=== PATIENT | female | born 1975 | race Caucasian/White ===

== ENCOUNTER 2017-09-06 17:41 | Emergency (ER) | payer BC ==
--- OUTSIDE RECORDS SUMMARY | 2017-09-06 17:43 | XMS REPORT | Clinical Summary ---
:1975 Author Organization [facility] Address [address] [place] [address] Care Team Providers Name Role Phone Velasquez Chacon Primary Care Provider Allergies Active Allergy Reactions Severity Noted Date Comments Amoxicillin Hives 11/08/2016 Codeine 09/05/2016 hives Propoxyphene Hives 11/08/2016 N-Acetaminophen Hydrocodone 09/05/2016 Hives Other 09/05/2016 All mycins Oxycodone 09/05/2016 Hives Penicillins 09/05/2016 Pt was told she was allergic Oxycodone-Acetaminophen GI Intolerance 11/08/2016 N/V Sulfa (Sulfonamide 09/05/2016 Pt was told when she Antibiotics) was a baby Tramadol 09/05/2016 Itching, nausea Acetaminophen-Codeine Hives 11/08/2016 Vancomycin 09/05/2016 Hives, red man syndrome Current Medications Prescription Sig. Disp. Refills Start Date End Date Status topiramate Take 100 mg by Active (TOPAMAX) 100 MG mouth 2 (two) tablet times a day. For breakthrough headaches eszopiclone Take 1 mg by Active (LUNESTA) 1 MG mouth nightly. tablet Take immediately before bedtime linaclotide Take 290 mcg by Active (LINZESS) 290 mcg mouth daily. Take capsule 20 minutes before each meal SUMAtriptan Take 50 mg by Active (IMITREX) 50 MG mouth once as tablet needed for migraine. May repeat in 2 hours if unresolved. Do not exceed 200 mg in 24 hours. metoprolol tartrate Take 25 mg by Active (LOPRESSOR) 25 mg mouth 2 (two) tablet times a day. potassium 99 mg Take 1 tablet by Active tablet mouth daily. aspirin (ECOTRIN) Take 81 mg by Active 81 MG enteric mouth daily. If coated tablet taken every day "nosebleeds" furosemide (LASIX) Take 10 mg by Active 20 mg tablet mouth as needed (pt takes when she is swollen). omeprazole Take 40 mg by Active (PriLOSEC) 40 MG mouth daily. capsule dextroamphetamine-a Take 20 mg by Active mphetamine mouth daily. (ADDERALL) 20 mg tablet dextroamphetamine-a Take 20 mg by 09/07/19 Discontinued mphetamine mouth 2 (two) 17 (ADDERALL) 20 mg times a day. tablet ondansetron ODT Take 1 tablet (4 5 tablet 0 11/12/2016 12/13/19 (ZOFRAN ODT) 4 MG mg total) by 17 disintegrating mouth every 8 tablet (eight) hours as needed for nausea or vomiting for up to 30 days. ibuprofen Take 1 tablet 30 tablet 0 11/12/2016 12/13/19 (ADVIL,MOTRIN) 800 (800 mg total) by 17 MG tablet mouth every 6 (six) hours as needed for mild pain for up to 30 days. levoFLOXacin Take 1 tablet 7 tablet 0 11/12/2016 11/20/19 (LEVAQUIN) 500 MG (500 mg total) by 17 tablet mouth daily for 7 days. metroNIDAZOLE Take 1 tablet 21 tablet 0 11/12/2016 11/20/19 (FLAGYL) 500 MG (500 mg total) by 17 tablet mouth 3 (three) times a day for 7 days. 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/12/2016 Chest pain at rest 09/05/2016 Encounters Date Type Specialty Care Team Description 11/12/2016 Hospital Encounter Orthopedic Surgery Chris Us Abscess of jaw 11/12/2016 Procedure Pass Orthopedic Surgery 11/12/2016 Surgery Orthopedic Surgery Chris Us, Excision of bone sequestration, biopsy of bone and mucosa mandible 11/08/2016 Anesthesia Event Orthopedic Surgery Matthew West, DERRICK 09/05/2016 - Emergency General Internal Lamar Rubi, Chest pain at rest 09/06/2016 Medicine MD (Primary Dx) Mikki Chavez, Ro Awan MD after 09/05/2016 Social History Tobacco Use Types Packs/Day Years Used Date Never Smoker Smokeless Tobacco: Never Used Alcohol Use Drinks/Week oz/Week Comments Yes Social - one drink/month Sex Assigned at Date Recorded Not on file Last Filed Vital Signs Vital Sign Reading Time Taken Blood Pressure 113/58 11/12/2016 2:19 PM CDT Pulse 91 11/12/2016 2:19 PM CDT Temperature 35.3 C (95.6 F) 11/12/2016 2:19 PM CDT Respiratory Rate 15 11/12/2016 2:19 PM CDT Oxygen Saturation 99% 11/12/2016 2:19 PM CDT Inhaled Oxygen Concentration - - Weight 70.1 kg (154 lb 8 oz) 11/12/2016 8:17 AM CDT Height 170.2 cm (5' 7") 11/12/2016 8:17 AM CDT Body Mass Index 24.2 11/12/2016 8:17 AM CDT Plan of Treatment Health Maintenance Due Date Last Done Comments PAP SMEAR 1994 INFLUENZA VACCINE 12/28/2017 Procedures Procedure Name Priority Date/Time Associated Diagnosis Comments OK AN ELECTIVE Routine 11/12/2016 10:27 AM ENDOTRACHEAL AIRWAY CDT Procedure Note - Desmond Jones, EXHAUSTER - 11/12/2016 10:26 AM CDT Airway Date/Time: 11/12/2016 10:26 AM Performed by: DESMOND JONES Authorized by: [facility] LEIV[facility] Location: OR Urgency: Elective Difficult Airway: No Preoxygenated with 100% O2: Yes C-spine Precautions Maintained Throughout: Yes Mask Ventilation: Easy mask Final Airway Type: Endotracheal airway Final Endotracheal Airway: ETT Cuffed: Yes Technique Used: Direct laryngoscopy Insertion Site: Oral Blade Type: Armstrong Laryngoscope Blade/Videolaryngoscope Blade Size: 2 ETT Size (mm): 7.0 Cuff at minimum occlusion pressure: Yes Measured from: Lips ETT to Lips (cm): 22 Placement Verified by: CO2 detection, direct visualization and equal breath sounds Laryngoscopic view: Grade I - full view of glottis Rapid Sequence Induction (RSI): No Modified RSI: No Number of Attempts at Approach: 1 Excision of bone 11/12/2016 9:45 AM Abscess of jaw sequestration, biopsy of CDT bone and mucosa mandible ECHOCARDIOGRAM 2D Routine 09/06/2016 9:34 AM Results for this COMPLETE W MMODE CDT procedure are in SPECTRAL COLOR DOPPLER the results (60321) section. after 09/05/2016 Results Surgical pathology request (11/12/2016 12:17 PM) Component Value Ref Range Surgical pathology report See link below for PDF Lab Report Specimen Performing Laboratory [facility] DEPARTMENT OF PATHOLOGY AND [address] [address] AFB culture (11/12/2016 10:29 AM) Component Value Ref Range AFB culture isolate No growth after 6 weeks of incubation. Comment: Specimen Information Specimen Source: Bone Specimen Site: [place], RTA Specimen Performing Laboratory Bone Mandible [facility] DEPARTMENT OF PATHOLOGY AND [address] [address] Aerobic culture (11/12/2016 10:29 AM) Component Value Ref Range Aerobic culture isolate Streptococcus mitis group Recovered in Broth only: susceptibility to follow The performance characteristics of this assay on this isolate were validated by the Microbiology Laboratory at [facility].This source has not been approved by the U.S. Food and Drug Administration.The results are not intended to be used as the sole means for clinical diagnosis or patient management.The Microbiology Laboratory is authorized under the clinical Laboratory Improvement Amendments of 1988 (CLIA-88) to perform high complexity testing. (A) Comment: Specimen Information Specimen Source: Bone Specimen Site: [place], RTA Specimen Performing Laboratory [facility] DEPARTMENT OF PATHOLOGY AND [address] [address] Organism Antibiotic Method Susceptibility Streptococcus mitis group Clindamycin NICKI >2 mcg/mL: Resistant Streptococcus mitis group Ceftriaxone NICKI <=0.0625 mcg/mL: Susceptible Streptococcus mitis group Cefotaxime NICKI <=0.0625 mcg/mL: Susceptible Streptococcus mitis group Penicillin G NICKI <=0.58465 mcg/mL: Susceptible Streptococcus mitis group Vancomycin NICKI 0.5 mcg/mL: Susceptible Fungus culture (11/12/2016 10:29 AM) Component Value Ref Range Fungus culture isolate No growth after 4 weeks of incubation. Comment: Specimen Information Specimen Source: Bone Specimen Site: [place], RTA Specimen Performing Laboratory Bone [place] [facility] DEPARTMENT OF PATHOLOGY AND [address] [address] Anaerobic culture (11/12/2016 10:29 AM) Component Value Ref Range Anaerobic culture isolate No anaerobic organisms isolated. Comment: Specimen Information Specimen Source: Bone Specimen Site: [place], RTA Specimen Performing Laboratory Bone [place] [facility] DEPARTMENT OF PATHOLOGY AND GENOMIC MEDICINE [address] [place] [address] Estimated GFR (11/08/2016 4:23 PM)Only the most recent of3 resultswithin the time period is included. Component Value Ref Range GFR Non Af Amer >90 mL/min/1.73 m2 GFR Af Amer >90 mL/min/1.73 m2 Comment: Chronic kidney disease: <60 mL/min/1.73m2 Kidney failure: <15 mL/min/1.73m2 The estimated GFR is calculated from the IDMS-traceable Modification of Diet in Renal Disease Equation. The accuracy of the calculation is poor when the creatinine is normal. Calculated values >90 mL/min/1.73m2 are not reported. This equation has not been validated in children (<18 years), women, the elderly (>70 years), or ethnic groups other than Caucasians and Americans. Specimen Performing Laboratory Plasma specimen [facility] DEPARTMENT OF PATHOLOGY AND GENOMIC MEDICINE [address] [place] [address] Sedimentation rate (11/08/2016 4:23 PM) Component Value Ref Range Sedimentation rate 6 0 - 20 mm/hr Specimen Performing Laboratory Blood [facility] DEPARTMENT OF PATHOLOGY AND GENOMIC MEDICINE [address] [place] [address] CBC hemogram (11/08/2016 4:23 PM) Component Value Ref Range WBC 6.04 4.50 - 11.00 k/uL RBC 4.74 4.20 - 5.50 m/uL HGB 13.8 12.0 - 16.0 g/dL HCT 41.9 37.0 - 47.0 % MCV 88.4 82.0 - 100.0 fL MCH 29.1 27.0 - 34.0 pg MCHC 32.9 31.0 - 37.0 g/dL RDW - SD 48.2 37.0 - 55.0 fL MPV 12.4 8.8 - 13.2 fL Platelet count 164 150 - 400 k/uL Nucleated RBC 0.00 /100 WBC Specimen Performing Laboratory Blood [facility] DEPARTMENT OF PATHOLOGY AND GENOMIC MEDICINE [address] [place] [address] C-reactive protein (11/08/2016 4:23 PM) Component Value Ref Range CRP <0.30 0.00 - 0.50 mg/dL Specimen Performing Laboratory Plasma specimen [facility] [place] [address] hCG qualitative, serum screen (11/08/2016 4:23 PM) Component Value Ref Range hCG qualitative, serum NegativeComment: Sensitivity of HCG test: 25 mIU/mL Specimen Performing Laboratory Blood [facility] [place] [address] Basic metabolic panel (11/08/2016 4:23 PM)Only the most recent of2 resultswithin the time period is included. Component Value Ref Range Sodium 141 135 - 148 mEq/L Potassium 3.6 3.5 - 5.0 mEq/L Chloride 106 98 - 112 mEq/L CO2 19 (L) 24 - 31 mEq/L Anion gap 16 (H) 7 - 15 mEq/L Comment: Starting from August , anion gap calculation no longer incorporates potassium. Please note the change. BUN 12 6 - 20 mg/dL Creatinine 0.6 0.5 - 0.9 mg/dL Glucose 75 65 - 99 mg/dL Calcium 8.9 8.3 - 10.2 mg/dL Specimen Performing Laboratory Plasma specimen [facility] [place] [address] POC glucose (09/06/2016 5:00 PM)Only the most recent of4 resultswithin the time period is included. Component Value Ref Range POC glucose 88 65 - 99 mg/dL Comment: [facility] Notified RN Meter ID: [id number] Subacute Nurse: Tati Mata Specimen Performing Laboratory [facility] [place] [address] Echocardiogram complete w contrast and 3D if needed (09/06/2016 9:34 AM) Specimen Performing Laboratory [facility] [address] [place] [address] Narrative Echocardiography Report [address] [place] [address] Pat.Name:Missy REYNOSO.ID:[id number] .Date: 09/06/2016 Refer.MD:RO DUMONT MD Exam Time: 8:48:00 AMStudy Type:Routine Echo Height:67inWeight:154lb BSA: 1.81 m2 DOBAge:1975,41Y Sex: FEMALEBP:108/56 HR:81 bpm Sonogrphr: Martha Parra, BEJNI, RVT Pat. Stat.:Inpatient Room:[facility] Study Status:Final Echo Event ID:[id number] Order ID:[id number] Reason for Study:Chest pain, Tachycardia History / Clinical:Diabetes, Pneumonia, Asthma Procedures:2D Echo, Colorflow Doppler Race:C SUMMARY: * Normal biventricular chamber size and systolic function * Mild aortic regurgitation * Normal intra-cardiac filling pressures FINDINGS: LV: LV size is normal. LV function is normal. Overall wall motionis normal. Estimated EF is 60-64%. RV: RV size is normal. RV function is normal. RV wall motion is normal. LA: LA size is normal. RA: RA size is normal. AO: Aortic root diameter is normal. ADELE: No pericardial effusion. AV: No structural AV abnormalities noted. Mild aortic regurgitation. MV: No structural MV abnormalities noted. PV: No structural PV abnormalities noted. TV: No structural TV abnormalities noted. A trace of tricuspid regurgitation Child: LV relaxation is impaired. LV filling pressure is normal. Other:Estimated PA systolic pressure is 22 mmHg, assuming a mean RAPof 5 mmHg. MEASUREMENTS: 2D Parasternal [place] LVOT 2 cmLVPWd0.9 cm LVIDd4.3 cmIndex 2.4 cm/m LA Ds3.1 cm LVIDs2.8 cmAo An2.2 cm LV%fs 34.7 % Ao Rtd 3.2 cm Index1.8 cm/m IVSd 1 cm LA Sng Plane LA Area 15.4 cm2(8.8-23.4) LA Vol38.5 ml Index21.3 ml/m LA LngAx 5 cm DOPPLER LVOT Stroke Vol LVOT 2 cmLVOT CO4.3 l/min LVOT TVI16.8 cmLVOT CI2.4 l/m/m2 LVOT Tm313 uyftAR88 bpm LVOT SV 52.7 ml Signed 09/06/2016 04:22 PM Lou Vaughan M.D. Procedure Note Interface, Radiology Results In - 09/06/2016 4:22 PM CDT Echocardiography Report [address] [place] [address] Pat.Name: BETH REYNOSO Pat.ID: [id number] .Date: 09/06/2016 Refer.MD: RO DUMONT MD Exam Time: 8:48:00 AM Study Type:Routine Echo Height: 67in Weight: 154lb BSA: 1.81 m2 Age: 7 1975,41Y Sex: FEMALE BP: 108/56 HR: 81 bpm Sonogrphr: Martha Parra RDCS, RVT Pat. Stat.:Inpatient Room: [facility] Study Status:Final Echo Event ID:[id number] Order ID: [id number] Reason for Study:Chest pain, Tachycardia History / Clinical:Diabetes, Pneumonia, Asthma Procedures:2D Echo, Colorflow Doppler Race: C SUMMARY: * Normal biventricular chamber size and systolic function * Mild aortic regurgitation * Normal intra-cardiac filling pressures FINDINGS: LV: LV size is normal. LV function is normal. Overall wall motion is normal. Estimated EF is 60-64%. RV: RV size is normal. RV function is normal. RV wall motion is normal. LA: LA size is normal. RA: RA size is normal. AO: Aortic root diameter is normal. ADELE: No pericardial effusion. AV: No structural AV abnormalities noted. Mild aortic regurgitation. MV: No structural MV abnormalities noted. PV: No structural PV abnormalities noted. TV: No structural TV abnormalities noted. A trace of tricuspid regurgitation Child: LV relaxation is impaired. LV filling pressure is normal. Other: Estimated PA systolic pressure is 22 mmHg, assuming a mean RAP of 5 mmHg. MEASUREMENTS: 2D Parasternal [place] LVOT 2 cm LVPWd 0.9 cm LVIDd 4.3 cm Index 2.4 cm/m LA Ds 3.1 cm LVIDs 2.8 cm Ao An 2.2 cm LV%fs 34.7 % Ao Rtd 3.2 cm Index 1.8 cm/m IVSd 1 cm LA Sng Plane LA Area 15.4 cm2 (8.8-23.4) LA Vol 38.5 ml Index 21.3 ml/m LA LngAx 5 cm DOPPLER LVOT Stroke Vol LVOT 2 cm LVOT CO 4.3 l/min LVOT TVI 16.8 cm LVOT CI 2.4 l/m/m2 LVOT Tm 313 msec HR 81 bpm LVOT SV 52.7 ml Signed 09/06/2016 04:22 PM Lou Vaughan M.D. Sodium level, urine, random (09/06/2016 9:10 AM) Component Value Ref Range Sodium, urine, random 78 mEq/L Specimen Performing Laboratory Urine [facility] DEPARTMENT OF PATHOLOGY AND GENOMIC MEDICINE [address] [place] [address] Potassium, urine, random (09/06/2016 9:10 AM) Component Value Ref Range Potassium, urine, random 71.7 mEq/L Specimen Performing Laboratory Urine [facility] DEPARTMENT OF PATHOLOGY AND GENOMIC MEDICINE [address] [place] [address] Creatinine level, urine, random (09/06/2016 9:10 AM) Component Value Ref Range Creatinine, urine, random 102 mg/dL Specimen Performing Laboratory Urine [facility] DEPARTMENT OF PATHOLOGY AND GENOMIC MEDICINE [address] [place] [address] coronary cta (09/06/2016 8:46 AM) Specimen Performing Laboratory [facility] [address] [place] [address] [place] [address] CTA Coronary Arteries Report Pat.Name:Missy REYNOSO.ID:[id number] .Date: 09/06/2016 Refer.MD:MIKKI CHAVEZ DO Exam Time: 8:30:00 AMStudy Type:CTA Coronary Arteries Height:67inWeight:154lb BSA: 1.81 m2 DOBAge:1975,41Y Sex: FEMALEHR: 74 bpm Nuclear Tech:JAQUELINE Hector(N)(CT) CPT - 4: CCTA w Thoracic Aorta (NonCongenital) [id number] Nuclear Event ID:[id number] Order ID:[id number] Reason for Study:CAD, unspecified* Procedures:CTA Coronary Arteries Race:C SUMMARY: Technique: IV contrast was administered and sequential 0.[address] cuts were obtained through the chest using [facility] CT scanner. Post-processing and 3D reconstruction were done using the XMPie workstation. Interactive image viewing and volumetric display and analysis were also performed. CTA RESULTS Left Main: A normal sized2.9 mm artery which arises normally from the left sinus of Valsalva and divides into the left anterior descending, circumflex, and ramus coronary arteries. No significant atherosclerotic plaque is present. Left anterior descending (LAD): A normal sized 2.5mm artery which wraps around the apex and gives off one diagonal branch. No significant atherosclerotic plaque is present. The first diagonal is a 2.1 mm artery which has no significant atherosclerotic plaque. Left circumflex: A normal sized 2.1 mm non-dominant artery which gives off two major obtuse marginal arteries before terminating in the AV groove. No significant atherosclerotic plaque is present. The first obtuse marginal is a 1.4 mm artery which has no significant atherosclerotic plaque. The second obtuse marginal is a 1.7 mm artery which has no significant atherosclerotic plaque. Right coronary artery: A normal sized 3.1 mm dominant artery which arises normally from the right sinus of Valsalva and gives off several right ventricular branches and the posterior descending artery.No significant atherosclerotic plaque is present. The posterior descending is a 1.5 mm artery which has no significant atherosclerotic plaque. The posterolateral branch is a 2.0 mm artery which has no significant atherosclerotic plaque. Ramus: A 1.9 mm artery which has no significant atherosclerotic plaque. Stents: None. Bypass Grafts: None. Pulmonary Arteries: Normal pulmonary artery sizes (23mm) with no proximal thrombus identified. Left Atrial and Pulmonary Vein(PV) Dimensions: Left atrial size (A-P diameter) 3.0 cm. Normal PV anatomy Left superior PV19 mm. Left inferior PV16 mm. Right superior PV15 mm. Right inferior PV14 mm. There is no evidence of the left atrial appendage clot. Left Ventricular Valve Morphology/Function: Aortic valve is tri-leaflet and there is no evidence of stenosis or regurgitation. Mitral valve is normal without significant regurgitation. Thoracic Aortic Dimensions: No aortic aneurysm or dissection is seen. Aortic root: 3.3 cm. Sinotubular junction 2.6 cm. Mid ascending thoracic aorta 3.2 cm. Descending thoracic aorta 2.0 cm. Pericardium: No pericardial effusion or pericardial thickening. Non-Cardiac Findings: Limited views available show no significant abnormalities. CONCLUSION CT coronary angiography shows no significant coronary atherosclerosis or coronary artery stenosis. Normal PV anatomy. There is no evidence of left atrial appendage thrombus. STUDY QUALITY The study quality is good. COMMENTS: None. The above report was based on a dedicated Cardiovascular CTA Protocol and interpreted by a Crematory Attendant.Should a more comprehensive assessment of non-cardiovascular findings be desired, please consult a radiologist.These images are available in the [facility] [employer] PACS system. Signed 09/06/2016 03:49 PM Ke Mireles MD Procedure Note Interface, Radiology Results In - 09/06/2016 3:50 PM CDT Nuclear Cardiology and Cardiac CT [address] [place] [address] CTA Coronary Arteries Report Pat.Name: BETH REYNOSO Pat.ID: [id number] .Date: 09/06/2016 Refer.MD: MIKKI CHAVEZ DO Exam Time: 8:30:00 AM Study Type:CTA Coronary Arteries Height: 67in Weight: 154lb BSA: 1.81 m2 Age: 7 1975,41Y Sex: FEMALE HR: 74 bpm Nuclear Tech:JAQUELINE Hector(N)(CT) CPT - 4: CCTA w Thoracic Aorta (NonCongenital) [id number];[id number] Nuclear Event ID:[id number] Order ID: [id number] Reason for Study:CAD, unspecified* Procedures:CTA Coronary Arteries Race: C SUMMARY: Technique: IV contrast was administered and sequential 0.[address] cuts were obtained through the chest using the Siem[employer] Som[employer] Force CT scanner. Post-processing and 3D reconstruction were done using the XMPie workstation. Interactive image viewing and volumetric display and analysis were also performed. CTA RESULTS Left Main: A normal sized 2.9 mm artery which arises normally from the left sinus of Valsalva and divides into the left anterior descending, circumflex, and ramus coronary arteries. No significant atherosclerotic plaque is present. Left anterior descending (LAD): A normal sized 2.5mm artery which wraps around the apex and gives off one diagonal branch. No significant atherosclerotic plaque is present. The first diagonal is a 2.1 mm artery which has no significant atherosclerotic plaque. Left circumflex: A normal sized 2.1 mm non-dominant artery which gives off two major obtuse marginal arteries before terminating in the AV groove. No significant atherosclerotic plaque is present. The first obtuse marginal is a 1.4 mm artery which has no significant atherosclerotic plaque. The second obtuse marginal is a 1.7 mm artery which has no significant atherosclerotic plaque. Right coronary artery: A normal sized 3.1 mm dominant artery which arises normally from the right sinus of Valsalva and gives off several right ventricular branches and the posterior descending artery. No significant atherosclerotic plaque is present. The posterior descending is a 1.5 mm artery which has no significant atherosclerotic plaque. The posterolateral branch is a 2.0 mm artery which has no significant atherosclerotic plaque. Ramus: A 1.9 mm artery which has no significant atherosclerotic plaque. Stents: None. Bypass Grafts: None. Pulmonary Arteries: Normal pulmonary artery sizes (23mm) with no proximal thrombus identified. Left Atrial and Pulmonary Vein (PV) Dimensions: Left atrial size (A-P diameter) 3.0 cm. Normal PV anatomy Left superior PV19 mm. Left inferior PV16 mm. Right superior PV15 mm. Right inferior PV14 mm. There is no evidence of the left atrial appendage clot. Left Ventricular Valve Morphology/Function: Aortic valve is tri-leaflet and there is no evidence of stenosis or regurgitation. Mitral valve is normal without significant regurgitation. Thoracic Aortic Dimensions: No aortic aneurysm or dissection is seen. Aortic root: 3.3 cm. Sinotubular junction 2.6 cm. Mid ascending thoracic aorta 3.2 cm. Descending thoracic aorta 2.0 cm. Pericardium: No pericardial effusion or pericardial thickening. Non-Cardiac Findings: Limited views available show no significant abnormalities. CONCLUSION CT coronary angiography shows no significant coronary atherosclerosis or coronary artery stenosis. Normal PV anatomy. There is no evidence of left atrial appendage thrombus. STUDY QUALITY The study quality is good. COMMENTS: None. The above report was based on a dedicated Cardiovascular CTA Protocol and interpreted by a Crematory Attendant. Should a more comprehensive assessment of non-cardiovascular findings be desired, please consult a radiologist. These images are available in the [facility] [employer] PACS system. Signed 09/06/2016 03:49 PM Ke Mireles MD CBC with platelet and differential (09/06/2016 5:40 AM)Only the most recent of2 resultswithin the time period is included. Component Value Ref Range WBC 5.54 4.50 - 11.00 k/uL RBC 4.38 4.20 - 5.50 m/uL HGB 12.7 12.0 - 16.0 g/dL HCT 38.4 37.0 - 47.0 % MCV 87.7 82.0 - 100.0 fL MCH 29.0 27.0 - 34.0 pg MCHC 33.1 31.0 - 37.0 g/dL RDW - SD 44.2 37.0 - 55.0 fL MPV 11.9 8.8 - 13.2 fL Platelet count 182 150 - 400 k/uL Nucleated RBC 0.00 /100 WBC Neutrophils 58.8 39.0 - 69.0 % Lymphocytes 31.8 25.0 - 45.0 % Monocytes 6.9 0.0 - 10.0 % Eosinophils 1.1 0.0 - 5.0 % Basophils 0.7 0.0 - 1.0 % Immature granulocytes 0.7Comment: "Immature granulocytes" 0.0 - 1.0 % (promyelocytes, myelocytes, metamyelocytes) Specimen Performing Laboratory Blood [facility] DEPARTMENT OF PATHOLOGY AND [facility] MEDICINE [address] [place] [address] ECG 12 lead (09/06/2016 5:26 AM)Only the most recent of2 resultswithin the time period is included. Component Value Ref Range Ventricular rate 86 Atrial rate 86 OK interval 154 QRSD interval 80 QT interval 382 QTC interval 457 P axis 1 60 QRS axis 1 20 T wave axis 46 EKG impression Normal sinus rhythm-Normal ECG-In automated comparison with ECG of 05-SEP-2016 13:59,-No significant change was found- Specimen Performing Laboratory [facility] [address] [place] [address] Troponin (09/06/2016 4:00 AM)Only the most recent of3 resultswithin the time period is included. Component Value Ref Range Troponin <0.30 0.00 - 0.30 ng/mL Comment: 0.30 - 1.49 ng/mlMay indicate increased risk of acute coronary syndrome. >=1.5 ng/mlConsistent with acute myocardial infarction. The diagnostic value of a single normal or non-diagnostic result is questionable.Serial samples at 2-6 hour intervals are required to rule out acute myocardial injury. Specimen Performing Laboratory Plasma specimen [facility] OF PATHOLOGY AND [address] [address] Thyroid stimulating hormone (09/06/2016 4:00 AM) Component Value Ref Range TSH 0.63 0.27 - 4.20 uIU/mL Specimen Performing Laboratory Plasma specimen [facility] DEPARTMENT OF PATHOLOGY AND [address] [address] T4, free (09/06/2016 4:00 AM) Component Value Ref Range T4, free 1.2 0.9 - 1.7 ng/dL Specimen Performing Laboratory Plasma specimen [facility] DEPART[facility] PATHOLOGY [address] [address] Magnesium level (09/06/2016 4:00 AM) Component Value Ref Range Magnesium 2.2 1.6 - 2.6 mg/dL Specimen Performing Laboratory Plasma specimen [facility] DEPART[facility] PATHOLOGY [address] [address] hCG qualitative, urine screen (09/05/2016 10:38 PM) Component Value Ref Range hCG qualitative, urine NegativeComment: Sensitivity of HCG test: 25 mIU/mL Specimen Performing Laboratory Urine [facility] PATHOLOGY [address] [address] Hemoglobin A1c (09/05/2016 9:19 PM) Component Value Ref Range Hemoglobin A1C 5.0 4.0 - 5.6 % Comment: HbA1c cutoffs for diagnosing diabetes: 4.0% - 5.6%=normal 5.7% - 6.4%=increased risk for diabetes (prediabetes) >=6.5%=diabetes Goals for glycemic control (ADA 2016) < 7.0%Target for non adults with diabetes. More or less stringent targets may be appropriate for individual patients. <7.5% Target for Children and adolescents with type 1 diabetes. Specimen Performing Laboratory Blood [facility] PATHOLOGY [facility] MEDICINE [address] [place] [address] Lipid panel (09/05/2016 9:19 PM) Component Value Ref Range Cholesterol 140 <200 mg/dL Triglycerides 79 <150 mg/dL HDL cholesterol 37 (L) >40 mg/dL LDL cholesterol 90Comment: Result obtained by direct LDL <100 mg/dL measurement Lipid panel interpretation SeeBelow Comment: Total Cholesterol (mg/dL) <200 Desirable [id number]-sokj >=240High Triglycerides (mg/dL) <150 Normal [id number]-sdid 200-499High >=500Very high HDL Cholesterol (mg/dL) <40Low (male) <40Low (female) LDL Cholesterol (mg/dL) <100 Optimal 100-129Near or above optimal [id number]-ozep 160-189High >=190Very high Risk Catergories that modify LDL goals. Risk CatergoriesLDL goal (mg/dL) CHD and CHD risk equivalent<100 (10-year risk >20%) Multiple (2+) risk factors <130 (10-year risk=<20%) 0-1 risk factors <160 (<10-year risk) Defining levels of lipids in metabolic syndrome Triglycerides>=150 mg/dL HDL Cholesterol Men<40 mg/dL Women<40 mg/dL Non-HDL cholesterol is a second target for therapy in persons with high triglycerides (>=200 mg/dL) Specimen Performing Laboratory Plasma specimen [facility] DEPARTMENT OF PATHOLOGY AND GENOMIC MEDICINE [address] [place] [address] ECG ED Preliminary Interpretation - NOT AN ORDER (09/05/2016 5:52 PM) Ale Rubi MD 09/05/20165:52 PM ECG ED Preliminary Interpretation - Not an Order Performed by: LAMAR RUBI Authorized by: LAMAR RUBI ECG reviewed by ED Physician in the absence of a motor vehicle clerk: yes Previous ECG: Previous ECG:Unavailable Interpretation: Interpretation: abnormal Rate: ECG rate:102 ECG rate assessment: tachycardic Rhythm: Rhythm: sinus tachycardia QRS: QRS axis:Normal ST segments: ST segments:Normal T waves: T waves: normal Partial thromboplastin time, activated (09/05/2016 3:34 PM) Component Value Ref Range PTT 31.4 23.0 - 36.0 sec Comment: PTT therapeutic range for unfractionated heparin is 61.0-112.0 seconds which corresponds to Anti-Xa 0.3-0.7 U/ml. Specimen Performing Laboratory Blood [facility] DEPARTMENT OF PATHOLOGY AND GENOMIC MEDICINE [address] [place] [address] Prothrombin time with INR (09/05/2016 3:34 PM) Component Value Ref Range Prothrombin time 13.6 12.0 - 15.0 sec INR 1.0 Comment: The International Normalized Ratio (INR) is a therapeutic monitoring tool for patients who are stable on oral anticoagulant therapy. An INR of 2.0-3.0 is suggested for deep vein thrombosis/pulmonary embolism. Specimen Performing Laboratory Blood [facility] DEPARTMENT OF PATHOLOGY AND [address] [address] B natriuretic peptide (09/05/2016 3:34 PM) Component Value Ref Range BNP 6 0 - 100 pg/mL Specimen Performing Laboratory Blood [facility] OF PATHOLOGY AND [address] [address] Lipase level (09/05/2016 3:34 PM) Component Value Ref Range Lipase 31 13 - 60 U/L Specimen Performing Laboratory Plasma specimen [facility] PATHOLOGY AND [address] [address] Comprehensive metabolic panel (09/05/2016 3:34 PM) Component Value Ref Range Sodium 143 135 - 148 mEq/L Potassium 3.3 (L) 3.5 - 5.0 mEq/L Chloride 107 98 - 112 mEq/L CO2 22 (L) 24 - 31 mEq/L Anion gap 14 7 - 15 mEq/L Comment: Starting from August , anion gap calculation no longer incorporates potassium. Please note the change. BUN 8 6 - 20 mg/dL Creatinine 0.6 0.5 - 0.9 mg/dL Glucose 84 65 - 99 mg/dL Calcium 8.9 8.3 - 10.2 mg/dL Protein 7.0 6.3 - 8.3 g/dL Comment: 4.6-7.0 g/dL 1 week 4.4-7.6 g/dL 7 months-1year5.1-7.3 g/dL 1-2 years5.6-7.5 g/dL >3 years6.0-8.0 g/dL 18-150 6.3-8.3 g/dL Albumin 3.9 3.5 - 5.0 g/dL A/G ratio 1.3 0.7 - 3.8 Alkaline phosphatase 56 35 - 104 U/L AST 18 10 - 35 U/L ALT 18 5 - 50 U/L Total bilirubin 0.3 0.0 - 1.2 mg/dL Specimen Performing Laboratory Plasma specimen [facility] DEPARTMENT OF PATHOLOGY AND [address] [address] XR Chest 2 Vw (09/05/2016 3:22 PM) Specimen Performing Laboratory [facility] [address] [place] [address] Narrative EXAMINATION:XR CHEST 2 VW CLINICAL HISTORY:Chest Pain COMPARISON:There are no prior comparable exams.. Findings: The cardiomediastinal silhouette is normal in size and contour. The lungs are clear bilaterally. No pleural effusion or pneumothorax. Prior cholecystectomy.. IMPRESSION: No evidence for acute cardiopulmonary disease. [id number] Procedure Note Interface, Radiology Results Incoming - 09/05/2016 3:28 PM CDT EXAMINATION: XR CHEST 2 VW CLINICAL HISTORY: Chest Pain COMPARISON: There are no prior comparable exams.. Findings: The cardiomediastinal silhouette is normal in size and contour. The lungs are clear bilaterally. No pleural effusion or pneumothorax. Prior cholecystectomy.. IMPRESSION: No evidence for acute cardiopulmonary disease. [id number] after 09/05/2016 Insurance Payer Benefit Plan / Group Subscriber ID Type Phone Address [facility] CHOICE/CHOICE + xxxxxxxxx HMO/PPO [phone] [place], [place] [address]
[2017-09-06] MEDS ORDERED: IBUPROFEN 400 MG TAB ONE (18:18)
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
--- NOTE | 2017-09-06 20:18 | RAD REPORT ---
EXAM DESCRIPTION: RAD - Chest Single View - 09/06/2017 8:13 pm CLINICAL HISTORY: Chest pain. COMPARISON: 02/07/2017 FINDINGS: Portable technique limits examination quality. The lungs are grossly clear. The heart is normal in size. No displaced fractures. IMPRESSION: No acute intrathoracic process suspected.
== END 2017-09-06 20:38 | disposition home or self-care (01) ==
LOC: ER 17:41
DX: S20.212A Contusion of left front wall of thorax, initial encounter (principal); V49.9XXA Car occupant (driver) (passenger) injured in unspecified traffic accident, initial encounter; E11.9 Type 2 diabetes mellitus without complications; M47.892 Other spondylosis, cervical region; G43.909 Migraine, unspecified, not intractable, without status migrainosus; Z88.6 Allergy status to analgesic agent; Z88.0 Allergy status to penicillin; Z88.2 Allergy status to sulfonamides
CPT/HCPCS: 71045; 72040; 99284

== ENCOUNTER 2018-09-16 12:19 | Emergency (ER) | payer BC ==
--- OUTSIDE RECORDS SUMMARY | 2018-09-16 12:21 | XMS REPORT | Clinical Summary ---
:1975 Author Organization [employer] Address [address] [place] [address] Care Team Providers Name Role Phone Velasquez [...] 11/08/2016 Vancomycin 09/05/2016 Hives, red man syndrome Medications Medication Sig Dispensed Refills Start Date End Date Status topiramate (TOPAMAX) Take 100 mg by mouth 0 Active 100 MG tablet 2 (two) times a day. For breakthrough headaches eszopiclone Take 1 mg by mouth 0 Active (LUNESTA) 1 MG nightly. Take tablet immediately before bedtime linaclotide Take 290 mcg by 0 Active (LINZESS) 290 mcg mouth daily. Take 20 capsule minutes before each meal SUMAtriptan Take 50 mg by mouth 0 Active (IMITREX) 50 MG once as needed for tablet migraine. May repeat in 2 hours if unresolved. Do not exceed 200 mg in 24 hours. metoprolol tartrate Take 25 mg by mouth 0 Active (LOPRESSOR) 25 mg 2 (two) times a day. tablet potassium 99 mg Take 1 tablet by 0 Active tablet mouth daily. aspirin (ECOTRIN) 81 Take 81 mg by mouth 0 Active MG enteric coated daily. If taken tablet every day "nosebleeds" furosemide (LASIX) Take 10 mg by mouth 0 Active 20 mg tablet as needed (pt takes when she is swollen). omeprazole Take 40 mg by mouth 0 Active (PriLOSEC) 40 MG daily. capsule dextroamphetamine-am Take 20 mg by mouth 0 Active phetamine (ADDERALL) daily. 20 mg tablet 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/12/2016 Chest pain at rest 09/05/2016 Social History Tobacco Use Types Packs/Day Years Used Date Never Smoker Smokeless Tobacco: Never Used Alcohol Use Drinks/Week oz/Week Comments Yes Social - one drink/month Sex Assigned at Date Recorded Not on file Job Start Date Occupation Industry Not on file Not on file Not on file Travel History Travel Start Travel End No recent travel history available. Last Filed Vital Signs Not on file Plan of Treatment Health Maintenance Due Date Last Done Comments CERVICAL CANCER SCREENING 1994 INFLUENZA VACCINE 12/28/2018 Results Not on fileafter 09/15/2017 Insurance Payer Benefit Plan / Group Subscriber ID Type Phone Address [facility] CHOICE/CHOICE + xxxxxxxxx HMO/PPO (Home) [place] [address] Advance Directives Patient has advance care planning documents on file. For more information, please contact:[place] [address]
--- OUTSIDE RECORDS SUMMARY | 2018-09-16 12:21 | XMS REPORT ---
:1975 Author Organization eClinicalWorks Care Team Providers Name Role Phone ChaconKarenh Provider Role Unavailable Allergies No Known Allergies Problems Problem Type Condition Code Onset Dates Condition Status Problem Attention deficit disorder F90.9 Active Problem Insomnia G47.00 Active Problem Tachycardia R00.0 Active Problem Migraine G43.909 Active Problem Constipation K59.00 Active Problem History of endometrial ablation Z98.890 Active Problem History of cerebrovascular accident Z86.73 Active Problem Vagina bleeding N93.9 Active Problem Benign essential HTN I10 Active Problem Edema R60.9 Active Problem Allergic rhinitis J30.9 Active Problem Asthma J45.909 Active Medications No Known Medications Results No Known Results Summary Purpose eClinicalWorks Submission
--- OUTSIDE RECORDS SUMMARY | 2018-09-16 12:22 | XMS REPORT ---
:1975 Author Organization eClinicalWorks Care Team Providers Name Role Phone Aline Silva Provider Role Unavailable Allergies No Known Allergies Problems Problem Type Condition Code Onset Dates Condition Status Problem Tachycardia R00.0 Active Problem Edema R60.9 Active Problem Insomnia G47.00 Active Problem Vagina bleeding N93.9 Active Problem History of endometrial ablation Z98.890 Active Problem H/O methicillin resistant Z86.14 Active Staphylococcus aureus Problem Asthma J45.909 Active Problem Benign essential HTN I10 Active Problem History of cerebrovascular accident Z86.73 Active Problem Allergic rhinitis J30.9 Active Problem Migraine G43.909 Active Problem Constipation K59.00 Active Problem Attention deficit disorder F90.9 Active Medications No Known Medications Results No Known Results Summary Purpose eClinicalWorks Submission
--- OUTSIDE RECORDS SUMMARY | 2018-09-16 12:22 | XMS REPORT ---
:1975 Author Organization eClinicalWorks Care Team Providers Name Role Phone Karen Chaconh Provider Role Unavailable Allergies No Known Allergies Problems Problem Type Condition Code Onset Dates Condition Status Problem Attention deficit disorder F90.9 Active Problem Insomnia G47.00 Active Problem Tachycardia R00.0 Active Problem History of endometrial ablation Z98.890 Active Problem History of cerebrovascular accident Z86.73 Active Problem Vagina bleeding N93.9 Active Problem Benign essential HTN I10 Active Problem Edema R60.9 Active Problem Allergic rhinitis J30.9 Active Problem Asthma J45.909 Active Assessment Allergic rhinitis J30.9 Active Assessment Constipation K59.00 Active Assessment Tachycardia R00.0 Active Assessment Insomnia G47.00 Active Assessment Attention deficit disorder F90.9 Active Assessment Migraine G43.909 Active Problem Migraine G43.909 Active Assessment Benign essential HTN I10 Active Problem Constipation K59.00 Active Medications Medication Code Code Instructions Start End Status Dosage System Date Date Topiramate [facility] 13826461930 100 MG Orally Active 1 tablet in Twice a day AM and 2 tabls in PM EpiPen 2-Lam [facility] [address]-85 0.3 MG/0.3ML Active not defined Injection Magnesium [facility] 12355620992 200 MG Orally Active 2 tablets Once a day with a meal Metoprolol [facility] 33179399232 25 MG Orally Inactive 1 tablet Tartrate Twice a day with food Omeprazole [facility] 72168881743 20 MG Orally Active 1 capsule Once a day ProAir HFA [facility] 41853394882 108 (90 Base) Active 2 puffs as MCG/ACT needed Inhalation every 6 hrs Belsomra [facility] 27395493508 15 MG Orally Active 1 tablet at Once a day bedtime as needed Furosemide ND 28011311873 20 MG Active TAKE 1 TABLET BY MOUTH EVERY DAY NEEDED FOR FLUID RETENTION Propranolol ND 46839401952 20 MG Orally Janee Active 1 tablet HCl Twice a day 2017 Linzess [facility] 33942794528 290 MCG Orally Active 1 capsule Once a day Klor-Con/EF [facility] 74853437185 25 MEQ Orally Active 1 tablet Twice a day with meals Aspir-81 [facility] 62417913002 81 MG Orally Active 1 tablet Once a day Adderall [facility] 22835694211 20 MG Orally Active 1 tablet in Twice a day the morning Multi Vitamin [facility] 94438625968 - Orally Once a Active 1 tablet day Sumatriptan [facility] 92431892166 4 MG/0.5ML Active 0.5 ml as Succinate Subcutaneous needed Twice a day Loratadine [facility] 82897092091 10 MG Orally Active 1 tablet Once a day Results No Known Results Summary Purpose eClinicalWorks Submission
--- OUTSIDE RECORDS SUMMARY | 2018-09-16 12:22 | XMS REPORT ---
:1975 Author Organization eClinicalWorks Care Team Providers Name Role Phone Aline Silva Provider Role Unavailable Allergies, Adverse Reactions, Alerts Substance Reaction Event Type penicillin Info Not Available Drug Allergy vancomycin Info Not Available Drug Allergy codeine Info Not Available Drug Allergy Sulfa Info Not Available Drug Allergy Vicodin Info Not Available Drug Allergy Percocet Info Not Available Drug Allergy Hydrochlorothiazide Info Not Available Drug Allergy Bactrim Info Not Available Drug Allergy Acetaminophen Info Not Available Drug Allergy Problems Problem Type Condition Code Onset Dates Condition Status Problem Insomnia G47.00 Active Problem Benign essential HTN I10 Active Problem Edema R60.9 Active Problem H/O methicillin resistant Z86.14 Active Staphylococcus aureus Problem Vagina bleeding N93.9 Active Problem Gluteal abscess L02.31 Active Problem Allergic rhinitis J30.9 Active Problem Asthma J45.909 Active Problem History of endometrial ablation Z98.890 Active Problem History of cerebrovascular accident Z86.73 Active Problem Migraine G43.909 Active Problem Constipation K59.00 Active Problem Attention deficit disorder F90.9 Active Assessment Gluteal abscess L02.31 Active Problem Tachycardia R00.0 Active Medications Medication Code Code Instructions Start End Status Dosage System Date Date EpiPen 2-Lam [facility] [address]-46 0.3 MG/0.3ML Active not defined Injection Klor-Con/EF [facility] 71426788868 25 MEQ Orally Active 1 tablet with Twice a day meals Topiramate [facility] 28392742504 100 MG Orally Active 1 tablet in Twice a day AM and 2 tabls in PM Propranolol ND 52015821317 20 MG Orally Janee Active 1 tablet HCl Twice a day 2017 Sumatriptan [facility] 65865394815 4 MG/0.5ML Active 0.5 ml as Succinate Subcutaneous needed Twice a day Omeprazole ND 44958789089 20 MG Orally Active 1 capsule Once a day Linzess [facility] 97075513376 290 MCG Orally Active 1 capsule Once a day Loratadine [facility] 60523292152 10 MG Orally Active 1 tablet Once a day Furosemide ND 48714616258 20 MG Active TAKE 1 TABLET BY MOUTH EVERY DAY NEEDED FOR FLUID RETENTION Aspir-81 [facility] 36221452231 81 MG Orally Active 1 tablet Once a day Adderall [facility] 95835428959 20 MG Orally Active 1 tablet in Twice a day the morning Belsomra [facility] 51174987880 15 MG Orally Active 1 tablet at Once a day bedtime as needed Magnesium [facility] 30304577487 200 MG Orally Active 2 tablets Once a day with a meal ProAir HFA [facility] 10297344361 108 (90 Base) Active 2 puffs as MCG/ACT needed Inhalation every 6 hrs Multi Vitamin [facility] 98921096464 - Orally Once a Active 1 tablet day Bactroban [facility] 67031432392 2 % Nasally August Active 1 application Nasal Twice a day 2017 Results No Known Results Summary Purpose eClinicalWorks Submission
--- OUTSIDE RECORDS SUMMARY | 2018-09-16 12:22 | XMS REPORT ---
:1975 Author Organization eClinicalWorks Care Team Providers Name Role Phone Velasquez Chacon Provider Role Unavailable Allergies No Known Allergies Problems Problem Type Condition Code Onset Dates Condition Status Problem Insomnia G47.00 Active Problem Benign essential HTN I10 Active Problem Edema R60.9 Active Problem H/O methicillin resistant Z86.14 Active Staphylococcus aureus Assessment Allergic rhinitis J30.9 Active Problem Vagina bleeding N93.9 Active Problem Gluteal abscess L02.31 Active Problem Allergic rhinitis J30.9 Active Problem Asthma J45.909 Active Problem History of endometrial ablation Z98.890 Active Problem History of cerebrovascular accident Z86.73 Active Assessment Benign essential HTN I10 Active Assessment Insomnia G47.00 Active Assessment Constipation K59.00 Active Assessment Migraine G43.909 Active Problem Migraine G43.909 Active Problem Constipation K59.00 Active Assessment Attention deficit disorder F90.9 Active Problem Attention deficit disorder F90.9 Active Problem Tachycardia R00.0 Active Medications Medication Code Code Instructions Start End Status Dosage System Date Date ProAir HFA [facility] 11928151408 108 (90 Base) Active 2 puffs as MCG/ACT needed Inhalation every 6 hrs Propranolol ND 31087668755 20 MG Orally Active 1 tablet HCl Twice a day Sumatriptan ND 88852694435 4 MG/0.5ML Active 0.5 ml as Succinate Subcutaneous needed Twice a day Omeprazole ND 96563208042 20 MG Orally Active 1 capsule Once a day Multi Vitamin ND 21907977456 - Orally Once a Active 1 tablet day Belsomra [facility] 92225662921 15 MG Orally Active 1 tablet at Once a day bedtime as needed Magnesium ND 61823823324 200 MG Orally Active 2 tablets Once a day with a meal Linzess [facility] 21574898573 290 MCG Orally Active 1 capsule Once a day Topiramate ND 52495166023 100 MG Orally Active 1 tablet in Twice a day AM and 2 tabls in PM Loratadine [facility] 31250160728 10 MG Orally Active 1 tablet Once a day Adderall [facility] 05015231798 20 MG Orally Active 1 tablet in Twice a day the morning -81 [facility] 55315323860 81 MG Orally Active 1 tablet Once a day EpiPen 2-Lam [facility] [address]-19 0.3 MG/0.3ML Active not defined Injection Furosemide [facility] 71668640399 20 MG Active TAKE 1 TABLET BY MOUTH EVERY DAY NEEDED FOR FLUID RETENTION Results No Known Results Summary Purpose eClinicalWorks Submission
--- OUTSIDE RECORDS SUMMARY | 2018-09-16 12:22 | XMS REPORT ---
[...] Start End Status Dosage System Date Date Adderall [facility] 04878865770 20 MG Orally Active 1 tablet in Twice a day the morning Loratadine [facility] 18590077751 10 MG Orally Active 1 tablet Once a day Belsomra [facility] 55099863600 15 MG Orally Active 1 tablet at Once a day bedtime as needed Aspir-81 [facility] 63452333497 81 MG Orally Active 1 tablet Once a day Propranolol ND 11681882529 20 MG Orally August Active 1 tablet HCl Twice a day 2017 Magnesium [facility] 01403768643 200 MG Orally Active 2 tablets Once a day with a meal Clindamycin [facility] 80219945579 300 MG Orally August Active 1 capsule HCl every 8 hrs 2017 Bactroban [facility] 61048386982 2 % Nasally August Active 1 application Nasal Twice a day 26, 10, 2018 2018 Multi Vitamin [facility] 98981277002 - Orally Once a Active 1 tablet day ProAir HFA [facility] 77725730997 108 (90 Base) Active 2 puffs as MCG/ACT needed Inhalation every 6 hrs Topiramate [facility] 53832123300 100 MG Orally Active 1 tablet in Twice a day AM and 2 tabls in PM Sumatriptan [facility] 67905297062 4 MG/0.5ML Active 0.5 ml as Succinate Subcutaneous needed Twice a day Klor-Con/EF [facility] 69703248075 25 MEQ Orally Active 1 tablet with Twice a day meals Furosemide [facility] 46775443656 20 MG Active TAKE 1 TABLET BY MOUTH EVERY DAY NEEDED FOR FLUID RETENTION Omeprazole ND 03882758346 20 MG Orally Active 1 capsule Once a day Linzess [facility] 97125997156 290 MCG Orally Active 1 capsule Once a day EpiPen 2-Lam [facility] [address]-16 0.3 MG/0.3ML Active not defined Injection Results No Known Results Summary Purpose eClinicalWorks Submission
--- OUTSIDE RECORDS SUMMARY | 2018-09-16 12:22 | XMS REPORT ---
:1975 Author Organization eClinicalWorks Care Team Providers Name Role Phone Velasquez Chacon Provider Role Unavailable Allergies, Adverse Reactions, Alerts Substance Reaction Event Type Vicodin Info Not Available Drug Allergy Percocet [...] Start End Status Dosage System Date Date Furosemide [facility] 40370987647 20 MG Active TAKE 1 TABLET BY MOUTH EVERY DAY NEEDED FOR FLUID RETENTION Adderall [facility] 67187696151 20 MG Orally Active 1 tablet in Twice a day the morning Belsomra [facility] 99996638844 15 MG Orally Active 1 tablet at Once a day bedtime as needed EpiPen 2-Lam [facility] [address]-63 0.3 MG/0.3ML Active not defined Injection Aspir-81 [facility] 13931381766 81 MG Orally Active 1 tablet Once a day Multi Vitamin [facility] 40278755753 - Orally Once a Active 1 tablet day Omeprazole ND 14865059355 20 MG Orally Active 1 capsule Once a day Linzess [facility] 39793316416 290 MCG Orally Active 1 capsule Once a day Propranolol [facility] 73130174072 20 MG Orally Active 1 tablet HCl Twice a day Loratadine [facility] 12307906556 10 MG Orally Active 1 tablet Once a day ProAir HFA [facility] 66715265216 108 (90 Base) Active 2 puffs as MCG/ACT needed Inhalation every 6 hrs Sumatriptan [facility] 20887602685 4 MG/0.5ML Active 0.5 ml as Succinate Subcutaneous needed Twice a day Topiramate [facility] 92481680196 100 MG Orally Active 1 tablet in Twice a day AM and 2 tabls in PM Magnesium [facility] 28157457032 200 MG Orally Active 2 tablets Once a day with a meal Results No Known Results Summary Purpose eClinicalWorks Submission
--- OUTSIDE RECORDS SUMMARY | 2018-09-16 12:22 | XMS REPORT ---
[...] Problem Attention deficit disorder F90.9 Active Assessment Encounter for preventative adult Z00.01 Active health care exam with abnormal findings Problem Tachycardia R00.0 Active Medications Medication Code Code Instructions Start End Status Dosage System Date Date ProAir HFA [facility] 40041482621 108 (90 Base) Active 2 puffs as MCG/ACT needed Inhalation every 6 hrs Omeprazole ND 47831902436 20 MG Orally Active 1 capsule Once a day Loratadine [facility] 44183784446 10 MG Orally Active 1 tablet Once a day Multi Vitamin [facility] 65525336080 - Orally Once a Active 1 tablet day Linzess ND 82234565210 290 MCG Orally Active 1 capsule Once a day Belsomra [facility] 75516264963 15 MG Orally Active 1 tablet at Once a day bedtime as needed Adderall [facility] 62651340559 20 MG Orally Active 1 tablet in Twice a day the morning Magnesium ND 93928183243 200 MG Orally Active 2 tablets Once a day with a meal Aspir-81 [facility] 50459941636 81 MG Orally Active 1 tablet Once a day Furosemide ND 03370861246 20 MG Active TAKE 1 TABLET BY MOUTH EVERY DAY NEEDED FOR FLUID RETENTION Topiramate [facility] 16023678769 100 MG Orally Active 1 tablet in Twice a day AM and 2 tabls in PM Sumatriptan [facility] 20098529606 4 MG/0.5ML Active 0.5 ml as Succinate Subcutaneous needed Twice a day EpiPen 2-Lam [facility] [address]-25 0.3 MG/0.3ML Active not defined Injection Klor-Con/EF [facility] 15159736636 25 MEQ Orally Active 1 tablet Twice a day with meals Propranolol [facility] 47758319792 20 MG Orally Active 1 tablet HCl Twice a day Results No Known Results Summary Purpose eClinicalWorks Submission
--- OUTSIDE RECORDS SUMMARY | 2018-09-16 12:22 | XMS REPORT ---
[...] G43.909 Active Problem Constipation K59.00 Active Assessment H/O methicillin resistant Z86.14 Active Staphylococcus aureus Problem Attention deficit disorder F90.9 Active Assessment Abscess of buttock, right L02.31 Active Problem Tachycardia R00.0 Active Medications Medication Code Code Instructions Start End Status Dosage System Date Date Adderall [facility] 62308402374 20 MG Orally Active 1 tablet in Twice a day the morning Propranolol ND 47933360169 20 MG Orally Janee Active 1 tablet HCl Twice a day 2017 Aspir-81 [facility] 32321222803 81 MG Orally Active 1 tablet Once a day Magnesium ND 92271704003 200 MG Orally Active 2 tablets Once a day with a meal Belsomra [facility] 41470323774 15 MG Orally Active 1 tablet at Once a day bedtime as needed Omeprazole ND 36090983376 20 MG Orally Active 1 capsule Once a day Loratadine ND 70768436040 10 MG Orally Active 1 tablet Once a day Furosemide ND 62873433867 20 MG Active TAKE 1 TABLET BY MOUTH EVERY DAY NEEDED FOR FLUID RETENTION Sumatriptan NDC 11287632863 4 MG/0.5ML Active 0.5 ml as Succinate Subcutaneous needed Twice a day Topiramate ND 17957793717 100 MG Orally Active 1 tablet in Twice a day AM and 2 tabls in PM Clindamycin ND 49627330967 300 MG Orally AugustOctober 02, Active 1 capsule HCl every 8 hrs 2017 Bactroban ND 35095073898 2 % Nasally AugustOctober 06, Active 1 application Nasal Twice a day 2017 Klor-Con/EF ND 31698617546 25 MEQ Orally Active 1 tablet with Twice a day meals EpiPen 2-Lam [facility] [address]-78 0.3 MG/0.3ML Active not defined Injection Keflex ND 81978360557 500 MG Orally August Inactive 1 capsule every 8 hrs 2017 Linzess ND 78019085694 290 MCG Orally Active 1 capsule Once a day ProAir HFA [facility] 18035174583 108 (90 Base) Active 2 puffs as MCG/ACT needed Inhalation every 6 hrs Multi Vitamin ND 49731635311 - Orally Once Active 1 tablet a day Bactrim DS ND 91949348804 800-160 MG August Inactive 1 tablet Orally Twice a , 2017 Results No Known Results Summary Purpose eClinicalWorks Submission
--- OUTSIDE RECORDS SUMMARY | 2018-09-16 12:23 | XMS REPORT ---
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 Problem Migraine G43.909 Active Problem Constipation K59.00 Active Assessment Acute pain of left shoulder M25.512 Active Problem Attention deficit disorder F90.9 Active Problem Tachycardia R00.0 Active Medications Medication Code Code Instructions Start End Status Dosage System Date Date ProAir HFA [facility] 28199513530 108 (90 Base) Active 2 puffs as MCG/ACT needed Inhalation every 6 hrs EpiPen 2-Lam [facility] [address]-82 0.3 MG/0.3ML Active not defined Injection Aspir-81 [facility] 16268571111 81 MG Orally Active 1 tablet Once a day Multi Vitamin [facility] 19936102226 - Orally Once a Active 1 tablet day Topiramate [facility] 40532205654 100 MG Orally Active 1 tablet in Twice a day AM and 2 tabls in PM Omeprazole [facility] 20215211439 20 MG Orally Active 1 capsule Once a day Belsomra [facility] 75590829457 15 MG Orally Active 1 tablet at Once a day bedtime as needed Adderall [facility] 20644629988 20 MG Orally Active 1 tablet in Twice a day the morning Linzess [facility] 72690526114 290 MCG Active TAKE ONE CAPSULE BY MOUTH EVERY DAY Furosemide ND 10145855771 20 MG Active TAKE 1 TABLET BY MOUTH EVERY DAY NEEDED FOR FLUID RETENTION Sumatriptan [facility] 77251633171 4 MG/0.5ML Active 0.5 ml as Succinate Subcutaneous needed Twice a day Propranolol ND 78043700643 20 MG Orally Active 1 tablet HCl Twice a day Results No Known Results Summary Purpose eClinicalWorks Submission
--- OUTSIDE RECORDS SUMMARY | 2018-09-16 12:23 | XMS REPORT ---
:1975 Author Organization eClinicalWorks Care Team Providers Name Role Phone Velasquez Chacon Provider Role Unavailable Allergies No Known Allergies Problems Problem Type Condition Code Onset Dates Condition Status Problem Edema R60.9 Active Problem Asthma J45.909 Active Problem Benign essential HTN I10 Active Problem Gluteal abscess L02.31 Active Problem H/O methicillin resistant Z86.14 Active Staphylococcus aureus Problem Cervical radiculopathy M54.12 Active Problem History of cerebrovascular accident Z86.73 Active Problem Allergic rhinitis J30.9 Active Problem Vagina bleeding N93.9 Active Problem History of endometrial ablation Z98.890 Active Assessment Migraine G43.909 Active Problem Constipation K59.00 Active Problem Attention deficit disorder F90.9 Active Problem Tachycardia R00.0 Active Problem Migraine G43.909 Active Problem Insomnia G47.00 Active Medications Medication Code Code Instructions Start End Status Dosage System Date Date Sumatriptan [facility] 36124722891 50 MG Orally Active 1 tablet as Succinate Once a day needed for migraine. May repeat 2 hours later, max 2 tabs per 24 hours EpiPen 2-Lam [facility] [address]-80 0.3 MG/0.3ML Active give 1 dose Injection once by injection after Bee sting with reaction, may repeat dose x1. if problems occur go to Emergency Room. Results No Known Results Summary Purpose eClinicalWorks Submission
--- OUTSIDE RECORDS SUMMARY | 2018-09-16 12:23 | XMS REPORT ---
:1975 Author Organization eClinicalWorks Care Team Providers Name Role Phone Oleg Guy Provider Role Unavailable Allergies No Known Allergies [...] F90.9 Active Problem Tachycardia R00.0 Active Medications No Known Medications Results No Known Results Summary Purpose eClinicalWorks Submission
--- OUTSIDE RECORDS SUMMARY | 2018-09-16 12:23 | XMS REPORT ---
:1975 Author Organization eClinicalWorks Care Team Providers Name Role Phone ChaconKarenh Provider Role Unavailable Allergies, Adverse Reactions, Alerts [...] I10 Active Problem Gluteal abscess L02.31 Active Assessment Migraine G43.909 Active Problem H/O methicillin resistant Z86.14 Active Staphylococcus aureus Assessment Constipation K59.00 Active Assessment Allergic rhinitis J30.9 Active Problem Cervical radiculopathy M54.12 Active Problem History of cerebrovascular accident Z86.73 Active Problem Allergic rhinitis J30.9 Active Problem Vagina bleeding N93.9 Active Problem History of endometrial ablation Z98.890 Active Assessment Insomnia G47.00 Active Assessment Attention deficit disorder F90.9 Active Assessment Cervical radiculopathy M54.12 Active Assessment Benign essential HTN I10 Active Problem Constipation K59.00 Active Problem Attention deficit disorder F90.9 Active Problem Tachycardia R00.0 Active Problem Migraine G43.909 Active Problem Insomnia G47.00 Active Medications Medication Code Code Instructions Start End Status Dosage System Date Date Linzess [facility] 86039801021 290 MCG Orally Active 1 capsule Once a day Sumatriptan [facility] 69455657557 4 MG/0.5ML Active 0.5 ml as Succinate Subcutaneous needed Twice a day Gabapentin ND 65244260890 600 MG Orally Feb 27, Active 1 tablet Once a day 2017 EpiPen 2-Lam [facility] [address]-04 0.3 MG/0.3ML Active not defined Injection Linzess [facility] 90691304905 290 MCG Active TAKE ONE CAPSULE BY MOUTH EVERY DAY Magnesium ND 85815814731 200 MG Orally Active 2 tablets Once a day with a meal Multi Vitamin ND 30667726332 - Orally Once a Active 1 tablet day ProAir HFA [facility] 11194094906 108 (90 Base) Active 2 puffs as MCG/ACT needed Inhalation every 6 hrs Belsomra [facility] 19784658480 15 MG Orally Active 1 tablet at Once a day bedtime as needed Omeprazole [facility] 97999472253 20 MG Orally Active 1 capsule Once a day Furosemide [facility] 49128602982 20 MG Active TAKE 1 TABLET BY MOUTH EVERY DAY NEEDED FOR FLUID RETENTION Propranolol [facility] 15292310277 20 MG Orally Active 1 tablet HCl Twice a day Aspir-81 [facility] 03782356619 81 MG Orally Active 1 tablet Once a day Loratadine [facility] 89801601012 10 MG Orally Active 1 tablet Once a day Topiramate [facility] 64982819487 100 MG Orally Active 1 tablet in Twice a day AM and 2 tabls in PM Adderall [facility] 49820064511 20 MG Orally Active 1 tablet in Twice a day the morning Results No Known Results Summary Purpose eClinicalWorks Submission
--- OUTSIDE RECORDS SUMMARY | 2018-09-16 12:23 | XMS REPORT ---
:1975 Author Organization eClinicalWorks Care Team Providers Name Role Phone Karen Chaconh Provider Role Unavailable Allergies, Adverse Reactions, Alerts Substance Reaction Event Type Vicodin Info Not Available Drug Allergy Percocet Info Not Available Drug Allergy Hydrochlorothiazide Info Not Available Drug Allergy Bactrim Info Not Available Drug Allergy Acetaminophen Info Not Available Drug Allergy Problems Problem Type Condition Code Onset Dates Condition Status Problem History of cerebrovascular accident Z86.73 Active Problem History of endometrial ablation Z98.890 Active Problem Vagina bleeding N93.9 Active Problem Menopausal disorder N95.9 Active Assessment Attention deficit disorder F90.9 Active Problem Herpes zoster without complication B02.9 Active Problem Irregular menses N92.6 Active Problem Gluteal abscess L02.31 Active Problem H/O methicillin resistant Z86.14 Active Staphylococcus aureus Problem Hypokalemia E87.6 Active Problem Cervical radiculopathy M54.12 Active Problem Constipation K59.00 Active Problem Attention deficit disorder F90.9 Active Problem Migraine G43.909 Active Problem Edema R60.9 Active Problem Benign essential HTN I10 Active Problem Tachycardia R00.0 Active Problem Asthma J45.909 Active Problem Insomnia G47.00 Active Problem Allergic rhinitis J30.9 Active Medications Medication Code Code Instructions Start End Status Dosage System Date Date Sumatriptan [facility] 86739029723 4 MG/0.5ML Active 0.5 ml as Succinate Subcutaneous needed Twice a day Linzess [facility] 49552418310 290 MCG Orally Active 1 capsule Once a day Magnesium [facility] 44244308061 200 MG Orally Active 2 tablets Once a day with a meal Duexis [facility] 42544999288 800-26.6 MG Active 1 tablet Orally Three times a day PRN PAIN ProAir HFA [facility] 37143542069 108 (90 Base) Active 2 puffs as MCG/ACT needed Inhalation every 6 hrs Omeprazole ND 49221944302 20 MG Orally Active 1 capsule Once a day Furosemide ND 76268410720 20 MG Active TAKE 1 TABLET BY MOUTH EVERY DAY NEEDED FOR FLUID RETENTION Linzess [facility] 65118340514 290 MCG Active TAKE ONE CAPSULE BY MOUTH EVERY DAY Topiramate [facility] 04628644370 100 MG Orally Active 1 tablet in Twice a day AM and 2 tabls in PM Loratadine [facility] 12598898573 10 MG Orally Active 1 tablet Once a day Propranolol HCl [facility] 99422525227 20 MG Orally Active 1 tablet Twice a day Belsomra [facility] 54009093198 15 MG Orally Active 1 tablet at Once a day bedtime as needed Multi Vitamin [facility] 14154078067 - Orally Once a Active 1 tablet day Aspir-81 [facility] 20505981511 81 MG Orally Active 1 tablet Once a day Adderall [facility] 46679717153 20 MG Orally Jun 22, Active 1 tablet Twice a day 2018 EpiPen 2-Lam [facility] 02618304138 0.3 MG/0.3ML Active give 1 dose Injection once by injection after bee sting with reaction, may repeat dose x1. if problems occur go to emergency room. Results No Known Results Summary Purpose eClinicalWorks Submission
--- OUTSIDE RECORDS SUMMARY | 2018-09-16 12:23 | XMS REPORT ---
:1975 [facility] Team Providers Name Role Phone Oleg [...] Status Dosage System Date Date EpiPen 2-Lam [facility] [address]-54 0.3 MG/0.3ML Active not defined Injection Linzess [facility] 57744796407 290 MCG Orally Active 1 capsule Once a day ProAir HFA [facility] 00493909246 108 (90 Base) Active 2 puffs as MCG/ACT needed Inhalation every 6 hrs Multi Vitamin [facility] 09840758334 - Orally Once a Active 1 tablet day Sumatriptan [facility] 75918497188 4 MG/0.5ML Active 0.5 ml as Succinate Subcutaneous needed Twice a day Belsomra [facility] 88901296011 15 MG Orally Active 1 tablet at Once a day bedtime as needed Omeprazole ND 79879073306 20 MG Orally Active 1 capsule Once a day Adderall [facility] 09692415906 20 MG Orally Active 1 tablet in Twice a day the morning Furosemide [facility] 50825097406 20 MG Active TAKE 1 TABLET BY MOUTH EVERY DAY NEEDED FOR FLUID RETENTION Aspir-81 [facility] 13891087006 81 MG Orally Active 1 tablet Once a day Topiramate [facility] 22092859441 100 MG Orally Active 1 tablet in Twice a day AM and 2 tabls in PM Propranolol [facility] 64513796815 20 MG Orally Active 1 tablet HCl Twice a day Results No Known Results Summary Purpose eClinicalWorks Submission
--- OUTSIDE RECORDS SUMMARY | 2018-09-16 12:23 | XMS REPORT ---
[...] Type Condition Code Onset Dates Condition Status Assessment Allergic rhinitis J30.9 Active Assessment Constipation K59.00 Active Assessment Herpes zoster without complication B02.9 Active Problem Asthma J45.909 Active Assessment Hypokalemia E87.6 Active Problem Allergic rhinitis J30.9 Active Assessment Migraine G43.909 Active Problem History of cerebrovascular accident Z86.73 Active Problem History of endometrial ablation Z98.890 Active Problem Vagina bleeding N93.9 Active Problem Menopausal disorder N95.9 Active Problem Herpes zoster without complication B02.9 Active Assessment Attention deficit disorder F90.9 Active Assessment Insomnia G47.00 Active Problem Irregular menses N92.6 Active Assessment Benign essential HTN I10 Active Problem Gluteal abscess L02.31 Active Problem H/O methicillin resistant Z86.14 Active Staphylococcus aureus Problem Hypokalemia E87.6 Active Problem Cervical radiculopathy M54.12 Active Problem Constipation K59.00 Active Problem Attention deficit disorder F90.9 Active Problem Migraine G43.909 Active Problem Edema R60.9 Active Problem Benign essential HTN I10 Active Problem Tachycardia R00.0 Active Problem Insomnia G47.00 Active Medications Medication Code Code Instructions Start End Status Dosage System Date Date Potassium ND 14458335283 20 MEQ Orally May 19May Active 1 packet Chloride Once a day 2017 with 2018 ProAir HFA ND 95933993112 108 (90 Base) Active 2 puffs as MCG/ACT needed Inhalation every 6 hrs Multi Vitamin ND 59714757110 - Orally Once a Active 1 tablet day Loratadine ND 25647778902 10 MG Orally Active 1 tablet Once a day Linzess ND 63549193915 290 MCG Orally Active 1 capsule Once a day Adderall [facility] 38097445475 20 MG Orally May 19, Active 1 tablet Twice a day 2017 Adderall [facility] 72046064368 20 MG Orally May 19, Inactive 1 tablet in Twice a day 2018 the morning Furosemide [facility] 32671489950 20 MG Active TAKE 1 TABLET BY MOUTH EVERY DAY NEEDED FOR FLUID RETENTION Propranolol HCl [facility] 93011297398 20 MG Orally Active 1 tablet Twice a day Belsomra [facility] 94315585311 15 MG Orally Active 1 tablet at Once a day bedtime as needed Topiramate [facility] 39830966366 100 MG Orally Active 1 tablet in Twice a day AM and 2 tabls in PM Sumatriptan [facility] 85528481018 4 MG/0.5ML Active 0.5 ml as Succinate Subcutaneous needed Twice a day Valacyclovir [facility] 73718367402 1 GM Orally May 19Apr Active 1 tablet HCl Three times a 2017 Duexis [facility] 26182110202 800-26.6 MG Active 1 tablet Orally Three times a day PRN PAIN Linzess [facility] 81766645772 290 MCG Active TAKE ONE CAPSULE BY MOUTH EVERY DAY Magnesium [facility] 07247655179 200 MG Orally Active 2 tablets Once a day with a meal Omeprazole [facility] 43986140023 20 MG Orally Active 1 capsule Once a day Aspir-81 [facility] 70025371594 81 MG Orally Active 1 tablet Once a day EpiPen 2-Lam [facility] 09467721206 0.3 MG/0.3ML Active give 1 dose Injection once by injection after bee sting with reaction, may repeat dose x1. if problems occur go to emergency room. Results No Known Results Summary Purpose eClinicalWorks Submission
--- OUTSIDE RECORDS SUMMARY | 2018-09-16 12:24 | XMS REPORT ---
[...] Active Problem Menopausal disorder N95.9 Active Assessment Pain, joint, shoulder, left M25.512 Active Problem Herpes zoster without complication B02.9 Active Assessment Calcific tendinitis of left M75.32 Active shoulder Assessment Impingement syndrome of left M75.42 Active shoulder Problem Irregular menses N92.6 Active Problem Gluteal abscess L02.31 Active Problem H/O methicillin resistant Z86.14 Active Staphylococcus aureus Problem Hypokalemia E87.6 Active Problem Cervical radiculopathy M54.12 Active Problem Constipation K59.00 Active Problem Attention deficit disorder F90.9 Active Problem Migraine G43.909 Active Problem Edema R60.9 Active Problem Benign essential HTN I10 Active Problem Tachycardia R00.0 Active Problem Asthma J45.909 Active Assessment Subacromial bursitis of left M75.52 Active shoulder joint Problem Insomnia G47.00 Active Problem Allergic rhinitis J30.9 Active Medications Medication Code Code Instructions Start End Status Dosage System Date Date Omeprazole ND 97962872457 20 MG Orally Active 1 capsule Once a day Duexis ND 10384719976 800-26.6 MG Active 1 tablet Orally Three times a day PRN PAIN Linzess ND 44739554713 290 MCG Active TAKE ONE CAPSULE BY MOUTH EVERY DAY EpiPen 2-Lam ND 26255481706 0.3 MG/0.3ML Active give 1 dose Injection once by injection after bee sting with reaction, may repeat dose x1. if problems occur go to emergency room. Sumatriptan [facility] 05146168250 4 MG/0.5ML Active 0.5 ml as Succinate Subcutaneous needed Twice a day ProAir HFA [facility] 73850356396 108 (90 Base) Active 2 puffs as MCG/ACT needed Inhalation every 6 hrs Propranolol HCl [facility] 66761849619 20 MG Orally Active 1 tablet Twice a day Adderall [facility] 57461795078 20 MG Orally March Active 1 tablet Twice a day 2018 Belsomra [facility] 72508216933 20 MG Orally Active 1 tablet at Once a day bedtime as needed Aspir-81 [facility] 08533682308 81 MG Orally Active 1 tablet Once a day Loratadine [facility] 53770646215 10 MG Orally Active 1 tablet Once a day Linzess [facility] 17281211965 290 MCG Orally Active 1 capsule Once a day Topiramate [facility] 40297806231 100 MG Orally Active 1 tablet in Twice a day AM and 2 tabls in PM Magnesium [facility] 02394624020 200 MG Orally Active 2 tablets Once a day with a meal Results No Known Results Summary Purpose eClinicalWorks Submission
--- OUTSIDE RECORDS SUMMARY | 2018-09-16 12:24 | XMS REPORT ---
:1975 Author [facility] Care Team Providers Name Role Phone Oleg [...] Active Problem Menopausal disorder N95.9 Active Assessment Acute pain of left shoulder M25.512 Active Problem Herpes zoster without complication B02.9 Active Assessment Subacromial bursitis of left M75.52 Active shoulder joint Assessment Impingement syndrome, shoulder, M75.42 Active left Problem Irregular menses N92.6 Active Problem Gluteal [...] Status Dosage System Date Date EpiPen 2-Lam [facility] 64539432883 0.3 MG/0.3ML Active give 1 dose Injection once by injection after bee sting with reaction, may repeat dose x1. if problems occur go to emergency room. Linzess [facility] 45930541875 290 MCG Active TAKE ONE CAPSULE BY MOUTH EVERY DAY Magnesium ND 50416310884 200 MG Orally Active 2 tablets Once a day with a meal Propranolol HCl ND 34661074675 20 MG Orally Active 1 tablet Twice a day Omeprazole ND 98149234686 20 MG Orally Active 1 capsule Once a day Aspir-81 [facility] 09414572339 81 MG Orally Active 1 tablet Once a day Topiramate [facility] 01317181779 100 MG Orally Active 1 tablet in Twice a day AM and 2 tabls in PM Sumatriptan [facility] 35932838353 4 MG/0.5ML Active 0.5 ml as Succinate Subcutaneous needed Twice a day Duexis [facility] 07192809477 800-26.6 MG Active 1 tablet Orally Three times a day PRN PAIN Belsomra [facility] 98737651611 15 MG Orally Active 1 tablet at Once a day bedtime as needed Adderall [facility] 95989765706 20 MG Orally Jun 22, Active 1 tablet Twice a day 2018 ProAir HFA [facility] 35382521350 108 (90 Base) Active 2 puffs as MCG/ACT needed Inhalation every 6 hrs Multi Vitamin [facility] 89513117637 - Orally Once a Active 1 tablet day Furosemide [facility] 39253725469 20 MG Active TAKE 1 TABLET BY MOUTH EVERY DAY NEEDED FOR FLUID RETENTION Loratadine [facility] 45353518801 10 MG Orally Active 1 tablet Once a day Results No Known Results Summary Purpose eClinicalWorks Submission
--- OUTSIDE RECORDS SUMMARY | 2018-09-16 12:24 | XMS REPORT ---
[...] Herpes zoster without complication B02.9 Active Assessment Acute cystitis without hematuria N30.00 Active Assessment Dysuria R30.0 Active Problem Irregular menses N92.6 Active Problem [...] Start End Status Dosage System Date Date Propranolol HCl ND 07870660394 20 MG Orally Active 1 tablet Twice a day Magnesium ND 59260217075 200 MG Orally Active 2 tablets Once a day with a meal Omeprazole ND 12144055467 20 MG Orally Active 1 capsule Once a day Adderall ND 00775097613 20 MG Orally Jul 18, Active 1 tablet Twice a day 2018 EpiPen 2-Lam [facility] 73245661782 0.3 MG/0.3ML Active give 1 dose Injection once by injection after bee sting with reaction, may repeat dose x1. if problems occur go to emergency room. Aspir-81 ND 77038189749 81 MG Orally Active 1 tablet Once a day Linzess [facility] 45122457232 290 MCG Active TAKE ONE CAPSULE BY MOUTH EVERY DAY Duexis [facility] 92855526810 800-26.6 MG Active 1 tablet Orally Three times a day PRN PAIN Belsomra [facility] 71169508857 15 MG Orally Active 1 tablet at Once a day bedtime as needed ProAir HFA [facility] 45563411756 108 (90 Base) Active 2 puffs as MCG/ACT needed Inhalation every 6 hrs Multi Vitamin [facility] 99838885558 - Orally Once a Active 1 tablet day Nitrofurantoin [facility] 90587966318 100 MG Orally Jul 18, Jun Active 1 capsule Monohyd Macro every 12 hrs 2018 24, with food 2018 Furosemide [facility] 39248849096 20 MG Active TAKE 1 TABLET BY MOUTH EVERY DAY NEEDED FOR FLUID RETENTION Sumatriptan [facility] 81148871351 4 MG/0.5ML Active 0.5 ml as Succinate Subcutaneous needed Twice a day Topiramate [facility] 85707829211 100 MG Orally Active 1 tablet in Twice a day AM and 2 tabls in PM Loratadine [facility] 42340194538 10 MG Orally Active 1 tablet Once a day Results No Known Results Summary Purpose eClinicalWorks Submission
--- OUTSIDE RECORDS SUMMARY | 2018-09-16 12:24 | XMS REPORT ---
[...] Active Problem Allergic rhinitis J30.9 Active Medications No Known Medications Results No Known Results Summary Purpose [employer] Submission
--- OUTSIDE RECORDS SUMMARY | 2018-09-16 12:24 | XMS REPORT ---
[...] rhinitis J30.9 Active Assessment Constipation K59.00 Active Problem Asthma J45.909 Active Assessment Hypokalemia [...] Start End Status Dosage System Date Date Magnesium ND 81570066449 200 MG Orally Active 2 tablets Once a day with a meal Propranolol HCl ND 51707667053 20 MG Orally Active 1 tablet Twice a day Topiramate ND 78059412715 100 MG Orally Active 1 tablet in Twice a day AM and 2 tabls in PM Linzess ND 37485782002 290 MCG Active TAKE ONE CAPSULE BY MOUTH EVERY DAY Loratadine ND 94257093669 10 MG Orally Active 1 tablet Once a day Duexis ND 25155839002 800-26.6 MG Active 1 tablet Orally Three times a day PRN PAIN ProAir HFA [facility] 62210568488 108 (90 Base) Active 2 puffs as MCG/ACT needed Inhalation every 6 hrs Belsomra [facility] 73714520122 20 MG Orally Active 1 tablet at Once a day bedtime as needed EpiPen 2-Lam [facility] 15111999962 0.3 MG/0.3ML Active give 1 dose Injection once by injection after bee sting with reaction, may repeat dose x1. if problems occur go to emergency room. Aspir-81 [facility] 39837836436 81 MG Orally Active 1 tablet Once a day Linzess [facility] 16698432550 290 MCG Orally Active 1 capsule Once a day Sumatriptan [facility] 56829216561 4 MG/0.5ML Active 0.5 ml as Succinate Subcutaneous needed Twice a day Adderall [facility] 63775802488 20 MG Orally July Active 1 tablet Twice a day 2018 Omeprazole [facility] 96362147624 20 MG Orally Active 1 capsule Once a day Results No Known Results Summary Purpose eClinicalWorks Submission
[2018-09-16] MEDS ORDERED: IBUPROFEN 400 MG TAB ONE (13:01)
[2018-09-16] MEDS ORDERED: FAMOTIDINE 20 MG TAB ONE (13:01)
--- NOTE | 2018-09-16 13:14 | RAD REPORT ---
EXAM DESCRIPTION: RAD - Foot Left 3 View - 09/16/2018 12:54 pm CLINICAL HISTORY: Nontraumatic left foot pain COMPARISON: None. FINDINGS: No fracture, dislocation or periosteal reaction. No acute or destructive bony process. Mo derate-sized plantar spur present. No air or foreign body in the soft tissues. IMPRESSION: Negative left foot examination for acute finding. Moderate-sized plantar spur.
--- NOTE | 2018-09-16 13:49 | ER ---
Nurse's Notes [facility] Name: Beth Reynoso Age: 43 yrs Sex: Female : 1975 Arrival Date: 09/16/2018 Time: 12:21 Bed 12 Private MD: Velasquez Chacon Diagnosis: Pain in left foot Presentation: 09/16 12:29 Presenting complaint: Patient states: "I think there's something wrong with my foot I aj1 don't know what I did to it, but its been hurting for a few days. In High School I had a stress fracture. I could barely walk on it last night" Reports pain to left foot for the past month. Denies injury to left foot. Transition of care: patient was not received from another setting of care. Onset of symptoms was July 2018. Risk Assessment: Do you want to hurt yourself or someone else? Patient reports no desire to harm self or others. Initial Sepsis Screen: Does the patient meet any 2 criteria? No. Patient's initial sepsis screen is negative. Does the patient have a suspected source of infection? No. Patient's initial sepsis screen is negative. Care prior to arrival: None. 12:29 Method Of Arrival: Ambulatory aj1 12:29 Acuity: JADIEL 4 aj1 Triage Assessment: 12:32 General: Appears in no apparent distress. comfortable, Behavior is calm, cooperative, aj1 appropriate for age. Pain: Complains of pain in left foot Pain does not radiate. Pain currently is 2 out of 10 on a pain scale. at worst was 6 out of 10 on a pain scale. Pain began one month ago Is intermittent, Aggravated by repositioning, weight bearing. Neuro: Level of Consciousness is awake, alert, obeys commands, Oriented to person, place, time, situation. Cardiovascular: Patient's skin is warm and dry. Respiratory: Airway is patent Respiratory effort is even, unlabored, Respiratory pattern is regular, symmetrical. Musculoskeletal: Range of motion: intact in all extremities. Injury Description: Patient denies injury to left foot. 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 - Irregular menses aj1 Historical: - Allergies: 12:32 Codeine; aj1 12:32 Darvocet-N 100; aj1 12:32 Lortab; aj1 12:32 PENICILLINS; aj1 12:32 Percocet; aj1 12:32 Sulfa (Sulfonamide Antibiotics); aj1 12:32 Tramadol HCl; aj1 12:32 VANCOMYCIN AND DERIVATIVES; aj1 - Home Meds: 12:32 Adderall XR 20 mg Oral cp24 1 cap twice a day [Active]; aspirin 81 mg Oral chew 1 tab aj1 once daily [Active]; Belsomra 15 mg Oral tab 1 tab [Active]; Lasix 20 mg Oral tab 1 tab as needed [Active]; omeprazole 40 mg Oral cpDR 1 cap once daily [Active]; propranolol 20 mg Oral tab 1 tab every 12 hours [Active]; Slow-Mag 150 mg Oral TbEC twice a day [Active]; topiramate 300 mg Oral tab 1 tab once daily [Active]; - PMHx: 12:32 Asthma; bells palsy; CVA; Diabetes - NIDDM; Hypothyroidism; Kidney stones; Migraines; aj1 - Immunization history:: Flu vaccine is up to date. - Social history:: Smoking status: Patient/guardian denies using tobacco. - Ebola Screening: : Patient denies travel to an Ebola-affected area in the 21 days before illness onset. Screenin:36 Abuse screen: Denies threats or abuse. Denies injuries from another. Nutritional aj1 screening: No deficits noted. Tuberculosis screening: No symptoms or risk factors identified. 12:40 Fall Risk None identified. hb Assessment: 12:36 Reassessment: see triage assessment. aj1 13:30 Reassessment: Patient appears in no apparent distress at this time. Patient and/or hb family updated on plan of care and expected duration. Pain level reassessed. Patient is alert, oriented x 3, equal unlabored respirations, skin warm/dry/pink. Vital Signs: 12:32 BP 114 / 89; Pulse 112; Resp 18; Temp 98.3; Pulse Ox 97% on R/A; Weight 77.11 kg (R); aj1 Height 5 ft. 7 in. (170.18 cm); 12:32 Body Mass Index 26.63 (77.11 kg, 170.18 cm) aj1 ED Course: 12:21 Patient arrived in ED. mr 12:21 Bijan Chacon MD is Private Physician. mr 12:22 Velasquez Chacon DO is Private Physician. mr 12:30 Triage completed. aj1 12:32 Arm band placed on Patient placed in an exam room. aj1 12:34 Eliezer Kumar MD is Attending Physician. kdr 12:36 Francie Elise RN is Primary Nurse. aj1 12:36 Patient has correct armband on for positive identification. aj1 12:36 No provider procedures requiring assistance completed. aj1 12:54 Foot Left 3 View XRAY In Process Unspecified. EDMS 13:48 Velasquez Chacon DO is Referral Physician. kdr 13:59 Patient did not have IV access during this emergency room visit. hb Administered Medications: 12:51 Drug: Ibuprofen 800 mg Route: PO; aj1 13:22 Follow up: Response: No adverse reaction aj1 12:51 Drug: Pepcid 20 mg Route: PO; aj1 13:22 Follow up: Response: No adverse reaction aj1 Outcome: 13:49 Discharge ordered by MD. kdr 13:59 Discharged to home ambulatory, with family. hb 13:59 Condition: stable 13:59 Discharge instructions given to patient, Instructed on discharge instructions, follow up and referral plans. medication usage, Demonstrated understanding of instructions, follow-up care, medications, Prescriptions given X 3. 14:00 Patient left the ED. hb Signatures: Dispatcher [employer] EDMO Francie Elise RN RN aj1 Eliezer Kumar MD MD [facility] Jackelyn Childs Heather, RN RN hb
--- NOTE | 2018-09-16 13:50 | EDPHYS ---
Physician Documentation [facility] Name: Beth Reynoso Age: 43 yrs Sex: Female : 1975 Arrival Date: 09/16/2018 Time: 12:21 Bed 12 Private MD: [facility] ED Physician Eliezer Kumar HPI: 09/16 13:40 This 43 yrs old Female presents to ER via Ambulatory with complaints of Foot kdr Injury. 13:40 The patient presents with pain, that is acute. The complaints affect the left foot. kdr Context: The problem was sustained at home, resulted from an unknown cause, the patient can fully bear weight, the patient is able to ambulate, with mild difficulty. Onset: The symptoms/episode began/occurred gradually, 1 month(s) ago. Modifying factors: The symptoms are alleviated by elevation of extremity, OTC meds, the symptoms are aggravated by weight bearing. Associated signs and symptoms: The patient has no apparent associated signs or symptoms. Severity of symptoms: At their worst the symptoms were mild. The patient has not experienced similar symptoms in the past. The patient has not recently seen a physician. 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 - Irregular menses aj1 Historical: - Allergies: 12:32 Codeine; aj1 12:32 Darvocet-N 100; aj1 12:32 Lortab; aj1 12:32 PENICILLINS; aj1 12:32 Percocet; aj1 12:32 Sulfa (Sulfonamide Antibiotics); aj1 12:32 Tramadol HCl; aj1 12:32 VANCOMYCIN AND DERIVATIVES; aj1 - Home Meds: 12:32 Adderall XR 20 mg Oral cp24 1 cap twice a day [Active]; aspirin 81 mg Oral chew 1 tab aj1 once daily [Active]; Belsomra 15 mg Oral tab 1 tab [Active]; Lasix 20 mg Oral tab 1 tab as needed [Active]; omeprazole 40 mg Oral cpDR 1 cap once daily [Active]; propranolol 20 mg Oral tab 1 tab every 12 hours [Active]; Slow-Mag 150 mg Oral TbEC twice a day [Active]; topiramate 300 mg Oral tab 1 tab once daily [Active]; - PMHx: 12:32 Asthma; bells palsy; CVA; Diabetes - NIDDM; Hypothyroidism; Kidney stones; Migraines; aj1 - Immunization history:: Flu vaccine is up to date. - Social history:: Smoking status: Patient/guardian denies using tobacco. - Ebola Screening: : Patient denies travel to an Ebola-affected area in the 21 days before illness onset. ROS: 13:40 Constitutional: Negative for fever, chills, and weight loss, Eyes: Negative for injury, kdr pain, redness, and discharge, Neck: Negative for injury, pain, and swelling, Cardiovascular: Negative for chest pain, palpitations, and edema, Respiratory: Negative for shortness of breath, cough, wheezing, and pleuritic chest pain, Abdomen/GI: Negative for abdominal pain, nausea, vomiting, diarrhea, and constipation, Back: Negative for injury and pain, Skin: Negative for injury, rash, and discoloration, Neuro: Negative for headache, weakness, numbness, tingling, and seizure activity. Psych: Negative for depression, anxiety, suicide ideation, homicidal ideation, and hallucinations, Allergy/Immunology: Negative for hives, rash, and allergies, Endocrine: Negative for neck swelling, polydipsia, polyuria, polyphagia, and marked weight changes, Hematologic/Lymphatic: Negative for swollen nodes, abnormal bleeding, and unusual bruising. Exam: 13:40 Constitutional: This is a well developed, well nourished patient who is awake, alert, kdr and in no acute distress. 13:40 Musculoskeletal/extremity: Extremities: all appear grossly normal, with no appreciated pain with palpation, noted in the left foot: pain, tenderness. Vital Signs: 12:32 BP 114 / 89; Pulse 112; Resp 18; Temp 98.3; Pulse Ox 97% on R/A; Weight 77.11 kg (R); aj1 Height 5 ft. 7 in. (170.18 cm); 12:32 Body Mass Index 26.63 (77.11 kg, 170.18 cm) aj1 MDM: 13:40 Data reviewed: vital signs, nurses notes, radiologic studies. Counseling: I had a kdr detailed discussion with the patient and/or guardian regarding: the historical points, exam findings, and any diagnostic results supporting the discharge/admit diagnosis, the presence of at least one elevated blood pressure reading (>120/80) during this emergency department visit, radiology results, the need for outpatient follow up. 13:49 Patient medically screened. kdr 04/20 12:42 Order name: Foot Left 3 View XRAY; Complete Time: 13:39 kdr 09/16 13:40 Order name: Abbe Wrap: Left foot; Complete Time: 13:51 kdr Administered Medications: 12:51 Drug: Ibuprofen 800 mg Route: PO; aj1 13:22 Follow up: Response: No adverse reaction aj1 12:51 Drug: Pepcid 20 mg Route: PO; aj1 13:22 Follow up: Response: No adverse reaction aj1 Disposition: 09/16/18 13:49 Discharged to Home. Impression: Pain in left foot. - Condition is Stable. - Discharge Instructions: Musculoskeletal Pain, Foot Pain. - Prescriptions for Ibuprofen 600 mg Oral Tablet - take 1 tablet by ORAL route every 6 hours As needed take with food; 30 tablet. Pepcid 20 mg Oral Tablet - take 1 tablet by ORAL route every 12 hours for 5 days; 10 tablet. Medrol (Lam) 4 mg Oral Tablets, Dose Pack - take 1 tablet by ORAL route as directed - follow package instructions; 1 packet. - Medication Reconciliation Form, Thank You Letter form. - Follow up: Velasquez Chacon DO; When: 2 - 3 days; Reason: If symptoms return, Further diagnostic work-up, Recheck today's complaints, Continuance of care, Re-evaluation by your physician. - Problem is an ongoing problem. - Symptoms have improved. Signatures: Dispatcher [employer] Francie Mathis RN RN aj1 Eliezer Kumar MD MD kdr Nela Garza RN RN hb Corrections: (The following items were deleted from the chart) 14:00 13:49 09/16/2018 13:49 Discharged to Home. Impression: Pain in left foot. Condition is hb Stable. Forms are Medication Reconciliation Form, Thank You Letter, Antibiotic Education, Prescription Opioid Use. Follow up: Velasquez Chacon; When: 2 - 3 days; Reason: If symptoms return, Further diagnostic work-up, Recheck today's complaints, Continuance of care, Re-evaluation by your physician. Problem is an ongoing problem. Symptoms have improved. kdr
== END 2018-09-16 14:00 | disposition home or self-care (01) ==
LOC: ER 12:19
DX: M79.672 Pain in left foot (principal); J45.909 Unspecified asthma, uncomplicated; E11.9 Type 2 diabetes mellitus without complications; E03.9 Hypothyroidism, unspecified; Z86.73 Personal history of transient ischemic attack (TIA), and cerebral infarction without residual deficits; Z79.82 Long term (current) use of aspirin; Z88.1 Allergy status to other antibiotic agents; Z88.5 Allergy status to narcotic agent; Z88.0 Allergy status to penicillin; Z88.2 Allergy status to sulfonamides
CPT/HCPCS: 99283

== ENCOUNTER 2018-12-23 17:08 | Emergency (ER) | payer BC ==
--- OUTSIDE RECORDS SUMMARY | 2018-12-23 17:12 | XMS REPORT ---
[...] End Status Dosage System Date Date Furosemide [facility] 78713052669 20 MG Active TAKE 1 TABLET BY MOUTH EVERY DAY NEEDED FOR FLUID RETENTION Adderall [facility] 71196044799 20 MG Orally Active 1 tablet in Twice a day the morning Belsomra [facility] 99093246742 15 MG Orally Active 1 tablet at Once a day bedtime as needed EpiPen 2-Lam [facility] [address]-67 0.3 MG/0.3ML Active not defined Injection Aspir-81 [facility] 37741645483 81 MG Orally Active 1 tablet Once a day Multi Vitamin [facility] 87780710989 - Orally Once a Active 1 tablet day Omeprazole ND 01310314727 20 MG Orally Active 1 capsule Once a day Linzess [facility] 46864412454 290 MCG Orally Active 1 capsule Once a day Propranolol [facility] 84019554691 20 MG Orally Active 1 tablet HCl Twice a day Loratadine [facility] 35918862287 10 MG Orally Active 1 tablet Once a day ProAir HFA [facility] 34729230087 108 (90 Base) Active 2 puffs as MCG/ACT needed Inhalation every 6 hrs Sumatriptan [facility] 58827925504 4 MG/0.5ML Active 0.5 ml as Succinate Subcutaneous needed Twice a day Topiramate [facility] 88520406767 100 MG Orally Active 1 tablet in Twice a day AM and 2 tabls in PM Magnesium [facility] 92634400643 200 MG Orally Active 2 tablets Once a day with a meal Results No Known Results Summary Purpose eClinicalWorks Submission
--- OUTSIDE RECORDS SUMMARY | 2018-12-23 17:12 | XMS REPORT ---
:1975 [facility] Care Team Providers Name Role Phone Oleg [...] Status Dosage System Date Date EpiPen 2-Lam [facility] [address]-47 0.3 MG/0.3ML Active not defined Injection Linzess [facility] 54992969433 290 MCG Orally Active 1 capsule Once a day ProAir HFA [facility] 11764158691 108 (90 Base) Active 2 puffs as MCG/ACT needed Inhalation every 6 hrs Multi Vitamin [facility] 52323092889 - Orally Once a Active 1 tablet day Sumatriptan [facility] 64842806364 4 MG/0.5ML Active 0.5 ml as Succinate Subcutaneous needed Twice a day Belsomra [facility] 97815876632 15 MG Orally Active 1 tablet at Once a day bedtime as needed Omeprazole ND 81820209681 20 MG Orally Active 1 capsule Once a day Adderall [facility] 21797055294 20 MG Orally Active 1 tablet in Twice a day the morning Furosemide [facility] 78630976118 20 MG Active TAKE 1 TABLET BY MOUTH EVERY DAY NEEDED FOR FLUID RETENTION Aspir-81 [facility] 51849196382 81 MG Orally Active 1 tablet Once a day Topiramate [facility] 83583333773 100 MG Orally Active 1 tablet in Twice a day AM and 2 tabls in PM Propranolol [facility] 52328998982 20 MG Orally Active 1 tablet HCl Twice a day Results No Known Results Summary Purpose eClinicalWorks Submission
--- OUTSIDE RECORDS SUMMARY | 2018-12-23 17:12 | XMS REPORT | Clinical Summary ---
:1975 Author Organization [facility] Address [address] [place] [address] Care Team Providers Name Role Phone Velasquez Chacon Fransico Primary Care Provider Allergies Active Allergy Reactions Severity Noted Date Comments Amoxicillin Hives 11/08/2016 Codeine 09/05/2016 hives Propoxyphene Hives 11/08/2016 N-Acetaminophen Hydrocodone 09/05/2016 Hives Other 09/05/2016 All mycins Oxycodone 09/05/2016 Hives Penicillins 09/05/2016 Pt was told she was allergic Oxycodone-Acetaminophen GI Intolerance 11/08/2016 N/V Sulfa (Sulfonamide 09/05/2016 Pt was told when she Antibiotics) was a baby Tramadol 09/05/2016 Itching, nausea 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 For breakthrough headaches eszopiclone Take 1 mg by 0 Active (LUNESTA) 1 MG mouth nightly. tablet Take immediately before bedtime SUMAtriptan Take 50 mg by 0 Active (IMITREX) 50 MG mouth once as tablet needed for migraine. May repeat in 2 hours if unresolved. Do not exceed 200 mg in 24 hours. metoprolol Take 25 mg by 0 Active tartrate mouth 2 (two) (LOPRESSOR) 25 mg times a day. tablet potassium 99 mg Take 1 tablet by 0 Active tablet mouth daily. aspirin (ECOTRIN) Take 81 mg by 0 Active 81 MG enteric mouth daily. If coated tablet taken every day "nosebleeds" furosemide Take 10 mg by 0 Active (LASIX) 20 mg mouth as needed tablet (pt takes when she is swollen). omeprazole Take 40 mg by 0 Active (PriLOSEC) 40 MG mouth 2 (two) capsule times a day. dextroamphetamine Take 20 mg by 0 Active -amphetamine mouth daily. (ADDERALL) 20 mg tablet linaclotide Take 1 capsule 90 capsule 3 10/16/2018 Active (LINZESS) 290 mcg (290 mcg total) capsule by mouth daily. Take 20 minutes before each meal linaclotide Take 290 mcg by 0 Discontinued (LINZESS) 290 mcg mouth daily. Take 9 capsule 20 minutes before each meal 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/12/2016 Chest pain at rest 09/05/2016 Encounters Date Type Specialty Care Team Description 12/12/2018 Telephone Gastroenterology Odalis English MA 12/05/2018 Telephone Gastroenterology Odalis English MA 10/28/2018 Documentation Gastroenterology Corey Das Outside records MD Matthew 10/27/2018 Telephone Gastroenterology Odalis English MA 10/16/2018 Office Visit Gastroenterology Corey Das Gastroesophageal reflux disease, esophagitis presence not specified (Primary Dx); MD Matthew Chronic idiopathic constipation after 12/22/2017 Family History Medical History Relation Name Comments Burnett's esophagus Father Colon polyps Father GERD Father Pancreatic cancer Maternal Grandmother Colon polyps Mother GERD Mother Liver disease Sister Relation Name Status Comments Father Maternal Grandmother Mother Sister Social History Tobacco Use Types Packs/Day Years Used Date Never Smoker Smokeless Tobacco: Never Used Alcohol Use Drinks/Week oz/Week Comments Yes Social - one drink/month Sex Assigned at Date Recorded Not on file Job Start Date Occupation Industry Not on file Not on file Not on file Travel History Travel Start Travel End No recent travel history available. Last Filed Vital Signs Vital Sign Reading Time Taken Blood Pressure 116/79 10/16/2018 1:52 PM CDT Pulse 91 10/16/2018 1:52 PM CDT Temperature - - Respiratory Rate - - Oxygen Saturation - - Inhaled Oxygen Concentration - - Weight 81.6 kg (180 lb) 10/16/2018 1:52 PM CDT Height 170.2 cm (5' 7") 10/16/2018 1:52 PM CDT Body Mass Index 28.19 10/16/2018 1:52 PM CDT Plan of Treatment Health Maintenance Due Date Last Done Comments INFLUENZA VACCINE 12/28/2018 Results Not on fileafter 12/22/2017 (Home) [place] [address] Advance Directives Patient has advance care planning documents on file. For more information, please contact:Atul [id number] [place] [address]
--- OUTSIDE RECORDS SUMMARY | 2018-12-23 17:12 | XMS REPORT | Clinical Summary ---
:1975 Author Organization [facility] Address [address] [place] [address] Care Team Providers Name Role Phone Pcp, No Primary Care Provider Unavailable Allergies Active Allergy Reactions Severity Noted Date Comments Propoxyphene Nausea And Vomiting 12/18/2018 N-Acetaminophen Hydrocodone-Acetaminophe 12/18/2018 N and V n Other Rash Low 12/18/2018 "mycins" Since childhood Oxycodone Nausea And Vomiting 12/18/2018 Penicillins 12/18/2018 Since childhood not sure about reaction Oxycodone-Acetaminophen Nausea And Vomiting 12/18/2018 Sulfa (Sulfonamide Hives 12/18/2018 Antibiotics) Tramadol Nausea And Vomiting 12/18/2018 Vancomycin Analogues 12/18/2018 "red man syndrome" Head burning Medications Medication Sig Dispensed Refills Start Date End Date Status topiramate (TOPAMAX) Take 100 mg by 0 Active 100 MG tablet mouth 2 (two) times daily. propranolol (INDERAL) Take 40 mg by 0 Active 40 MG tablet mouth 3 (three) times daily. naltrexone-bupropion Take by mouth 2 0 Active (CONTRAVE) 8-90 mg (two) times daily. TbER omeprazole (PRILOSEC) Take 10 mg by 0 Active 10 MG capsule mouth daily. aspirin 81 MG EC Take 81 mg by 0 Active tablet mouth daily. dextroamphetamine-amph Take 20 mg by 0 Active etamine (ADDERALL XR) mouth 2 (two) 20 MG 24 hr capsule times daily. SUMAtriptan (IMITREX) Take 50 mg by 0 Active 50 MG tablet mouth once as needed for Headaches (takes every two weeks). ibuprofen Take 800 mg by 0 Active (ADVIL,MOTRIN) 800 MG mouth every 6 tablet (six) hours as needed for Pain (for migraine). acetaminophen Take 500 mg by 0 Active (TYLENOL) 500 MG mouth every 6 tablet (six) hours as needed for Pain. ascorbic acid, vitamin Take 500 mg by 0 Active C, (ASCORBIC ACID WITH mouth daily. CLAUDE HIPS) 500 MG tablet potassium chloride Take 20 mEq by 0 Active (KLOR-CON) 20 mEq mouth 2 (two) packet times daily. magnesium 30 mg tablet Take 30 mg by 0 Active mouth 2 (two) times daily. Active Problems Not on file Encounters Date Type Specialty Care Team Description 12/18/2018 Anesthesia Event Carmen Jauregui, ALGEBRA TUTOR 12/18/2018 Surgery Nga Estevez IMPLANT EXCHANGE,IOL MD [place] 12/18/2018 Hospital Encounter Nga Estevez Dislocation of MD [place] intraocular lens, initial encounter (Primary Dx) after 12/22/2017 Social History Tobacco Use Types Packs/Day Years Used Date Never Smoker Smokeless Tobacco: Never Used Alcohol Use Drinks/Week oz/Week Comments Yes 1 Glasses of wine 0.6 Sex Assigned at Date Recorded Not on file Job Start Date Occupation Industry Not on file Not on file Not on file Travel History Travel Start Travel End No recent travel history available. Last Filed Vital Signs Vital Sign Reading Time Taken Blood Pressure 111/62 12/18/2018 10:17 AM CDT Pulse 69 12/18/2018 10:17 AM CDT Temperature 36.6 C (97.9 F) 12/18/2018 2:00 PM CDT Respiratory Rate - - Oxygen Saturation 99% 12/18/2018 10:17 AM CDT Inhaled Oxygen Concentration - - Weight 80.3 kg (177 lb) 12/18/2018 10:17 AM CDT Height 170.2 cm (5' 7") 12/18/2018 10:17 AM CDT Body Mass Index 27.72 12/18/2018 10:17 AM CDT Plan of Treatment Not on file Implants Implanted Type Area Grubber Device Shelf Model / Identifier Expiration Serial / Date Lot Ct Dena 602 16.5d Iol Ophthalmology Right: [employer] 09/27/2023 CTLUCIA 16.5 / Implanted: Qty: 1 on 12/18/2018 by Nga Estevez MD Eye [id number] / N /A Procedures Procedure Name Priority Date/Time Associated Diagnosis Comments POCT , Routine 12/18/2018 11:10 Results for this URINE AM CDT procedure are in the results section. 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 12/18/2018 10:15 Displacement of AL PARS PLANA AM CDT intraocular lens, subsequent encounter Special Needs (GAUGE SIZE UNKNOWN) (LEELEE W/ DR MOLINA) IMPLANT EXCHANGE,IOL 12/18/2018 10:15 AM CDT Displacement of intraocular lens, subsequent encounter Special Needs (GAUGE SIZE UNKNOWN) (LEELEE Whiting/ DR MOLINA) after 12/22/2017 Results POCT , urine (12/18/2018 11:10 AM CDT) Test Urine, POC Negative Control line present?, POC Yes Background clear?, POC Yes UPT Cassette Lot #, POC Hcg [id number] UPT Cassette Expiration Date, POC 2020 Specimen Urine after 12/22/2017 Insurance Payer Benefit Plan / Subscriber ID Type Phone Address Group BLUE CROSS/BLUE BCBS OS xxxxxxxxxxxx PPO [phone] [address] [employer]IELD [place] [address]
--- OUTSIDE RECORDS SUMMARY | 2018-12-23 17:13 | XMS REPORT ---
[...] End Status Dosage System Date Date Linzess [facility] 09794950958 290 MCG Orally Active 1 capsule Once a day Sumatriptan [facility] 82163273934 4 MG/0.5ML Active 0.5 ml as Succinate Subcutaneous needed Twice a day Gabapentin ND 85630241335 600 MG Orally Feb 27, Active 1 tablet Once a day 2017 EpiPen 2-Lam [facility] [address]-18 0.3 MG/0.3ML Active not defined Injection Linzess [facility] 67290369929 290 MCG Active TAKE ONE CAPSULE BY MOUTH EVERY DAY Magnesium ND 51515246962 200 MG Orally Active 2 tablets Once a day with a meal Multi Vitamin ND 75260268946 - Orally Once a Active 1 tablet day ProAir HFA [facility] 80252444128 108 (90 Base) Active 2 puffs as MCG/ACT needed Inhalation every 6 hrs Belsomra [facility] 33928158944 15 MG Orally Active 1 tablet at Once a day bedtime as needed Omeprazole [facility] 10274487636 20 MG Orally Active 1 capsule Once a day Furosemide [facility] 18125577184 20 MG Active TAKE 1 TABLET BY MOUTH EVERY DAY NEEDED FOR FLUID RETENTION Propranolol [facility] 29692780014 20 MG Orally Active 1 tablet HCl Twice a day Aspir-81 [facility] 03095270335 81 MG Orally Active 1 tablet Once a day Loratadine [facility] 32271034202 10 MG Orally Active 1 tablet Once a day Topiramate [facility] 85815395498 100 MG Orally Active 1 tablet in Twice a day AM and 2 tabls in PM Adderall [facility] 63647496650 20 MG Orally Active 1 tablet in Twice a day the morning Results No Known Results Summary Purpose eClinicalWorks Submission
--- OUTSIDE RECORDS SUMMARY | 2018-12-23 17:13 | XMS REPORT ---
[...] End Status Dosage System Date Date Sumatriptan [facility] 80018996020 4 MG/0.5ML Active 0.5 ml as Succinate Subcutaneous needed Twice a day Linzess [facility] 61616846413 290 MCG Orally Active 1 capsule Once a day Magnesium [facility] 51413120211 200 MG Orally Active 2 tablets Once a day with a meal Duexis [facility] 01983887934 800-26.6 MG Active 1 tablet Orally Three times a day PRN PAIN ProAir HFA [facility] 55727624148 108 (90 Base) Active 2 puffs as MCG/ACT needed Inhalation every 6 hrs Omeprazole ND 07925272383 20 MG Orally Active 1 capsule Once a day Furosemide ND 34529395208 20 MG Active TAKE 1 TABLET BY MOUTH EVERY DAY NEEDED FOR FLUID RETENTION Linzess [facility] 27561340458 290 MCG Active TAKE ONE CAPSULE BY MOUTH EVERY DAY Topiramate [facility] 43520393991 100 MG Orally Active 1 tablet in Twice a day AM and 2 tabls in PM Loratadine [facility] 11539783609 10 MG Orally Active 1 tablet Once a day Propranolol HCl [facility] 35544433405 20 MG Orally Active 1 tablet Twice a day Belsomra [facility] 95091110607 15 MG Orally Active 1 tablet at Once a day bedtime as needed Multi Vitamin [facility] 55399549761 - Orally Once a Active 1 tablet day Aspir-[address] [facility] 49822696610 81 MG Orally Active 1 tablet Once a day Adderall [facility] 24109029128 20 MG Orally Jun 22, Active 1 tablet Twice a day 2018 EpiPen 2-Lam [facility] 44263661285 0.3 MG/0.3ML Active give 1 dose Injection once by injection after bee sting with reaction, may repeat dose x1. if problems occur go to emergency room. Results No Known Results Summary Purpose eClinicalWorks Submission
--- OUTSIDE RECORDS SUMMARY | 2018-12-23 17:13 | XMS REPORT ---
[...] Medications Results No Known Results Summary Purpose [employer] Submission
--- OUTSIDE RECORDS SUMMARY | 2018-12-23 17:13 | XMS REPORT ---
[...] End Status Dosage System Date Date Sumatriptan [facility] 24084620731 50 MG Orally Active 1 tablet as Succinate Once a day needed for migraine. May repeat 2 hours later, max 2 tabs per 24 hours EpiPen 2-Lam [facility] [address]-58 0.3 MG/0.3ML Active give 1 dose Injection once by injection after Bee sting with reaction, may repeat dose x1. if problems occur go to Emergency Room. Results No Known Results Summary Purpose eClinicalWorks Submission
--- OUTSIDE RECORDS SUMMARY | 2018-12-23 17:13 | XMS REPORT ---
[...] Status Dosage System Date Date Potassium ND 84194328100 20 MEQ Orally May 19May Active 1 packet Chloride Once a day 2017 with 2018 ProAir HFA ND 79897509111 108 (90 Base) Active 2 puffs as MCG/ACT needed Inhalation every 6 hrs Multi Vitamin ND 86905527535 - Orally Once a Active 1 tablet day Loratadine ND 10745006197 10 MG Orally Active 1 tablet Once a day Linzess ND 40866140576 290 MCG Orally Active 1 capsule Once a day Adderall [facility] 88927756837 20 MG Orally May 19, Active 1 tablet Twice a day 2017 Adderall [facility] 42554858771 20 MG Orally May 19, Inactive 1 tablet in Twice a day 2018 the morning Furosemide [facility] 16009423961 20 MG Active TAKE 1 TABLET BY MOUTH EVERY DAY NEEDED FOR FLUID RETENTION Propranolol HCl [facility] 45655532970 20 MG Orally Active 1 tablet Twice a day Belsomra [facility] 97753926475 15 MG Orally Active 1 tablet at Once a day bedtime as needed Topiramate [facility] 28605665348 100 MG Orally Active 1 tablet in Twice a day AM and 2 tabls in PM Sumatriptan [facility] 18805952308 4 MG/0.5ML Active 0.5 ml as Succinate Subcutaneous needed Twice a day Valacyclovir [facility] 32967665021 1 GM Orally May 19Apr Active 1 tablet HCl Three times a 2017 Duexis [facility] 61248792496 800-26.6 MG Active 1 tablet Orally Three times a day PRN PAIN Linzess [facility] 79466140926 290 MCG Active TAKE ONE CAPSULE BY MOUTH EVERY DAY Magnesium [facility] 23241509131 200 MG Orally Active 2 tablets Once a day with a meal Omeprazole [facility] 18474398258 20 MG Orally Active 1 capsule Once a day Aspir-81 [facility] 10575125054 81 MG Orally Active 1 tablet Once a day EpiPen 2-Lam [facility] 98399670408 0.3 MG/0.3ML Active give 1 dose Injection once by injection after bee sting with reaction, may repeat dose x1. if problems occur go to emergency room. Results No Known Results Summary Purpose eClinicalWorks Submission
--- OUTSIDE RECORDS SUMMARY | 2018-12-23 17:13 | XMS REPORT ---
[...] Status Dosage System Date Date ProAir HFA [facility] 06486238094 108 (90 Base) Active 2 puffs as MCG/ACT needed Inhalation every 6 hrs EpiPen 2-Lam [facility] [address]-89 0.3 MG/0.3ML Active not defined Injection Aspir-81 [facility] 13949809605 81 MG Orally Active 1 tablet Once a day Multi Vitamin [facility] 73608801727 - Orally Once a Active 1 tablet day Topiramate [facility] 46485956988 100 MG Orally Active 1 tablet in Twice a day AM and 2 tabls in PM Omeprazole [facility] 78966305536 20 MG Orally Active 1 capsule Once a day Belsomra [facility] 21219127077 15 MG Orally Active 1 tablet at Once a day bedtime as needed Adderall [facility] 46794763879 20 MG Orally Active 1 tablet in Twice a day the morning Linzess [facility] 54642817623 290 MCG Active TAKE ONE CAPSULE BY MOUTH EVERY DAY Furosemide ND 43844021448 20 MG Active TAKE 1 TABLET BY MOUTH EVERY DAY NEEDED FOR FLUID RETENTION Sumatriptan [facility] 30506355158 4 MG/0.5ML Active 0.5 ml as Succinate Subcutaneous needed Twice a day Propranolol ND 44230571354 20 MG Orally Active 1 tablet HCl Twice a day Results No Known Results Summary Purpose eClinicalWorks Submission
--- OUTSIDE RECORDS SUMMARY | 2018-12-23 17:14 | XMS REPORT ---
[...] Status Dosage System Date Date Omeprazole ND 21519501985 20 MG Orally Active 1 capsule Once a day Duexis ND 06162491357 800-26.6 MG Active 1 tablet Orally Three times a day PRN PAIN Linzess ND 95442186035 290 MCG Active TAKE ONE CAPSULE BY MOUTH EVERY DAY EpiPen 2-Lam ND 49721924558 0.3 MG/0.3ML Active give 1 dose Injection once by injection after bee sting with reaction, may repeat dose x1. if problems occur go to emergency room. Sumatriptan [facility] 83152617690 4 MG/0.5ML Active 0.5 ml as Succinate Subcutaneous needed Twice a day ProAir HFA [facility] 63684666164 108 (90 Base) Active 2 puffs as MCG/ACT needed Inhalation every 6 hrs Propranolol HCl [facility] 74474234490 20 MG Orally Active 1 tablet Twice a day Adderall [facility] 00035505496 20 MG Orally March Active 1 tablet Twice a day 2018 Belsomra [facility] 57601697950 20 MG Orally Active 1 tablet at Once a day bedtime as needed Aspir-81 [facility] 93985812153 81 MG Orally Active 1 tablet Once a day Loratadine [facility] 89607840312 10 MG Orally Active 1 tablet Once a day Linzess [facility] 32275262043 290 MCG Orally Active 1 capsule Once a day Topiramate [facility] 55030335653 100 MG Orally Active 1 tablet in Twice a day AM and 2 tabls in PM Magnesium [facility] 21091712272 200 MG Orally Active 2 tablets Once a day with a meal Results No Known Results Summary Purpose eClinicalWorks Submission
--- OUTSIDE RECORDS SUMMARY | 2018-12-23 17:14 | XMS REPORT ---
:1975 [facility] Team Providers Name Role Phone [...] Status Dosage System Date Date EpiPen 2-Lam [facility] 72851657657 0.3 MG/0.3ML Active give 1 dose Injection once by injection after bee sting with reaction, may repeat dose x1. if problems occur go to emergency room. Linzess [facility] 68429626134 290 MCG Active TAKE ONE CAPSULE BY MOUTH EVERY DAY Magnesium ND 38420462844 200 MG Orally Active 2 tablets Once a day with a meal Propranolol HCl ND 32155066805 20 MG Orally Active 1 tablet Twice a day Omeprazole ND 62165367785 20 MG Orally Active 1 capsule Once a day Aspir-81 [facility] 72954297843 81 MG Orally Active 1 tablet Once a day Topiramate [facility] 17130780726 100 MG Orally Active 1 tablet in Twice a day AM and 2 tabls in PM Sumatriptan [facility] 35493980044 4 MG/0.5ML Active 0.5 ml as Succinate Subcutaneous needed Twice a day Duexis [facility] 44575465036 800-26.6 MG Active 1 tablet Orally Three times a day PRN PAIN Belsomra [facility] 20798661197 15 MG Orally Active 1 tablet at Once a day bedtime as needed Adderall [facility] 77546712419 20 MG Orally Jun 22, Active 1 tablet Twice a day 2018 ProAir HFA [facility] 50615128650 108 (90 Base) Active 2 puffs as MCG/ACT needed Inhalation every 6 hrs Multi Vitamin [facility] 43768066722 - Orally Once a Active 1 tablet day Furosemide [facility] 67355801280 20 MG Active TAKE 1 TABLET BY MOUTH EVERY DAY NEEDED FOR FLUID RETENTION Loratadine [facility] 86868299963 10 MG Orally Active 1 tablet Once a day Results No Known Results Summary Purpose eClinicalWorks Submission
--- OUTSIDE RECORDS SUMMARY | 2018-12-23 17:14 | XMS REPORT ---
[...] Dosage System Date Date Propranolol HCl ND 73298532230 20 MG Orally Active 1 tablet Twice a day Magnesium ND 21164216368 200 MG Orally Active 2 tablets Once a day with a meal Omeprazole ND 65395987851 20 MG Orally Active 1 capsule Once a day Adderall ND 24450583924 20 MG Orally Jul 18, Active 1 tablet Twice a day 2018 EpiPen 2-Lam [facility] 71298399396 0.3 MG/0.3ML Active give 1 dose Injection once by injection after bee sting with reaction, may repeat dose x1. if problems occur go to emergency room. Aspir-81 ND 82197312490 81 MG Orally Active 1 tablet Once a day Linzess [facility] 01550750501 290 MCG Active TAKE ONE CAPSULE BY MOUTH EVERY DAY Duexis [facility] 86120185657 800-26.6 MG Active 1 tablet Orally Three times a day PRN PAIN Belsomra [facility] 84838602172 15 MG Orally Active 1 tablet at Once a day bedtime as needed ProAir HFA [facility] 46394729270 108 (90 Base) Active 2 puffs as MCG/ACT needed Inhalation every 6 hrs Multi Vitamin [facility] 31322987205 - Orally Once a Active 1 tablet day Nitrofurantoin [facility] 55997558294 100 MG Orally Jul 18, Jun Active 1 capsule Monohyd Macro every 12 hrs 2018 24, with food 2018 Furosemide [facility] 36528032076 20 MG Active TAKE 1 TABLET BY MOUTH EVERY DAY NEEDED FOR FLUID RETENTION Sumatriptan [facility] 88523783020 4 MG/0.5ML Active 0.5 ml as Succinate Subcutaneous needed Twice a day Topiramate [facility] 58659174753 100 MG Orally Active 1 tablet in Twice a day AM and 2 tabls in PM Loratadine [facility] 13731187543 10 MG Orally Active 1 tablet Once a day Results No Known Results Summary Purpose eClinicalWorks Submission
--- OUTSIDE RECORDS SUMMARY | 2018-12-23 17:14 | XMS REPORT ---
[...] Status Dosage System Date Date Magnesium ND 20703985130 200 MG Orally Active 2 tablets Once a day with a meal Propranolol HCl ND 90348634512 20 MG Orally Active 1 tablet Twice a day Topiramate ND 40526473615 100 MG Orally Active 1 tablet in Twice a day AM and 2 tabls in PM Linzess ND 64932205792 290 MCG Active TAKE ONE CAPSULE BY MOUTH EVERY DAY Loratadine ND 10939265701 10 MG Orally Active 1 tablet Once a day Duexis ND 58334747438 800-26.6 MG Active 1 tablet Orally Three times a day PRN PAIN ProAir HFA [facility] 44251527932 108 (90 Base) Active 2 puffs as MCG/ACT needed Inhalation every 6 hrs [address]els[address]ra [facility] 20012880126 20 MG Orally Active 1 tablet at Once a day bedtime as needed EpiPen 2-Lam [facility] 09710623939 0.3 MG/0.3ML Active give 1 dose Injection once by injection after bee sting with reaction, may repeat dose x1. if problems occur go to emergency room. Aspir-[address] [facility] 76165154140 81 MG Orally Active 1 tablet Once a day Linzess [facility] 87539395883 290 MCG Orally Active 1 capsule Once a day Sumatriptan [facility] 32118804080 4 MG/0.5ML Active 0.5 ml as Succinate Subcutaneous needed Twice a day Adderall [facility] 28139640715 20 MG Orally July Active 1 tablet Twice a day [address] [facility] 24026385820 20 MG Orally Active 1 capsule Once a day Results No Known Results Summary Purpose eClinicalWorks Submission
--- OUTSIDE RECORDS SUMMARY | 2018-12-23 17:15 | XMS REPORT ---
:1975 Author Organization eClinicalWorks Care Team Providers Name Role Phone Oswaldo Velasquez Provider Role Unavailable Allergies No Known Allergies [...] Medications Medication Code Code Instructions Start End Date Status Dosage System Date [place] [facility] 41880163606 8mg/90mg By December 06, Active 1 qdx1wk, ER Mouth Twice a 2019 [id number], day 2qam & [id number], 2BID Results No Known Results Summary Purpose eClinicalWorks Submission
--- OUTSIDE RECORDS SUMMARY | 2018-12-23 17:15 | XMS REPORT ---
[...] Start End Status Dosage System Date Date Duexis [facility] 74997279997 800-26.6 MG Active 1 tablet Orally Three times a day PRN PAIN Loratadine [facility] 02868773598 10 MG Orally Active 1 tablet Once a day EpiPen 2-Lam [facility] 00834802067 0.3 MG/0.3ML Active give 1 dose Injection once by injection after bee sting with reaction, may repeat dose x1. if problems occur go to emergency room. Aspir-81 [facility] 73648153120 81 MG Orally Active 1 tablet Once a day Topiramate [facility] 21076972258 100 MG Orally Active 1 tablet in Twice a day AM and 2 tabls in PM Omeprazole [facility] 12683592784 20 MG Orally Active 1 capsule Once a day Magnesium [facility] 53983417187 200 MG Orally Active 2 tablets Once a day with a meal Linzess [facility] 73806477933 290 MCG Active TAKE ONE CAPSULE BY MOUTH EVERY DAY Belsomra [facility] 61308282441 20 MG Orally Active 1 tablet at Once a day bedtime as needed ProAir HFA [facility] 10343485830 108 (90 Base) Active 2 puffs as MCG/ACT needed Inhalation every 6 hrs Kathrynzess [facility] 74482723606 290 MCG Orally Active 1 capsule Once a day Adderall [facility] 10014855176 20 MG Orally Janee Active 1 tablet Twice a day 2018 Sumatriptan [facility] 43164512480 4 MG/0.5ML Active 0.5 ml as Succinate Subcutaneous needed Twice a day Propranolol HCl [facility] 21056461708 20 MG Orally Active 1 tablet Twice a day Results No Known Results Summary Purpose eClinicalWorks Submission
--- OUTSIDE RECORDS SUMMARY | 2018-12-23 17:15 | XMS REPORT ---
:1975 Author Organization eClinicalWorks Care Team Providers Name Role Phone Chacon, [facility] Provider Role Unavailable Allergies, Adverse Reactions, Alerts Substance Reaction Event Type Vicodin Info Not Available Drug Allergy Percocet Info Not Available Drug Allergy Hydrochlorothiazide Info Not Available Drug Allergy Bactrim Info Not Available Drug Allergy Acetaminophen Info Not Available Drug Allergy Problems Problem Type Condition Code Onset Dates Condition Status Assessment Screening mammogram, encounter for Z12.31 Active Assessment Adult BMI 29.0-29.9 kg/sq m Z68.29 Active Assessment Allergic rhinitis J30.9 Active Assessment Constipation K59.00 Active Assessment Hypokalemia E87.6 Active Problem Asthma J45.909 Active Assessment Migraine G43.909 Active Problem Allergic rhinitis J30.9 Active Assessment Benign essential HTN I10 Active Problem History of cerebrovascular accident Z86.73 Active Problem History of endometrial ablation Z98.890 Active Problem Vagina bleeding N93.9 Active Problem Menopausal disorder N95.9 Active Problem Herpes zoster without complication B02.9 Active Assessment Encounter for preventative adult Z00.01 Active health care exam with abnormal findings Assessment Attention deficit disorder F90.9 Active Problem Irregular menses N92.6 Active Assessment Insomnia G47.00 Active Problem Gluteal abscess L02.31 Active Problem [...] Start End Status Dosage System Date Date [facility] 04274329786 81 MG Orally Active 1 tablet Once a day ProAir HFA [facility] 29592617686 108 (90 Base) Active 2 puffs as MCG/ACT needed Inhalation every 6 hrs Topiramate [facility] 30490908506 100 MG Orally Active 1 tablet in Twice a day AM and 2 tabls in PM Loratadine [facility] 46540200726 10 MG Orally Active 1 tablet Once a day Sumatriptan [facility] 34874960797 4 MG/0.5ML Active 0.5 ml as Succinate Subcutaneous needed Twice a day Duexis [facility] 68405569524 800-26.6 MG Active 1 tablet Orally Three times a day PRN PAIN EpiPen 2-Lam [facility] 51353375887 0.3 MG/0.3ML Active give 1 dose Injection once by injection after bee sting with reaction, may repeat dose x1. if problems occur go to emergency room. Linzess [facility] 42467804874 290 MCG Orally Active 1 capsule Once a day Belsomra [facility] 14524357374 20 MG Orally Active 1 tablet at Once a day bedtime as needed Linzess [facility] 97261813291 290 MCG Active TAKE ONE CAPSULE BY MOUTH EVERY DAY Adderall [facility] 54929491677 20 MG Orally October 24, Active 1 tablet Twice a day 2018 Adderall [facility] 93572402761 20 MG Orally November 27, Active 1 tablet in Twice a day 2019 the morning Magnesium [facility] 16617477332 200 MG Orally Active 2 tablets Once a day with a meal Omeprazole [facility] 36782653227 20 MG Orally Active 1 capsule Once a day Propranolol HCl [facility] 95834838494 20 MG Orally Active 1 tablet Twice a day Results No Known Results Summary Purpose eClinicalWorks Submission
[2018-12-23] MEDS ORDERED: FLUORESCEIN SODIUM 1 MG/WRAP ONE (18:28)
[2018-12-23] MEDS ORDERED: TETRACAINE HCL 0.5% 4ML OPTH ONE (18:28)
[2018-12-23 19:18] LABS: Absolute Lymphocytes (CBC) 1.4 K/uL (0.7-4.9); Basophils % 0.4 % (0-1.3); Hematocrit 43.3 % (36.0-45.0); Lymphocytes % 19.9 % (15.3-44.8); MPV 9.8 fL (7.6-11.3); RBC Red Blood Cell Count 4.92 M/uL (3.86-4.86)
[2018-12-23 19:26] LABS: Potassium 3.7 mmol/L (3.5-5.1)
[2018-12-23] MEDS ORDERED: NA CHLORIDE 0.9% 1,000 ML ONE (19:27)
[2018-12-23] MEDS ORDERED: ONDANSETRON 4 MG/2 ML VIAL ONE (19:27)
[2018-12-23] MEDS ORDERED: MORPHINE 4 MG/ML SYR ONE (19:27)
--- NOTE | 2018-12-23 19:36 | ER ---
Nurse's Notes [facility] Name: Beth Reynoso Age: 43 yrs Sex: Female : 1975 Arrival Date: 12/23/2018 Time: 17:12 Bed 18 Private MD: Diagnosis: Ocular pain, right eye;Migraine Presentation: 12/23 17:19 Presenting complaint: Patient states: "I had my 5th lens replacement on Tuesday, I aj1 started getting a headache this morning and its gotten progressively worse. Im nauseous. I have tingling in my hands and feet, I feel like the pressure is up in my eye like its going to pop." Patient reports Topamax, propranolol, sumatriptan, magnesium, and ibuprofen for her headache with no relief. Patient also reports seeing "shadows" out of her right eye. Transition of care: patient was not received from another setting of care. Mechanism of Injury: No Mechanism of Injury. The patient denies any loss of vision. Onset of symptoms was December 23, 2018 at 11:30. Risk Assessment: Do you want to hurt yourself or someone else? Patient reports no desire to harm self or others. Initial Sepsis Screen: Does the patient meet any 2 criteria? No. Patient's initial sepsis screen is negative. Does the patient have a suspected source of infection? No. Patient's initial sepsis screen is negative. Care prior to arrival: None. 17:19 Method Of Arrival: Ambulatory aj1 17:19 Acuity: JADIEL 2 aj1 Triage Assessment: 17:21 General: Appears in no apparent distress. uncomfortable, Behavior is calm, cooperative, aj1 appropriate for age. Pain: Complains of pain in right eye Pain currently is 7 out of 10 on a pain scale. EENT: Eyes are tearing on right lower eyelid Sclera/Cornea are reddened in outer aspect of conjuctiva of right eye, iris of right eye and inner aspect of conjuctiva of right eye. Neuro: Level of Consciousness is awake, alert, obeys commands. Cardiovascular: Patient's skin is warm and dry. Respiratory: Airway is patent Respiratory effort is even, unlabored, Respiratory pattern is regular, symmetrical. APPLICATIONS SUPPORT LEAD: 17:21 LMP 12/16/2018 aj1 Historical: - Allergies: 17:21 Codeine; aj1 17:21 Darvocet-N 100; aj1 17:21 Lortab; aj1 17:21 PENICILLINS; aj1 17:21 Percocet; aj1 17:21 Sulfa (Sulfonamide Antibiotics); aj1 17:21 Tramadol HCl; aj1 17:21 VANCOMYCIN AND DERIVATIVES; aj1 - Home Meds: 17:21 Adderall XR 20 mg Oral cp24 1 cap twice a day [Active]; aspirin 81 mg Oral chew 1 tab aj1 once daily [Active]; Contrave oral oral [Active]; Belsomra 15 mg Oral tab 1 tab [Active]; Lasix 20 mg Oral tab 1 tab as needed [Active]; omeprazole 40 mg Oral cpDR 1 cap once daily [Active]; propranolol 20 mg Oral tab 1 tab every 12 hours [Active]; topiramate 300 mg Oral tab 1 tab once daily [Active]; Slow-Mag 150 mg Oral TbEC twice a day [Active]; Durezol ophthalmic ophthalmic [Active]; Ilevro ophthalmic ophthalmic [Active]; Besivance ophthalmic ophthalmic [Active]; - PMHx: 17:21 Asthma; bells palsy; CVA; Diabetes - NIDDM; Hypothyroidism; Kidney stones; Migraines; aj1 - Immunization history:: Flu vaccine is up to date. - Social history:: Smoking status: Patient/guardian denies using tobacco. - Ebola Screening: : Patient denies travel to an Ebola-affected area in the 21 days before illness onset. - Family history:: not pertinent. Screenin:55 Abuse screen: Denies threats or abuse. Nutritional screening: No deficits noted. em Tuberculosis screening: No symptoms or risk factors identified. Fall Risk None identified. Assessment: 17:55 General: Appears uncomfortable, Behavior is calm, cooperative. Pain: Complains of pain em in right eye Pain currently is 7 out of 10 on a pain scale. Neuro: Level of Consciousness is awake, alert, obeys commands, Oriented to person, place, time, situation. Cardiovascular: Capillary refill < 3 seconds Patient's skin is warm and dry. Respiratory: Airway is patent Respiratory effort is even, unlabored, Respiratory pattern is regular, symmetrical. GI: Reports nausea, vomiting. EENT: Sclera/Cornea are reddened in outer aspect of conjuctiva of right eye and inner aspect of conjuctiva of right eye Reports blurred vision on the right eye after procedure, pt reports that is expected s/p surgery. Derm: Skin is intact, is healthy with good turgor, Skin is pink, warm \\T\\ dry. Musculoskeletal: Capillary refill < 3 seconds, Range of motion: intact in all extremities. 17:55 Reassessment: I agree with assessment completed Wayne Horvath LVN . aa5 18:48 Reassessment: Patient appears in no apparent distress at this time. Patient and/or em family updated on plan of care and expected duration. Pain level reassessed. Patient is alert, oriented x 3, equal unlabored respirations, skin warm/dry/pink. 19:25 General: Appears uncomfortable, Behavior is calm, cooperative. Pain: Complains of pain ea in right eye. Pain: Pain currently is 7 out of 10 on a pain scale. Neuro: Level of Consciousness is awake, alert, obeys commands, Oriented to person, place, time, situation. Cardiovascular: Patient's skin is warm and dry. Respiratory: Airway is patent Respiratory effort is even, unlabored, Respiratory pattern is regular, symmetrical. Derm: Skin is pink, warm \\T\\ dry. Musculoskeletal: Circulation, motion, and sensation intact. 20:00 Reassessment: Patient and/or family updated on plan of care and expected duration. Pain ea level reassessed. Patient is alert, oriented x 3, equal unlabored respirations, skin warm/dry/pink. Discharge instruction given to patient and , pt understood the need to go straight to Dr. Montilla's office for follow up, both verbalized the understanding of instruction. Pt left ED per wheelchair accompanied by significant other, pt assisted to private vehicle per staff. Vital Signs: 17:21 BP 140 / 82; Pulse 90; Resp 18; Temp 98.2; Pulse Ox 98% on R/A; Weight 80.29 kg (R); aj1 Height 5 ft. 7 in. (170.18 cm) (R); Pain 10/10; 18:50 BP 121 / 64; Pulse 80; Resp 18; Pulse Ox 100% on R/A; Pain 8/10; em 19:15 BP 130 / 67; Pulse 78; Resp 18; Pulse Ox 99% ; ea 20:00 BP 127 / 60; Pulse 70; Resp 18; Temp 98(O); Pulse Ox 97% ; ea 17:21 Body Mass Index 27.72 (80.29 kg, 170.18 cm) aj1 ED Course: 17:12 Patient arrived in ED. as 17:20 Triage completed. aj1 17:21 Arm band placed on Patient placed in an exam room. aj1 17:24 Wayne Horvath LVN is Primary Nurse. em 17:55 Patient has correct armband on for positive identification. Placed in gown. Bed in low em position. Call light in reach. Pulse ox on. NIBP on. 17:56 Sen Mac MD is Attending Physician. garrick 18:38 Assist provider with eye exam of right eye. using itz pen Performed by Sen salazar MD Patient tolerated well. 19:07 Inserted saline lock: 20 gauge in right antecubital area, using aseptic technique. ms Blood collected. 19:37 Stepan Montilla MD is Referral Physician. garrick 20:00 IV discontinued, intact, bleeding controlled, No redness/swelling at site. Pressure ea dressing applied. Administered Medications: 18:48 Drug: Tetracaine Solution (2 %) 2 drops Route: Topical; Site: right eye; em 19:18 Drug: NS 0.9% 1000 ml Route: IV; Rate: 125 ml/hr; Site: right antecubital; ea 19:18 Drug: Zofran 4 mg Route: IVP; Site: right antecubital; ea 20:00 Follow up: Response: No adverse reaction; Marked relief of symptoms ea 19:20 Drug: morphine 4 mg Route: IVP; Site: right antecubital; ea 20:00 Follow up: Response: No adverse reaction; Pain is decreased ea 19:40 Drug: Reglan 10 mg Route: IVP; Site: right antecubital; ea 20:00 Follow up: Response: No adverse reaction ea 19:40 Drug: TORadol 30 mg Route: IVP; Site: right antecubital; ea 20:00 Follow up: Response: No adverse reaction ea 19:43 Drug: Benadryl 25 mg Route: IVP; Site: right antecubital; ea 20:00 Follow up: Response: No adverse reaction ea Outcome: 19:37 Discharge ordered by . garrick 20:15 Discharged to Follow up with physician now, pt accompanied by ea 20:15 Condition: stable 20:15 Discharge instructions given to patient, family, Instructed on discharge instructions, follow up and referral plans. medication usage, Demonstrated understanding of instructions, follow-up care, medications. 20:16 Patient left the ED. ea Signatures: Francie lEise, RN RN aj1 Sen Mac MD MD cha Munoz, Edgar, TRUCK DRIVER RUBBISH COLLECTOR TRUCK DRIVER RUBBISH COLLECTOR Virgen Lujan Maria ms Calderon, Audri, RN RN aa5 Martha Bhakta RN RN ea
--- NOTE | 2018-12-23 19:37 | EDPHYS ---
Physician Documentation [facility] Name: Beth Reynoso Age: 43 yrs Sex: Female : 1975 Arrival Date: 12/23/2018 Time: 17:12 Bed 18 Private MD: TROY Physician Sen Mac HPI: 12/23 19:00 This 43 yrs old Female presents to ER via Ambulatory with complaints of Eye garrick Pain, Headache. 19:00 The patient is experiencing blurred vision, pain, redness, The patient sustained garrick SURGERY. Onset: The symptoms/episode began/occurred 6 day(s) ago. Duration: the symptoms are continuous. Aggravated by blinking, closing eye, opening eye, Alleviated by nothing. Associated signs and symptoms: Pertinent positives: headache. Patient wears glasses. Severity of symptoms: At their worst the symptoms were moderate in the emergency department the symptoms are unchanged. The patient has experienced similar episodes in the past, multiple times. 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: 17:21 LMP 12/16/2018 aj1 Historical: - Allergies: 17:21 Codeine; aj1 17:21 Darvocet-N 100; aj1 17:21 Lortab; aj1 17:21 PENICILLINS; aj1 17:21 Percocet; aj1 17:21 Sulfa (Sulfonamide Antibiotics); aj1 17:21 Tramadol HCl; aj1 17:21 VANCOMYCIN AND DERIVATIVES; aj1 - Home Meds: 17:21 Adderall XR 20 mg Oral cp24 1 cap twice a day [Active]; aspirin 81 mg Oral chew 1 tab aj1 once daily [Active]; Contrave oral oral [Active]; Belsomra 15 mg Oral tab 1 tab [Active]; Lasix 20 mg Oral tab 1 tab as needed [Active]; omeprazole 40 mg Oral cpDR 1 cap once daily [Active]; propranolol 20 mg Oral tab 1 tab every 12 hours [Active]; topiramate 300 mg Oral tab 1 tab once daily [Active]; Slow-Mag 150 mg Oral TbEC twice a day [Active]; Durezol ophthalmic ophthalmic [Active]; Ilevro ophthalmic ophthalmic [Active]; Besivance ophthalmic ophthalmic [Active]; - PMHx: 17:21 Asthma; bells palsy; CVA; Diabetes - NIDDM; Hypothyroidism; Kidney stones; Migraines; aj1 - Immunization history:: Flu vaccine is up to date. - Social history:: Smoking status: Patient/guardian denies using tobacco. - Ebola Screening: : Patient denies travel to an Ebola-affected area in the 21 days before illness onset. - Family history:: not pertinent. ROS: 19:00 Constitutional: Negative for fever, chills, and weight loss, ENT: Negative for injury, garrick pain, and discharge, Neck: Negative for injury, pain, and swelling, Cardiovascular: Negative for chest pain, palpitations, and edema, Respiratory: Negative for shortness of breath, cough, wheezing, and pleuritic chest pain, Abdomen/GI: Negative for abdominal pain, nausea, vomiting, diarrhea, and constipation, Back: Negative for injury and pain, : Negative for injury, bleeding, discharge, and swelling, MS/Extremity: Negative for injury and deformity, Skin: Negative for injury, rash, and discoloration, Neuro: Negative for headache, weakness, numbness, tingling, and seizure, Psych: Negative for depression, anxiety, suicide ideation, homicidal ideation, and hallucinations, Allergy/Immunology: Negative for hives, rash, and allergies, Endocrine: Negative for neck swelling, polydipsia, polyuria, polyphagia, and marked weight changes, Hematologic/Lymphatic: Negative for swollen nodes, abnormal bleeding, and unusual bruising. 19:00 Eyes: Positive for blurry vision, pain, photophobia, redness, swelling, tearing, of the outer aspect of conjuctiva of right eye, iris of right eye and inner aspect of conjuctiva of right eye. Exam: 19:00 Constitutional: This is a well developed, well nourished patient who is awake, alert, garrick and in no acute distress. Head/Face: Normocephalic, atraumatic. ENT: Nares patent. No nasal discharge, no septal abnormalities noted. Tympanic membranes are normal and external auditory canals are clear. Oropharynx with no redness, swelling, or masses, exudates, or evidence of obstruction, uvula midline. Mucous membranes moist. Neck: Trachea midline, no thyromegaly or masses palpated, and no cervical lymphadenopathy. Supple, full range of motion without nuchal rigidity, or vertebral point tenderness. No Meningismus. Chest/axilla: Normal chest wall appearance and motion. Nontender with no deformity. No lesions are appreciated. Cardiovascular: Regular rate and rhythm with a normal S1 and S2. No gallops, murmurs, or rubs. Normal PMI, no JVD. No pulse deficits. Respiratory: Lungs have equal breath sounds bilaterally, clear to auscultation and percussion. No rales, rhonchi or wheezes noted. No increased work of breathing, no retractions or nasal flaring. Abdomen/GI: Soft, non-tender, with normal bowel sounds. No distension or tympany. No guarding or rebound. No evidence of tenderness throughout. Back: No spinal tenderness. No costovertebral tenderness. Full range of motion. Skin: Warm, dry with normal turgor. Normal color with no rashes, no lesions, and no evidence of cellulitis. MS/ Extremity: Pulses equal, no cyanosis. Neurovascular intact. Full, normal range of motion. Neuro: Awake and alert, GCS 15, oriented to person, place, time, and situation. Cranial nerves II-XII grossly intact. Motor strength 5/5 in all extremities. Sensory grossly intact. Cerebellar exam normal. Normal gait. Psych: Awake, alert, with orientation to person, place and time. Behavior, mood, and affect are within normal limits. 19:44 Eyes: Intraocular pressure: right eye = 15mmHg, RIGHT REPEAT 17. [facility] Vital Signs: 17:21 BP 140 / 82; Pulse 90; Resp 18; Temp 98.2; Pulse Ox 98% on R/A; Weight 80.29 kg (R); aj1 Height 5 ft. 7 in. (170.18 cm) (R); Pain 10/10; 18:50 BP 121 / 64; Pulse 80; Resp 18; Pulse Ox 100% on R/A; Pain 8/10; em 19:15 BP 130 / 67; Pulse 78; Resp 18; Pulse Ox 99% ; ea 20:00 BP 127 / 60; Pulse 70; Resp 18; Temp 98(O); Pulse Ox 97% ; ea 17:21 Body Mass Index 27.72 (80.29 kg, 170.18 cm) [facility] MDM: 17:56 Patient medically screened. [facility] 19:02 Data reviewed: vital signs, nurses notes, lab test result(s). [facility] 12/23 18:56 Order name: CBC with Manual Differential 12/23 18:56 Order name: Chem 7 12/23 18:09 Order name: Eye Tray; Complete Time: 18:30 [facility] 12/23 19:23 Order name: EKG; Complete Time: 19:26 [facility] Administered Medications: 18:48 Drug: Tetracaine Solution (2 %) 2 drops Route: Topical; Site: right eye; em 19:18 Drug: NS 0.9% 1000 ml Route: IV; Rate: 125 ml/hr; Site: right antecubital; ea 19:18 Drug: Zofran 4 mg Route: IVP; Site: right antecubital; ea 20:00 Follow up: Response: No adverse reaction; Marked relief of symptoms ea 19:20 Drug: morphine 4 mg Route: IVP; Site: right antecubital; ea 20:00 Follow up: Response: No adverse reaction; Pain is decreased ea 19:40 Drug: Reglan 10 mg Route: IVP; Site: right antecubital; ea 20:00 Follow up: Response: No adverse reaction ea 19:40 Drug: TORadol 30 mg Route: IVP; Site: right antecubital; ea 20:00 Follow up: Response: No adverse reaction ea 19:43 Drug: Benadryl 25 mg Route: IVP; Site: right antecubital; ea 20:00 Follow up: Response: No adverse reaction ea Disposition: 12/23/18 19:37 Discharged to Home. Impression: Ocular pain, right eye, Migraine. - Condition is Stable. - Discharge Instructions: Migraine Headache, Migraine Headache, [id number]. - Medication Reconciliation Form, Thank You Letter, Antibiotic Education, Prescription Opioid Use form. - Follow up: Stepan Montilla MD; When: Upon discharge from the Emergency Department; Reason: Recheck today's complaints, Continuance of care, Re-evaluation by your physician. - Problem is new. - Symptoms have improved. Signatures: Dispatcher [employer] Francie Mathis RN RN aj1 Sen Mac MD MD cha Munoz, Edgar, PLUMBER MAINTENANCE PLUMBER MAINTENANCE Martha Maldonado RN RN may Corrections: (The following items were deleted from the chart) 19:24 19:23 EKG - Nurse/Tech [facility] 20:16 19:37 12/23/2018 19:37 Discharged to Home. Impression: Ocular pain, right eye; ea Migraine. Condition is Stable. Forms are Medication Reconciliation Form, Thank You Letter, Antibiotic Education, Prescription Opioid Use. Follow up: Stepan Montilla; When: Upon discharge from the Emergency Department; Reason: Recheck today's complaints, Continuance of care, Re-evaluation by your physician. Problem is new. Symptoms have improved. garrick
[2018-12-23] MEDS ORDERED: DIPHENHYDRAMINE 50 MG/ML VIAL ONE (19:52)
[2018-12-23] MEDS ORDERED: METOCLOPRAMIDE 10 MG/2mL INJ ONE (19:52)
[2018-12-23] MEDS ORDERED: KETOROLAC 30 MG/ML INJ ONE (19:52)
[2018-12-23 20:15] LABS: Blood Morphology Comment NOT SEEN (NOT SEEN); Platelet Estimate ADEQ
== END 2018-12-23 20:16 | disposition home or self-care (01) ==
LOC: ER 17:08
DX: G43.909 Migraine, unspecified, not intractable, without status migrainosus (principal); E11.9 Type 2 diabetes mellitus without complications; E03.9 Hypothyroidism, unspecified; Z79.82 Long term (current) use of aspirin; Z88.0 Allergy status to penicillin; Z88.2 Allergy status to sulfonamides; Z88.3 Allergy status to other anti-infective agents; Z88.5 Allergy status to narcotic agent; Z88.8 Allergy status to other drugs, medicaments and biological substances; Z86.73 Personal history of transient ischemic attack (TIA), and cerebral infarction without residual deficits
CPT/HCPCS: 36415; 80048; 85025; 93005; 96374; 96375; 99284; J2405; J2765; J7030

== ENCOUNTER 2019-04-30 16:07 | Emergency (ER) | payer BC ==
--- OUTSIDE RECORDS SUMMARY | 2019-04-30 16:09 | XMS REPORT | Summary of Care ---
:1975 Author Organization [facility] [place] [address] Care Team Providers Name Role Phone Unavailable Primary Care Provider Unavailable Reason for Visit Reason Comments Post-op Follow-up Encounter Details Date Type Department Care Team Description 01/16/2019 Office Visit [facility] Nga Estevez Post-op Follow -up Medicine Ophthalmology MD [address] [place] [address] [facility] [address], [place] [id number] Allergies Active Allergy Reactions Severity Noted Date Comments Other 12/15/2018 Reports allergies to multiple pain medications documented as of this encounter (statuses as of 01/16/2019) Medications No known medicationsdocumented as of this encounter (statuses as of 01/16/2019) Active Problems No known active problemsdocumented as of this encounter (statuses as of 2018) Social History Tobacco Use Types Packs/Day Years Used Date Never Smoker Smokeless Tobacco: Never Used Sex Assigned at Date Recorded Not on file Job Start Date Occupation Industry Not on file Not on file Not on file Travel History Travel Start Travel End No recent travel history available. documented as of this encounter Last Filed Vital Signs Not on filedocumented in this encounter Progress Notes Nga Estevez MD - 01/16/2019 7:30 AM CDT ASSESSMENT: 1. Pseudophakia 2. Corneal edema 43F [address] Stepan Montilla for subluxed IOL OD. Hx of pigment dispersion. H/O CEIOL OU; OD c/b PC tear then 3 piece sulcus IOL with optic capture, however resulted in subluxation. Then s/p IOL exchange with sutured IOL (17.0 D Hoya FY-60AD) with Dr. Montilla then IOL subluxation. POM#1 s/p 23g PPV/explantation of IOL/AC washout + SFIOL OD Significant improvement in vision (refracts to 20/40) But vision still limited by corneal edema and irregular astigmatism from sutures PLAN: No outpatient medications have been marked as taking for the 01/16/19 encounter ( Office Visit) with Nga Estevez MD. No orders of the defined types were placed in this encounter. - Continue to observe; suture removal next visit; will follow with Dr. Montilla - Return to clinic inPRN ATTESTATIONS: I have reviewed the PMH, SH, FHX, ROS, MEDS, ALLERGIES and TECH NOTE, and have updated the computerized patient record appropriately. The risks, benefits, and alternatives of treatment were discussed with the patient (& family, ifpresent). All questions regarding diagnosis and treatment were answered to the patient's satisfaction. Nga Estevez MD documented in this encounter Plan of Treatment Health Maintenance Due Date Last Done Comments MAMMOGRAM ANNUAL 1975 TETANUS SHOT (ADULT) 01/29/1988 HIV SCREENING 1991 CERVICAL CANCER SCREENING 3 YEAR FOLLOW UP 1994 FLU VACCINE > 6 MONTHS 12/28/2018 documented as of this encounter Procedures Procedure Name Priority Date/Time Associated Diagnosis Comments OCT, RETINA - OD - Routine 01/16/2019 9:52 Pseudophakia Results for this RIGHT EYE AM CDT procedure are in the results section. documented in this encounter Results OCT, RETINA - OD - RIGHT EYE (01/16/2019 9:52 AM CDT) Specimen Narrative Performed At No IRF documented in this encounter Visit Diagnoses Diagnosis Pseudophakia - Primary Lens replaced by other means Corneal edema Corneal edema, unspecified documented in this encounter Insurance Payer Benefit Plan / Subscriber ID Effective Dates Phone Address Type Group [facility] xxxxxxxxxxxx 2017-Present [address] [facility] [place] [id number] documented as of this encounter
--- OUTSIDE RECORDS SUMMARY | 2019-04-30 16:09 | XMS REPORT ---
:1975 Author Organization [employer] Care Team Providers Name Role Phone Oswaldo Velasquez Provider Role Unavailable Allergies, Adverse Reactions, Alerts Substance Reaction Event Type Vicodin Info Not Available Drug Allergy Percocet Info Not Available Drug Allergy Hydrochlorothiazide Info Not Available Drug Allergy Bactrim Info Not Available Drug Allergy Acetaminophen Info Not Available Drug Allergy Problems Problem Type Condition Code Onset Dates Condition Status Assessment Encounter for dietary counseling Z71.3 Active and surveillance Assessment Allergic rhinitis J30.9 Active Assessment Benign essential HTN I10 Active Assessment Constipation K59.00 Active Assessment Hypokalemia E87.6 Active Problem Allergic rhinitis J30.9 Active Assessment Adult BMI 29.0-29.9 kg/sq m Z68.29 Active Problem History of cerebrovascular accident Z86.73 Active Assessment Migraine G43.909 Active Problem History of endometrial ablation Z98.890 Active Problem H/O methicillin resistant Z86.14 Active Staphylococcus aureus Problem Vagina bleeding N93.9 Active Problem Irregular menses N92.6 Active Problem Menopausal disorder N95.9 Active Assessment Attention deficit disorder F90.9 Active Problem BMI 27.0-27.9,adult Z68.27 Active Assessment Insomnia G47.00 Active Problem Cervical radiculopathy M54.12 Active Problem Gluteal abscess L02.31 Active Problem Hypokalemia E87.6 Active Problem Herpes zoster without complication B02.9 Active Problem Attention deficit disorder F90.9 Active Problem Tachycardia R00.0 Active Problem Migraine G43.909 Active Problem Constipation K59.00 Active Problem Benign essential HTN I10 Active Problem Asthma J45.909 Active Problem Insomnia G47.00 Active Problem Edema R60.9 Active Medications Medication Code Code Instructions Start End Status Dosage System Date Date Adderall [facility] 20657874701 20 MG Orally Oct 30, Active 1 tablet in Twice a day 2019 the morning Propranolol [facility] 69361694060 20 MG Orally Active 1 tablet HCl Twice a day Aspir-81 [facility] 73126790086 81 MG Orally Active 1 tablet Once a day Belsomra NDC 91045549605 20 MG Orally Active 1 tablet at Once a day bedtime as needed Topiramate ND 54790501500 100 MG Orally Active 1 tablet in Twice a day AM and 2 tabls in PM Linzess ND 88516829511 290 MCG Orally Jun 26, Active 1 capsule Once a day 2019 Omeprazole ND 27855042308 20 MG Orally Active 1 capsule Once a day EpiPen 2-Lam [facility] 00497363850 0.3 MG/0.3ML Active give 1 dose Injection once by injection after bee sting with reaction, may repeat dose x1. if problems occur go to emergency room. Loratadine [facility] 67176305751 10 MG Orally Active 1 tablet Once a day ProAir HFA [facility] 15435064974 108 (90 Base) Active 2 puffs as MCG/ACT needed Inhalation every 6 hrs Sumatriptan ND 72517874893 50 MG Orally Active 1 tablet as Succinate Once a day needed Magnesium ND 32735086450 200 MG Orally Active 2 tablets Once a day with a meal Contrave [facility] 13082448062 8mg/90mg By December 06, Inactive 2 tab ER Mouth Twice a [address] [facility] 99941773599 800-26.6 MG Active 1 tablet Orally Three times a day PRN PAIN Results No Known Results Summary Purpose [employer] Submission
--- OUTSIDE RECORDS SUMMARY | 2019-04-30 16:09 | XMS REPORT ---
:1975 Author Organization e[employer]Works Care Team Providers Name Role Phone Velasquez Chacon Provider Role Unavailable Allergies No Known Allergies Problems Problem Type Condition Code Onset Dates Condition Status Problem Vagina bleeding N93.9 Active Problem Gluteal abscess L02.31 Active Problem H/O methicillin resistant Z86.14 Active Staphylococcus aureus Problem BMI 27.0-27.9,adult Z68.27 Active Problem Migraine G43.909 Active Problem Irregular menses N92.6 Active Assessment Attention deficit disorder F90.9 Active Problem Non-seasonal allergic rhinitis, J30.89 Active unspecified trigger Problem Herpes zoster without complication B02.9 Active Problem Cervical radiculopathy M54.12 Active Problem Menopausal disorder N95.9 Active Problem Hypokalemia E87.6 Active Problem Tachycardia R00.0 Active Problem Insomnia G47.00 Active Problem Constipation K59.00 Active Problem Attention deficit disorder F90.9 Active Problem Asthma J45.909 Active Problem Allergic rhinitis J30.9 Active Problem Edema R60.9 Active Problem History of cerebrovascular accident Z86.73 Active Assessment Insomnia G47.00 Active Problem Benign essential HTN I10 Active Problem History of endometrial ablation Z98.890 Active Medications Medication Code Code Instructions Start End Status Dosage System Date Date ProAir HFA [facility] 18099657194 108 (90 Base) Active 2 puffs as MCG/ACT needed Inhalation every 6 hrs EpiPen 2-Lam [facility] 10053552481 0.3 MG/0.3ML Active give 1 dose Injection once by injection after bee sting with reaction, may repeat dose x1. if problems occur go to emergency room. Propranolol HCl [facility] 23844413063 20 MG Orally Active 1 tablet Twice a day Sumatriptan [facility] 62203521068 50 MG Orally Active 1 tablet as Succinate Once a day needed Adderall [facility] 93832050131 20 MG Orally Apr 25, Active 1 tablet in Twice a day 2019 the morning Aspir-81 [facility] 06950065354 81 MG Orally Active 1 tablet Once a day Magnesium [facility] 55690961886 200 MG Orally Active 2 tablets Once a day with a meal Loratadine [facility] 99328409384 10 MG Orally Active 1 tablet Once a day Linzess [facility] 93282608689 290 MCG Orally Jun 26, Active 1 capsule Once a day 2019 Belsomra [facility] 39466984863 20 MG Orally Active 1 tablet at Once a day bedtime as needed Omeprazole [facility] 30267909991 20 MG Orally Active 1 capsule Once a day Duexis [facility] 28190869157 800-26.6 MG Active 1 tablet Orally Three times a day PRN PAIN Topiramate [facility] 79941750911 100 MG Orally Active 1 tablet in Twice a day AM and 2 tabls in PM Results No Known Results Summary Purpose eClinicalWorks Submission
--- OUTSIDE RECORDS SUMMARY | 2019-04-30 16:09 | XMS REPORT ---
[...] Active Problem Irregular menses N92.6 Active Assessment Non-seasonal allergic rhinitis, J30.89 Active unspecified trigger Problem Non-seasonal allergic rhinitis, J30.89 Active unspecified [...] History of cerebrovascular accident Z86.73 Active Problem Benign essential HTN I10 Active Problem History of endometrial ablation Z98.890 Active Medications Medication Code Code Instructions Start End Status Dosage System Date Date Duexis [facility] 44392201713 800-26.6 MG Active 1 tablet Orally Three times a day PRN PAIN Omeprazole ND 06578698111 20 MG Orally Active 1 capsule Once a day Belsomra [facility] 16386018634 20 MG Orally Active 1 tablet at Once a day bedtime as needed Topiramate ND 99883723717 100 MG Orally Active 1 tablet in Twice a day AM and 2 tabls in PM Loratadine [facility] 40617543244 10 MG Orally Active 1 tablet Once a day ProAir HFA [facility] 95519731783 108 (90 Base) Active 2 puffs as MCG/ACT needed Inhalation every 6 hrs Aspir-81 [facility] 18986125469 81 MG Orally Active 1 tablet Once a day Linzess [facility] 44780309431 290 MCG Orally Jun 26, Active 1 capsule Once a day 2019 Sumatriptan [facility] 32224827836 50 MG Orally Active 1 tablet as Succinate Once a day needed Magnesium [facility] 09420622502 200 MG Orally Active 2 tablets Once a day with a meal Propranolol HCl [facility] 35892620094 20 MG Orally Active 1 tablet Twice a day Adderall [facility] 17507339569 20 MG Orally Mar 28, Active 1 tablet in Twice a day 2018 the morning EpiPen 2-Lam [facility] 76053072949 0.3 MG/0.3ML Active give 1 dose Injection once by injection after bee sting with reaction, may repeat dose x1. if problems occur go to emergency room. Results No Known Results Summary Purpose eClinicalWorks Submission
--- NOTE | 2019-04-30 17:43 | RAD REPORT ---
EXAM DESCRIPTION: CT - Head Brain Wo Cont - 04/30/2019 5:24 pm CLINICAL HISTORY: HEADACHE COMPARISON: Head Brain Wo Cont dated 08/31/2016 TECHNIQUE: All CT scans are performed using dose optimization technique as appropriate and may inclu de automated exposure control or mA/KV adjustment according to patient size. FINDINGS: No intracranial hemorrhage, hydrocephalus or extra-axial fluid collection.No areas of brai n edema or evidence of midline shift. The paranasal sinuses and mastoids are clear. The calvarium is intact. IMPRESSION: No acute intracranial abnormality.
--- NOTE | 2019-04-30 18:25 | EDPHYS ---
Physician Documentation [facility] Name: Beth Reynoso Age: 44 yrs Sex: Female : 1975 Arrival Date: 04/30/2019 Time: 16:09 Bed 27 Private MD: ED Physician Eliezer Kumar HPI: 04/30 17:09 This 44 yrs old Female presents to ER via Ambulatory with complaints of kdr Headache. 17:09 The patient complains of pain to the forehead and left side of forehead. The patient kdr describes the headache as aching, constant, throbbing, unrelenting. Onset: The symptoms/episode began/occurred last tuesday. Associated signs and symptoms: Pertinent positives: nausea. Severity of symptoms: At its worst the pain was mild, moderate, just prior to arrival, in the emergency department the pain is unchanged. Headache History: The patient has had previous headaches and this one is different than previous episodes. The symptoms are alleviated by nothing. the symptoms are aggravated by nothing. The patient has not experienced similar symptoms in the past. The patient has not recently seen a physician. Historical: - Allergies: 16:20 Codeine; vc 16:20 Darvocet-N 100; vc 16:20 Lortab; vc 16:20 PENICILLINS; vc 16:20 Percocet; vc 16:20 Sulfa (Sulfonamide Antibiotics); vc 16:20 Tramadol HCl; vc 16:20 VANCOMYCIN AND DERIVATIVES; vc - Home Meds: 19:02 Adderall XR 20 mg Oral cp24 1 cap twice a day [Active]; aspirin 81 mg Oral chew 1 tab tr5 once daily [Active]; Belsomra 15 mg Oral tab 1 tab [Active]; Besivance ophthalmic [Active]; Slow-Mag 150 mg Oral TbEC twice a day [Active]; Contrave Oral [Active]; topiramate 300 mg Oral tab 1 tab once daily [Active]; propranolol 20 mg Oral tab 1 tab every 12 hours [Active]; Lasix 20 mg Oral tab 1 tab as needed [Active]; Durezol ophthalmic [Active]; omeprazole 40 mg Oral cpDR 1 cap once daily [Active]; Ilevro ophthalmic [Active]; - PMHx: 16:20 Asthma; bells palsy; CVA; Diabetes - NIDDM; Hypothyroidism; Kidney stones; Migraines; vc - Immunization history:: Adult Immunizations up to date. - Ebola Screening: : No symptoms or risks identified at this time. - Social history:: Smoking status: Patient/guardian denies using tobacco. ROS: 17:09 Constitutional: Negative for fever, chills, and weight loss, Eyes: Negative for injury, kdr pain, redness, and discharge, Neck: Negative for injury, pain, and swelling, Cardiovascular: Negative for chest pain, palpitations, and edema. Exam: 17:39 Constitutional: This is a well developed, well nourished patient who is awake, alert, kdr and in no acute distress. Eyes: Pupils equal round and reactive to light, extra-ocular motions intact. Lids and lashes normal. Conjunctiva and sclera are non-icteric and not injected. Cornea within normal limits. Periorbital areas with no swelling, redness, or edema. ENT: Nares patent. No nasal discharge, no septal abnormalities noted. Tympanic membranes are normal and external auditory canals are clear. Oropharynx with no redness, swelling, or masses, exudates, or evidence of obstruction, uvula midline. Mucous membranes moist. Neck: Trachea midline, no thyromegaly or masses palpated, and no cervical lymphadenopathy. Supple, full range of motion without nuchal rigidity, or vertebral point tenderness. No Meningismus. Chest/axilla: Normal chest wall appearance and motion. Nontender with no deformity. No lesions are appreciated. Cardiovascular: Regular rate and rhythm with a normal S1 and S2. No gallops, murmurs, or rubs. Normal PMI, no JVD. No pulse deficits. Respiratory: Lungs have equal breath sounds bilaterally, clear to auscultation and percussion. No rales, rhonchi or wheezes noted. No increased work of breathing, no retractions or nasal flaring. Abdomen/GI: Soft, non-tender, with normal bowel sounds. No distension or tympany. No guarding or rebound. No evidence of tenderness throughout. Back: No spinal tenderness. No costovertebral tenderness. Full range of motion. 17:39 Head/face: Noted is contusion, that is superficial, of the forehead, ecchymosis, that is mild, of the left eye. Vital Signs: 16:20 BP 128 / 88; Pulse 92; Resp 18; Temp 98.7(TE); Pulse Ox 100% on R/A; Weight 79.38 kg; vc Height 5 ft. 7 in. (170.18 cm); Pain 2/10; 16:20 Body Mass Index 27.41 (79.38 kg, 170.18 cm) vc MDM: 17:39 Data reviewed: vital signs, nurses notes, lab test result(s), radiologic studies. kdr Counseling: I had a detailed discussion with the patient and/or guardian regarding: the historical points, exam findings, and any diagnostic results supporting the discharge/admit diagnosis, radiology results, the need for outpatient follow up. 18:14 Patient medically screened. kdr 04/30 16:59 Order name: CT Head Brain wo Cont kdr Administered Medications: No medications were administered Disposition: 04/30/19 18:14 Discharged to Home. Impression: Headache, Superficial injury of head, Contusion of other part of head. - Condition is Stable. - Discharge Instructions: Head Injury, Adult, [id number]. - Prescriptions for Ibuprofen 600 mg Oral Tablet - take 1 tablet by ORAL route every 6 hours As needed take with food; 15 tablet. - Medication Reconciliation Form, Thank You Letter, Antibiotic Education, Prescription Opioid Use form. - Follow up: Private Physician; When: 2 - 3 days; Reason: If symptoms return, Further diagnostic work-up, Recheck today's complaints, Continuance of care, Re-evaluation by your physician. - Problem is an ongoing problem. - Symptoms are unchanged. Signatures: Dispatcher [employer] EDMS Eliezer Kumar MD MD kdr Carl Gonzalez RN RN tr5 Sara Sharp RN RN vc Corrections: (The following items were deleted from the chart) 19:02 18:14 04/30/2019 18:14 Discharged to Home. Impression: Headache; Superficial injury of tr5 head; Contusion of other part of head. Condition is Stable. Forms are Medication Reconciliation Form, Thank You Letter, Antibiotic Education, Prescription Opioid Use. Follow up: Private Physician; When: 2 - 3 days; Reason: If symptoms return, Further diagnostic work-up, Recheck today's complaints, Continuance of care, Re-evaluation by your physician. Problem is an ongoing problem. Symptoms are unchanged. kdr
--- NOTE | 2019-04-30 18:25 | ER ---
Nurse's Notes [facility] Name: Beth Reynoso Age: 44 yrs Sex: Female : 1975 Arrival Date: 04/30/2019 Time: 16:09 Bed 27 Private MD: Diagnosis: Headache;Superficial injury of head;Contusion of other part of head Presentation: 04/30 16:14 Presenting complaint: Patient states: has a headache since Tuesday morning after vc hitting head on metal bar. Negative LOC. Transition of care: PCP instructed patient to go to ED. Onset of symptoms was April 25, 2019. Risk Assessment: Do you want to hurt yourself or someone else? Patient reports no desire to harm self or others. Initial Sepsis Screen: Does the patient meet any 2 criteria? No. Patient's initial sepsis screen is negative. Does the patient have a suspected source of infection? No. Patient's initial sepsis screen is negative. Care prior to arrival: None. 16:14 Method Of Arrival: Ambulatory vc 16:14 Acuity: JADIEL 4 vc Triage Assessment: 18:00 Headache History: Denies prior headaches. Pain: Pain currently is 6 out of 10 on a pain tr5 scale. Pain began 2-3 days ago. Also complains of decreased appetite, nausea. Historical: - Allergies: 16:20 Codeine; vc 16:20 Darvocet-N 100; vc 16:20 Lortab; vc 16:20 PENICILLINS; vc 16:20 Percocet; vc 16:20 Sulfa (Sulfonamide Antibiotics); vc 16:20 Tramadol HCl; vc 16:20 VANCOMYCIN AND DERIVATIVES; vc - Home Meds: 19:02 Adderall XR 20 mg Oral cp24 1 cap twice a day [Active]; aspirin 81 mg Oral chew 1 tab tr5 once daily [Active]; Belsomra 15 mg Oral tab 1 tab [Active]; Besivance ophthalmic [Active]; Slow-Mag 150 mg Oral TbEC twice a day [Active]; Contrave Oral [Active]; topiramate 300 mg Oral tab 1 tab once daily [Active]; propranolol 20 mg Oral tab 1 tab every 12 hours [Active]; Lasix 20 mg Oral tab 1 tab as needed [Active]; Durezol ophthalmic [Active]; omeprazole 40 mg Oral cpDR 1 cap once daily [Active]; Ilevro ophthalmic [Active]; - PMHx: 16:20 Asthma; bells palsy; CVA; Diabetes - NIDDM; Hypothyroidism; Kidney stones; Migraines; vc - Immunization history:: Adult Immunizations up to date. - Ebola Screening: : No symptoms or risks identified at this time. - Social history:: Smoking status: Patient/guardian denies using tobacco. Screenin:00 Abuse screen: Denies threats or abuse. Nutritional screening: No deficits noted. tr5 Tuberculosis screening: No symptoms or risk factors identified. Fall Risk None identified. Assessment: 18:00 General: Appears uncomfortable, Behavior is calm, cooperative, appropriate for age. tr5 Pain: Complains of pain in face. Neuro: Level of Consciousness is awake, alert, obeys commands, Oriented to person, place, time, Cheese Blender are equal bilaterally Moves all extremities. Cardiovascular: Heart tones present Capillary refill < 3 seconds. Respiratory: Airway is patent Respiratory effort is even, unlabored, Respiratory pattern is regular, symmetrical. GI: No signs and/or symptoms were reported involving the gastrointestinal system. : No signs and/or symptoms were reported regarding the genitourinary system. EENT: No signs and/or symptoms were reported regarding the EENT system. Derm: No signs and/or symptoms reported regarding the dermatologic system. Musculoskeletal: No signs and/or symptoms reported regarding the musculoskeletal system. Vital Signs: 16:20 BP 128 / 88; Pulse 92; Resp 18; Temp 98.7(TE); Pulse Ox 100% on R/A; Weight 79.38 kg; vc Height 5 ft. 7 in. (170.18 cm); Pain 2/10; 16:20 Body Mass Index 27.41 (79.38 kg, 170.18 cm) vc ED Course: 16:09 Patient arrived in ED. rg4 16:18 Triage completed. vc 16:19 Eliezer Kumar MD is Attending Physician. kdr 18:00 Bed in low position. Call light in reach. Side rails up X 1. tr5 18:00 Arm band placed on. tr5 18:13 CT Head Brain wo Cont In Process Unspecified. EDMS 18:35 Notified ED physician of other To speak to patients about results. tr5 18:54 Carl Gonzalez, ABIGAIL is Primary Nurse. tr5 18:59 No provider procedures requiring assistance completed. Patient did not have IV access tr5 during this emergency room visit. Administered Medications: No medications were administered Outcome: 18:14 Discharge ordered by . pieter 18:59 Discharged to home ambulatory. tr5 18:59 Condition: stable 18:59 Discharge instructions given to patient. 19:02 Patient left the ED. tr5 Signatures: Dispatcher [employer] EDMS Eliezer Kumar MD MD kdr Garcia, Rubi 4 Carl Gonzalez RN RN tr5 Sara Sharp RN RN vc
[2019-04-30 23:47] VITALS: BP 128/88; TEMP 98.7; O2SAT 100
== END 2019-04-30 19:02 | disposition home or self-care (01) ==
LOC: ER 16:07
DX: S00.83XA Contusion of other part of head, initial encounter (principal); W22.8XXA Striking against or struck by other objects, initial encounter; Y93.9 Activity, unspecified; Y92.9 Unspecified place or not applicable; Z79.82 Long term (current) use of aspirin; Z88.0 Allergy status to penicillin; Z88.1 Allergy status to other antibiotic agents; Z88.2 Allergy status to sulfonamides; Z88.5 Allergy status to narcotic agent; Z88.8 Allergy status to other drugs, medicaments and biological substances; E11.9 Type 2 diabetes mellitus without complications; E03.9 Hypothyroidism, unspecified; J45.909 Unspecified asthma, uncomplicated
CPT/HCPCS: 70450; 99283

== ENCOUNTER 2019-11-02 06:14 | Day surgery (SDC) | payer BC, OTHER ==
--- OUTSIDE RECORDS SUMMARY | 2019-11-02 06:16 | XMS REPORT | Clinical Summary ---
:1975 Author Organization [facility] Address [address] [place] [address] Care Team Providers Name Role Phone Pcp Primary Care Provider Unavailable Allergies Active Allergy Reactions Severity Noted Date Comments Propoxyphene Nausea And Vomiting 12/18/2018 N-Acetaminophen Hydrocodone-Acetaminophe 12/18/2018 N a nd V n Other Rash Low 12/18/2018 "mycins" Since childhood Oxycodone Nausea And Vomiting 12/18/2018 Penicillins 12/18/2018 Since childhood not sure about reac tion Oxycodone-Acetaminophen Nausea And Vomiting 12/18/2018 Sulfa (Sulfonamide Hives 12/18/2018 Antibiotics) Tramadol Nausea And Vomiting 12/18/2018 Vancomycin Analogues 12/18/2018 "red ma n syndrome" Head burning Medications Medication Sig Dispensed [...] weeks). ibuprofen Take 800 mg by 0 Activ e (ADVIL,MOTRIN) 800 MG mouth every 6 tablet (six) hours as needed for Pain (for migraine). acetaminophen Take 500 mg by 0 A ctive (TYLENOL) 500 MG mouth every 6 tablet [...] Team Description 12/18/2018 Anesthesia Event Carmen Jauregui, RIRI 12/18/2018 Surgery Nga Estevez IMPLANT E SARA,LENNY Schneider MD 12/18/2018 Hospital Encounter Nga Estevez Dis location of MD [place] intraocular cm s, initial encounter (Prim dino Dx) after 11/01/2018 Social History Tobacco Use Types Packs/Day Years [...] Not on file Implants Implanted Type Area Deck Mate Device Shelf Model / Identifier Expiration Serial / Date Lot Ct Dena 602 16.5d Iol Ophthalmology Right: [employer] CTLUCIA 16.5 / Implanted: Qty: 1 on 12/18/2018 by Nga Estevez MD Eye [id number] / N /A Procedures Procedure Name Priority Date/Time Associated Diagnosis Comme nts POCT , Routine 12/18/2018 11:10 Results for this URINE AM CDT procedure are i n the results section. VITRECTOMY,SENIOR UI DEVELOPER 12/18/2018 10:15 Displacement of [place] PARS PLANA AM CDT intraocular lens, subsequent encounter Special Needs (GAUGE SIZE UNKNOWN) (LEELEE W/ DR MOLINA) IMPLANT EXCHANGE,IOL 12/18/2018 10:15 AM CDT Displacem ent of intraocular lens, subsequent encounter Special Needs (GAUGE SIZE UNKNOWN) (LEELEE Whiting/ DR MOLINA) after 11/01/2018 Results POCT , urine (12/18/2018 11:10 AM CDT) Test Urine, POC Negative Control line present?, POC Yes Background clear?, POC Yes UPT Cassette Lot #, POC Hcg [id number] UPT Cassette Expiration Date, POC 2020 Specimen Urine after 11/01/2018 Insurance Payer Benefit Plan / Subscriber ID Type Phone Address Group BLUE CROSS/BLUE BCBS OS xxxxxxxxxxxx PPO [phone] [id number] [place] [address]
--- OUTSIDE RECORDS SUMMARY | 2019-11-02 06:16 | XMS REPORT | Clinical Summary ---
:1975 Author Organization [facility] Address [address] [place] [address] Care Team Providers Name Role Phone Oswaldo Fransico Primary Care Provider Allergies Active Allergy Reactions Severity Noted Date Comments Amoxicillin Hives 11/08/2016 Codeine 09/05/2016 hives Propoxyphene Hives 11/08/2016 N-Acetaminophen Hydrocodone 09/05/2016 Hives Other 09/05/2016 All mycins Oxycodone 09/05/2016 Hives Penicillins 09/05/2016 Pt was told she was allergic Oxycodone-Acetaminophen GI Intolerance 11/08/2016 N/ V Sulfa (Sulfonamide 09/05/2016 Pt was to ld when she Antibiotics) was a baby Tramadol 09/05/2016 Itching, nausea 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 tablet For breakthrough headaches eszopiclone Take 1 mg by mouth 0 Active (LUNESTA) 1 MG nightly. Take tablet immediately before bedtime SUMAtriptan Take 50 mg by mouth 0 [...] daily. aspirin (ECOTRIN) Take 81 mg by mouth 0 Active 81 MG enteric daily. If taken coated tablet every day "nosebleeds" furosemide (LASIX) Take 10 mg by mouth 0 Active 20 mg tablet as needed (pt takes when she is swollen). omeprazole Take 40 mg by mouth 0 Active (PriLOSEC) 40 MG 2 (two) times a day. capsule dextroamphetamine-a Take 20 mg by mouth 0 Active mphetamine daily. (ADDERALL) 20 mg tablet linaclotide Take 1 capsule (290 90 capsule 3 10/16/2018 Active (LINZESS) 290 mcg mcg total) by mouth capsule daily. Take 20 minutes before each meal 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/12/2016 Chest pain at rest 09/05/2016 Encounters Date Type Specialty Care Team Description 03/12/2019 Hospital Encounter Radiology Corey Das ophageal reflux MD Matthew disease, esopha gitis presence not sp ecified 03/12/2019 Telephone Gastroenterology Corey Das MD 03/07/2019 Telephone Gastroenterology Odalis English MA 12/12/2018 Telephone Gastroenterology Odalis English MA 12/05/2018 Telephone Gastroenterology Odalis English MA after 11/01/2018 Family History Medical History Relation Name Comments Burnett's esophagus Father Colon polyps Father GERD Father Pancreatic cancer Maternal Grandmother Colon polyps Mother GERD Mother Liver disease Sister Relation Name Status Comments Father Maternal Grandmother Mother Sister Social History Tobacco Use Types Packs/Day Years Used Date Never Smoker Smokeless Tobacco: Never Used Alcohol Use Drinks/Week oz/Week Comments Yes Social - one dri nk/month Sex Assigned at Date Recorded Not on file Job Start Date Occupation Industry Not on file Not on file Not on file Travel History Travel Start Travel End No recent travel history available. Last Filed Vital Signs Not on file Plan of Treatment Health Maintenance Due Date Last Done Comments CERVICAL CANCER SCREENING 1994 INFLUENZA VACCINE 12/29/2019 Procedures Procedure Name Priority Date/Time Associated Diagnosis Comme nts FL UGI W AIR GLUC Routine 03/12/2019 8:45 Gastroesophageal re flux Results for this HD BARIUM AM CDT disease, esophagitis procedu re are in presence not specified the r esults section. after 11/01/2018 Results FL UGI w Air Gluc HD Barium (03/12/2019 8:45 AM CDT) Specimen Narrative Performed At EXAMINATION: FL UGI W AIR GLUC [facility] CLINICAL HISTORY: K21.9 Gastro-esophageal reflux dis ease without esophagitis, reflux history of hiatal hernia COMPARISON: None. TECHNIQUE: UPPER GI SERIES was performed with efferv escent granules and barium. FLUOROSCOPIC TIME: 2.1 minutes. 14 f luoroscopic exposures. FINDINGS: 1. Esophagus: The esophagus is normally distensibl e. There is no obstructing esophageal mass or stricture. Normal mot ility. No mucosal abnormality identified. 2. Gastroesophageal junction: GE junction is paten t. A tiny hiatal hernia is present. A small amount of spontaneous gastr oesophageal reflux is noted. 3. Stomach: Normally distensible and demonstrates normal contours and mucosal pattern. 4. Duodenum: Bulb and sweep are normal. The duoden al-jejunal junction is in the normal expected posit ion. Prior cholecystectomy. IMPRESSION: 1.Tiny hiatal hernia. Mild gastroesophageal reflux. No esophagitis noted. [facility]-[id number] Dictated and approved by radiology resid ent/fellow: Master Martinez M.D. I, Génesis Yepez MD, personally reviewed the images and resident's/fellow's findings and agree with the final report. Procedure Note [facility], Radiology Results Incoming - 03/12/2019 11:22 AM CDT EXAMINATION: FL UGI W AIR GLUC HD BARIUM CLINICAL HISTORY: K21.9 Gastro-esophage al reflux disease without esophagitis, reflux history of hiatal hernia COMPARISON: None. TECHNIQUE: UPPER GI SERIES was performe d with effervescent granules and barium. FLUOROSCOPIC TIME: 2.1 minutes. 14 flu oroscopic exposures. FINDINGS: 1. Esophagus: The esophagus is normall y distensible. There is no obstructing esophageal mass or stricture. Normal motility. No mucosal abnormality identified. 2. Gastroesophageal junction: GE junct ion is patent. A tiny hiatal hernia is present. A small amount of spontaneous gastroesophageal reflux is noted. 3. Stomach: Normally distensible and d emonstrates normal contours and mucosal pattern. 4. Duodenum: Bulb and sweep are normal . The duodenal-jejunal junction is in the normal expected position. Prior cholecystectomy. IMPRESSION: 1.Tiny hiatal hernia. Mild gastroesophag eal reflux. No esophagitis noted. [facility]-[id number] Dictated and approved by radiology resid ent/fellow: Master Martniez M.D. I, Génesis Yepez MD, personally reviewed the images and resident's/fellow's findings and agree with the final report. Performing Organization Address City/State/Zipcode Phone Number [facility] [address] [place] [address] after 11/01/2018 (Home) [place] [address] Advance Directives For more information, please contact: [phone] Type Date Recorded Patient Learning Developer Explanati on Advance Directives, Living Will 11/12/2016 5:37 AM and Medical Power of Fun House Attendant
--- OUTSIDE RECORDS SUMMARY | 2019-11-02 06:18 | XMS REPORT | Continuity of Care Document ---
:1975 Author Organization [facility] t Address [address] [place] [address] Care Team Providers Name Role Phone Pcp Primary Care Physician Unavailable Pippa MCINTYRE, H. Attending Clinician Augusto English MA Attending Clinician Unavailable Wyatt Estevez MD Attending Clinician Wyatt Estevez MD Attending Clinician Juventino MENEZES Attending Clinician Payers Payer Name Policy Type Policy Number Effective Date Expiration Date S umer BCBSBCBS CHOICE xxxxxxxxxxxx 2017 [place] PPO/FEDERAL EMPL 00:00:00 Methodis t PPOxxxxxxxxxxxx2017-Present PO BLUE CROSS/BLUE xxxxxxxxxxxx [facility] SHIELDBCBS OS Medical Ruben ter POS/PPO/EPOxxxxx [id number], [place] [address] Problems Condition Condition Condition Status Onset Resolution Last Treating Co mments Source Name Details Category Date Date Treatment Clinician Date Abscess of Abscess of Disease Active 2016- [place] jaw jaw 6-16 Methodi 00:00: st 00 Chest pain Chest pain Disease Active 2016- [place] at rest at rest 409 Methodi 00:00: st 00 Attention Attention Problem Active [facility] deficit deficit [facility] - disorder disorder Memori a karyn [facility] Insomnia Insomnia Problem Active [facility] Tachycardi Tachycardi Problem Active [facility] a [facility] - [facility] Migraine Migraine Problem [facility] Constipati Constipati Problem Active C [facility] on on kes - Memoria l [facility] 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 endometria endometria Shel[place] kes - l ablation l ablation Me moria l [facility] 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[facility] 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 Memoria accident accident l [facility] Vagina Vagina Problem Active [facility] bleeding bleeding [facility] - [facility]oria [facility] Benign Benign Problem Active [facility] essential essential Luke s - HTN HTN Memoria l [facility] Edema Edema Problem Active [facility] 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[facility] rhinitis rhinitis [facility] - [facility] Asthma Asthma Problem Active [facility] 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 - n n Memoria resistant resistant l Staphyloco Staphyloco Ou tpati ccus ccus ent aureus aureus Clinics Gluteal Gluteal Problem Active [facility] abscess abscess [facility] - [facility]oria l [facility] Cervical Cervical Problem Active [facility] t radiculopa radiculopa Shelley kes - thy thy Memoria l [facility] Herpes Herpes Problem Active [facility] zoster zoster [facility] - without without Memoria complicati complicati l on on [facility] Hypokalemi Hypokalemi Problem Active [facility] a a [facility] - [facility] Menopausal Menopausal Problem Active C [facility] disorder disorder [facility] - Memoria l [facility] Irregular Irregular Problem Active [facility] menses menses [facility] - Memoria l [facility] BMI BMI Problem Active [facility] 27.0-27.9, 27.0-27.9, Shelley kes - adult adult Memoria l [facility] Non-season Non-season Problem Active C [facility] al al [facility] - allergic allergic Memori a rhinitis, rhinitis, l unspecifie unspecifie Ou tpati d trigger d trigger ent Clinics Encounter Encounter Diagnosis Active C [facility] for for [facility] - dietary dietary Memoria counseling counseling l and and Outpati surveillan surveillan en t ce ce Clinics Adult BMI Adult BMI Diagnosis Active C HI [facility] 29.0-29.9 29.0-29.9 Luke s - kg/sq m kg/sq m Memoria l [facility] Multiple Multiple Diagnosis Active [facility] joint pain joint pain Shelley kes - Memoria l [facility] Allergies, Adverse Reactions, Alerts Allergy Allergy Status Severity Reaction(s) Onset Inactive Treating Comm ents Source Name Type Date Date Clinician Propoxyp Propensi Active Nausea And [facility] hene ty to Vomiting 12-18 [facility] - N-Acetam adverse 00:00: Medical inophen reaction 00 [place] Hydrocod Propensi Active N and V [facility] one-Acet ty to 12-18 [facility] - aminophe adverse 00:00: Medical n reaction 00 [place] Other Propensi Active Rash "mycins" [facility] ty to 12-18 Since [facility] - adverse 00:00: childhood Medica l reaction 00 [place] Oxycodon Propensi Active Nausea And [facility] e ty to Vomiting 12-18 [facility] - adverse 00:00: Medical reaction 00 [place] Penicill Propensi Active Since [facility] ins ty to 12-18 childhood [facility] - adverse 00:00: not sure Medical reaction 00 about [place] reaction Oxycodon Propensi Active Nausea And [facility] I [facility] e-Acetam ty to Vomiting 12-18 [facility] - inophen adverse 00:00: Medical reaction 00 [place] Sulfa Propensi Active Hives [facility] (Sulfona ty to 12-18 [facility] - mide adverse 00:00: Medical Antibiot reaction 00 [facility]) s Tramadol Propensi Active Nausea And [facility] ty to Vomiting 12-18 [facility] - adverse 00:00: Medical reaction 00 [place] Vancomyc Propensi Active "red man [facility] in ty to 12-18 syndrome" [facility] - Analogue adverse 00:00: Head Medical s reaction 00 burning [place] Amoxicil Propensi Active Hives [place] ty to 612 Methodi adverse 00:00: st reaction 00 s to drug Propoxyp Propensi Active Hives [place] ty to 11-08 Methodi N-Acetam adverse 00:00: st inophen reaction 00 s to drug Oxycodon Propensi Active GI N/V [place] e-Acetam ty to Intolerance 11-08 Met hodi inophen adverse 00:00: st reaction 00 s to drug Codeine Propensi Active hives [place] ty to 09-05 Methodi adverse 00:00: st reaction 00 s to drug Hydrocod Propensi Active [place]iv[place] one ty to 09-05 Methodi adverse 00:00: st reaction 00 s to drug Other Propensi Active All [place] ty to 09-05 mycins Methodi adverse 00:00: st reaction 00 s Oxycodon Propensi Active [place] ty to 09-05 Methodi adverse 00:00: st reaction 00 s to drug Penicill Propensi Active Pt was [place] ins ty to 09-05 told she Methodi adverse 00:00: was st reaction 00 allergic s to drug Sulfa Propensi Active Pt was [place] (Sulfona ty to 09-05 told when Metho di mide adverse 00:00: she was a st Antibiot reaction 00 baby ics) s to drug Tramadol Propensi Active Itching, [place] ty to 09-05 nausea Methodi adverse 00:00: st reaction 00 s to drug Vancomyc Propensi Active Hives, [place] in ty to 09-05 red man Methodi adverse 00:00: syndrome st reaction 00 s to drug Hydrochl Adverse Active Info Not [facility] S t orothiaz Reaction Available Tressa es - chey Memoria l [facility] ent Clinics Percocet Adverse Active Info Not [facility]I S t Reaction Available [facility] Memoria l [facility] Clinics Acetamin Adverse Active Info Not [facility]I S t ophen Reaction Available [facility]oria [facility]ics Bactrim Adverse Active Info Not [facility] Reaction Available [facility]oria [facility] Vicodin Adverse Active Info Not [facility] Reaction Available [facility] ent [facility] Family History Family Member Diagnosis Comments Start Date Stop Date Source Natural father Burn[facility] [place] [facility] esophagus Natural father Colon polyps [place] [facility] Natural father GERD [place] [facility] Maternal grandmother Pancreatic cancer [facility] Natural mother Colon polyps [facility] Natural mother GERD [facility] thodist Natural sister Liver disease [facility] Social History Social Habit Start Date Stop Date Quantity Comments Source Sex Assigned At [place] [facility] Alcohol intake 2018-10-28 2018-10-28 Current drinker [place] on [facility] 00:00:00 00:00:00 of alcohol (finding) Alcohol Comment 2016-09-05 2016-09-05 Social - one [place] [facility] 00:00:00 00:00:00 drink/month Smoking Status Start Date Stop Date Source Never smoker [facility] t Medications Ordered Filled Start Stop Current Ordering Indication Dosage Frequency Signature Comments Components Source Medication Medication Date Date Medication? Clinician (SIG) Name Name magnesium Yes 30mg Q.5D Take [address] 30 mg 7-22 by mouth 2 [facility]ukes - tablet 10:52: (two) Medical 22 times Center daily. acetaminoph Yes 500mg Take [address] en 7-22 mg by Lukes - (TYLENOL) 10:39: mouth Medical 500 MG 30 every 6 Center tablet (six) hours as needed for Pain. ascorbic 2018- Yes 500mg QD Take [address] acid, 7-22 mg by Lukes - vitamin C, 10:39: mouth Medica l (ASCORBIC 30 daily. Center ACID WITH CLAUDE HIPS) 500 MG tablet potassium 0 Yes 20meq Q.5D Take [address] chloride 7-22 mEq by Lukes - (KLOR-CON) 10:39: mouth 2 Medi prashant 20 mEq 30 (two) Center packet times daily. omeprazole Yes 10mg QD Take [address] (PRILOSEC) 7-22 by mouth [facility]ukes - 10 MG 10:39: daily. Medical capsule 29 Center aspirin 81 2018- Yes 81mg QD Take [address] MG EC 7-22 by mouth [facility]ukes - tablet 10:39: daily. Medical 29 Center dextroamphe 0 Yes 20mg Q.5D Take [address] tamine-amph 7-22 by mouth 2 Shelley kes - etamine 10:39: (two) Medical (ADDERALL 29 times Center XR) 20 MG daily. 24 hr capsule SUMAtriptan 0 Yes 50mg Take [address] (IMITREX) 7-22 by mouth Lukes - 50 MG 10:39: once as Medical tablet 29 needed for Center Headaches (takes every two weeks). ibuprofen 2019-0 Yes 800mg Take [address] (ADVIL,MOTR 7-22 mg by Lukes - IN) 800 MG 10:39: mouth Medica l tablet 29 every 6 Center (six) hours as needed for Pain (for migraine). topiramate 2019-0 Yes 100mg Q.5D Take [address] (TOPAMAX) 7-22 mg by Lukes - 100 MG 10:39: mouth 2 Medical tablet 28 (two) Center times daily. propranolol 2019-0 Yes 40mg Q.[id number] Take [address] (INDERAL) 7-22 [id number] by mouth 3 [facility]ukes - 40 MG 10:39: 3D (three) Medical tablet 28 times Center daily. naltrexone- 2019-0 Yes Q.5D Take by [facility] bupropion 7-22 mouth 2 [facility]ukes - (CONTRAVE) 10:39: (two) Medica l 8-90 mg 28 times Center TbER daily. omeprazole 2019-0 Yes 40mg Q.5D Take 40 mg [place] (PriLOSEC) 5-20 by mouth 2 Met hodi 40 MG 14:23: (two) st capsule 22 times a day. topiramate 2019-0 Yes 100mg Q.5D Take 100 [place] (TOPAMAX) 5-20 mg by Methodi 100 MG 13:53: mouth 2 st tablet 37 (two) times a day. For breakthrou gh headaches eszopiclone 2019-0 Yes 1mg QD Take 1 mg [place] (LUNESTA) 1 5-20 by mouth Meth juan miguel MG tablet 13:53: nightly. st 37 Take immediatel y before bedtime SUMAtriptan 2019-0 Yes 50mg Take 50 mg [place] (IMITREX) 5-20 by mouth Method i 50 MG 13:53: once as st tablet 37 needed for migraine. May repeat in 2 hours if unresolved . Do not exceed 200 mg in 24 hours. metoprolol 2019-0 Yes 25mg Q.5D Take 25 mg [place] tartrate 5-20 by mouth 2 Metho di (LOPRESSOR) 13:53: (two) st 25 mg 37 times a tablet day. potassium 2019-0 Yes 1{tbl} QD Take 1 [place] 99 mg 5-20 tablet by Methodi tablet 13:53: mouth st 37 daily. aspirin 2019-0 Yes 81mg QD Take 81 mg [place] (ECOTRIN) 5-20 by mouth Method i 81 MG 13:53: daily. If st enteric 37 taken coated every day tablet "nosebleed s" furosemide 2018- Yes 10mg Take 10 mg [place] (LASIX) 20 5-20 by mouth Metho di mg tablet 13:53: as needed st 37 (pt takes when she is swollen). dextroamphe 2019-0 Yes 20mg QD Take 20 mg [place] tamine-amph 5-20 by mouth Meth juan miguel etamine 13:53: daily. st (ADDERALL) 37 20 mg tablet linaclotide Yes 290ug QD Take 1 Abigail ston (LINZESS) 5-20 capsule Methodi 290 mcg 00:00: ([address] capsule 00 total) by mouth daily. Take 20 minutes before each meal Belsomra Belsomra Yes Velasquez [address] [place] at bedtime [facility] - as needed Memoria l Outpati ent Clinics Magnesium Magnesium Yes Velasquez [address] [place] with a [facility]ukes - meal Memoria l Outpati ent Clinics Sumatriptan Sumatriptan Yes Velasquez [address] Succinate Succinate [place] as needed [facility] - Memoria l Outpati ent Clinics Propranolol Propranolol Yes Velas[place] [address] HCl HCl [place] [facility] - Memoria l Outpat[facility] ent Clinics Aspir-81 Aspir-81 Yes Velasquez [address] [place] [facility] - [facility]oria l Outpat[facility] ent Clinics Loratadine Loratadine Yes Velasquez [address] [facility] [place] [facility] - [facility]oria l Outpat[facility] ent Clinics Omeprazole Omeprazole Yes Velasquez [address] [facility] [place] [facility] - [facility] l Outpat[facility] ent Clinics Topiramate Topiramate Yes Velasquez [address] [facility] [place] in AM and Lukes - 2 tabls in Memoria PM l Outpati ent Clinics ProAir HFA ProAir HFA Yes Velasquez [address] [place] needed [facility] - [facility]oria l [facility] EpiPen EpiPen Yes Velasquez give [address] 2-Lam 2-Lam [place] dose by [facility]ukes - injection Memoria after bee l sting with Outpati reaction, ent may repeat Clinics dose x1. if problems occur go to emergency room. Yudy Jimenes 2019- No Velasquez [address] 06-26 [place] [facility] - 00:00 Memoria :00 l [facility] Vital Signs Vital Name Observation Time Observation Value Comments Source Body temperature 2018-12-18 14:00:00 36.61 Monet [facility] Systolic blood 2018-12-18 10:17:00 111 mm[Hg] [facility] Diastolic blood 2018-12-18 10:17:00 62 mm[Hg] [facility] Heart rate 2018-12-18 10:17:00 69 /min [facility] Body height 2018-12-18 10:17:00 170.2 cm [facility] Body weight Measured 2018-12-18 10:17:00 80.287 kg [facility] BMI 2018-12-18 10:17:00 27.72 kg/m2 [facility] Oxygen saturation in 2018-12-18 10:17:00 99 /min [facility] Arterial blood by Medical Ce nter Pulse oximetry Procedures Procedure Date / Time Performed Performing Clinician Sourc e FL UGI W AIR GLUC HD 2019-03-12 08:45:00 Corey Dasist BARIUM POCT , URINE 2018-12-18 11:10:00 Saira Cutler [facility] IMPLANT EXCHANGE,IOL 2018-12-18 10:15:00 Nga Estevez [facility] VITRECTOMY,MECHANICAL 2018-12-18 10:15:00 Carmen Keating [facility] Plan of Care Planned Activity Planned Date Details Comments Source Future Scheduled 2019-12-29 INFLUENZA VACCINE Gurjit ledesma [facility] Test 00:00:00 [code = INFLUENZA VACCINE] Future Scheduled 1994 Screening for [place] [facility] Test 00:00:00 malignant neoplasm of cervix (procedure) [code = 405780554] Medication 2019-11-22 Adderall [code = [facility] St ke s - 00:00:00 [id number]] [facility] ient Clinics Encounters Start End Encounter Admission Attending Care Care Encounter Source Date/Time Date/Time Type Type Clinicians Facility Department ID 2019-10-23 2019-10-23 [facility] [id number] 16:45:00 16:45:00 t [employer] Medicine Medicine Outpati ent Clinics 2019-08-23 2019-08-23 [facility] [id number] 14:45:00 14:45:00 t BrandCont [facility] Medicine Outpati ent Clinics 2019-07-12 2019-07-12 [facility] [id number] 15:25:00 15:25:00 t [employer] [facility] Medicine Outpati ent Clinics 2019-06-25 2019-06-25 [facility] [id number] 16:15:00 16:15:00 t [employer] [facility] Medicine Outpati ent Clinics 2019-05-22 2019-05-22 [facility] [id number] 10:15:00 10:15:00 t [employer] [facility] Medicine Outpati ent Clinics 2019-04-25 2019-04-25 [facility] [id number] 10:15:00 10:15:00 t [employer] [facility] Medicine Outpati ent Clinics 2019-04-23 2019-04-23 [facility] [id number] 14:15:00 14:15:00 t [employer] [facility] Medicine Outpati ent Clinics 2019-03-28 2019-03-28 [facility] [id number] 16:15:00 16:15:00 t [employer] [facility] Medicine Outpati ent Clinics 2019-02-27 2019-02-27 [facility] [id number] 15:30:00 15:30:00 t [employer] [facility] Medicine Outpati ent Clinics 2019-02-09 2019-02-09 [facility] [id number] 09:49:00 09:49:00 t [place] [employer] s - Lan[employer] [facility] 2019-01-26 2019-01-26 [facility] [id number] 08:00:00 08:00:00 t [place] [employer] s - Lanica [facility] 2019-01-16 2019-01-16 [facility] [id number] 07:26:27 07:41:27 Visit , Nga AMBULATOR [id number] Wyatt Y [id number] [facility] 2018-12-26 2018-12-26 [facility] [id number] 14:15:00 14:15:00 t Trony Solar s Glisten [facility] 2018-12-20 2018-12-20 [facility] [id number] 09:47:00 09:47:00 t [place] [employer] s - Lan[employer] [facility] 2018-12-06 2018-12-06 [facility] [id number] 12:34:00 12:34:00 t [employer] Glisten [facility] 2018-11-27 2018-11-27 [facility] [id number] 15:15:00 15:15:00 t [place] [employer] s - Lan[employer] [facility] Outpati ent Clinics 2018-09-20 2018-09-20 [facility] [id number] 15:45:00 15:45:00 t [place] [employer] Tasty s - Drive [facility] 2018-09-05 2018-09-05 [facility] [id number] 15:30:00 15:30:00 t Bone Bone and [facility] ent Clinics 2018-08-17 2018-08-17 [facility] [id number] 11:00:00 11:00:00 t [place] LOG607 [facility] 2018-07-18 2018-07-18 [facility] [id number] 15:30:00 15:30:00 t BrandCont [facility] ent Clinics 2018-07-13 2018-07-13 [facility] [id number] 15:01:00 15:01:00 t Bone Bone and Lukes - and Joint Joint Memori a Clinic of [facility] ent [facility] 2018-07-13 2018-07-13 [facility] [id number] 08:00:00 08:00:00 t Bone Bone and Lukes - and Joint Joint Memori a [facility] ent [facility] 2018-06-22 2018-06-22 [facility] [id number] 15:45:00 15:45:00 t BrandCont [facility] ent Clinics 2018-05-19 2018-05-19 [facility] [id number] 10:00:00 10:00:00 t [employer] [facility] 2018-03-02 2018-03-02 [facility] [id number] 11:15:00 11:15:00 t [employer] [facility] 2018-02-27 2018-02-27 [facility] [id number] 16:00:00 16:00:00 t BrandCont [facility] ent Clinics 2018-02-02 2018-02-02 [facility] [id number] 09:30:00 09:30:00 t Bone Bone and [facility]ukes - and Joint Joint Memori a Clinic of [facility] ent Clinics 2018-01-03 2018-01-03 [facility] [id number] 16:35:00 16:35:00 t Bone Bone and Lukes - and Joint Joint Memori a [facility] of [facility] ent Clinics 2018-01-03 2018-01-03 [facility] [id number] 14:00:00 14:00:00 t Bone Bone and Lukes - and Joint Joint [facility] a Clinic of [facility] 2017-12-19 2017-12-19 [facility] [id number] 10:15:00 10:15:00 t [place] Lan[employer] Luke s - Drive [facility] ent Clinics 2017-11-18 2017-11-18 [facility] [id number] 09:00:00 09:00:[address] [place] Luke s - Drive [facility] ent Clinics 2017-10-17 2017-10-17 [facility] [id number] 15:00:00 15:00:00 t [place] [employer] s - Drive [facility] ent Clinics 2017-10-03 2017-10-03 [facility] [id number] 15:30:00 15:30:00 t Women's Women's Luke s - Care Care Clinic [facility] l [facility] 2017-09-26 2017-09-26 [facility] [id number] 16:00:00 16:00:00 t [facility] Clinic l [facility] 2017-09-22 2017-09-22 [facility] [id number] 17:19:00 17:19:00 t Women's [facility] - Care Care Clinic [facility] Clinic l [facility] 2017-09-22 2017-09-22 [facility] [id number] 09:00:00 09:00:00 t Women's Women's Luke [facility] - Care Care Clinic [facility] Clinic [facility] 2017-09-14 2017-09-14 [facility] [id number] 16:04:00 16:04:[address] [address] Luke s - Drive [facility] ent Clinics 2017-09-14 2017-09-14 [facility] [id number] 16:00:00 16:00:00 [facility] s [facility] Medicine [facility] Results Test Description Test Time Test Comments Results Result Sourc e Comments [place] UGI w Air 2019-02-27 SusanAtul Gluc HD Barium 4 Radiology Results Met bridgettist 11:19:06 Incoming - 03/12/2019 11:22 AM CDTEXAMINATION: [place] UGI W AIR GLUC HD BARIUMCLINICAL HISTORY: K21.9 Gastro-esophageal reflux disease without esophagitis, reflux history of hiatal herniaCOMPARISON: None.TECHNIQUE: UPPER GI SERIES was performed with effervescent granules and barium.FLUOROSCOPIC TIME: 2.1 minutes. 14 fluoroscopic exposures.FINDINGS:1. Esophagus: The esophagus is normally distensible. There is no obstructing esophageal mass or stricture. Normal motility. No mucosal abnormality identified.2. Gastroesophageal junction: GE junction is patent. A tiny hiatal hernia is present. A small amount of spontaneous gastroesophageal reflux is noted.3. Stomach: Normally distensible and demonstrates normal contours and mucosal pattern.4. Duodenum: Bulb and sweep are normal. The duodenal-jejunal junction is in the normal expected position.Prior cholecystectomy.IMPRE SSION:1.Tiny hiatal hernia. Mild gastroesophageal reflux. No esophagitis noted.[facility]-[id number] ictated and approved by vice president payment/fellow: Master Martinez M.D.I, Génesis Yepez MD, personally reviewed the images and resident's/fellow's findings and agree with the final report. POCT , urine 2018-12-18 11:10:00 Test Item Value Reference Range Interpretation Comme nts Test Urine, POC (test code = 5090988) Negative Control line present?, POC (test code = 1240529) Yes Background clear?, POC (test code = 8794956) Yes UPT Cassette Lot #, POC (test code = 7883362) Hcg [id number] UPT Cassette Expiration Date, POC (test code = 2293576) 2020 Lab Interpretation (test code = 16832-4) Normal [facility]
--- OUTSIDE RECORDS SUMMARY | 2019-11-02 06:18 | XMS REPORT ---
:1975 [facility] Care Team Providers Name Role Phone OswaldoKarenh Provider Role Unavailable Allergies, Adverse Reactions, Alerts Substance Reaction Event Type Vicodin Info Not Available Drug Allergy Percocet Info Not Available Drug Allergy Hydrochlorothiazide Info Not Available Drug Allergy Bactrim Info Not Available Drug Allergy Acetaminophen Info Not Available Drug Allergy Problems Problem Type Condition Code Onset Dates Condition Statu s Assessment Allergic rhinitis J30.9 Active Assessment Encounter for dietary counseling Z71.3 Active and surveillance Assessment Constipation K59.00 Active Assessment Adult BMI 29.0-29.9 kg/sq m Z68.29 Active Assessment Hypokalemia E87.6 Active Assessment Migraine G43.909 Active Assessment Insomnia G47.00 Active Problem History of cerebrovascular accident Z86.73 Active Assessment Multiple joint pain M25.50 Active Problem History of endometrial ablation Z98.890 Active Assessment Benign essential HTN I10 Active Problem Vagina bleeding N93.9 Active Problem Gluteal abscess L02.31 Active Problem 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 Problem BMI 27.0-27.9,adult Z68.27 Active Problem Irregular menses N92.6 Active Problem Migraine G43.909 Active Problem Non-seasonal allergic rhinitis, J30.89 Active unspecified trigger Assessment Attention deficit disorder F90.9 A ctive Problem Herpes zoster without complication B02.9 Active Problem Cervical radiculopathy M54.12 Activ e Problem Menopausal disorder N95.9 Active Problem Hypokalemia E87.6 Active Problem Tachycardia R00.0 Active Problem Insomnia G47.00 Active Problem Constipation K59.00 Active Problem Attention deficit disorder F90.9 A ctive Problem Asthma J45.909 Active Problem Allergic rhinitis J30.9 Active Problem Edema R60.9 Active Problem Benign essential HTN I10 Active Medications Medication Code Code Instructions Start End Status Dosage System Date Date Linzess [facility] 83847654325 290 MCG Orally Active 1 cap nelsy Once a day Sumatriptan [facility] 48162298417 50 MG Orally Active 1 t ablet as Succinate Once a day needed ProAir HFA [facility] 10956083895 108 (90 Base) Active 2 p uffs as MCG/ACT needed Inhalation every 6 hrs EpiPen 2-Lam [facility] 48610652099 0.3 MG/0.3ML Active gi ve 1 dose Injection once by inject ion after bee sting with reaction, may repeat dose x1. if problems occur go to emergency room. Loratadine [facility] 55148720371 10 MG Orally Active 1 ta blet Once a day Magnesium [facility] 49367878329 200 MG Orally Active 2 ta blets Once a day with a meal Aspir-81 [facility] 81061666210 81 MG Orally Active 1 tabl et Once a day Belsomra [facility] 97670880591 20 MG Orally Active 1 tabl et at Once a day bedtime as needed Adderall [facility] 88463720928 20 MG Orally July Active 1 tabl et in Twice a day 2019 the morning Adderall [facility] 91074540674 20 MG Orally August Active 1 tabl et Twice a day 2019 Propranolol HCl [facility] 60165741312 20 MG Orally Active 1 tablet Twice a day Topiramate [facility] 76859332264 100 MG Orally Active 1 t ablet in Twice a day AM and 2 tabls in PM Omeprazole [facility] 32978448938 20 MG Orally Active 1 ca psule Once a day Results No Known Results Summary Purpose eClinicalWorks Submission
--- OUTSIDE RECORDS SUMMARY | 2019-11-02 06:19 | XMS REPORT ---
:1975 [facility] Care Team Providers Name Role Phone Oswaldo [...] Status Dosage System Date Date ProAir HFA ND 64834502863 108 (90 Base) Active 2 p uffs as MCG/ACT needed Inhalation every 6 hrs Magnesium [facility]DC 17771869905 200 MG Orally Active 2 ta blets Once a day with a meal Sumatriptan [facility] 45516245384 50 MG Orally Active 1 t ablet as Succinate Once a day needed Belsomra [facility] 21945755887 20 MG Orally Active 1 tabl et at Once a day bedtime as needed Omeprazole [facility] 86865880991 20 MG Orally Active 1 ca psule Once a day Propranolol HCl [facility] 31250261168 20 MG Orally Active 1 tablet Twice a day Topiramate [facility] 03004308911 100 MG Orally Active 1 t ablet in Twice a day AM and 2 tabls in PM Adderall [facility] 86962036017 20 MG Orally October 22, Active 1 tabl et in Twice a day 2019 the morning Adderall [facility] 90767214231 20 MG Orally November 21, Active 1 tab let Twice a day 2019 Linzess [facility] 91119123019 290 MCG Orally Active 1 cap nelsy Once a day Aspir-81 [facility] 63730018299 81 MG Orally Active 1 tabl et Once a day EpiPen 2-Lam [facility] 06031367579 0.3 MG/0.3ML Active gi ve 1 dose Injection once by inject ion after bee sting with reaction, may repeat dose x1. if problems occur go to emergency room. Loratadine [facility] 11013564343 10 MG Orally Active 1 ta blet Once a day Results No Known Results Summary Purpose eClinicalWorks Submission
[2019-11-02 06:54] LABS: Specific Gravity 1.015 (1.005-1.030)
[2019-11-02] MEDS ORDERED: Ringers Lactate 1,000 ML IV ONE (06:56)
[2019-11-02] MEDS ORDERED: EPINEPHRINE/PF 1 MG/ML AMP ONE (07:04)
[2019-11-02] MEDS ORDERED: MIDAZOLAM HCL 2 MG/2 ML INJ ONE (07:38)
[2019-11-02] MEDS ORDERED: LIDOCAINE 1% MPF 2 ML AMPULE ONE (07:39)
[2019-11-02] MEDS ORDERED: propofoL 200 MG/20 ML VIAL IV ONE (07:39)
--- NOTE | 2019-11-02 07:49 | ENDO RPT ---
[address], [address] EGD PROCEDURE REPORT EXAM DATE: 11/02/2019 PATIENT NAME: Beth Reynoso MR#: [id number] BIRTHDATE: 1975 ATTENDING: Farooq Head DR STATUS: outpatient DRIED FRUIT WASHER: Hemalatha Hernandez RN and Tomy Kessler [facility] INDICATIONS: The patient is a 44 yr old Female here for an EGD due to mid epigastric abdominal pain PROCEDURE PERFORMED: EGD with biopsy for H. pylori MEDICATIONS: Per Anesthesia. TOPICAL ANESTHETIC: none CONSENT: The patient understands the risks and benefits of the procedure and understands that these risks include, but are not limited to: sedation, allergic reaction, infection, perforation and/or bleeding. Alternative means of evaluation and treatment include, among others: physical exam, x-rays, and/or surgical intervention. The patient elects to proceed with this endoscopic procedure. DESCRIPTION OF PROCEDURE: During intra-op preparation period all mechanical medical equipment was checked for proper function. Hand hygiene and appropriate measures for infection prevention was taken. Procedure, possible complications, and alternatives including but not limited to the possibility of bleeding, perforation, tear, infection, sepsis, need for surgery, need for blood transfusion, and anesthesia related complications were explained to the patient. After the risks, benefits and alternatives of the procedure were thoroughly explained, Informed consent was verified, confirmed and timeout was successfully executed by the treatment team. The patient was placed in the left lateral position. The patient was anesthetized with topical anesthesia. Through the anesthetized oropharyngeal area, the scope was passed without any difficulty. The [id number] ([id number]) endoscope was introduced through the mouth and advanced to the second portion of the duodenum. Retroflexed views revealed no abnormalities. The gastroscope was then slowly withdrawn and removed. Duodenitis was found in the bulb and descending duodenum. A biopsy for H. pylori was taken. Moderate gastritis was found in the body and the antrum of the stomach. A biopsy for H. pylori was taken. Multiple erosions were found in the body and the antrum of the stomach. A biopsy for H. pylori was taken. ADVERSE EVENTS: There were no complications. IMPRESSIONS: 1. Duodenitis was found in the bulb and descending duodenum 2. Moderate gastritis was found in the body and the antrum of the stomach 3. Multiple erosions were found in the body and the antrum of the stomach RECOMMENDATIONS: 1. acid suppression therapy 2. anti-reflux regimen 3. await biopsy results 4. avoid NSAIDS 5. follow-up: office 2 week(s) 6. follow-up of helicobacter pylori status, treat if indicated REPEAT EXAM: Farooq Head DR eSigned: Farooq Head DR 11/02/2019 7:48 AM cc: CPT CODES: ICD9 CODES: PATIENT NAME: Beth ReynosoTasneem MR#: [id number]
[2019-11-02 08:29] VITALS: TEMP 97.8
[2019-11-02 08:32] VITALS: BP 109/64; O2SAT 98
== END 2019-11-02 08:20 | disposition home health service (06) ==
LOC: OR 06:14
PROVIDERS: ATTEND Surgery
PROC: 0DB68ZX Excision of Stomach, Via Natural or Artificial Opening Endoscopic, Diagnostic (ICD-10-PCS; 2019-11-02)
PROC: 0DB98ZX Excision of Duodenum, Via Natural or Artificial Opening Endoscopic, Diagnostic (ICD-10-PCS; principal; 2019-11-02 07:30)
DX: K21.9 Gastro-esophageal reflux disease without esophagitis (principal); K29.80 Duodenitis without bleeding; K29.50 Unspecified chronic gastritis without bleeding; K25.9 Gastric ulcer, unspecified as acute or chronic, without hemorrhage or perforation; Z88.6 Allergy status to analgesic agent; Z88.0 Allergy status to penicillin; Z88.2 Allergy status to sulfonamides; Z88.3 Allergy status to other anti-infective agents; Z11.59 Encounter for screening for other viral diseases; F10.10 Alcohol abuse, uncomplicated
CPT/HCPCS: 43239; 88312; 81025; 88305; J2704; J2250; J2001; J7120; J0171

== ENCOUNTER 2020-02-11 20:23 | Emergency (ER) | payer BC, OTHER ==
--- OUTSIDE RECORDS SUMMARY | 2020-02-11 20:25 | XMS REPORT | Clinical Summary ---
:1975 Author Organization [facility] Address [address] [place] [address] Care Team Providers Name Role Phone Fransico Chacon Primary Care Provider Allergies Active Allergy [...] Description 03/12/2019 Hospital Encounter Radiology Corey Das Gastroisac ophageal reflux MD Matthew disease, esopha gitis presence not sp ecified 03/12/2019 Telephone Gastroenterology Corey Das MD 03/07/2019 Telephone Gastroenterology Odalis English MA after 02/10/2019 Family History Medical History Relation Name Comments [...] Comments CERVICAL CANCER SCREENING 1994 INFLUENZA VACCINE 02/28/2020 Procedures Procedure Name Priority Date/Time Associated Diagnosis Comme nts FL UGI W AIR GLUC Routine 03/12/2019 8:45 Gastroesophageal re flux Results for this HD BARIUM AM CDT disease, esophagitis procedu re are in presence not specified the r esults section. after 02/10/2019 Results [place] UGI w Air Gluc HD [...] hernia. Mild gastroesophageal reflux. No esophagitis noted. [facility]-[id number] Dictated and approved by radiology resid ent/fellow: Master Martinez M.D. I, Génesis Yepez MD, personally reviewed the images and resident's/fellow's findings and agree with the final report. Procedure Note [facility], Radiology Results Incoming - 03/12/2019 11:22 [...] Mild gastroesophag eal reflux. No esophagitis noted. [facility]-[id number] Dictated and approved by radiology resid ent/fellow: Master Martinez M.D. I, Génesis Yepez MD, personally reviewed the images and resident's/fellow's findings and agree with the final report. Performing Organization Address City/State/Zipcode Phone Number [facility] [address] [place] [address] after 02/10/2019 (Home) [place] [address] Advance Directives For more information, please contact: [phone] Type Date Recorded Patient Hand Decorator Explanati on Advance Directives, Living Will 11/12/2016 5:37 AM and Medical Power of Assisted Living Assistant
--- OUTSIDE RECORDS SUMMARY | 2020-02-11 20:26 | XMS REPORT | Summary of Care ---
:1975 Author Organization [facility] Address [address] [place] [address] Care Team Providers Name Role Phone Jarek Chacon Primary Care Provider Reason for Visit Reason Comments LAB WORK Auth/Cert Status Reason Specialty Diagnoses / Referred By Referred To Procedures Contact Contact Clinical Medical Procedures [facility] Lab Laboratory covid preop [address] [place] [address] Encounter Details Date Type Department Care Team Description 12/24/2019 Laboratory Only [facility] Zeke Chacon MD [address] [place] [address] [id number] [place] [address] Pre-operative Phlebotomy Only, [facility] Test clearance (Primary Lab-[facility] D[facility]) [address] [place] [address] Allergies Active Allergy Reactions Severity Noted Date Comments Amoxicillin Swelling 12/30/2015 Codeine Hives 12/30/2015 Propoxyphene Hives 12/30/2015 N-Acetaminophen Hydrocodone-Aspirin Hives 12/30/2015 Penicillins Hives 12/30/2015 Oxycodone-Acetaminophen Nausea and/or 12/30/2015 Vomiting Sulfa (Sulfonamide Other - See comments 12/30/2015 P atient states she Antibiotics) cannot remember . Tramadol Hives 12/30/2015 documented as of this encounter (statuses as of 12/24/2019) Medications Medication Sig Dispensed Refills Start Date End Date Status EPIPEN 2-MAXIMUS 0.3 mg/0.3 GIVE 1 DOSE BY 1 11/26/2015 Active mL injection INJECTION AFTER BEE STING WITH REACTION, MAY REPEAT DOSE IF PROBLEMS OCCUR,GO TO ER hydrochlorothiazide Take 25 mg by 1 11/26/2015 Active (ESIDRIX) 25 mg tablet mouth daily. ibuprofen (MOTRIN) 800 mg as needed (As 0 10/03/2015 Active tablet needed for migraine headache.). SUMAtriptan (IMITREX) 50 as needed for 3 11/26/2015 Active mg tablet Migraine. albuterol (PROAIR HFA) 90 Inhale 2 Puffs 0 Active mcg/actuation inhaler every 6 (six) hours as needed for Wheezing or Shortness of Breath. amphetamine-dextroampheta Take 20 mg by 0 Active mine (ADDERALL XR) 20 mg mouth 2 (two) 24 hr capsule times daily. acetaminophen (TYLENOL) Take by mouth 0 Active 325 mg tablet every 6 (six) hours as needed. sennosides-docusate Take 1 tablet 0 Active sodium (SENNA PLUS) by mouth 3 8.6-50 mg per tablet (three) times daily. nortriptyline 50 mg TAKE 1 CAPSULE 3 04/29/2016 Active capsule BY MOUTH AT BEDTIME eszopiclone (LUNESTA) 1 Take 1 mg by 0 Active mg tablet mouth at bedtime. propranolol 40 mg tablet Take 40 mg by 0 Active mouth 2 (two) times daily. omeprazole 40 mg capsule Take 40 mg by 0 Active mouth daily. furosemide 20 mg tablet Take 20 mg by 0 Active mouth as needed. topiramate (TOPAMAX) 200 Take 100 mg by 0 Active mg tabletIndications: mouth every 200mg at bedtime morning and at bedtime. Indications: 200mg at bedtime loratadine 10 mg capsule Take by mouth 0 Active daily. documented as of this encounter (statuses as of 12/24/2019) Active Problems Problem Noted Date Thyroid nodule 12/30/2015 documented as of this encounter (statuses as of 12/24/2019) Social History Tobacco Use Types Packs/Day Years Used Date Never Smoker Smokeless Tobacco: Never Used Alcohol Use Drinks/Week oz/Week Comments Not Asked 0 Standard drinks or equivalent 0.0 Sex Assigned at Date Recorded Not on file Job Start Date Occupation Industry Not on file Not on file Not on file Travel History Travel Start Travel End No recent travel history available. COVID-19 Exposure Response Date Recorded In the last month, have you been in contact with No / Unsure 12/24/2019 11:19 AM CDT someone who was confirmed or suspected to have Coronavirus / COVID-19? documented as of this encounter Last Filed Vital Signs Not on filedocumented in this encounter Plan of Treatment Date Type Specialty Care Team Description 12/25/2019 Hospital Encounter Surgery Mauricio Cuevas MD [address] [facility] [place] [address] 12/25/2019 Anesthesia Event Surgery Corey Valdivia C [address] [phone] 12/25/2019 Surgery Surgery Maddi Cuevas MD LAPAROSCOPIC TOTAL [address] [facility] [place] [address] Name Type Priority Associated Diagnoses Date/Ti me COVID-19 (ID NOW RAPID LAB Routine Pre-operative kosta rachel 12/24/2019 11:36 AM CDT TESTING) Name Type Priority Associated Diagnoses Order S chedule COVID-19 (ID NOW RAPID LAB Routine Pre-operative kosta rachel Expected: 12/24/2019, TESTING) Expires: 2020 Health Maintenance Due Date Last Done Comments DTaP,Tdap,and Td Vaccines (1 - 01/29/1984 Tdap) Depression Screening 1985 PAP SMEAR 1994 Breast Cancer Screening 2013 (MAMMOGRAM) INFLUENZA VACCINE (#1) 2020 PNEUMOCOCCAL 0-64 YEARS COMBINED Aged Out No longer eligible based on SERIES patient's age to complete this topic documented as of this encounter Results Not on filedocumented in this encounter Visit Diagnoses Diagnosis Pre-operative clearance - Primary Preoperative examination, unspecified documented in this encounter Additional Health Concerns Infection Onset Date Last Indicated Resolved Time COVID-19 Rule Out 12/24/2019 12/24/2019 documented as of this encounter Insurance Payer Benefit Plan Subscriber ID Effective Dates Phone Address Type / Group [facility] OF [id number] 2017-[place] [phone] [address] PPO/POS [place] - OUT OF t 7 [id number] [place] [address] documented as of this encounter
--- OUTSIDE RECORDS SUMMARY | 2020-02-11 20:26 | XMS REPORT | Clinical Summary ---
:1975 Author Organization [facility] Address [address] [place] [address] Care Team Providers Name Role Phone Pcp [...] times daily. Active Problems Not on file Social History Tobacco Use Types Packs/Day Years [...] Signs Not on file Plan of Treatment Not on file Implants Implanted Type Area Information Technology Audit Manager Device Shelf Model / Identifier Expiration Serial / Date Lot Ct Dena 602 16.5d Iol Ophthalmology Right: [employer] CTLUCIA 16.5 / Implanted: Qty: 1 on 12/18/2018 by Nga Estevez MD Eye [id number] / N /A Results Not on fileafter 02/10/2019 Insurance Payer Benefit Plan / Subscriber ID Type Phone Address Group BLUE CROSS/BLUE BCBS OS xxxxxxxxxxxx PPO [phone] [id number] SHIELD [place] [address]
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
--- OUTSIDE RECORDS SUMMARY | 2020-02-11 20:26 | XMS REPORT | Summary of Care ---
:1975 Author Organization [facility] - Health Address [address] [place] [address] Care Team Providers Name Role Phone Jarek [place] Primary Care Provider Encounter Details Date Type Department Care Team Description 12/24/2019 Orders Only [facility] Doctor Unassigned, No [address] [facility] Name [place] [id number] [address] [place] [id number] Allergies Active Allergy Reactions Severity Noted Date [...] TO ER hydrochlorothiazide Take 25 mg by 11/26/2015 Active (ESIDRIX) 25 mg tablet mouth [...] been in contact with No / Unsure 12/21/2019 8:37 AM CDT someone who was confirmed or suspected to have Coronavirus / COVID-19? documented as of this encounter Last Filed Vital Signs Not on filedocumented in this encounter Plan of Treatment Date Type Specialty Care Team Description 12/24/2019 Voltmeter Operator Visit Phlebotomy Vinicius Cuevas MD [address] [place] [address] [phone] Pob, Adc Lab Main 12/25/2019 Hospital Encounter Surgery Mauricio Cuevas MD [address] [facility], [place] [address] [phone] 12/25/2019 Anesthesia Event Surgery Corey Valdivia C [address] [address] [phone] 12/25/2019 Surgery Surgery Maddi Cuevas MD LAPAROSCOPIC TOTAL [address] [facility], [address] [place] [address] [phone] Health Maintenance Due Date Last Done Comments DTaP,Tdap,and Td Vaccines (1 - 01/29/1984 Tdap) Depression Screening 1985 PAP SMEAR 1994 Breast Cancer Screening 2013 (MAMMOGRAM) INFLUENZA VACCINE (#1) 2020 PNEUMOCOCCAL 0-64 YEARS COMBINED Aged Out No longer eligible based on SERIES patient's age to complete this topic documented as of this encounter Procedures Procedure Name Priority Date/Time Associated Diagnosis Comme nts ASSIGNMENT OF BENEFITS Routine 12/24/2019 11:15 AM CDT documented in this encounter Results Not on filedocumented in this encounter Insurance Payer Benefit Plan Subscriber ID Effective Dates Phone Address Type / Group BCBS OF [facility] [id number] 2017-Yosvany [phone] [address] PPO/POS [place] - OUT OF t 7 [id number] [place] [address] documented as of this encounter
--- OUTSIDE RECORDS SUMMARY | 2020-02-11 20:26 | XMS REPORT | Summary of Care ---
:1975 Author Organization [facility] - [facility] Address [address] [place] [address] Care Team Providers Name Role Phone Jarek Chacon Primary Care Provider Reason for Visit Reason Comments LAB WORK Auth/Cert Status Reason Specialty Diagnoses / Referred By Referred To Procedures Contact Contact Clinical Medical Procedures [facility] Lab Laboratory covid preop [address] [place] [address] Encounter Details Date Type Department Care Team Description 12/24/2019 Laboratory Only [facility] Zeke Chacon MD [address] [place] [address] [id number] [place] [address] Pre-operative Phlebotomy Only, [facility] Test clearance (Primary Lab-[place] Dx) [address] [place] [address] Allergies Active Allergy Reactions Severity [...] Hospital Encounter Surgery Mauricio Cuevas MD [address] [facility], [address] [place], [place] [address] 12/25/2019 Anesthesia Event Surgery Corey Valdivia C RNA [address] [place] [phone] 12/25/2019 Surgery Surgery Madid Cuevas MD LAPAROSCOPIC TOTAL [address] [facility] [place] [address] [phone] Health Maintenance Due Date Last Done Comments DTaP,Tdap,and Td Vaccines (1 - 01/29/1984 Tdap) Depression Screening 1985 PAP SMEAR 1994 Breast Cancer Screening 2013 (MAMMOGRAM) INFLUENZA VACCINE (#1) 2020 PNEUMOCOCCAL 0-64 YEARS COMBINED Aged Out No longer eligible based on SERIES patient's age to complete this topic documented as of this encounter Procedures Procedure Name Priority Date/Time Associated Diagnosis Comme nts COVID-19 (ID NOW Routine 12/24/2019 11:36 AM Pre-operative Res ults for this RAPID TESTING) CDT clearance procedure are in the results section. documented in this encounter Results COVID-19 (ID NOW RAPID TESTING) (12/24/2019 11:36 AM CDT) SARS-CoV-2 Rapid ID Not Detected Not Detected [facility] Specimen Swab - NASOPHARYNGEAL SWAB Narrative Performed At ID NOW COVID-19 Assay is an isothermal nucleic [facility] acid amplification test intended for the qualitative detection of nucleic acid from SARS-CoV-2 viral RNA in nasopharyngeal (TELEVISION AND RADIO REPAIRER) specimens. It is used under Emergency Use Authorization (EUA) by FDA. The limit of detection (LOD) of the assay is 125 Genome Equivalents/mL. A positive result is indicative of the presence of SARS-CoV-2 RNA. Clinical correlation with patient history and other diagnostic information is necessary to determine patient infection status. A negative (Not Detected) result does not preclude SARS-CoV-2 infection. In patients with clinical symptoms and other tests that are consistent with SARS-CoV-2 infection, negative results should be treated as presumptive negative and a new specimen should be tested with alternative PCR molecular test. Invalid: Please collect a new specimen for repeat patient testing if clinically indicated. Performing Organization Address City/State/Zipcode Phone Number [facility] CLIA: [id number], [address] [place], [place] [address] documented in this encounter Visit Diagnoses Diagnosis Pre-operative clearance - Primary Preoperative examination, unspecified documented in this encounter Additional Health Concerns Infection Onset Date Last Indicated Resolved Time COVID-19 Rule Out 12/24/2019 12/24/2019 12/24/2019 12: 49 PM CDT documented as of this encounter Insurance Payer Benefit Plan Subscriber ID Effective Dates Phone Address Type / Group BS [facility] [id number] 2017-Yosvany [phone] [address] PPO/POS [place] - OUT OF t [id number] [place] [address] documented as of this encounter
--- OUTSIDE RECORDS SUMMARY | 2020-02-11 20:27 | XMS REPORT | Summary of Care ---
:1975 Author Organization [facility] - [facility] Address [address] [place] [address] Care Team Providers Name Role Phone Jarek Chacon Primary Care Provider Reason for Visit Auth/Cert Status Reason Specialty Diagnoses / Procedures Referred By Paulette eferred To Contact Contact Surgery Diagnoses Pelvic and perineal pain Deep dyspareunia R10.2 & N94.12 Adc Pre/Pacu/Post Procedures MA LAPAROSCOPY W TOT HYSTERECTUTERUS <=250 GRAM W TUBE/OVARY MA LAPAROSCOPY TOT HYSTERECTOMY UTERUS >250 GRAM W TUBE/OVARY LAPAROSCOPIC TOTAL ABDOMINAL HYSTERECTOMY LAPAROSCOPIC SALPINGECTOMY LAPAROSCOPIC SALPINGO-OOPHORECTOMY [address] [place], [place] [address] Fax: Encounter Details Date Type Department Care Team Description 12/25/2019 Hospital Encounter [facility] [address] [facility] [address] cohen [address] [place] [address] [phone] [place] [address] [phone] Allergies Active Allergy Reactions Severity Noted Date Comments Amoxicillin Swelling 12/30/2015 Codeine Hives 12/30/2015 Propoxyphene Hives 12/30/2015 N-Acetaminophen Hydrocodone-Aspirin Hives 12/30/2015 Penicillins Hives 12/30/2015 Oxycodone-Acetaminophen Nausea and/or 12/30/2015 Vomiting Sulfa (Sulfonamide Other - See comments 12/30/2015 P atient states she Antibiotics) cannot remember . Tramadol Hives 12/30/2015 Vancomycin Unknown - See 12/25/2019 ryland syndrom e comments documented as of this encounter (statuses as of 12/25/2019) Medications Medication Sig Dispensed Refills Start Date [...] as of this encounter (statuses as of 12/25/2019) Active Problems Problem Noted Date Thyroid nodule 12/30/2015 documented as of this encounter (statuses as of 12/25/2019) Social History Tobacco Use Types Packs/Day Years Used Date Never Smoker Smokeless Tobacco: Never Used Alcohol Use Drinks/Week oz/Week Comments Yes 0 Standard drinks or equivalent 0.0 sometimes Sex Assigned at Date Recorded Not on [...] of this encounter Last Filed Vital Signs Vital Sign Reading Time Taken Comments Blood Pressure 106/62 12/25/2019 2:45 PM CDT Pulse 92 12/25/2019 2:45 PM CDT Temperature 36.3 C (97.3 F) 12/25/2019 1:43 PM CDT Respiratory Rate 14 12/25/2019 2:45 PM CDT Oxygen Saturation 97% 12/25/2019 2:45 PM CDT Inhaled Oxygen Concentration - - Weight 78 kg (171 lb 15.3 oz) 12/25/2019 8:45 AM CDT Height 170.2 cm (5' 7") 12/25/2019 8:45 AM CDT Body Mass Index 26.93 12/25/2019 8:45 AM CDT documented in this encounter Discharge Instructions InstructionsMatilde Wade RN - 12/25/2019 Patient Discharge Instructions Discharge date: 12/25/2019 Procedure(s): Procedure(s): LAPAROSCOPIC TOTAL ABDOMINAL HYSTERECTOMY LAPAROSCOPIC SALPINGECTOMY UTEROSACRAL SUSPENSION CYSTOSCOPY Discharge Orders ACTIVITY: As Tolerated Regular Diet; Texture: Regular Texture Regular Diabetic: No Follow instructions as indicated below: 1. The medication that was used will be acting in your system for the next 24 hours, so you might feel a little drowsy, with impaired judgment and or motor function. This feeling should go wear off. Because the medication is still in your system for the next 24 hours you SHOULD NOT: Drive a car, operate machinery or power tool. Drink any alcohol beverages (including beer or wine). Make any important decisions or sign any legal documents. 2. You should rest the remainder of the day and not engage in any physical activity. Move slowly today. After lying down, sit on the edge of the bed for a moment before standing. YOU ARE RESPONSIBLEFOR HAVING SOMEONE AT HOME WITH YOU DURING THE AFTERNOON AND NIGHT IMMEDIATELY FOLLOWING YOUR SURGERY. Patient should cough and deep breathe every 2-4 hours while awake to avoid respiratory complications. 4. Lifting: No lifting over 10 pounds 5. Weight: In general, sudden weight gains or losses should be reported to your provider. Cardiac patients should weigh daily and notify their provider for a weight gain of 3 pounds per day or 5 pounds per week. 6. Tobacco Avoidance: Follow recommendations below 7. Because the medications used could procedure some residual nausea and vomiting after you go home,you should eat lightly today, starting with clear liquids (broth, soft drinks, apple juice, jello) and toast or crackers, progressing to bland solid foods and then to your normal diet as tolerated, unle ss otherwise stated by your surgeon. If you get sick, wait a couple of hours and then begin to eat. After 24 hours the nausea should be gone. 8. You may experience some pain and your physician will advise you on what to take for discomfort. This should be taken as directed. If the pain is not relieved, contact your physician. You may alsohave a sore throat from the airway that was in place. You may uses lozenges, throat spray (such as C hloraseptic), or warm salt water gargles for symptomatic relief. 9. If you feel warm, take your temperature. If it is 101 degrees or above call your physician. 10. If you are unable to urinate within five hours after your procedure, call your physician. 11. The type of surgery performed will determine how much bleeding (if any) to expect. Normally, some spotting might occur. If your dressing pad becomes saturated, notify your physician. Elevate surgical site, if applicable, to reduced swelling and pain. 12. Wound/dressing care: see handout Tips on preventing a surgical site infection.. Dont smoke. It is best to quit at least 30 days before surgery, but quitting after surgery is also helpful. If you are diabetic, keep your blood sugar well controlled. WASH YOUR HANDS. Keep your wound clean and remember to wash your hands before and after contact with the area. All health care workers should also wash their hands or use an alcohol based hand rub prior to examining you. If antibiotics are prescribed, take them as directed. Finish the entire course of antibiotics. Call your doctor if you have signs of infection: ? Increased tenderness at the surgical site ? Red streaks or increased redness of the area ? Bad-smelling discharge from the incision ? Fever of 101F or higher ? General tired feeling that doesnt improve 13. Other discharge instructions: see handout 14. Special Instructions: see handout from [facility] Take Home Medications These are medications ordered for you by your healthcare provider. Do not take any other medications or supplements unless advised by your healthcare provider. Current Discharge Medication List STOP taking these medications furosemide 20 mg tablet Comments: Reason for Stopping: loratadine 10 mg capsule Comments: Reason for Stopping: omeprazole 40 mg capsule Comments: Reason for Stopping: propranolol 40 mg tablet Comments: Reason for Stopping: topiramate (TOPAMAX) 200 mg tablet Comments: Reason for Stopping: albuterol (PROAIR HFA) 90 mcg/actuation inhaler Comments: Reason for Stopping: amphetamine-dextroamphetamine (ADDERALL XR) 20 mg 24 hr capsule Comments: Reason for Stopping: EPIPEN 2-MAXIMUS 0.3 mg/0.3 mL injection Comments: Reason for Stopping: eszopiclone (LUNESTA) 1 mg tablet Comments: Reason for Stopping: nortriptyline 50 mg capsule Comments: Reason for Stopping: acetaminophen (TYLENOL) 325 mg tablet Comments: Reason for Stopping: hydrochlorothiazide (ESIDRIX) 25 mg tablet Comments: Reason for Stopping: ibuprofen (MOTRIN) 800 mg tablet Comments: Reason for Stopping: sennosides-docusate sodium (SENNA PLUS) 8.6-50 mg per tablet Comments: Reason for Stopping: SUMAtriptan (IMITREX) 50 mg tablet Comments: Reason for Stopping: Follow-up appointments: Contact Dr. Cuevas for your follow up appt For questions regarding follow-up instructions call the Healthcare Hotline at or For worsening symptoms/changing condition/problems or questions: Non-emergency/urgent: Call the Healthcare Hotline at or Emergency: Go to the closest emergency room or call 911 If you receive the patient satisfaction survey by mail please complete and return and let us know how we are doing. TOBACCO AVOIDANCE Exposure to tobacco either from smoking or from second hand (environmental) smoke or smokeless tobacco (snuff) is damaging to your health. This information is to encourage everyone to avoid tobacco exposure. It is recommended that you: ? If you smoke or use smokeless tobacco, we encourage you to quit. ? If you have already quit smoking, continue your good work! ? If you do not smoke or use smokeless tobacco, do not start. ? Avoid secondhand smoke. Additional Resources You may want to contact these organizations for further information on smoking and how to quit. [place] [employer], http://www.lungusa.org/stop-smoking/ [place] [employer], http://www.cancer.org/Healthy/StayAwayfromTobacco/index [place] [employer], http://www.heart.org/HEARTORG/GettingHealthy/QuitSmoking/Quit-Smoking_[facility] _001085_SubHomePage.jsp documented in this encounter Plan of Treatment Name Type Priority Associated Diagnoses [facility] LAB Routine ONCE for 1 Occurrences starting 2019 Health Maintenance Due Date Last Done Comments DTaP,Tdap,and Td Vaccines (1 - 01/29/1984 Tdap) PAP SMEAR 1994 Breast Cancer Screening 2013 (MAMMOGRAM) INFLUENZA VACCINE (#1) 2020 Depression Screening 12/24/2020 12/25/2019 PNEUMOCOCCAL 0-64 YEARS COMBINED Aged Out No longer eligible based on SERIES patient's age to complete this topic documented as of this encounter Procedures Procedure Name Priority Date/Time Associated Comments Diagnosis URINALYSIS Routine 12/25/2019 8:14 AM Results for this CDT procedure are i n the results section. ABORH CONFIRMATION Routine 12/25/2019 8:07 AM Re sults for this CDT procedure are i n the results section. CBC WITH DIFF STAT 12/25/2019 7:33 AM Results for this CDT procedure are i n the results section. HB ABO GROUPING STAT 12/25/2019 7:32 AM Resul ts for this CDT procedure are i n the results section. POCT TEST Routine 12/25/2019 7:14 AM R esults for this CDT procedure are i n the results section. DSU PRE-OP Routine 12/13/2019 12:01 AM CDT documented in this encounter Results URINALYSIS (12/25/2019 8:14 AM CDT) Pathologist Sig nature APPEARANCE Clear Clear [facility] COLOR Yellow Yellow [facility] PH 5.0 4.8 - 8.0 [facility] SP GRAVITY 1.019 1.003 - 1.030 [facility] GLU U QUAL Normal Normal [facility] BLOOD Negative Negative [facility] KETONES Negative Negative [facility] PROTEIN Negative Negative [facility] UROBILIN 2.0 mg/dL (A) Normal [facility] BILIRUBIN Negative Negative [facility] NITRITE Negative Negative [facility] LEUK NNAMDI Negative Negative [facility] RBC/HPF 2 0 - 3 HPF [facility] WBC/HPF 4 0 - 5 HPF [facility] BACTERIA Few (A) Negative [facility] MUCOUS Slight (A) Negative LPF [facility] SQ EPITH 3 HPF [facility] Specimen Urine - URINE, CLEAN CATCH Performing Organization Address City/[facility] Phone Number [facility] CLIA: [id number], [address] [place] [address] ABORH CONFIRMATION (12/25/2019 8:07 AM CDT) Pathologist Sig nature ABO & RH O Positive LAB Comment: Performed at [facility] Laboratory Services - [facility] Blood Bank [address] [place] [address] Toll Free: [phone] CLIA No. [id number] Specimen Performing Organization Address City/[facility]/Zipcode Phone Number BLD LAB CBC WITH DIFF (12/25/2019 7:33 AM CDT) Pathologist Sig nature WBC 6.57 4.30 - 11.10 [facility] 10*3/L [facility] RBC 4.78 3.93 - 5.25 [facility] 10*6/L [facility] HGB 13.8 11.6 - 15.0 [facility] g/dL [facility] HCT 41.8 35.7 - 45.2 % [facility] MCV 87.4 80.6 - 95.5 fL [facility] MCH 28.9 25.9 - 32.8 pg [facility] MCHC 33.0 31.6 - 35.1 [facility] g/dL [facility] RDW-SD 46.6 39.0 - 49.9 fL [facility] RDW-CV 14.6 12.0 - 15.5 % [facility] PLT 181 166 - 358 [facility] 10*3/L [facility] MPV 11.5 9.5 - 12.9 fL [facility] NRBC/100 WBC 0.0 0.0 - 10.0 /100 [facility] WBCs [facility] NRBC x10^3 <0.01 10*3/L [facility] GRAN MAT (NEUT) % 54.3 % [facility] IMM GRAN % 1.40 % [facility] LYMPH % 33.2 % [facility] MONO % 9.0 % [facility] EOS % 1.5 % [facility] BASO % 0.6 % [facility] GRAN MAT x10^3(ANC) 3.57 1.88 - 7.09 [facility] 10*3/uL [facility] IMM GRAN x10^3 0.09 (H) 0.00 - 0.06 [facility] 10*3/uL [facility] LYMPH x10^3 2.18 1.32 - 3.29 [facility] 10*3/uL [facility] MONO x10^3 0.59 0.33 - 0.92 [facility] 10*3/uL [facility] EOS x10^3 0.10 0.03 - 0.39 [facility] 10*3/uL [facility] BASO x10^3 0.04 0.01 - 0.07 [facility] 10*3/uL [facility] Specimen Blood - VENOUS Performing Organization Address City/State/Zipcode Phone Number [facility] CLIA: [id number], [address] [place], [place] [address] Type and Screen - ONCE STAT (12/25/2019 7:32 AM CDT) Pathologist Sig nature ABO & RH O Positive LAB Comment: Performed at [facility] Laboratory Services - [facility] Blood Bank [address] [place], [place] [address] Toll Free: [phone] CLIA No. [id number] IAT Negative LAB Comment: Performed at [facility] Laboratory Services - [facility] Blood Bank [address] [place], [place] [address] Toll Free: [phone] CLIA No. [id number] Specimen Blood - [facility] Performing Organization Address City/State/Zipcode Phone Number BLD LAB POCT TEST (12/25/2019 7:14 AM CDT) Pathologist Sig nature POCT PREG Negative On board controls acceptable Yes with C Line POCT PREG LOT # [id number] POCT PREG TEST DATE 02/26/2021 Specimen Urine - URINE, CLEAN CATCH documented in this encounter Visit Diagnoses Diagnosis Thyroid nodule - Primary Nontoxic uninodular goiter documented in this encounter Administered Medications Medication Order MAR Action Action Date Dose Rate Site awbfaqhdcex-scsosknsqiy-pm Given 12/25/2019 10:41 AM CDT 30 mL Abdomen (SENSORCAINE W/EPINEPHRINE) 0.5 %-1:200,000 injection PRN, Starting 12/25/19 at 1041, Until Discontinued, Routine, Intra-op FENTanyl PF (SUBLIMAZE (PF)) injection 2 5 mcg 25 mcg, Slow IV Push, Q5MIN PRN, 4 doses, Starting e 12/25/19 at 1404, Until Discontinued, Routine, Pain (scale 4-6), PACU FENTanyl PF (SUBLIMAZE (PF)) injection 5 0 mcg 50 mcg, Slow IV Push, Q5MIN PRN, 4 doses, Starting 12/25/19 at 1404, Until Discontinued, Routine, Pain (scale 7-10), PACU NaCl 0.9% (NS) IV infusion New Bag 12/25/2019 10:30 AM 1,000 mL See Comm ent CONTINUOUS PRN, Starting Tue CDT 12/25/19 at 1205, Until Discontinued, Routine, Intra-op ondansetron (ZOFRAN (PF)) injection 4 mg 4 mg, Slow IV Push, PRN, 1 dose, Startin g Tue12/25/19 at 1404, Until Discontinued, Routine, Nausea and Vomiting (N/V), PACU scopolamine transdermal (TRANSDERM-SCOP) Given 12/25/2019 7:12 AM CDT 1.5 mg patch 1.5 mg 1.5 mg, Topical, Administer over 72 Hours, Q72H, First dose on Tue12/25/19 at 0700, Until Discontinued, Routine, DSU Pre-op sodium chloride 0.9 % irrigation Given 12/25/2019 12:04 PM CDT 3 ,000 mL Abdomen solution PRN, Starting Tue12/25/19 at 1202, Until Discontinued, Intra-op Given 12/25/2019 12:02 PM CDT 1,000 mL Abdo men SURGILUBE gel Given 12/25/2019 10:30 AM CDT 10 mL See Comment PRN, Starting Tue12/25/19 at 1030, Until Discontinued, Routine, Intra-op Medication Order MAR Action Action Date Dose Rate Site lactated ringers IV infusion New Bag 12/25/2019 7:39 AM CDT 1,000 mL 20 mL/hr 1,000 mL at 20 mL/hr, 1,000 mL, IV Infusion, ONCE, 1 dose, Tue12/25/19 at 0700, Routine, DSU Pre-op documented in this encounter Insurance Payer Benefit Plan Subscriber ID Effective Dates Phone Address Type / Group [facility] [id number] 2017-Yosvany [phone] [address] PPO/POS [place] - OUT OF 7 [id number] [place] [address] documented as of this encounter
--- OUTSIDE RECORDS SUMMARY | 2020-02-11 20:27 | XMS REPORT ---
:1975 Author Organization [facility] Team Providers Name Role Phone Velasquez [...] Start End Status Dosage System Date Date Neomycin-Polymy NDC [id number] November 06, Active 4 drops into graham-HC Otic Three 2020 affected ear times a day Magnesium ND 10255306282 200 MG Orally Active 2 ta blets Once a day with a meal Linzess ND 80209818120 290 MCG Orally Active 1 cap nelsy Once a day Adderall ND 92414088635 20 MG Orally Jan 20, Active 1 tabl et Twice a day 2019 EpiPen 2-Lam [facility] 43691785333 0.3 MG/0.3ML Active gi ve 1 dose Injection once by inject ion after bee sting with reaction, may repeat dose x1. if problems occur go to emergency room. Loratadine [facility] 64091038425 10 MG Orally Active 1 ta blet Once a day Propranolol HCl ND 27832367402 20 MG Orally Active 1 tablet Twice a day Belsomra [facility] 54685749304 20 MG Orally Active 1 tabl et at Once a day bedtime as needed Adderall [facility] 07182651788 20 MG Orally December 23, Active 1 tab let in Twice a day 2019 the morning Sumatriptan ND 38464597208 50 MG Orally Active 1 t ablet as Succinate Once a day needed Omeprazole ND 77033541554 20 MG Orally Active 1 ca psule Once a day Aspir-81 [facility] 19631832990 81 MG Orally Active 1 tabl et Once a day ProAir HFA [facility] 57166229349 108 (90 Base) Active 2 p uffs as MCG/ACT needed Inhalation every 6 hrs Topiramate [facility] 07176319804 100 MG Orally Active 1 t ablet in Twice a day AM and 2 tabls in PM Results No Known Results Summary Purpose eClinicalWorks Submission
[2020-02-11] MEDS ORDERED: NA CHLORIDE 0.9% 1,000 ML ONE (21:24)
[2020-02-11] MEDS ORDERED: HYDROMORPHONE HCL 1 MG/ML INJ ONE (21:24)
[2020-02-11] MEDS ORDERED: ONDANSETRON 4 MG/2 ML VIAL ONE (21:24)
[2020-02-11 21:25] LABS: Absolute Lymphocytes (CBC) 1.5 K/uL (0.7-4.9); Basophils % 0.4 % (0-1.3); Hematocrit 38.8 % (36.0-45.0); Lymphocytes % 23.7 % (15.3-44.8); RBC Red Blood Cell Count 4.49 M/uL (3.86-4.86)
[2020-02-11 21:27] LABS: ALT/SGPT 50 U/L (12-78); AST/SGOT 25 U/L (15-37); Albumin 3.3 g/dL (3.4-5.0); Alkaline Phosphatase 88 U/L (45-117); BUN Blood Urea Nitrogen 8 mg/dL (7-18); Bicarbonate 20 mmol/L (21-32); Bilirubin Direct 0.1 mg/dL (0-0.2); Bilirubin Total 0.7 mg/dL (0.2-1.0); Glucose Level 172 mg/dL (74-106); Lipase 55 U/L (73-393); Potassium 3.4 mmol/L (3.5-5.1); Sodium Level 139 mmol/L (136-145)
[2020-02-11 22:21] LABS: Urine Glucose NEGATIVE (NEG)
[2020-02-11 22:22] LABS: Urine Blood TRACE (NEG); Urine Protein NEGATIVE (NEG)
[2020-02-11 22:27] LABS: Urine Bacteria <20 /HPF (<20); Urine Culture Reflex Order NOT NEEDED; Urine RBC NONE SEEN /HPF (NONE SEEN)
[2020-02-11] MEDS ORDERED: CEFEPIME 2 GM VIAL ONE (22:53)
[2020-02-11] MEDS ORDERED: NA CHLORIDE 0.9% 100 ML IV ONE (22:54)
--- NOTE | 2020-02-11 23:23 | ER ---
Nurse's Notes [facility] Name: Beth Reynoso Age: 45 yrs Sex: Female : 1975 Arrival Date: 02/11/2020 Time: 20:26 Bed 7 Private MD: Diagnosis: Abdominal and pelvic pain;Intraoperative and postprocedural complications and disorders of genitourinary system, not elsewhere classified Presentation: 02/10 20:35 Chief complaint: Patient states: Hysterectomy 7 weeks ago. Had sex with for the ca1 first time yesterday morning. Was cleared to have sex 6 wks post op. Reports abdominal pain since yesterday, RUQ and RLQ, more on RLQ, very tender to touch. Reports nausea x 2 days. Fever yesterday 100.5F. Coronavirus screen: Client denies travel out of the [place] in the last 14 days. At this time, the client does not indicate any symptoms associated with coronavirus-19. Ebola Screen: Patient negative for fever greater than or equal to 101.5 degrees Fahrenheit, and additional compatible Ebola Virus Disease symptoms Patient denies exposure to infectious person. Patient denies travel to an Ebola-affected area in the 21 days before illness onset. No symptoms or risks identified at this time. Initial Sepsis Screen: Does the patient meet any 2 criteria? No. Patient's initial sepsis screen is negative. Does the patient have a suspected source of infection? No. Patient's initial sepsis screen is negative. Risk Assessment: Do you want to hurt yourself or someone else? Patient reports no desire to harm self or others. Onset of symptoms was February 11, 2020. 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 - Social history:: Smoking status: Patient denies any tobacco usage or history of. Screenin:10 Abuse screen: Denies threats or abuse. Nutritional screening: No deficits noted. ea Tuberculosis screening: No symptoms or risk factors identified. Fall Risk None identified. Assessment: 21:10 General: Appears uncomfortable, Behavior is calm, cooperative, appropriate for age. ea Pain: Complains of pain in right lower quadrant and umbilical area. Neuro: Level of Consciousness is awake, alert, obeys commands, Oriented to person, place, time. Cardiovascular: Patient's skin is warm and dry. Respiratory: Airway is patent Respiratory effort is even, unlabored, Respiratory pattern is regular, symmetrical. GI: Abdomen is non-distended. Derm: Skin is pink, warm \T\ dry. 22:50 Reassessment: Patient and/or family updated on plan of care and expected duration. Pain ea level reassessed. Patient is alert, oriented x 3, equal unlabored respirations, skin warm/dry/pink. Reassessment: Patient and/or family updated on plan of care and expected duration. Pain level reassessed. Patient is alert, oriented x 3, equal unlabored respirations, skin warm/dry/pink. Discharge instruction given to patient, verbalized the understanding of instruction. Pt left ED via wheelchair, pt family at ED to take pt home. Vital Signs: 20:35 BP 156 / 88; Pulse 122; Resp 19 S; Temp 97(TE); Pulse Ox 98% on R/A; Weight 86.18 kg ca1 (R); Height 5 ft. 7 in. (170.18 cm) (R); Pain 3/10; 23:51 BP 118 / 70; Pulse 101; Resp 18; Pulse Ox 99% on R/A; ea 20:35 Body Mass Index 29.76 (86.18 kg, 170.18 cm) ca1 ED Course: 20:26 Patient arrived in ED. bp1 20:38 Triage completed. ca1 20:38 Arm band placed on right wrist. ca1 20:39 Kade Mann PA is PHCP. jr8 20:39 Yoshi Carvajal MD is Attending Physician. jr8 20:49 Inserted saline lock: 20 gauge in right wrist, using aseptic technique. Blood collected.ds4 20:53 Basic Metabolic Panel Sent. ds4 21:10 Martha Bhakta, RN is Primary Nurse. ea 21:10 Patient has correct armband on for positive identification. Bed in low position. Call ea light in reach. Side rails up X2. 22:01 CT Abd/Pelvis - IV Contrast Only In Process Unspecified. EDMS 23:16 Assist provider with pelvic exam: Set up pelvic tray. Performed by Kade CONDE ea Patient tolerated well. 23:18 Jovita Cuevas MD is Referral Physician. jr8 23:23 Wound Culture Sent. ll2 23:23 Wet Prep Sent. ll2 23:52 IV discontinued, intact, bleeding controlled, No redness/swelling at site. Pressure ea dressing applied. Administered Medications: 21:15 Drug: Dilaudid 1 mg {Note: RASS 1.} Route: IVP; Site: right forearm; ea 23:14 Follow up: Response: No adverse reaction ea 21:15 Drug: Zofran (Ondansetron) 4 mg Route: IVP; Site: right forearm; ea 23:14 Follow up: Response: No adverse reaction ea 21:54 Drug: NS 0.9% 1000 ml Route: IV; Rate: 1000 ml; Site: right forearm; ea 23:13 Drug: Cefepime 2 grams Route: IVPB; Rate: 200 ml/hr; Infused Over: 30 mins; Site: right ea wrist; 23:50 Follow up: Response: No adverse reaction; IV Status: Completed infusion ea Outcome: 23:23 Discharge ordered by . jrCuca 23:51 Discharged to home via wheelchair, with family. ea 23:51 Condition: stable 23:51 Discharge instructions given to patient, Instructed on discharge instructions, follow up and referral plans. medication usage, Demonstrated understanding of instructions, follow-up care, medications, Prescriptions given X 3. 23:54 Patient left the ED. ea Signatures: Dispatcher [employer] EDMS Kade Mann PA PA jr8 Fredrick Ash ds4 Martha Bhakta, RN RN Bridgette Monroe RN RN ca1 Linscombe, Lacie, RN RN 2 Cheli Benitez Corrections: (The following items were deleted from the chart) 21:53 21:15 Dilaudid 1 mg IVP in right forearm ea ea 23:14 23:13 Cefepime 2 grams IVPB at 200 ml/hr in left antecubital over 30 mins may olvera
--- NOTE | 2020-02-11 23:23 | EDPHYS ---
Physician Documentation [facility] Name: Beth Reynoso Age: 45 yrs Sex: Female : 1975 Arrival Date: 02/11/2020 Time: 20:26 Bed 7 Private MD: ED Physician Yoshi Carvajal HPI: 02/10 21:50 This 45 yrs old Female presents to ER via Wheelchair with complaints of jr8 Nausea, abdominal pain. 21:50 The patient presents with abdominal pain right lower quadrant. Onset: The jr8 symptoms/episode began/occurred acutely, yesterday. The symptoms do not radiate. Associated signs and symptoms: Pertinent positives: nausea. The symptoms are described as stabbing. Modifying factors: The symptoms are alleviated by nothing, the symptoms are aggravated by movement. Severity of pain: At its worst the pain was moderate in the emergency department the pain is unchanged. The patient has not experienced similar symptoms in the past. The patient has not recently seen a physician. Patient stated that she is status post hysterectomy 7 weeks ago. Had been doing well. Was released at 6 weeks to have intercourse. and her had intercourse yesterday. Had mild spotting but felt ok. About an hour afterwards had low grade fever and pain to RLQ of abdomen that is increasing . 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 - Social history:: Smoking status: Patient denies any tobacco usage or history of. ROS: 21:50 Eyes: Negative for injury, pain, redness, and discharge, ENT: Negative for injury, jr8 pain, and discharge, Neck: Negative for injury, pain, and swelling, Cardiovascular: Negative for chest pain, palpitations, and edema, Respiratory: Negative for shortness of breath, cough, wheezing, and pleuritic chest pain, Back: Negative for injury and pain, MS/Extremity: Negative for injury and deformity, Skin: Negative for injury, rash, and discoloration, Neuro: Negative for headache, weakness, numbness, tingling, and seizure. 21:50 Abdomen/GI: Positive for abdominal pain, nausea, Negative for diarrhea, constipation, abdominal cramps, abdominal distension, anorexia, dysphagia, hematemesis, black/tarry stool, rectal pain, rectal bleeding, bowel incontinence, flatulence. 21:50 : Positive for vaginal bleeding. Exam: 21:50 Eyes: Pupils equal round and reactive to light, extra-ocular motions intact. Lids and jr8 lashes normal. Conjunctiva and sclera are non-icteric and not injected. Cornea within normal limits. Periorbital areas with no swelling, redness, or edema. ENT: Nares patent. No nasal discharge, no septal abnormalities noted. Tympanic membranes are normal and external auditory canals are clear. Oropharynx with no redness, swelling, or masses, exudates, or evidence of obstruction, uvula midline. Mucous membranes moist. Neck: Trachea midline, no thyromegaly or masses palpated, and no cervical lymphadenopathy. Supple, full range of motion without nuchal rigidity, or vertebral point tenderness. No Meningismus. Respiratory: Lungs have equal breath sounds bilaterally, clear to auscultation and percussion. No rales, rhonchi or wheezes noted. No increased work of breathing, no retractions or nasal flaring. Back: No spinal tenderness. No costovertebral tenderness. Full range of motion. Skin: Warm, dry with normal turgor. Normal color with no rashes, no lesions, and no evidence of cellulitis. MS/ Extremity: Pulses equal, no cyanosis. Neurovascular intact. Full, normal range of motion. Neuro: Awake and alert, GCS 15, oriented to person, place, time, and situation. Cranial nerves II-XII grossly intact. Motor strength 5/5 in all extremities. Sensory grossly intact. Cerebellar exam normal. Normal gait. 21:50 Constitutional: The patient appears alert, awake, in obvious pain. 21:50 Cardiovascular: Rate: Rhythm: regular, Pulses: Pulses are 2+ in right radial artery and left radial artery. Heart sounds: normal, normal S1and S2, no S3 or S4, no murmur, no rub, no gallop, Edema: is not appreciated. 21:50 Abdomen/GI: Inspection: obese Bowel sounds: active, all quadrants, Palpation: soft, in all quadrants, moderate abdominal tenderness, in the umbilical area and right lower quadrant, mass, is not appreciated, rebound tenderness, is not appreciated, voluntary guarding, is not appreciated, involuntary guarding, is not appreciated, no appreciated organomegaly, Indicators: McBurney's point is not tender, Smith's sign is negative, Rovsing's sign is negative, Liver: tenderness, is not appreciated. 23:04 : Pelvic Exam: External exam: is normal, no appreciated Bartholin's cyst, no jr8 erythema, not excoriated, no evidence of foreign body, no lesions, no ulcerations, no warts seen, Speculum exam: scant bleeding, Posterior vaginal wall wear cervix was resected with with some blood and appears to be inflamed. There was yellow/serous fluid with some debris in vaginal vault noted , the nurse was present for the exam. Vital Signs: 20:35 BP 156 / 88; Pulse 122; Resp 19 S; Temp 97(TE); Pulse Ox 98% on R/A; Weight 86.18 kg ca1 (R); Height 5 ft. 7 in. (170.18 cm) (R); Pain 3/10; 23:51 BP 118 / 70; Pulse 101; Resp 18; Pulse Ox 99% on R/A; ea 20:35 Body Mass Index 29.76 (86.18 kg, 170.18 cm) ca1 MDM: 20:39 Patient medically screened. jr8 23:15 Data reviewed: vital signs, nurses notes, lab test result(s), radiologic studies, CT jr8 scan. Data interpreted: Pulse oximetry: on room air is 98 %. Interpretation: normal. Counseling: I had a detailed discussion with the patient and/or guardian regarding: the historical points, exam findings, and any diagnostic results supporting the discharge/admit diagnosis, lab results, radiology results, the need for outpatient follow up, an OB/Gyne specialist, to return to the emergency department if symptoms worsen or persist or if there are any questions or concerns that arise at home. ED course: Patient hemodynamically stable at this point. Patient with known tachycardic history. Had forgot to take her propanolol until this evening. Now improving. Will put patient on doxy and flagyl. Has post op f/u tomorrow with gynecology for exam. Patient knows to come back between now and then if worse . 02/10 20:39 Order name: Basic Metabolic Panel; Complete Time: 21:28 [facility] 02/10 20:39 Order name: CBC with Diff; Complete Time: 22:08 [facility] 02/10 20:39 Order name: Hepatic Function; Complete Time: 21:28 [facility] 02/10 20:39 Order name: Lipase; Complete Time: 21:28 [facility] 02/10 20:40 Order name: Urine Microscopic Only; Complete Time: 22:36 [facility] 02/10 21:16 Order name: Urine Dipstick--Ancillary (enter results); Complete Time: 22:36 [facility] 02/10 20:39 Order name: IV Saline Lock; Complete Time: 20:53 [facility] 02/10 20:56 Order name: CT Abd/Pelvis - IV Contrast Only [facility] 02/10 23:18 Order name: Wet Prep [facility] 02/10 23:18 Order name: Wound Culture [facility] 02/10 20:39 Order name: Labs collected and sent; Complete Time: 20:53 [facility] 02/10 20:39 Order name: EKG - Nurse/Tech; Complete Time: 21:00 [facility] 02/10 20:40 Order name: Urine Dipstick-Ancillary (obtain specimen); Complete Time: 21:10 [facility] 02/10 22:35 Order name: Pelvic Exam Setup; Complete Time: 23:16 [facility] Administered Medications: 21:15 Drug: Dilaudid 1 mg {Note: RASS 1.} Route: IVP; Site: right forearm; ea 23:14 Follow up: Response: No adverse reaction ea 21:15 Drug: Zofran (Ondansetron) 4 mg Route: IVP; Site: right forearm; ea 23:14 Follow up: Response: No adverse reaction ea 21:54 Drug: NS 0.9% 1000 ml Route: IV; Rate: 1000 ml; Site: right forearm; ea 23:13 Drug: Cefepime 2 grams Route: IVPB; Rate: 200 ml/hr; Infused Over: 30 mins; Site: right ea wrist; 23:50 Follow up: Response: No adverse reaction; IV Status: Completed infusion ea Disposition: 02/11 01:25 Co-signature as Attending Physician, Yoshi Carvajal MD. [email or web address] Disposition: 02/11/20 23:23 Discharged to Home. Impression: Abdominal and pelvic pain, Intraoperative and postprocedural complications and disorders of genitourinary system, not elsewhere classified. - Condition is Stable. - Discharge Instructions: Abdominal Pain, Adult. - Prescriptions for Flagyl 500 mg Oral Tablet - take 1 tablet by ORAL route every 6 hours for 10 days; 40 tablet. Doxycycline Hyclate 100 mg Oral Tablet - take 1 tablet by ORAL route every 12 hours; 20 tablet. promethazine 25 mg Oral Tablet - take 1 tablet by ORAL route every 6 hours As needed; 20 tablet. - Medication Reconciliation Form, Thank You Letter, Antibiotic Education, Prescription Opioid Use, School release form form. - Follow up: Jovita Cuevas MD; When: Tomorrow; Reason: Recheck today's complaints, Continuance of care, Re-evaluation by your physician. - Problem is new. - Symptoms have improved. Signatures: Dispatcher [employer] EDMS Kade Mann PA PA jr8 Martha Bhakta RN RN ea Acob, Cheryl, RN RN ca1 Holmes, Maurice, MD MD 7 Corrections: (The following items were deleted from the chart) 02/10 23:54 23:23 02/11/2020 23:23 Discharged to Home. Impression: Abdominal and pelvic pain; ea Intraoperative and postprocedural complications and disorders of genitourinary system, not elsewhere classified. Condition is Stable. Forms are Medication Reconciliation Form, Thank You Letter, Antibiotic Education, Prescription Opioid Use. Follow up: Jovita Cuevas; When: Tomorrow; Reason: Recheck today's complaints, Continuance of care, Re-evaluation by your physician. Problem is new. Symptoms have improved. jr8
[2020-02-12 01:50] VITALS: TEMP 97
[2020-02-12 01:51] VITALS: BP 118/70; O2SAT 99
--- NOTE | 2020-02-12 15:41 | RAD REPORT ---
EXAM DESCRIPTION: CT - Abdomen Pelvis W Contrast - 02/12/2020 2:51 am CLINICAL HISTORY: 45 years Female ABD PAIN TECHNIQUE: Contiguous axial images obtained through the abdomen and pelvis following administration of intravenous contrast. Coronal and sagittal reformatted images provided. This CT exam was performed according to our departmental dose-optimization program, which includes on e or more of the following dose reduction techniques: automated exposure control, adjustment of the m A and/or kV according to patient size, and/or use of iterative reconstruction technique. COMPARISON: No prior exams provided for comparison. FINDINGS: Patient is status post hysterectomy. There are inflammatory changes surrounding the vagina l cuff and involving the anterior wall of the distal sigmoid/rectum. Small amount of inflammatory federica e fluid in the deep pelvis. Single focus of gas within the vaginal canal. No free intraperitoneal air or visualized drainable abscess. No other bowel inflammation. No bowel obstruction. Normal appendix. No adnexal mass. Mild inflammation of the posterior superior margin of the urinary bladder. Minimal bibasilar atelectasis. Steatosis of the liver without focal lesion. Prior cholecystectomy wit hout biliary dilatation. The pancreas, spleen, adrenal glands, and left kidney are normal. Single punctate nonobstructing intr arenal calculus on the right. No abdominal aortic aneurysm. Chronic degenerative and postsurgical changes in the spine. No acute osseous abnormality. IMPRESSION: Prior hysterectomy. Inflammatory changes surrounding the vaginal cuff and involve the an terior wall of the distal sigmoid/rectum, and the posterosuperior margin of the urinary bladder. Find ings could reflect inflammation or infection of the vaginal cuff although a colovaginal fistula is no t excluded. Correlate with pelvic exam. No free intraperitoneal air or drainable abscess. No bowel ob struction. Electronically signed by: Shital Hester MD 02/11/2020 10:27 PM CDT Due to temporary technical issues with the PACS/Fluency reporting system, reports are being signed by the in house radiologist without review as a courtesy to ensure prompt reporting. The interpreting r adiologist is fully responsible for the content of the report.
--- NOTE | 2020-02-13 05:54 | EKG ---
Test Date: 2020-02-11 Test Time: 20:56:46 Pipe Welder: BRICE MEASUREMENT RESULTS: Intervals: Rate: 114 CA: 176 QRSD: 80 QT: 336 QTc: 463 [place]: P: 54 CA: 176 QRS: 25 T: 40 INTERPRETIVE STATEMENTS: Sinus tachycardia Nonspecific T wave abnormality Abnormal ECG Compared to ECG 09/01/2016 06:34:12 T-wave abnormality now present Sinus rhythm no longer present Electronically Signed On 02-13-20 05:50:28 CDT by Wyatt Jean
== END 2020-02-11 23:54 | disposition home or self-care (01) ==
LOC: ER 20:23
DX: N99.89 Other postprocedural complications and disorders of genitourinary system (principal); Z90.710 Acquired absence of both cervix and uterus; Z88.0 Allergy status to penicillin; Z88.2 Allergy status to sulfonamides; Z88.3 Allergy status to other anti-infective agents; Z88.5 Allergy status to narcotic agent; Z88.6 Allergy status to analgesic agent
CPT/HCPCS: 93005; 87070; 85025; 80048; 36415; 87205; 80076; 87210; 83690; 74177; Q9967; J0692; J1170; J7030; J2405; 81003; 81015; 87077; 87186; 96365; 96375; 99284

== ENCOUNTER 2020-04-04 11:14 | Day surgery (SDC) | payer BC ==
[2020-04-02 15:39] LABS: Urine Appearance CLEAR; Urine Bilirubin NEGATIVE (NEG); Urine Blood NEGATIVE (NEG); Urine Color YELLOW; Urine Glucose NEGATIVE (NEG); Urine Protein NEGATIVE (NEG); Urine Urobilinogen 0.2 mg/dL (0.2-1.0); Urine pH 6.5 (5.0-7.0)
[2020-04-02 15:41] LABS: Basophils % 0.3 % (0-1.3); Hematocrit 39.4 % (36.0-45.0); Lymphocytes % 32.1 % (15.3-44.8); MPV 10.1 fL (7.6-11.3)
[2020-04-02 15:44] LABS: Urine Microscopic Reflex NO UMIC
--- OUTSIDE RECORDS SUMMARY | 2020-04-04 11:19 | XMS REPORT | Clinical Summary ---
:1975 Author Organization [facility] Address [address] [place] [address] Care Team Providers Name Role Phone Fransico [...] jaw 11/12/2016 Chest pain at rest 09/05/2016 Surgical History Surgery Date Site/Laterality Comments DILATION AND CURETTAGE OF Tubal ligation UTERUS BREAST SURGERY Reduction ANTERIOR CRUCIATE LIGAMENT Right REPAIR MEDIAL COLLATERAL LIGAMENT AND LATERAL COLLATERAL LIGAMENT REPAIR, KNEE TUBAL LIGATION 05/30/1997 - 05/29/1998 TONSILLECTOMY 1975 2009 EXCISION, MANDIBLE, FOR 11/12/2016 Mouth/N/A Procedur e: Excision of OSTEOMYELITIS OR ABSCESS bone se questration, biopsy of bone a nd mucosa mandible; Surgeon: Chris Us MD; Locat ion: [facility] OR; Service: Oral Vasquez rgery; Laterality: N/A ; PELVIC LAPAROSCOPY HYSTEROSCOPY, WITH UTERINE ABLATION CHOLECYSTECTOMY 07/2016--no stone s COLONOSCOPY elsewhere 07/2016 UPPER GASTROINTESTINAL elsewhere 07/2016--sm ENDOSCOPY h/h, HP neg Medical History Medical History Date Comments Allen's palsy Asthma Mild, last attack co uple of years ago Stroke (HCC) At age 16 - R-sided weakness Hemiplegic migraine ADHD (attention deficit hyperactivity disorder) Insomnia Hypertension Prehypertensive Diabetes mellitus (HCC) NIDDM Hiatal hernia small Chronic constipation Anesthesia Severe urinary reten tion, patient usually goes home wi th cespedes catheter. Family history: hard to arouse Migraine Hemoplegic Acid reflux Anemia during previous preg nancies Tachycardia Related to HCTZ inta ke Hemorrhoids Obesity Disease of thyroid gland "Borderline hyp erthyroidism" Goiter Hyperthyroidism pt states it is bord donavon Goiter Pt states a 2.5mm go iter on thyroid Family History Medical History Relation Name Comments [...] Not on file Last Filed Vital Signs Not on file Plan of Treatment Health Maintenance Due Date Last Done Comments CERVICAL CANCER SCREENING 1994 INFLUENZA VACCINE 12/29/2019 Results Not on fileafter 04/04/2019 (Home) [place] [address] Advance Directives For more information, please contact: [phone] Type Date Recorded 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
--- OUTSIDE RECORDS SUMMARY | 2020-04-04 11:19 | XMS REPORT | Clinical Summary ---
:1975 Author Organization [facility] Address [address] [place] [address] Care Team Providers Name Role Phone Pcp [...] oz/Week Comments Yes 1 Glasses of wine 1.0 Sex Assigned at Date Recorded Not on file Last Filed Vital Signs Not on file Plan of Treatment Health Maintenance Due Date Last Done Comments CERVICAL CANCER SCREENING PAP ONLY (Age 21-65) 1994 LIPID PANEL 2018 INFLUENZA VACCINE (#1) 2020 Implants Implanted Type Area Topper Press Operator Automatic Device Shelf Model / Identifier Expiration Serial / Date Lot Ct Dena 602 16.5d Iol Ophthalmology Right: [employer] CTLUCIA 16.5 / Implanted: Qty: 1 on 12/18/2018 by Brittny odom, Nga Schneider MD at [facility] [id number] / N /A Results Not on fileafter 04/04/2019 Insurance Payer Benefit Plan / Subscriber ID Effective Dates Phone Addre ss Type Group BLUE BCBS OS [id number] 2017-Yosvany [phone] [address] PPO CROSS/BLUE POS/PPO/EPO t 2 [facility] [id number]
--- OUTSIDE RECORDS SUMMARY | 2020-04-04 11:20 | XMS REPORT ---
:1975 Author Organization [facility] Address [address] [place], [place] [place] [address] Care Team Providers Name Role Phone Chacon Unavailable [phone] PROBLEMS Type Condition ICD9-CM JLE16-HM Onset Condition SNOMED Code Notes Code Code Dates Status Problem Tachycardia R00.0 Active 6784067 Problem Attention deficit F90.9 Active 35824740 disorder Problem Edema R60.9 Active 910328649 Problem Insomnia G47.00 Active 047950931 Problem Asthma J45.909 Active 904157450 Problem Benign essential I10 Active 05156216 HTN Problem History of Z86.73 Active 159062471 cerebrovascular accident Problem Allergic rhinitis J30.9 Active 69804675 Problem H/O methicillin Z86.14 Active 056413663 resistant Staphylococcus aureus Problem Gluteal abscess L02.31 Active 47379627 Problem Cervical M54.12 Active 27257708 radiculopathy Problem BMI Z68.27 Active 557748552 27.0-27.9,adult Problem Vagina bleeding N93.9 Active 620017615 Problem Migraine G43.909 Active 05999104 Problem Non-seasonal J30.89 Active 02534869 allergic rhinitis, unspecified trigger Problem History of Z98.890 Active 010318167 endometrial ablation Problem Constipation K59.00 Active 31605149 Problem Herpes zoster B02.9 Active 132056382 without complication Problem Hypokalemia E87.6 Active 95531677 Problem Menopausal N95.9 Active 993242369 disorder Problem Irregular menses N92.6 Active 27338961 ALLERGIES Allergen (clinical drug Drug/Non Drug Reaction Allergy Type Onset D ate Status ingredient) Allergy documented on EMR codeine codeine Unknown Drug Allergy Active hydrochlorothiazide Hydrochlorothiazide Unknown Drug Allergy Active ([facility] Code:[address]-38) sulfamethoxazole / Bactrim([facility] Unknown Drug Allergy Act vicki trimethoprim Code:[address]-42) penicillin Unknown Drug Allergy Active vancomycin vancomycin Unknown Drug Allergy Active Acetaminophen Unknown Drug Allergy Active Sulfa Unknown Drug Allergy Active acetaminophen / oxycodone Percocet([facility] Unknown Drug Allergy Active Code:[address]-54) Vicodin Unknown Drug Allergy Active ENCOUNTERS from 1975 to 2020-03-10 Encounter Location Date Provider Diagnosis [facility] [address] [facility] [address] [facility] Feb, [facility] stipation K59.00 [facility] [address] [place] [id number] IMMUNIZATIONS Vaccine Route Administration Date Status Betamethasone Sodium Phosphate Unknown Jul 13, 2018 A dministered LIDOCAINE HCL 10MG/ML Unknown Jul 13, 2018 Administer ed SOCIAL HISTORY Tobacco Use: Social History Observation Description Date Details (start date - stop date) Never Smoker Sex Assigned At : Social History Observation Description Sex Assigned At Unknown Alcohol Screen Question Answer Notes Did you have a drink containing alcohol in the past Yes year? Points 1 Interpretation Negative How often did you have 6 or more drinks on one Never (0 poin ts) occasion in the past year? How many drinks did you have on a typical day when 1 or 2 (0 points) you were drinking in the past year? How often did you have a drink containing alcohol in Monthly or less (1 point) the past year? Tobacco Use/Smoking Question Answer Notes Are you a never smoker Additional Findings: Tobacco Non-User Current non-smoker Sexual History Question Answer Notes Had sex in the past 12 months (vaginal, oral, or anal)? Yes with Men only REASON FOR REFERRAL No Information VITAL SIGNS No information MEDICATIONS Medication SIG (Take, Route, Start Date End Date Status Frequency, Duration) Omeprazole 20 MG 1 capsule Orally Once a day Active ProAir HFA 108 (90 Base) 2 puffs as needed Active MCG/ACT Inhalation every 6 hrs Sumatriptan Succinate 50 MG 1 tablet as needed Orally Active Once a day for 30 days Magnesium 200 MG 2 tablets with a meal Ac tive Orally Once a day Loratadine 10 MG 1 tablet Orally Once a day Active Adderall 20 MG 1 tablet Orally Twice a day Dec, Active for 30 days Propranolol HCl 20 MG 1 tablet Orally Twice a day Active for 30 day(s) Linzess 290 MCG 1 capsule Orally Once a day Active for 90 days [id number]-Jibpvymdu-ET 4 drops into affected ear Oct, Active 3.5-05679-4 Otic Three times a day for 7 days Aspir-81 81 MG 1 tablet Orally Once a day Active Belsomra 20 MG 1 tablet at bedtime as Act vicki needed Orally Once a day for 30 days Topiramate 100 MG 1 tablet in AM and 2 tabls Active in PM Orally Twice a day EpiPen 2-Lam 0.3 MG/0.3ML give 1 dose by injection Active after bee sting with reaction, may repeat dose x1. if problems occur go to emergency room. Injection once for 30 days Adderall 20 MG 1 tablet in the morning Nov, Ac tive Orally Twice a day for 30 days PROCEDURES No Information RESULTS No Results REASON FOR VISIT refill Linzess MEDICAL (GENERAL) HISTORY Type Description Date Medical History Benign essential HTN Medical History Edema Medical History Migraine Medical History Allergic rhinitis Medical History Tachycardia Medical History History of cerebrovascular accident Medical History Asthma Medical History Attention deficit disorder Medical History Constipation Medical History Allen's palsy Medical History Hyperthyroidism Medical History adhd Medical History hx of staph infection Surgical History Uterine ablation 2015 Surgical History Tonsillectomy 4048-3355 Surgical History Tubal ligation 1997 Surgical History right knee surgery 2002 Surgical History stomach -exploratory 2009 Surgical History Breast reduction 2004 Surgical History Galbladder Removal 2017 Surgical History Mouth surgery 2017 Surgical History uterine polyp removal ablation Surgical History Left Cataract 2019 Surgical History Right Eye: Multiple 2019 Hospitalization History bacterial sinusitis Hospitalization History bacterial pneumonia Hospitalization History pneumonia Goals Section No Information Health Concerns No Information MEDICAL EQUIPMENT No Information MENTAL STATUS No Information FUNCTIONAL STATUS No Information ASSESSMENTS Encounter Date Diagnosis Notes Feb, Constipation (ICD-10 - K59.00) PLAN OF TREATMENT Medication Medication Name Sig Start Date Stop Date Loratadine 10 MG 1 tablet Orally Once a day Topiramate 100 MG 1 tablet in AM and 2 tabls in PM Orally Twice a day Magnesium 200 MG 2 tablets with a meal Orally Once a day Sumatriptan Succinate 50 MG 1 tablet as needed Orally Once a day for 30 days Adderall 20 MG 1 tablet in the morning Orally Nov, Twice a day for 30 days Propranolol HCl 20 MG 1 tablet Orally Twice a day for 30 day(s) Linzess 290 MCG 1 capsule Orally Once a day for 90 days Belsomra 20 MG 1 tablet at bedtime as needed Orally Once a day for 30 days Adderall 20 MG 1 tablet Orally Twice a day for 30 Dec, Next Appt Details Provider Name:Velasquez Chacon, 2020-03-17 0 8:00:00 AM, [address], [address], [place], [address], Insurance Providers Payer Name Payer Payer Insured Name Patient Coverage Covera End Address Phone Relationship to Start Date Suresh e Insured [employer] [phone] Rivka Reynoso 2019 and Logan [id number] [place] [phone]
--- OUTSIDE RECORDS SUMMARY | 2020-04-04 11:20 | XMS REPORT ---
:1975 Author Organization [facility] Address [address] [place], [place] [place] [address] Care Team Providers Name Role Phone Chacon Unavailable [phone] PROBLEMS Type Condition ICD9-CM CDX70-PH Onset Condition SNOMED Code Notes Code Code Dates Status Problem Tachycardia R00.0 Active 1703322 Problem Attention deficit F90.9 Active 53281176 disorder Problem Edema R60.9 Active 219634084 Problem Insomnia G47.00 Active 149125286 Problem Asthma J45.909 Active 205143273 Problem Benign essential I10 Active 87796268 HTN Problem History of Z86.73 Active 210759043 cerebrovascular accident Problem Allergic rhinitis J30.9 Active 58100560 Problem H/O methicillin Z86.14 Active 112768855 resistant Staphylococcus aureus Problem Gluteal abscess L02.31 Active 23543984 Problem Cervical M54.12 Active 33427155 radiculopathy Problem BMI Z68.27 Active 664894839 27.0-27.9,adult Problem Vagina bleeding N93.9 Active 470091468 Problem Migraine G43.909 Active 22634616 Problem Non-seasonal J30.89 Active 59978619 allergic rhinitis, unspecified trigger Problem History of Z98.890 Active 189274064 endometrial ablation Problem Constipation K59.00 Active 17145115 Problem Herpes zoster B02.9 Active 117985327 without complication Problem Hypokalemia E87.6 Active 14116285 Problem Menopausal N95.9 Active 561155481 disorder Problem Irregular menses N92.6 Active 61013492 ALLERGIES Allergen (clinical drug Drug/Non Drug Reaction Allergy Type Onset D ate Status ingredient) Allergy documented on EMR acetaminophen / oxycodone Percocet([facility] Unknown Drug Allergy Active Code:[address]-86) hydrochlorothiazide Hydrochlorothiazide Unknown Drug Allergy Active ([facility] Code:[address]-00) Acetaminophen Unknown Drug Allergy Active codeine codeine Unknown Drug Allergy Active Sulfa Unknown Drug Allergy Active vancomycin vancomycin Unknown Drug Allergy Active Vicodin Unknown Drug Allergy Active penicillin Unknown Drug Allergy Active sulfamethoxazole / Bactrim([facility] Unknown Drug Allergy Act vicki trimethoprim Code:[address]-06) ENCOUNTERS from 1975 to 2020-03-17 Encounter Location Date Provider Diagnosis [facility] [address] [place] Feb, [facility] [address] [place] [address] in adult Z00.0 0 ; Attention defic it disorder F90.9 ; Screening mammo gram, encounter for Z 12.31 ; Benign essent ial HTN I10 ; Multi ple joint pain M25. 50 ; Insomnia G47.00 ; Migraine G43.90 9 ; Hypokalemia E87 .6 ; Adult BMI 29.0- 29.9 kg/sq m Z68.29 ; Constipation K5 9.00 ; Allergic rhinit is J30.9 and Casey thomas for dietary counseling and surveillance Z7 1.3 IMMUNIZATIONS Vaccine Route Administration Date Status Afluria single dose Unknown Mar 13, 2020 Administered Betamethasone Sodium Phosphate Unknown Jul 13, 2018 [...] REASON FOR REFERRAL No Information VITAL SIGNS Height 67 in Feb, Weight 178.9 lbs Feb, Temperature 97.8 degrees Fahrenheit Feb, BMI 28.02 kg/m2 Feb, Oximetry 98 % Feb, Respiratory Rate 18 /min Feb, Blood pressure systolic 124 mm Hg Feb, Blood pressure diastolic 75 mm Hg Feb, MEDICATIONS Medication SIG (Take, Route, Frequency, Start Date End Date Status Duration) Topiramate 100 MG 1 tablet in AM and 2 tabls Active in PM Orally Twice a day ProAir HFA 108 (90 Base) 2 puffs as needed Inhalation Active MCG/ACT every 6 hrs Adderall 20 MG 1 tablet in the morning Ac tive Orally Twice a day for 30 days Belsomra 20 MG 1 tablet at bedtime as Act vicki needed Orally Once a day for 30 days Sumatriptan Succinate 50 MG 1 tablet as needed Orally Active Once a day for 30 days Magnesium 200 MG 2 tablets with a meal Orally Active Once a day Loratadine 10 MG 1 tablet Orally Once a day Active Aspir-81 81 MG 1 tablet Orally Once a day Active Propranolol HCl 20 MG 1 tablet Orally Twice a day Active for 30 day(s) Omeprazole 20 MG 1 capsule Orally Once a day Active Adderall 20 MG 1 tablet Orally Twice a day Active for 30 days Linzess 290 MCG 1 capsule Orally Once a day Active for 90 days EpiPen 2-Lam 0.3 MG/0.3ML give 1 dose by injection Active after bee sting with reaction, may repeat dose x1. if problems occur go to emergency room. Injection once for 30 days PROCEDURES No Information RESULTS No Results REASON FOR VISIT Wellness + F/u MEDICAL (GENERAL) HISTORY Type Description Date Medical [...] History Uterine ablation 2015 Surgical History Tonsillectomy 8831-9420 Surgical History Tubal ligation 1997 Surgical History right knee surgery 2002 Surgical History stomach -exploratory 2009 Surgical History Breast reduction 2004 Surgical History Galbladder Removal 2017 Surgical History Mouth surgery 2016 Surgical History uterine polyp removal ablation Surgical History Left Cataract 2018 Surgical History Right Eye: Multiple 2019 Surgical History Hysterectomy 11/2019 Hospitalization History bacterial sinusitis Hospitalization History bacterial pneumonia Hospitalization History pneumonia Goals Section No Information Health Concerns No Information MEDICAL EQUIPMENT No Information MENTAL STATUS No Information FUNCTIONAL STATUS No Information ASSESSMENTS Encounter Date Diagnosis Notes Feb, Benign essential HTN (ICD-10 - I10) Feb, Screening mammogram, encounter for (ICD- 10 - Z12.31) Feb, Insomnia (ICD-10 - G47.00) Feb, Multiple joint pain (ICD-10 - M25.50) Feb, Allergic rhinitis (ICD-10 - J30.9) Feb, Constipation (ICD-10 - K59.00) Feb, Attention deficit disorder (ICD-10 - F90 .9) Feb, Encounter for wellness examination in ad ult (ICD-10 - Z00.00) Feb, Encounter for dietary counseling and zandra veillance (ICD-10 - Z71.3) Feb, Hypokalemia (ICD-10 - E87.6) Feb, Migraine (ICD-10 - G43.909) Feb, Adult BMI 29.0-29.9 kg/sq m (ICD-10 - Z6 8.29) PLAN OF TREATMENT Medication Medication Name Sig Start Date Stop Date Sumatriptan Succinate 50 MG 1 tablet as needed Orally Once a day for 30 days Linzess 290 MCG 1 capsule Orally Once a day for 90 days Belsomra 20 MG 1 tablet at bedtime as needed Orally Once a day for 30 days Adderall 20 MG 1 tablet in the morning Orally Twice a day for 30 days Propranolol HCl 20 MG 1 tablet Orally Twice a day for 30 day(s) Loratadine 10 MG 1 tablet Orally Once a day Topiramate 100 MG 1 tablet in AM and 2 tabls in PM Orally Twice a day Adderall 20 MG 1 tablet Orally Twice a day for 30 days Magnesium 200 MG 2 tablets with a meal Orally Once a day Treatment Notes Assessment Notes Clinical Notes Encounter for wellness examination -- Well Woman exam done w [facility] in adult Pap.-- Discussed importance of adequate calcium (9005-5729 mg per day) and vitamin D (5595-1602 units per day), regular aerobic exercise of 30-45 minutes of something aerobic at least 3-4 days per week, following healthy diet which is high in fruits and vegetables and limits saturated fats/ fried foods and processed foods/ carbohydrates.-- Calcium 1500mg/day advised by diet and supplement. Discussed osteoporosis. Advised weight bearing exercise, calcium-- Encouraged monthly breast self exams. Discussed mammograms and compliance to [employer] guidelines.-- Take daily Aspirin 81 mg-- Consider having a flu vaccine every February or March.-- Reminder to always wear seat belts.-- A complete exam is suggested annually.-- PAP smears should be done q1-3 years depending on history. May decrease to 2-3 years after three consecutive normal PAP''s as long as HPV negative.-- For colorectal cancer screening, return 1 stool hemoccult card (test for hidden blood). The [employer] also suggests colonoscopy at age 50 and then every 5-10 years.-- It is suggested that lipids (fat and cholesterol) be checked on a yearly basis. The goal here would be to keep the bad cholesterol level (LDL) below 100.-- It is a good idea to have a complete eye exam a minimum of every 3 years. Increased eye pressure is called glaucoma and it is a common cause of blindness.-- Every 10 years, it is mackey to have a Adacel.-- To prevent osteoporosis-stay physically active. Calcium 600 mg twice times daily and Vitamin D 800-1000 units daily thru diet and supplement if needed.-- Discussed DEXA scan.-- Avoid excessive sun exposure. Discussed sunscreen. Denies abnormal moles. Attention deficit disorder Does not really need refills at t his .. time. We will follow-up in 2 months. Education given. Tolerating it well. Rx monitored. 2 Rx sent with second prescription with effective date. Taking the medication exactly as prescribed (both the dose and the frequency) -Letting the clinician know if the medication does not seem to be working -Avoiding alcohol, tobacco, marijuana, and other illicit substances (may interact with stimulants and exacerbate attentional problems) -Administering medication at school in a safe location with adult supervision (eg, school nurse''s office) -Keeping the medication in a safe location-and not being coerced/tempted into selling it or giving it away -A plan for transition of responsibility for administering stimulant medication from the parent to the child or adolescent, Extensively discussed side effect panel. Patient acceptable of risks. Will monitor closely. Rx monitored. Benign essential HTN Stable. Changed to Propranalol by . Multiple joint pain Discussed differential diagnosis with patient. Education given. Labs reviewed. Discussed supportive measures for symptomatic relief. Insomnia Side effect panel discussed. Discussed good sleep hygiene. INCREASED to 20 mg. Will consider referral to sleep medicine. Migraine Managed by . Education given. Refill given. Hypokalemia Start once a day. Side effect discussed. Education given. Adult BMI 29.0-29.9 kg/sq m STOPPED CONTRAVE. Counseling giv en. Education given. Utilized the 5-A''s approach to increase patient motivation and behavioral change. ASK: Patient expressed desire/readiness to change and premission was obtained to discuss. ASSESS: BMI class discussed. In addition, patient''s barrier to weight loss and identified drivers and complications. ADVISE: Discussed benefits of modest weight loss and long-term strategy as well. Educated on risks and complications of obesity on health. Treatment options were discussed including but not limited to non-surgical (medications, gym, diet/exercise) and surgical options. AGREE: Realistic weight-loss goal discussed. Behavioral goals done. Patient agreed with treatment plan. ASSIST: Provided education and resources. Plan made to address drivers and barriers. Close follow-up arranged. START: Walking daily, reducing soda and increased hydration with water of at least 64 ounces. Constipation Stable. Education given. Allergic rhinitis Intermittent control with [id number] medication. Education given. Discussed allergy testing. Patient agreeable. We will start process Treatment Notes Test Name Order Date Lipid Panel With LDL/HDL Ratio 2020-03-17 UA/M w/rflx Culture, Comp 2020-03-17 Hemoglobin A1c 2020-03-17 Comp. Metabolic Panel (14) (CMP) 2020-03-17 Uric Acid, Serum 2020-03-17 CBC With Differential/Platelet 2020-03-17 TSH reflex to T4F 2020-03-17 SCREENING MAMMOGRAM 2020-03-17 Next Appt Details 2 Months TV Reason: Provider Name:Velasquez Chacon, 2020-05-19 0 1:20:00 PM, [address], [address], [place], [address], Insurance Providers Payer Name Payer Payer Insured Name Patient Coverage Covera ge End Address Phone Relationship to Start Date Suresh e Insured [employer] [phone] Rivka Reynoso 2019 and Logan [id number] [place] [phone]
--- OUTSIDE RECORDS SUMMARY | 2020-04-04 11:20 | XMS REPORT | Continuity of Care Document ---
:1975 Author Organization [facility] t Address [address] [place] [address] Care Team Providers Name Role Phone Fransico Chacon DO Primary Care Physician Mason MCINTYRE Attending Clinician Only, Test Attending Clinician Unavailable Zenaida MCINTYRE, Wyatt Attending Clinician Mason MCINTYRE Admitting Clinician Problems Condition Condition Condition Status Onset Resolution Last Treating Co mments Source Name Details Category Date Date Treatment Clinician Date Abscess of Abscess of Disease Active [place] jaw jaw 6-16 Methodi 00:00: st 00 Chest pain Chest pain Disease Active [place] at rest at rest 09-05 Methodi 00:00: st 00 Allergies, Adverse Reactions, Alerts Allergy Allergy Status Severity Reaction(s) Onset Inactive Treating Comm ents Source Name Type Date Date Clinician Propoxyp Propensi Active Nausea And 2018- [facility] to Vomiting 12-18 [facility] - N-Acetam adverse 00:00: Medical inophen reaction 00 Center s Hydrocod Propensi Active 2018- N and V [facility]-Acet ty to 12-18 [facility] - aminophe adverse 00:00: Medical n reaction 00 Center s Other Propensi Active Rash 2018- "mycins" [facility] to 12-18 Since [facility] - adverse 00:00: childhood Medica l reaction 00 Center s Oxycodon Propensi Active Nausea And [facility] ty to Vomiting 12-18 [facility] - adverse 00:00: Medical reaction 00 Center s Penicill Propensi Active Since [facility] ty to 12-18 childhood [facility] - adverse 00:00: not sure Medical reaction 00 about Center s reaction Oxycodon Propensi Active Nausea And [facility] e-Acetam ty to Vomiting 12-18 [facility] - inophen adverse 00:00: Medical reaction 00 [place] s Sulfa Propensi Active Hives [facility] (Sulfona ty to 12-18 [facility] - mide adverse 00:00: Medical Antibiot reaction 00 [facility]) s Tramadol Propensi Active Nausea And [facility] to Vomiting 12-18 [facility] - adverse 00:00: Medical reaction 00 [place] s Vancomyc Propensi Active "red man [facility] ty to 12-18 syndrome" [facility] - Analogue adverse 00:00: Head Medical s reaction 00 [facility] s Amoxicil Propensi Active Hives [place] ty to 11-08 Methodi adverse 00:00: st reaction 00 s to drug [facility]oxyp [facility] [place] [facility] to 11-08 [facility] N-Acetam adverse 00:00: st inophen reaction 00 s to drug Oxycodon Propensi Active N/V [place] e-Acetam ty to Intolerance 11-08 Met hodi inophen adverse 00:00: st reaction 00 s to drug Codeine Propensi Active [facility] ty to 09-05 Methodi adverse 00:00: st reaction 00 s to drug Hydrocod Propensi Active [facility] [place] one ty to 09-05 Methodi adverse 00:00: st reaction 00 s to drug Other Propensi Active [facility] ty to 09-05 mycins Methodi adverse 00:00: st reaction 00 s Oxycodon Propensi Active [facility] [place] ty to 09-05 Methodi adverse 00:00: st reaction 00 s to drug Penicill Propensi Active Pt was [place] ty to 09-05 told she Methodi adverse 00:00: was st reaction 00 allergic s to drug Sulfa Propensi Active Pt was [place] (Sulfona ty to 09-05 told when Metho [...] orothiaz Reaction Available [facility] Percocet Adverse Active Info Not [facility] Reaction Available [facility] Acetamin Adverse Active Info Not [facility] t ophen Reaction Available [facility] Bactrim Adverse Active Info Not [facility] Reaction Available [facility] Vicodin Adverse Active Info Not [facility] Reaction Available [facility] Family History Family Member Diagnosis Comments Start Date Stop Date Source Natural father [facility] [facility] esophagus Natural father Colon polyps [place] [facility] Natural father [facility] [place] [facility] Maternal grandmother Pancreatic cancer [place] [facility] Natural mother Colon polyps [place] [facility] Natural mother [facility] [place] [facility] Natural sister Liver disease [facility] Social History Social Habit Start Date Stop Date Quantity Comments Source Sex Assigned [facility] Tobacco use and 2018-12-18 2018-12-18 Never used [facility] - exposure 00:00:00 00:00:00 Medical Center Alcohol intake 2018-12-18 2018-12-18 [facility] - 00:[facility] 00:[facility]:00 of alcohol Medical Center (finding) Alcohol Comment 2016-09-05 2016-09-05 Social - one [place] [facility] 00:00:00 00:00:00 drink/month Smoking Status Start Date Stop Date Source Never smoker [facility] Medications Ordered Filled Start Stop Current Ordering Indication Dosage Frequency Signature Comments Components Source Medication Medication Date Date Medication? Clinician (SIG) Name Name Adderall Adderall 2020-0 Yes Velas[place] 1 tablet [facility] St 12-23 [facility] in the [facility] - 00:00: morning [facility] 00 l Outpati ent Clinics Neomycin-Po Neomycin-Po 2019-0 Yes Velasquez [address] lymyxin-HC lymyxin-HC 6-10 Chacon into Shelley kes - 00:00: affected Memoria 00 ear l Outpati ent Clinics topiramate 2018-0 Yes 100mg Q.5D Take [address] (TOPAMAX) 7-22 mg by [facility] - 100 MG 14:30: mouth 2 Medical tablet 34 (two) Center times daily. propranolol 2019-0 Yes 40mg Q.[id number] Take [address] (INDERAL) 7- [id number] by mouth 3 [facility] - 40 MG 14:30: 3D (three) Medical tablet 34 times Center daily. naltrexone- 2019-0 Yes Q.5D Take by [facility] bupropion 7-22 mouth 2 [facility] - (CONTRAVE) 14:30: (two) Medica l 8-90 mg 34 times Center TbER daily. omeprazole 2018-0 Yes 10mg QD Take [address] (PRILOSEC) 7-22 by mouth [facility] - 10 MG 14:30: daily. Medical capsule 34 Center aspirin 81 2019-0 Yes 81mg QD Take [address] MG EC 7-22 by mouth [facility] - tablet 14:30: daily. Medical 34 Center dextroamphe 0 Yes 20mg Q.5D Take [address] tamine-amph 7-22 by mouth 2 [place] kes - etamine 14:30: (two) Medical (ADDERALL 34 times Center XR) 20 MG daily. 24 hr capsule SUMAtriptan 2018-0 Yes 50mg Take [address] (IMITREX) 7-22 by mouth [facility]ukes - 50 MG 14:30: once as Medical tablet 34 needed for Center Headaches (takes every two weeks). ibuprofen 2019-0 Yes 800mg Take [address] (ADVIL,MOTR 7-22 mg by [facility] - IN) 800 MG 14:30: mouth Medica l tablet 34 every 6 Center (six) hours as needed for Pain (for migraine). acetaminoph 2019-0 Yes 500mg Take [address] en 7-22 mg by [facility] - (TYLENOL) 14:30: mouth Medical 500 MG 34 every 6 Center tablet (six) hours as needed for Pain. ascorbic 2019-0 Yes 500mg QD Take [address] acid, 7-22 mg by [facility] - vitamin C, 14:30: mouth Medica l (ASCORBIC 34 daily. Center ACID WITH CLAUDE HIPS) 500 MG tablet potassium 2019-0 Yes 20meq Q.5D Take [address] chloride 7-22 mEq by [facility] - (KLOR-CON) 14:30: mouth 2 Medi prashant 20 mEq 34 (two) Center packet times daily. magnesium 2019-0 Yes 30mg Q.5D Take [address] 30 mg 7-22 by mouth 2 [facility] - tablet 14:30: (two) Medical 34 times Center daily. omeprazole 2019-0 Yes 40mg Q.5D Take [...] coated every day tablet "nosebleed s" furosemide 2019-0 Yes 10mg Take 10 mg [place] (LASIX) 20 5-20 by mouth Metho di mg tablet 13:53: as needed st 37 (pt takes when she is swollen). dextroamphe 2019-0 Yes 20mg QD Take 20 mg [place] tamine-amph 5-20 by mouth Meth juan miguel etamine 13:53: daily. st (ADDERALL) 37 20 mg tablet linaclotide 2019-0 Yes 290ug QD Take [address]ail ston [...] [facility]acon [facility] - [facility]00 [facility] Procedures This patient has no known procedures. Plan of Care Planned Activity Planned Date Details Comments Source Future Scheduled 2020-01-[address] [facility] - Test 00:00:00 (#1) [code = Medical Center INFLUENZA VACCINE (#1)] Future Scheduled 2019-12-29 INFLUENZA VACCINE [place] [facility] Test 00:00:00 [code = INFLUENZA VACCINE] Future Scheduled [address] [facility] - Test 00:00:00 (procedure) [code = [facility] 00276004] Future Scheduled 1994 [facility] for [facility] Test 00:00:00 malignant neoplasm of cervix (procedure) [code = 638003871] Future Scheduled [address] T[facility] es - Test 00:00:00 malignant neoplasm Medical C enter of cervix (procedure) [code = 476328873] Encounters Start End Encounter Admission Attending Care Care Encounter Source Date/Time Date/Time Type Type Clinicians Facility Department ID 2020-04-03 2020-04-03 Outpatient [facility] [id number] 2020-03-17 2020-03-17 Outpatient [facility] [id number] [facility] 2020-03-10 2020-03-10 Outpatient [facility] [id number] [facility] 2019-12-25 2019-12-25 [facility] [id number] 06:54:00 15:15:00 Encounter Jovita Horace [id number] [place] [id number] [facility] [id number] [place] 071 2019-12-24 2019-12-24 [facility] [id number] 15:00:00 15:00:00 [place] [facility] Medicine Medicine Outpati ent [facility] 2019-12-24 2019-12-24 Laboratory Only, [facility] [id number] 11:22:16 11:37:16 Only Test [place] [id number] [place] [id number] [place] [facility] [id number] [facility] 2019-11-07 2019-11-07 [facility] [id number] 11:00:00 11:00:00 [place] [employer] - Drive [facility] Medicine l Medicine Outpati ent Clinics 2019-11-06 2019-11-06 [facility] [id number] 14:49:00 14:49:00 [place] [employer] - Drive [facility] Medicine l Medicine Outpati ent Clinics 2019-10-23 2019-10-23 [facility] [id number] 16:45:00 16:45:00 [place] [employer] - Drive [facility] Medicine l Medicine Outpati ent Clinics 2019-08-23 2019-08-23 [facility] [id number] 14:45:00 14:45:00 [place] [employer] [facility] Medicine l Medicine Outpati ent Clinics 2019-07-12 2019-07-12 [facility] [id number] 15:25:00 15:25:00 [place] [employer] [place] [employer] [facility] Medicine l Medicine Outpati ent Clinics 2019-06-25 2019-06-25 [facility] [id number] 16:15:00 16:15:00 [place] [employer] [facility] Medicine l Medicine Outpati ent Clinics 2019-05-22 2019-05-22 [facility] [id number] 10:15:00 10:15:00 t App [employer] [place] [employer] [facility] Medicine l Medicine Outpati ent Clinics 2019-04-25 2019-04-25 [facility] [id number] 10:15:00 10:15:00 [place] [employer] [address] [facility] Medicine l Medicine Outpati ent Clinics 2019-04-23 2019-04-23 [facility] [id number] 14:15:00 14:15:00 [place] [employer] - Drive [facility] Medicine l Medicine Outpati ent Clinics 2019-03-28 2019-03-28 [facility] [id number] 16:15:00 16:15:00 [place] [employer] - Drive [facility] Medicine l Medicine Outpati ent Clinics 2019-02-27 2019-02-27 [facility] [id number] 15:30:00 15:30:00 [place] [address] Luke s - Drive [facility] Medicine Outpati ent Clinics 2019-02-09 2019-02-09 [facility] [id number] 09:49:00 09:49:00 [place] [address] Luke s - Drive [facility] Medicine Outpati ent Clinics 2019-01-26 2019-01-26 [facility] [id number] 08:00:00 08:00:00 [place] [address] Luke s - Drive [facility] Medicine Outpati ent Clinics 2019-01-16 2019-01-16 Office [facility] [id number] 07:26:27 07:41:27 Visit , Nga AMBULATOR [id number] [place] [id number] [facility] 2018-12-26 2018-12-26 [facility] [id number] 14:15:00 14:15:00 [place] [employer] Luke s - Drive [facility] Medicine Outpati ent Clinics 2018-12-20 2018-12-20 [facility] [id number] 09:47:00 09:47:00 [place] [address] Luke s - Drive [facility] Medicine Outpati ent Clinics 2018-12-06 2018-12-06 [facility] [id number] 12:34:00 12:34:00 [place] [address] Luke s - Drive [facility] Medicine Medicine Outpati ent Clinics 2018-11-27 2018-11-27 [facility] [id number] 15:15:00 15:15:00 [place] [address] Luke s - Drive [facility] Medicine Outpati ent Clinics 2018-09-20 2018-09-20 [facility] [id number] 15:45:00 15:45:00 [place] [address] Luke s - Drive [facility] Medicine Outpati ent Clinics 2018-09-05 2018-09-05 [facility] [id number] 15:30:00 15:30:00 t [facility] - and [facility] ent Clinics 2018-08-17 2018-08-17 [facility] [id number] 11:00:00 11:00:00 [place] [employer] [facility] 2018-07-18 2018-07-18 [facility] [id number] 15:30:00 15:30:00 [place] [employer] [facility] 2018-07-13 2018-07-13 [facility] [id number] 15:01:00 15:01:00 t [facility] - [facility] ent Clinics 2018-07-13 2018-07-13 [facility] [id number] 08:00:00 08:00:00 t [facility] - [facility] ent Clinics 2018-06-22 2018-06-22 [facility] [id number] 15:45:00 15:45:00 [place] [employer] [facility] ent Clinics 2018-05-19 2018-05-19 [facility] [id number] 10:00:00 10:00:00 [place] [employer] [facility] Medicine Outpati ent Clinics 2018-03-02 2018-03-02 [facility] [id number] 11:15:00 11:15:00 [place] [employer] [place] [employer] [facility] Medicine Outpati ent Clinics 2018-02-27 2018-02-27 [facility] [id number] 16:00:00 16:00:00 [place] [employer] [place] [employer] [facility] Medicine Outpati ent Clinics 2018-02-02 2018-02-02 [facility] [id number] 09:30:00 09:30:00 t [facility] ent Clinics 2018-01-03 2018-01-03 [facility] [id number] 16:35:00 16:35:00 t [facility] - and [facility] ent Clinics 2018-01-03 2018-01-03 [facility] [id number] 14:00:00 14:00:00 t [facility] - and [facility] ent Clinics 2017-12-19 2017-12-19 [facility] [id number] 10:15:00 10:15:00 [place] [employer] [place] s - Drive [facility] 2017-11-18 2017-11-18 [facility] [id number] 09:00:00 09:00:00 [place] [employer] [facility] s - Drive [facility] 2017-10-17 2017-10-17 [facility] [id number] 15:00:00 15:00:00 [place] [address] [place] s - Drive [facility] 2017-10-03 2017-10-03 [facility] [id number] 15:30:00 15:30:00 t [facility] 2017-09-26 2017-09-26 [facility] [id number] 16:00:00 16:00:00 [facility] 2017-09-22 2017-09-22 [facility] [id number] 17:19:00 17:19:00 t [facility] 2017-09-22 2017-09-22 [facility] [id number] 09:00:00 09:00:00 t [facility] ent [facility] 2017-09-14 2017-09-14 Outpatient Alvina Mcfarland [id number] 16:04:00 16:04:00 t [employer] [facility] ent [facility] 2017-09-14 2017-09-14 Outpatient Alvina Mcfarland [id number] 16:00:00 16:00:00 [employer] [facility] ent Clinics Results This patient has no known results.
--- OUTSIDE RECORDS SUMMARY | 2020-04-04 11:20 | XMS REPORT ---
:1975 Author Organization [facility] Address [address] [place], [place]. 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 resistant Staphylococcus aureus Problem Gluteal abscess L02.31 Active 69212481 Problem Cervical M54.12 Active 36349918 radiculopathy Problem BMI Z68.27 Active 494820925 27.0-27.9,adult Problem Vagina bleeding N93.9 Active 906149159 Problem Migraine G43.909 Active 68313790 Problem Non-seasonal J30.89 Active 78488530 allergic rhinitis, unspecified trigger Problem History of Z98.890 Active 072035937 endometrial ablation Problem Constipation K59.00 Active 83422545 Problem Herpes zoster B02.9 Active 025045479 without complication Problem Hypokalemia E87.6 Active 94164551 Problem Menopausal N95.9 Active 237178356 disorder Problem Irregular menses N92.6 Active 73466863 ALLERGIES Allergen (clinical drug Drug/Non Drug Reaction Allergy Type Onset D ate Status ingredient) Allergy documented on EMR acetaminophen / oxycodone Percocet([facility] Unknown Drug Allergy Active Code:[address]-21) hydrochlorothiazide Hydrochlorothiazide Unknown Drug Allergy Active ([facility] Code:[address]-18) Acetaminophen Unknown Drug Allergy Active codeine codeine Unknown Drug Allergy Active Sulfa Unknown Drug Allergy Active vancomycin vancomycin Unknown Drug Allergy Active Vicodin Unknown Drug Allergy Active penicillin Unknown Drug Allergy Active sulfamethoxazole / Bactrim([facility] Unknown Drug Allergy Act vicki trimethoprim Code:[address]-01) ENCOUNTERS from 1975 to 2020-04-03 Encounter Location Date Provider Diagnosis [facility] [address], [place] [address] IMMUNIZATIONS Vaccine Route Administration Date Status Afluria [...] No information MEDICATIONS Medication SIG (Take, Route, Frequency, Start [...] Information RESULTS No Results REASON FOR VISIT Mammogram result MEDICAL (GENERAL) HISTORY Type Description Date Medical [...] History Uterine ablation 2015 Surgical History Tonsillectomy 8961-9411 Surgical History Tubal ligation 1997 Surgical History right knee surgery 2002 Surgical History stomach -exploratory 2009 Surgical History Breast reduction 2004 Surgical History Galbladder Removal 2016 Surgical History Mouth surgery 2016 Surgical History uterine polyp removal ablation Surgical History Left Cataract 2018 Surgical History Right Eye: Multiple 2019 Surgical History Hysterectomy 11/2019 Hospitalization History bacterial sinusitis Hospitalization History bacterial pneumonia Hospitalization History pneumonia Goals Section No Information Health Concerns No Information MEDICAL EQUIPMENT No Information MENTAL STATUS No Information FUNCTIONAL STATUS No Information ASSESSMENTS No Information PLAN OF TREATMENT Medication Medication Name Sig [...] with a meal Orally Once a day Next Appt Details Provider Name:Velasquez Chacon, 2020-05-19 0 1:20:00 PM, [address], [place], [address], Insurance Providers Payer Name Payer Payer Insured Name Patient Coverage Covera ge End Address Phone Relationship to Start Date Suresh e Insured [employer] [phone] Rivka Reynoso 2017 and Blue [id number] [place] [phone]
[2020-04-04] MEDS ORDERED: SCOPOLAMINE HYDROBROMIDE PATCH TD ONE ×2 (11:50→11:56)
[2020-04-04] MEDS ORDERED: Levofloxacin500mg IV 500 MG/100 ML BAG IV ONE (11:56)
[2020-04-04] MEDS ORDERED: Ringers Lactate 1,000 ML IV ONE ×2 (11:56→16:17)
[2020-04-04] MEDS ORDERED: LIDOCAINE 2% MPF 5 ML VIAL ONE (12:51)
[2020-04-04] MEDS ORDERED: FENTANYL CITR 250 MCG/5 ML ONE (12:51)
[2020-04-04] MEDS ORDERED: MIDAZOLAM HCL 2 MG/2 ML INJ ONE (12:51)
[2020-04-04] MEDS ORDERED: propofoL 200 MG/20 ML VIAL IV ONE (12:51)
[2020-04-04] MEDS ORDERED: dexAMETHasone 4 MG/ML VIAL ONE (12:52)
[2020-04-04] MEDS ORDERED: ONDANSETRON 4 MG/2 ML VIAL ONE (12:52)
[2020-04-04] MEDS ORDERED: ROCURONIUM 50 MG/5 ML VIAL IV ONE (12:54)
[2020-04-04] MEDS ORDERED: EPHEDRINE SULF 50 MG/ML VIAL ONE (14:03)
[2020-04-04] MEDS ORDERED: KETOROLAC 30 MG/ML INJ ONE (15:49)
[2020-04-04] MEDS: ONDANSETRON 4 MG/2 ML VIAL ONE (16:40)
[2020-04-04] MEDS: HYDROMORPHONE HCL 1 MG/ML INJ ONE ×2 (16:42→16:50)
[2020-04-04] MEDS ORDERED: IBUPROFEN 200 MG TAB PO ONE (17:11)
[2020-04-04] MEDS ORDERED: IBUPROFEN 400 MG TAB ONE (17:12)
[2020-04-04 17:28] VITALS: BP 121/87; TEMP 97; O2SAT 99
--- NOTE | 2020-04-04 23:59 | OP ---
Date of Procedure: 04/04/2020 Surgeon: Jovita Cuevas MD Barrel Cleaner: Amairani Batres. Preoperative Diagnoses: Dyspareunia, postcoital bleeding, recurrent and unresolved, status post hyst erectomy, then pelvic pain. Postoperative Diagnoses: Dyspareunia, postcoital bleeding, recurrent and unresolved, status post hys terectomy, then pelvic pain and omental adhesions to the vaginal cuff and the bladder. Procedures Performed: Diagnostic laparoscopy, lysis of adhesions which took at least 50% of the case , then taking down the bladder adhesions as well as omental adhesions, then vaginal cuff revision and repair, right salpingectomy, cystoscopy. Anesthesia: General endotracheal. Estimated Blood Loss: Minimal. Complications: No complications. Drains: No drains. Specimens: Right distal tube small segment and vaginal cuff that had slight separation. The connect vicki tissue was not intact. Mostly vaginal epithelial lining appeared to be intact on the right half of the vaginal cuff. This was excised after taking the bladder down and repaired in 2 layers with a 2-0 PDS in a continuous running fashion and then 0 PDS to imbricate both the connective tissue layers . No evidence of any bowel involvement. No signs of any rectovaginal fistula that were suggested in [address]. All the evident inflammation and adhesions were all from the omentum. Brief History And Physical: The patient is a 45-year-old, who underwent laparoscopic hysterectomy mo re than 3 months ago after complete healing of the vaginal cuff in 4 weeks. She went back to normal sexual activity and after the first encounter started to have a significant amount of bleeding associ ated with pain, sharp enough that she went to the ER the first time. A CAT scan was done there as pa rt of the evaluation and was found to have a suspicious area for rectovaginal fistula. On examinatio n, she appeared to have mostly a vaginal cuff cellulitis and slight separation and so she was treated conservatively. So, she was given oral antibiotics for vaginal cuff cellulitis, seen Dr. Sonido stahl r a consultation regarding the fistula. No evidence of any fistulous material or feculent material t hrough the vaginal cuff was ever noted. His opinion was that probably it is very unlikely to be a fi stula. So, treated her with normal pelvic rest besides her antibiotics and after full healing anothe r 6 weeks, then she went back to normal activities and sexual activity and this brought on pain and m ild bleeding again. So, at this time, patient basically could not engage in any intimacy and her hea ling appeared to be still unsatisfactory for this young patient with this problem and possibility of anything else that is not being addressed. We discussed about the options of observation with anothe r round of antibiotics and waiting with pelvic rest or laparoscopy for evaluating the vaginal cuff an d if there is weakness noted or a separation that it would be revised and re-sutured. If there is an y bowel involvement that Dr. Head would be unseen by the patient was given a bowel prep, brought t o the OR. Levaquin was given 500 mg. placed in supine fashion on the operating table. Her consent was redone in the preop area and after it was reconfirmed, taken to the OR. Description Of Procedure: She was placed in supine fashion on the operating table. General anesthes ia was given. Placed in a dorsal lithotomy position using Edgardo stirrups. Arms tucked by the side. Abdomen, vulva, vagina, and perineum prepped and draped in normal sterile fashion. Batista was placed to drain the bladder and a large size EEA Sizer was placed in the vagina. We went onto do an infraumbilical incision 1 cm. Fascia incised, tagged with 0 Vicryl sutures. Danica toneum entered. The peritoneum was insufflated. Then, site of entry was checked and unremarkable. A 5 mm left and right lower quadrant ports were placed in the same area as for the hysterectomy, then suprapubic 10 port placed. After looking at the pelvic area while the patient in Trendelenburg, all the omental adhesions were n oted and the omental adhesions started from the left lateral wall all the way on the vaginal cuff ant eriorly to the bladder, posteriorly to the posterior cul-de-sac, and all the way to the right lateral wall. All these adhesions were systematically taken down with push-spread technique. Some of them were dense and some of them were filmy, and all these were taken down sharply and with LigaSure. After dissecting this and vaginal cuff was identified, there was a weakened area on the right half of the cuff, which was transilluminating with metal retractor in the vagina showing how thin the vagina l cuff was at the site. So, next plan was to dissect the bladder and there were bladder adhesions to the vaginal cuff and these were taken down with the help of sharp scissors as well as the LigaSure a nd once the cuff was cleaned up for at least a centimeter and half in the midline, then lateral aspec ts were also taken down. The right lateral aspect had more bleeding than the left side and this was cauterized with the help of the tip of a bipolar. Then, there was a small area that was questionable . Slightly thicker detrusor muscle injury was noted, so this area was oversewn with the help of 3-0 Vicryl in a [id number]-[id number] fashion. Then, once the vaginal cuff was well exposed, this was excised in the right half with the help of a m onopolar hook blade and then once the area that was excised was handed out for permanent pathology, v aginal cuff was entered, opened up with scissors, all the edges were revised. Then, 2-0 PDS in a con tinuous running fashion was used to close the vaginal epithelium and sub-epithelium. Then, connectiv e tissues were brought together partially with the same stitch. Then, a second layer was done with t he help of a 0 Vicryl bringing the anterior and posterior wall connective tissue together, imbricatin g the first layer and this were closed at the right angle. Once this was done, there was excellent c losure support. Vaginal exam was performed. Cystoscopy was performed with a 17-Belarusian sheath, 30 degree lens normal saline, and there were excell ent jets of urine from both ureteric orifices. No evidence of any trauma to the bladder. The bladde r was then drained. The vagina was then cleaned up and vaginal exam was performed with the cystoscop e and there was good intact vaginal cuff. Then went back on the top, all the trocars were removed under direct vision. The distal part of the right tube was still present and this was excised with the help of the LigaSure. Both ovaries were n ormal. No evidence of any trauma to the bowel, either small bowel or large bowel, and so once this w as seen, thorough irrigation suction was performed Interceed was placed on top of the vaginal cuff an d then all trocars were removed, injected with Marcaine entry and exit of the fascia and skin. Umbil ical fascial closure with the help of the tagged sutures tied together. Deep stitch placed in the lee prapubic subcutaneous area. All the skin incisions were closed with the help of subcuticular 4-0 Jaime ryl sutures interrupted. Batista was left in place because of all the dissection of the bladder to giv e the bladder rest to heal, so this will be removed in 3 days. No evidence of any injury to the blad saurabh. The bladder was filled and checked for any leakage and there was none. Instrument, needle, and sponge counts were correct at the end of the case. The patient tolerated the procedure well. She w ill be discharged home with Levaquin and Flagyl. She will get Dilaudid for pain, prescription, Batista for 3 days and then remove the Batista on Tuesday and she can void normally. She has a followup appoin tment in 1 week at the office. Pelvic rest and recovery for 4 weeks. ELIZABETH/CASSANDRA Voice ID: [id number] Report ID: [id number]
== END 2020-04-04 17:40 | disposition home or self-care (01) ==
LOC: OR 11:14
PROVIDERS: ATTEND Obstetrics & Gynecology
PROC: 0DNU4ZZ Release Omentum, Percutaneous Endoscopic Approach (ICD-10-PCS; 2020-04-04)
PROC: 0USG4ZZ Reposition Vagina, Percutaneous Endoscopic Approach (ICD-10-PCS; 2020-04-04)
PROC: 0TNB4ZZ Release Bladder, Percutaneous Endoscopic Approach (ICD-10-PCS; 2020-04-04)
PROC: 0UT54ZZ Resection of Right Fallopian Tube, Percutaneous Endoscopic Approach (ICD-10-PCS; principal; 2020-04-04 12:30)
DX: N94.10 Unspecified dyspareunia (principal); N93.0 Postcoital and contact bleeding; Z20.828 Contact with and (suspected) exposure to other viral communicable diseases; Z88.6 Allergy status to analgesic agent; Z88.8 Allergy status to other drugs, medicaments and biological substances
CPT/HCPCS: 85025; 36415; 86900; 86850; 86901; 88302 ×2; 81003; 58661; 57423; 53899; 49329; U0002; J2704; J1100; J2250; J3010; J1170; J7120 ×2; J2405 ×2; 88305

== ENCOUNTER 2020-08-29 07:10 | Day surgery (SDC) | payer BC ==
--- NOTE | 2020-08-26 12:56 | EKG ---
Test Date: 2020-08-25 Test Time: 09:22:26 Manufacturing Planner: YANNICK MEASUREMENT RESULTS: Intervals: Rate: 80 AL: 152 QRSD: 76 QT: 378 QTc: 435 [place]: P: 37 AL: 152 QRS: 40 T: 53 INTERPRETIVE STATEMENTS: Normal sinus rhythm Normal ECG Compared to ECG 02/11/2020 20:56:46 Sinus tachycardia no longer present T-wave abnormality no longer present Electronically Signed On 08-26-20 12:52:55 CDT by Wyatt Jean
[2020-08-29] MEDS ORDERED: Ringers Lactate 1,000 ML IV ONE (07:56)
[2020-08-29] MEDS ORDERED: propofoL 200 MG/20 ML VIAL IV ONE (08:35)
[2020-08-29] MEDS ORDERED: ROCURONIUM 50 MG/5 ML VIAL IV ONE (08:35)
[2020-08-29] MEDS ORDERED: MIDAZOLAM HCL 2 MG/2 ML INJ ONE (08:35)
[2020-08-29] MEDS ORDERED: dexAMETHasone 10 MG/ML VIAL ONE (08:35)
[2020-08-29] MEDS ORDERED: FENTANYL CITR 100 MCG/2 ML ONE (08:35)
[2020-08-29] MEDS ORDERED: LIDOCAINE 2% MPF 5 ML VIAL ONE (08:35)
[2020-08-29] MEDS ORDERED: NA CHLORIDE 0.9% 0 ML ONE (08:59)
[2020-08-29] MEDS ORDERED: LIDOCAINE 1% W/EPI 1:100,000 MDV 20 ML VIAL ONE (08:59)
[2020-08-29] MEDS ORDERED: OXYMETAZOLINE HCL 0.05% 15ML NAS ONE ×2 (08:59→12:00)
[2020-08-29] MEDS ORDERED: EPHEDRINE SULF 50 MG/ML VIAL ONE (09:36)
--- NOTE | 2020-08-29 09:49 | P.BOP ---
Preoperative diagnosis: epistaxis, nasal mass Postoperative diagnosis: same Primary procedure: destruction of intranasal lesion, nasal endoscopy with biopsy Tablet Technician: NONE,NONE Estimated blood loss: <5ml Specimen: left lateral nasal wall Findings: red lobulated mass Anesthesia: General Complications: None Implants: xerogel, left nasal cavity Fluids & blood products: crystalloid 800ml Transferred to: Recovery Room Condition: Good
[2020-08-29] MEDS ORDERED: GLYCOPYRROLATE 0.2 MG/ML SYR ONE (10:04)
[2020-08-29] MEDS ORDERED: NEOSTIGMINE 1 MG/ML -5 ML ONE (10:08)
[2020-08-29 10:15] VITALS: O2SAT 100
[2020-08-29 11:01] VITALS: BP 119/73; TEMP 97.1
[2020-08-29] MEDS ORDERED: ACETAMINOPHEN 500 MG TAB ONE ×2 (11:05→11:08)
--- NOTE | 2020-08-29 14:31 | OP ---
Surgeon: Mar Mosher MD Preoperative Diagnoses: Epistaxis, left nasal mass. Postoperative Diagnoses: Epistaxis, left nasal mass. Procedures Performed: Destruction of intranasal mass with nasal endoscopy and biopsy and control of epistaxis. Indication For Procedure: The patient presented with left recurrent epistaxis and was evaluated in [facility]. Her anterior nasal cavity appeared normal by anterior rhinoscopy and a nasal endoscop y was performed demonstrating a red lobular appearing mass on the lateral nasal wall just anterior to the uncinate process. Due to the location, concurrent septal deviation, and concern for risk of ble eding, a decision was made to perform further evaluation in an operative setting. Description Of Procedure In Detail: The patient was brought to the operating room. She was placed u nder general anesthesia via oral endotracheal tube. The head of bed was turned 90 degrees. A 0-degr ee endoscope was used to perform a nasal endoscopy. The right nasal cavity demonstrated normal septu m, normal inferior turbinate, normal middle turbinate and middle meatus, normal superior turbinate an d sphenoethmoidal recess, normal nasopharynx with no lesions of the fossa of Rosenmuller or eustachia n tube opening. Left nasal endoscopy demonstrated a left septal spur, normal inferior turbinate, nor mal middle turbinate with middle meatus containing a lobular red mass on the lateral nasal wall. The superior turbinate was not visualized due to obstruction by the septal spur. The scope was passed i nferior to the spur for visualization of the nasopharynx, fossa of Rosenmuller, and eustachian tube o pening, which all appeared to be normal. The lateral nasal wall was then injected with 1% lidocaine with epinephrine and the nasal cavity was packed with Afrin-soaked pledgets to aid in vascular constr iction and reduce overall risk of bleeding. After removal of the pledgets, the lesion was photograph ed using the endoscope. The mass was noted to be somewhat pulsatile. A 45 degree Blakesley was used to grasp and remove the mass, which will be sent to pathology. The area was packed with Afrin-soake d pledgets to apply pressure and control bleeding. The bayonet bipolar forceps were then used to cau terize the base and surrounding mucosa of this area. Additional Afrin-soaked pledgets were applied a nd after removal, a Xerogel dissolvable nasal dressing was folded, cut to size and packed within the left nasal cavity to cover the surgical site. The dressing was soaked with saline. The area was indu nspected. The nasopharynx was suctioned. There was no active bleeding noted. The procedure was con cluded and the patient was returned to care of anesthesia for awakening and extubation in the operati ng room, which proceeded without difficulty. Disposition: The patient will be discharged home later today and follow up with Dr. Mosher in 10 da ys. She is instructed to use nasal saline 4 sprays in the left nostril every 2 hours while awake and to avoid nose blowing and vigorous activity or heavy lifting. MAGDIEL/CASSANDRA Voice ID: [id number] Report ID: [id number]
== END 2020-08-29 11:40 | disposition home or self-care (01) ==
LOC: OR 07:10
PROVIDERS: ATTEND Otolaryngology
PROC: 09BK8ZZ Excision of Nasal Mucosa and Soft Tissue, Via Natural or Artificial Opening Endoscopic (ICD-10-PCS; 2020-08-29)
PROC: 093K8ZZ Control Bleeding in Nasal Mucosa and Soft Tissue, Via Natural or Artificial Opening Endoscopic (ICD-10-PCS; principal; 2020-08-29 09:00)
DX: J34.9 Unspecified disorder of nose and nasal sinuses (principal); R04.0 Epistaxis; Z20.822 Contact with and (suspected) exposure to COVID-19
CPT/HCPCS: 31238; 93005; 88305; 31299; U0002; J2704; J2250; J3010; J1100; J2710; J7120; J7040

== ENCOUNTER 2021-02-25 11:15 | Observation (INO) | payer BC ==
[2021-02-25 12:24] LABS: Basophils % 0.9 % (0-1.3); Hematocrit 39.7 % (36.0-45.0); Lymphocytes % 29.2 % (15.3-44.8); MPV 9.7 fL (7.6-11.3); RBC Red Blood Cell Count 4.65 M/uL (3.86-4.86)
[2021-02-25 12:26] LABS: Protime INR 0.99
--- NOTE | 2021-02-25 12:30 | RAD REPORT ---
EXAM DESCRIPTION: RAD - Chest Single View - 02/25/2021 12:25 pm CLINICAL HISTORY: CHEST PAIN COMPARISON: Chest Single View dated 09/06/2017; Abdomen Acute Series dated 08/10/2017; Chest Pa And La t (2 Views) dated 02/07/2017; Chest Single View dated 08/31/2016 FINDINGS: Lines: None. Lungs: No evidence of edema or pneumonia. Pleural: No significant pleural effusions or pneumothorax. Cardiac: The heart size is within normal limits. Bones: No acute fractures. Other: IMPRESSION: No acute cardiopulmonary disease.
[2021-02-25 12:41] LABS: ALT/SGPT 45 U/L (12-78); AST/SGOT 17 U/L (15-37); Albumin 3.7 g/dL (3.4-5.0); Alkaline Phosphatase 92 U/L (45-117); BUN Blood Urea Nitrogen 9 mg/dL (7-18); Bicarbonate 24 mmol/L (21-32); Bilirubin Direct 0.1 mg/dL (0-0.2); Bilirubin Total 0.4 mg/dL (0.2-1.0); Glucose Level 102 mg/dL (74-106); Magnesium 2.1 mg/dL (1.8-2.4); NT PRO-BNP 15 pg/mL (<125); Potassium 3.8 mmol/L (3.5-5.1); Sodium Level 142 mmol/L (136-145); Troponin (Emerg Dept Use Only) < 0.02 ng/mL (0.0-0.045)
--- NOTE | 2021-02-25 12:41 | RAD REPORT ---
EXAM DESCRIPTION: CT - Head Brain Wo Cont - 02/25/2021 12:34 pm CLINICAL HISTORY: left arm weakness Headache, CVA, drowsiness COMPARISON: Head Brain Wo Cont dated 04/30/2019; Head Brain Wo Cont dated 08/31/2016 TECHNIQUE: All CT scans are performed using dose optimization technique as appropriate and may inclu de automated exposure control or mA/KV adjustment according to patient size. FINDINGS: No intracranial hemorrhage, hydrocephalus or extra-axial fluid collection.No areas of brai n edema or evidence of midline shift. The paranasal sinuses and mastoids are clear. The calvarium is intact. IMPRESSION: No acute intracranial abnormality.
--- NOTE | 2021-02-25 12:58 | RAD REPORT ---
EXAM DESCRIPTION: MRI - Brain Wo Cont - 02/25/2021 12:45 pm CLINICAL HISTORY: left arm weakness Headache, drowsiness, CVA symptomology COMPARISON: Head Brain Wo Cont dated 02/25/2021 TECHNIQUE: Multi-sequence, multiplanar MR imaging of the brain was performed without contrast. FINDINGS: No intracranial hemorrhage, hydrocephalus or extra-axial fluid collections.Small bilateral T2 and FLAIR hyperintensities in the periventricular region are noted a nonspecific but probably rel ated to mild chronic microvascular ischemia. No edema or shift of midline structures. No findings to suspect brain mass. DWI is negative for acute CVA. Midline structures are normally formed. Mastoid air cells and paranasal sinuses are clear. IMPRESSION: Negative for acute CVA or other acute intracranial process.
--- NOTE | 2021-02-25 13:36 | EDPHYS ---
Physician Documentation [facility] Name: Beth Reynoso Age: 46 yrs Sex: Female : 1975 Arrival Date: 02/25/2021 Time: 11:20 Bed 10 Private MD: ED Physician Eliezer Kumar HPI: 02/25 13:33 This 46 yrs old Female presents to ER via Ambulatory with complaints of High [facility] Blood Pressure. 13:33 The patient or guardian reports chest pain that is located primarily in the substernal jmm area. Onset: gradually, at 07:00. The pain radiates to the left arm. Associated signs and symptoms: Pertinent positives: Weakness. The chest pain is described as aching, a heaviness. This is a 46-year-old female with a history of CVA, diabetes mellitus, hypothyroidism, hypertension the presents emerged part with complaints of substernal chest pain beginning after an episode of tachycardia which occurred around 7 AM today. Patient also complains of heaviness in the left arm as well as weakness. Denies inability to raise arm. Denies left leg weakness.. 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 LMP N/A - Hysterectomy tw2 Historical: - Allergies: 11:29 Codeine; tw 11:29 Darvocet-N 100; tw 11:29 Lortab; tw 11:29 PENICILLINS; tw 11:29 Percocet; tw 11:29 Sulfa (Sulfonamide Antibiotics); tw 11:29 Tramadol HCl; tw 11:29 VANCOMYCIN AND DERIVATIVES; tw 11:29 Pineapple; tw2 - Home Meds: 11:29 Adderall XR 20 mg Oral cp24 1 cap twice a day [Active]; aspirin 81 mg Oral chew 1 tab tw2 every other day [Active]; pilocarpine HCl 2 % Opht drop 1 drop every 8 hours [Active]; Lasix 20 mg Oral tab 1 tab as needed [Active]; omeprazole 40 mg Oral cpDR 1 cap once daily [Active]; propranolol 20 mg Oral tab 1 tab every 12 hours [Active]; Slow-Mag 150 mg Oral TbEC twice a day [Active]; topiramate 300 mg Oral tab 1 tab once daily [Active]; Linzess 290 mcg oral cap 1 cap once daily [Active]; - PMHx: 11:29 Asthma; bells palsy; CVA; Diabetes - NIDDM; Hypothyroidism; Kidney stones; Migraines; tw2 - PSHx: 11:32 hysterectomy; tw2 - Immunization history:: Adult Immunizations up to date, Client reports receiving the 2nd dose of the Covid vaccine, Flu vaccine is up to date. - Social history:: Smoking status: Patient denies any tobacco usage or history of. ROS: 13:33 Constitutional: Negative for fever, chills, and weight loss. jmm 13:33 Respiratory: Negative for shortness of breath, cough, wheezing, and pleuritic chest pain, Abdomen/GI: Negative for abdominal pain, nausea, vomiting, diarrhea, and constipation. 13:33 Cardiovascular: Positive for chest pain. 13:33 Neuro: Positive for weakness. 13:33 All other systems are negative. Exam: 13:33 Constitutional: This is a well developed, well nourished patient who is awake, alert, jmm and in no acute distress. Head/Face: atraumatic. Eyes: EOMI, no conjunctival erythema appreciated ENT: Moist Mucus Membranes Neck: Trachea midline, Supple Chest/axilla: Normal chest wall appearance and motion. Cardiovascular: Regular rate and rhythm. No edema appreciated Respiratory: Normal respirations, no respiratory distress appreciated Abdomen/GI: Non distended, soft Back: Normal ROM Skin: General appearance color normal MS/ Extremity: Moves all extremities, no obvious deformities appreciated, no edema noted to the lower extremities Neuro: Awake and alert, normal gait Psych: Behavior is normal, Mood is normal, Patient is cooperative and pleasant Vital Signs: 11:27 BP 131 / 85; Pulse 86; Resp 17; Temp 97.7(TE); Pulse Ox 100% on R/A; Weight 85.28 kg tw2 (R); Height 5 ft. 7 in. (170.18 cm); Pain 4/10; 13:16 BP 125 / 86; Pulse 81; Resp 16; Pulse Ox 100% ; Pain 4/10; tc5 19:30 BP 113 / 77; Pulse 87; Resp 14; Temp 98.2(O); Pulse Ox 100% on R/A; Pain 0/10; bc5 11:27 Body Mass Index 29.44 (85.28 kg, 170.18 cm) tw2 NIH Stroke Scale Scores: 13:33 NIHSS Score: 0 jmm MDM: 12:09 Patient medically screened. [facility] 13:35 The patient was given aspirin in the Emergency Department. Data reviewed: vital signs, [facility] lab test result(s), radiologic studies. ED course: I discussed the patient with the ER [facility]'s nurse practitioner whom accepted the patient to Dr. Trisha esposito.. 02/25 12:10 Order name: Basic Metabolic Panel; Complete Time: 12:45 [facility] 02/25 12:10 Order name: CBC with Diff; Complete Time: 12:45 [facility] 02/25 12:10 Order name: LFT's; Complete Time: 12:45 [facility] 02/25 12:10 Order name: Magnesium; Complete Time: 12:45 [facility] 02/25 12:10 Order name: NT PRO-BNP; Complete Time: 12:45 [facility] 02/25 12:10 Order name: PT-INR; Complete Time: 12:45 [facility] 02/25 12:10 Order name: Troponin (emerg Dept Use Only); Complete Time: 12:45 [facility] 02/25 16:35 Order name: COVID-19 : Document "Date of Symptom Onset" if Symptomatic. tc5 02/25 18:18 Order name: [facility] 02/25 19:05 Order name: Troponin I; Complete Time: 06:15 [facility] 02/25 12:10 Order name: XRAY Chest (1 view); Complete Time: 12:45 [facility] 02/25 12:10 Order name: EKG; Complete Time: 12:10 [facility] 02/25 12:10 Order name: Cardiac monitoring; Complete Time: 12:21 [facility] 02/25 12:10 Order name: CT Head Brain wo Cont; Complete Time: 12:45 [facility] 02/25 12:10 Order name: MRI - Brain Wo Cont; Complete Time: 13:02 [facility] 02/25 15:50 Order name: CT; Complete Time: 16:10 [facility] 02/25 17:54 Order name: MRI; Complete Time: 06:15 [facility] 02/25 19:05 Order name: T4 Free; Complete Time: 06:15 [facility] 02/25 19:05 Order name: Thyroid Stimulating Hormone; Complete Time: 06:15 [facility] 02/25 19:12 Order name: SARS-COV-2 RT PCR; Complete Time: 06:15 [facility] 02/26 02:09 Order name: CBC with Automated Diff; Complete Time: 06:15 [facility] 02/26 02:18 Order name: Basic Metabolic Panel; Complete Time: 06:15 [facility] 02/26 02:22 Order name: Troponin I; Complete Time: 06:15 [facility] 02/26 02:34 Order name: Protime (+INR); Complete Time: 06:15 [facility] 02/26 09:09 Order name: Troponin I; Complete Time: 09:16 [facility] 02/25 12:10 Order name: EKG - Nurse/Tech; Complete Time: 12:21 [facility] 02/25 12:10 Order name: IV Saline Lock; Complete Time: 12:21 [facility] 02/25 12:10 Order name: Labs collected and sent; Complete Time: 12:21 [facility] 02/25 12:10 Order name: O2 Per Protocol; Complete Time: 12:21 [facility] 02/25 12:10 Order name: O2 Sat Monitoring; Complete Time: 12:21 [facility] Administered Medications: 14:28 Drug: Aspirin Chewable Tablet 324 mg Route: PO; tc5 02/26 06:54 Follow up: Response: Other 5 Disposition: 02/25 18:25 Co-signature as Attending Physician, Eliezer Kumar MD I agree with the assessment and kdr plan of care. Disposition Summary: 02/25/21 13:36 Hospitalization Ordered Hospitalization Status: Observation [facility] Provider: Deander Rico Condition: Stable jmm Problem: new jmm Symptoms: are unchanged jmm Bed/Room Type: Standard [facility] Location: [facility] ER HOLD(02/25/21 21:29) tl1 Room Assignment: ERHOLD-(02/25/21 21:29) tl1 Diagnosis - Chest pain, unspecified jmm Forms: - Medication Reconciliation Form jmm - SBAR form jmm NIH Stroke Scale - NIH Stroke Score Date: 02/25/2021 Time: 13:33 Total Score = 0 1a. Level of Consciousness (LOC) - 0(Alert) 1b. Level of Consciousness (LOC) (Month \\T\\ Age) - 0(Both) 1c. LOC Commands (Open \\T\\ Closes Eyes/Debit Agent) - 0(Both) 2. Best Gaze (Lateral Gaze Paresis) - 0(Normal) 3. Visual Field Loss - 0(No visual loss) 4. Facial Palsy - 0(Normal) 5a. Left Arm: Motor (10-second hold) - 0(No drift) 5b. Right Arm: Motor (10-second hold) - 0(No drift) 6a. Left Leg: Motor (5-second hold - always test supine) - 0(No drift) 6b. Right Leg: Motor (5-second hold - always test supine) - 0(No drift) 7. Limb Ataxia (finger/nose \\T\\ heel/olivas - test with eyes open) - 0(Absent) 8. Sensory Loss (pinprick arms/legs/face) - 0(Normal) 9. Best Language: Aphasia (description/naming/reading) - 0(No aphasia) 10. Dysarthria (speech clarity - read or repeat words) - 0(Normal) 11. Extinction and Inattention (visual/tactile/auditory/spatial/personal) - 0(No abnormality) Initials: [facility] Signatures: Dispatcher [employer] EDMS Eliezer Kumar MD MD kdr Mickail, Joel, PA PA [facility] Kacie Rodrigez, RN RN tl1 Asia Albert RN RN tw2 Zonia Gotti, RN RN tc5 Sandy Price RN bc5 Corrections: (The following items were deleted from the chart) 16:30 16:19 Droplet/Contact Precautions ordered. 5 es2 16:30 16:19 Labs collected and sent ordered. 5 es2 21:29 13:36 Telemetry/MedSurg (observation) [facility] tl1 21:29 13:36 [facility] tl1
--- NOTE | 2021-02-25 13:36 | ER ---
Nurse's Notes [facility] Name: Beth Reynoso Age: 46 yrs Sex: Female : 1975 Arrival Date: 02/25/2021 Time: 11:20 Bed 10 Private MD: Diagnosis: Chest pain, unspecified Presentation: 02/25 11:27 Chief complaint: Patient states: this morning in the cafeteria my HR went up to 200 on tw2 my watch. the nurse took my blood pressure and it was 134/92. she said my heart rate was coming down. i have issues with my heart rate. i have sinus tachycardia. then about an hour ago it droped to 67. Chief complaint: Patient states: my LEFT arm feels like its heavy and tight. Coronavirus screen: At this time, the client does not indicate any symptoms associated with coronavirus-19. Ebola Screen: Patient denies travel to an Ebola-affected area in the 21 days before illness onset. Initial Sepsis Screen: Does the patient meet any 2 criteria? No. Patient's initial sepsis screen is negative. Does the patient have a suspected source of infection? No. Patient's initial sepsis screen is negative. Risk Assessment: Do you want to hurt yourself or someone else? Patient reports no desire to harm self or others. Onset of symptoms was February 25, 2021. 11:27 Method Of Arrival: Ambulatory tw 11:27 Acuity: JADIEL 3 tw2 Triage Assessment: 11:32 General: Appears in no apparent distress. well groomed, Behavior is calm, cooperative, tw2 appropriate for age. Pain: Complains of pain in left arm. BABBITTER: 11:32 LMP N/A - Hysterectomy tw2 Historical: - Allergies: 11:29 Codeine; tw 11:29 Darvocet-N 100; tw 11:29 Lortab; 11:29 PENICILLINS; 11:29 Percocet; 11:29 Sulfa (Sulfonamide Antibiotics); 11:29 Tramadol HCl; 11:29 VANCOMYCIN AND DERIVATIVES; 11:29 Pineapple; tw2 - Home Meds: 11:29 Adderall XR 20 mg Oral cp24 1 cap twice a day [Active]; aspirin 81 mg Oral chew 1 tab tw2 every other day [Active]; pilocarpine HCl 2 % Opht drop 1 drop every 8 hours [Active]; Lasix 20 mg Oral tab 1 tab as needed [Active]; omeprazole 40 mg Oral cpDR 1 cap once daily [Active]; propranolol 20 mg Oral tab 1 tab every 12 hours [Active]; Slow-Mag 150 mg Oral TbEC twice a day [Active]; topiramate 300 mg Oral tab 1 tab once daily [Active]; Linzess 290 mcg oral cap 1 cap once daily [Active]; - PMHx: 11:29 Asthma; bells palsy; CVA; Diabetes - NIDDM; Hypothyroidism; Kidney stones; Migraines; tw2 - PSHx: 11:32 hysterectomy; tw2 - Immunization history:: Adult Immunizations up to date, Client reports receiving the 2nd dose of the Covid vaccine, Flu vaccine is up to date. - Social history:: Smoking status: Patient denies any tobacco usage or history of. Screenin:38 Abuse screen: Denies threats or abuse. Nutritional screening: No deficits noted. tw2 Tuberculosis screening: No symptoms or risk factors identified. Fall Risk None identified. Assessment: 12:04 Cardiovascular: Chest pain. tc5 19:51 Reassessment:. bc5 Vital Signs: 11:27 BP 131 / 85; Pulse 86; Resp 17; Temp 97.7(TE); Pulse Ox 100% on R/A; Weight 85.28 kg tw2 (R); Height 5 ft. 7 in. (170.18 cm); Pain 4/10; 13:16 BP 125 / 86; Pulse 81; Resp 16; Pulse Ox 100% ; Pain 4/10; tc5 19:30 BP 113 / 77; Pulse 87; Resp 14; Temp 98.2(O); Pulse Ox 100% on R/A; Pain 0/10; bc5 11:27 Body Mass Index 29.44 (85.28 kg, 170.18 cm) tw2 NIH Stroke Scale Scores: 13:33 NIHSS Score: 0 [facility] ED Course: 11:20 Patient arrived in ED. ds1 11:29 Triage completed. tw2 11:32 Arm band placed on. tw2 11:33 Placed in gown. Bed in low position. Call light in reach. Warm blanket given. tw2 11:34 Finn Mcclellan PA is PHCP. [facility] 11:34 Eliezer Kumar MD is Attending Physician. [facility] 12:04 Zonia Gotti, ABIGAIL is Primary Nurse. tc5 12:21 Inserted saline lock: 20 gauge in right antecubital area, using aseptic technique. tc5 Blood collected. 12:24 XRAY Chest (1 view) In Process Unspecified. EDMS 12:34 CT Head Brain wo Cont In Process Unspecified. EDMS 12:45 MRI - Brain Wo Cont In Process Unspecified. EDMS 13:35 Deandre Rico DO is Hospitalizing Provider. [facility] 20:06 CORONAVIRUS Sent. cc4 02/26 06:27 No provider procedures requiring assistance completed. [facility] 06:53 COVID-19 : Document "Date of Symptom Onset" if Symptomatic. Sent. [facility] Administered Medications: 02/25 14:28 Drug: Aspirin Chewable Tablet 324 mg Route: PO; tc5 02/26 06:54 Follow up: Response: Other [facility] Outcome: 02/25 13:36 Decision to Hospitalize by Provider. [facility] 02/26 15:18 Patient left the ED. [place] NIH Stroke Scale - NIH Stroke Score Date: 02/25/2021 Time: 13:33 Total Score = 0 1a. Level of Consciousness (LOC) - 0(Alert) 1b. Level of Consciousness (LOC) (Month \\T\\ Age) - 0(Both) 1c. LOC Commands (Open \\T\\ Closes Eyes/Surgery Consultant) - 0(Both) 2. Best Gaze (Lateral Gaze Paresis) - 0(Normal) 3. Visual Field Loss - 0(No visual loss) 4. Facial Palsy - 0(Normal) 5a. Left Arm: Motor (10-second hold) - 0(No drift) 5b. Right Arm: Motor (10-second hold) - 0(No drift) 6a. Left Leg: Motor (5-second hold - always test supine) - 0(No drift) 6b. Right Leg: Motor (5-second hold - always test supine) - 0(No drift) 7. Limb Ataxia (finger/nose \\T\\ heel/olivas - test with eyes open) - 0(Absent) 8. Sensory Loss (pinprick arms/legs/face) - 0(Normal) 9. Best Language: Aphasia (description/naming/reading) - 0(No aphasia) 10. Dysarthria (speech clarity - read or repeat words) - 0(Normal) 11. Extinction and Inattention (visual/tactile/auditory/spatial/personal) - 0(No abnormality) Initials: zakia Signatures: Dispatcher [employer] Finn Liu PA PA jmm Sanford, Demi ds1 Asia Albert, RN RN tw2 Genesis Huff, RN RN cc4 Sandy Price, RN RN bc5 Helena Ace, RN RN or Zonia Gotti, RN RN tc5
[2021-02-25] MEDS ORDERED: ASPIRIN 81 MG CHEWABLE TABLET ONE (14:08)
[2021-02-25] MEDS ORDERED: LABETALOL 20 MG/4ML SYRINGE IV PRN (14:54)
[2021-02-25] MEDS ORDERED: ONDANSETRON 4 MG/2 ML VIAL IV PRN (15:17)
[2021-02-25] MEDS ORDERED: ACETAMINOPHEN 500 MG TAB PO PRN (15:17)
--- NOTE | 2021-02-25 15:20 | P.HP ---
Certification for Inpatient Patient admitted to: Observation With expected LOS: <2 Midnights Patient will require the following post-hospital care: None Practitioner: I am a practitioner with admitting privileges, knowledge of patient current condition, hospital course, and medical plan of care. Services: Services provided to patient in accordance with Admission requirements found in Title 42 Section 412.3 of the Code of Federal Regulations Patient History Date of Service: 02/25/21 Reason for admission: Chest pain History of Present Illness: Patient is a 46-year-old female with a past medical history significant for glaucoma, GERD, hypertension, hemiplegic migraine headache, hypothyroidism, hypertension, [place] palsy, CVA who presents with complaint of chest pain onset this morning. Patient reported that chest pain radiates to her left upper arm, left shoulder and neck. Patient reported that she noticed that her heart rate was in the low 200s. Patient reports associated signs and symptoms of left arm numbness\weakness, headache, left hand numbness and palpitations. Patient rated pain as 2/10 in severity and described pain as pressure in quality. Patient reported that he was diagnosed with hemiplegic migraine headache at 16 years of age. Patient denies any other signs or symptoms. Symptoms are aggravated or relieved by nothing. Patient decided to present to the hospital for medical evaluation. Allergies hydrocodone bitartrate [From Lortab] Allergy (Verified 08/25/20 10:11) Hives/Rash oxycodone Allergy (Verified 08/25/20 10:11) Hives Penicillins Allergy (Verified 08/25/20 10:11) Unknown pineapple Allergy (Verified 08/25/20 10:11) Anaphylaxis propoxyphene [From Darvocet-N 100] Allergy (Verified 08/25/20 10:11) Unknown propoxyphene napsylate [From Darvocet-N] Allergy (Verified 08/25/20 10:11) UNK Sulfa (Sulfonamide Antibiotics) Allergy (Verified 08/25/20 10:11) UNK tioconazole [From Vagistat-1] Allergy (Verified 08/25/20 10:11) Hives/Rash tramadol Allergy (Verified 08/25/20 10:11) NAUSEA vancomycin Allergy (Verified 08/25/20 10:11) red man syndrome codeine Adverse Reaction (Verified 08/25/20 10:11) Nausea/Vomiting hydrocodone [From Lortab] Adverse Reaction (Verified 08/25/20 10:11) Nausea/Vomiting STEROIDS IN EYES Adverse Reaction (Uncoded 08/25/20 10:11) INCREASED PRESSURE IN EYES Home Medications: Sumatriptan [Imitrex*] 50 mg PO PRN 10/02/15 Linaclotide [Linzess] 290 mcg PO DAILY 08/24/16 Dextroamphetamine/Amphetamine [Adderall 20 mg Tablet] 20 mg PO BID 10/31/19 Furosemide [Lasix] 20 mg PO PRN 10/31/19 Magnesium [Magnesium Gluconate] 200 mg PO DAILY 10/31/19 Omeprazole 40 mg PO BID 10/31/19 Propranolol HCl 40 mg PO BID 10/31/19 Topiramate [Topamax] 300 mg PO SEECOM 10/31/19 Aspirin [Aspirin EC 81 MG] 81 mg PO M,W,F 08/25/20 Diphenhydramine HCl [Sleep Aid] 50 mg PO PRN PRN 08/25/20 Melatonin 1 tab PO PRN PRN 08/25/20 Olopatadine HCl [Pataday] 2.5 ml OP BEDTIME 08/25/20 - Past Medical/Surgical History Diabetic: Yes -: ASTHMA -: BELLS PALSY -: CVA -: MIGRAINES -: DIABETIC CONTROLLED DIABETIC -: HYPERTHYROIDISM -: ADHD -: BREAST REDUCTION -: TONSILLECTOMY -: KNEE SX -: EXPLORATORY LAP -: TUBAL LIGATION -: D&C -: DARA -: POLYP REMOVAL - Family History Mother -: Heart disease Father -: Heart disease - Social History Smoking Status: Never smoker Alcohol use: No CD- Drugs: No Caffeine use: No Place of Residence: Home Review of Systems General: Weakness Eyes: Unremarkable ENT: Unremarkable Respiratory: Unremarkable Cardiovascular: Chest Pain, Palpitations, Light Headedness Gastrointestinal: Unremarkable Genitourinary: Unremarkable Musculoskeletal: Back Pain Integumentary: Unremarkable Neurological: Weakness, Numbness, Unremarkable Lymphatics: Unremarkable Physical Examination - Physical Exam General: Alert, In no apparent distress, Oriented x3 HEENT: Atraumatic, PERRLA, Mucous membr. moist/pink, EOMI, Sclerae nonicteric Neck: Supple, 2+ carotid pulse no bruit, No LAD, Without JVD or thyroid abnormality Respiratory: Clear to auscultation bilaterally, Normal air movement Cardiovascular: Normal pulses, Normal S1 S2 Capillary refill: <2 Seconds Gastrointestinal: Normal bowel sounds, No tenderness Musculoskeletal: No tenderness Integumentary: No rashes Neurological: Normal gait, Normal speech, Normal strength at 5/5 x4 extr, Normal tone, Normal affect Lymphatics: No axilla or inguinal lymphadenopathy - Studies Laboratory Data (last 24 hrs) 02/25/21 12:10: PT 11.4, INR 0.99 02/25/21 12:10: WBC 6.80, Hgb 13.2, Hct 39.7, Plt Count 164 02/25/21 12:10: Sodium 142, Potassium 3.8, BUN 9, Creatinine 0.51 L, Glucose 102, Magnesium 2.1, Total Bilirubin 0.4, AST 17, ALT 45, Alkaline Phosphatase 92 Assessment and Plan - Plan --Chest pain of unclear etiology. Facilities Plant Engineer consulted. Echocardiogram pending. Will trend troponins. Telemetry to monitor for any significant arrhythmia. Will await further recommendation from sales merchandiser. --Left upper extremity weakness. MRI brain unremarkable for any intracranial abnormality. MRI cervical spine pending. Neurology consulted. Continue Plavix and supportive care. --History of CVA. Patient placed on Plavix. Reports nosebleeds with aspirin if she takes the medication more more than twice a week. Further management by neurologist. --History of hemiplegic migraine headache and Allen's palsy. Continue home medications. --GERD. Continue protonix. --HLD. Continue statin. --Hypertension. Stable. We will manage BP with labetalol prn --Glaucoma. Continue home medication. --DVT prophylaxis with Lovenox subQ I have had discussion about advanced directives with the patient during this hospital admission. Addressed code status and goals of care. Spent more than 30 minutes. Case discussed withpatient and nurse. The following document was completed using voice recognition software. This can produce travel agent errors that can at times significantly distort words and phrases. Please interpret any aspect of the note that is nonsensical in light of this fact. Discharge Plan: Home Plan to discharge in: 48 Hours - Advance Directives Does patient have a Living Will: No Does patient have a Durable POA for Healthcare: No - Code Status/Comfort Care Code Status Assessed: Yes Code Status: Full Code Physician Review: Patient Assessed, Agree with Above Assessment and Plan Critical Care: No
[2021-02-25 15:23] VITALS: BMI 29.4
--- NOTE | 2021-02-25 15:50 | RAD REPORT ---
EXAM DESCRIPTION: CT - C Spine Wo Con - 02/25/2021 3:28 pm CLINICAL HISTORY: LUE weakness Radiculopathy COMPARISON: No comparisons FINDINGS: The cervical vertebral body heights and disc spaces are maintained. Mild spondylosis at C5 -6 in the form of disc bulge small endplate osteophytes. No evidence of acute cervical spine fracture or subluxation. Prevertebral soft tissues are normal in thickness. IMPRESSION: Negative for acute cervical spine abnormality. Mild lower cervical spondylosis. All CT scans are performed using dose optimization technique as appropriate and may include automated exposure control or mA/KV adjustment according to patient size.
[2021-02-25] MEDS ORDERED: MELATONIN 500 MCG PO PRN (15:59)
[2021-02-25] MEDS ORDERED: SUMATRIPTAN SUCCI 50 MG TAB PO PRN (16:00)
[2021-02-25] MEDS ORDERED: TOPIRAMATE 100 MG TAB PO SCH ×2 (16:00→21:00)
[2021-02-25] MEDS: ENOXAPARIN 40 MG/0.4 ML SQ SCH (16:00)
[2021-02-25] MEDS ORDERED: MELATONIN 5 MG TABLET PO PRN (16:13)
[2021-02-25] MEDS: PANTOPRAZOLE 40MG TABLET PO SCH (16:30)
[2021-02-25] MEDS ORDERED: DIPHENHYDRAMINE 25 MG TAB/CAP PO PRN (16:52)
--- NOTE | 2021-02-25 17:53 | RAD REPORT ---
EXAM DESCRIPTION: MRI - C Spine Wo Cont- 02/25/2021 5:46 pm CLINICAL HISTORY: LUE Weakness Neck pain, radiculopathy COMPARISON: C Spine Wo Cont dated 01/04/2018 FINDINGS: Cervical vertebral bodies are normal in height and alignment. No suspicious marrow edema or marrow replacing process. No fracture or traumatic subluxation. The craniocervical junction is normal. C2-3 level: No significant findings. C3-4 level: Small posterior osteophyte/ disc complex. C4-5 level: Small posterior osteophyte/ disc complex. C5-6 level: Moderate posterior osteophyte/ disc complex is present attenuating the anterior subarachn oid space and contacting the anterior cord. Mild left-sided foraminal encroachment. C6-7 level: No significant findings. C7-T1 level: No significant findings. Cervical cord is normal in size and signal. IMPRESSION: Mild lower cervical spondylosis, most significant at C5-6 as detailed. No severe canal stenosis or foraminal stenosis at any level.
[2021-02-25] MEDS ORDERED: PANTOPRAZOLE 40MG TABLET PO ONE (17:59)
[2021-02-25] MEDS ORDERED: ENOXAPARIN 40 MG/0.4 ML SQ ONE (17:59)
[2021-02-25 19:05] LABS: Troponin I < 0.02 ng/mL (0.0-0.045)
[2021-02-25] MEDS ORDERED: ATORVASTATIN 40 MG TAB PO SCH (21:00)
[2021-02-25] MEDS ORDERED: HOME MED 1 EA UNK (Omeprazole [Omeprazole] 10 MG Capsule.Dr) PO SCH (21:00)
[2021-02-25] MEDS ORDERED: OLOPATADINE HCL OPTH SCH (21:00)
[2021-02-25] MEDS: PROPRANOLOL HCL 40 MG TAB PO SCH (21:00)
[2021-02-25] MEDS ORDERED: HOME MED 1 EA UNK (Propranolol Hcl [Propranolol Hcl] 20 MG Tablet) PO SCH (21:00)
[2021-02-25] MEDS ORDERED: PROPRANOLOL HCL 40 MG TAB ONE (22:15)
[2021-02-26 02:00] LABS: Protime INR 1.01
[2021-02-26 02:02] LABS: Absolute Lymphocytes (CBC) 2.2 K/uL (0.7-4.9); Basophils % 0.6 % (0-1.3); Hematocrit 40.8 % (36.0-45.0); Lymphocytes % 32.8 % (15.3-44.8); MPV 9.5 fL (7.6-11.3); RBC Red Blood Cell Count 4.76 M/uL (3.86-4.86)
[2021-02-26 02:18] LABS: BUN Blood Urea Nitrogen 12 mg/dL (7-18); Bicarbonate 25 mmol/L (21-32); Glucose Level 114 mg/dL (74-106); Potassium 3.8 mmol/L (3.5-5.1); Sodium Level 142 mmol/L (136-145)
[2021-02-26] MEDS ORDERED: DIPHENHYDRAMINE 25 MG TAB/CAP ONE (03:39)
[2021-02-26] MEDS ORDERED: ACETAMINOPHEN 500 MG TAB ONE (03:40)
[2021-02-26] MEDS: PANTOPRAZOLE 40MG TABLET PO SCH (07:30)
[2021-02-26 07:59] VITALS: TEMP 98
[2021-02-26] MEDS ORDERED: PANTOPRAZOLE 40MG TABLET PO ONE (08:07)
[2021-02-26 08:31] VITALS: O2SAT 97
[2021-02-26] MEDS: PROPRANOLOL HCL 40 MG TAB PO SCH (09:00)
[2021-02-26] MEDS ORDERED: FOLIC ACID 1 MG TABLET PO SCH (09:00)
[2021-02-26] MEDS ORDERED: TOPIRAMATE 100 MG TAB PO SCH (09:00)
[2021-02-26] MEDS: ENOXAPARIN 40 MG/0.4 ML SQ SCH (09:00)
[2021-02-26] MEDS ORDERED: MAGNESIUM OXIDE 400 MG TAB PO SCH (09:00)
[2021-02-26] MEDS ORDERED: FUROSEMIDE 20 MG TABLET PO SCH (09:00)
[2021-02-26] MEDS ORDERED: HOME MED 1 EA UNK (Magnesium [Magnesium Gluconate] 200 MG Tablet) PO SCH (09:00)
[2021-02-26] MEDS ORDERED: CLOPIDOGREL 75 MG TABLET PO SCH (09:00)
[2021-02-26] MEDS ORDERED: HOME MED 1 EA UNK (Linaclotide [Linzess] 290 MCG Capsule) PO SCH (09:00)
[2021-02-26] MEDS ORDERED: FUROSEMIDE 20 MG TABLET ONE (09:32)
[2021-02-26] MEDS ORDERED: MAGNESIUM OXIDE 400 MG TAB ONE (09:33)
[2021-02-26] MEDS ORDERED: CLOPIDOGREL 75 MG TABLET ONE (09:33)
[2021-02-26] MEDS ORDERED: FOLIC ACID 1 MG TABLET ONE (09:33)
[2021-02-26] MEDS ORDERED: ENOXAPARIN 40 MG/0.4 ML SQ ONE (09:34)
--- NOTE | 2021-02-26 14:05 | CON ---
Date of Consultation: 02/25/2021 Reason For Consultation: Admitted on 02/25/[address] Vega for chest pain. I saw the patient on 0 02/25/2021. History Of Present Illness: Ms. Reynoso is 46, has had a history of asthma, Allen's palsy, CVA, diabete s, migraine, thyroid, negative cardiac workup in the past. Came in with mostly palpitation and sever e hypertension. I saw Ms. Reynoso on the way to get an MRI, so examination was not done. Allergies: TO HYDROCODONE, PENICILLIN, PINEAPPLE, AND NAPROSYN. Medications: She takes aspirin, Lasix, propranolol, Prilosec, Imitrex, and Topamax. Diagnostic Data: All unremarkable. For now, I did recommend to do another echocardiogram and Lexisc an. Assessment And Plan: I think we need to probably change her from propranolol to a stronger beta-bloc ker for her arrhythmia. May have to do repeat MRI as an outpatient. For now, continue neurological workup. Continue present regimen. Get an echo and Lexiscan and then we will see how all that turns out. VIMAL/CASSANDRA Voice ID: [id number] Report ID: [id number]
[2021-02-26 15:16] VITALS: BP 110/74
--- NOTE | 2021-02-26 15:34 | ECHO ---
HEIGHT: 5 ft 7 in WEIGHT: 188 lb 0 oz DATE OF STUDY: 02/26/[address]: Lakesha Barrientos 2-DIMENSIONAL: YES M.MODE: YES DOPPLER: YES COLOR FLOW: YES TDS: NO PORTABLE: NO DEFINITY: NO BUBBLE STUDY: NO DIAGNOSIS: CHEST PAIN CARDIAC HISTORY: CATHERIZATION: NO SURGERY: NO PROSTHETIC VALVE: NO PACEMAKER: NO MEASUREMENTS (cm) DIASTOLIC (NORMALS) SYSTOLIC (NORMALS) IVSd 1.0 (0.6-1.2) LA Diam 2.9 (1.9-4.0) LVEF 55-60% LVIDd 4.1 (3.5-5.7) LVIDs 2.1 (2.0-3.5) %FS % LVPWd 1.2 (0.6-1.2) Ao Diam 3.0 (2.0-3.7) 2 DIMENSIONAL ASSESSMENT: RIGHT ATRIUM: NORMAL LEFT ATRIUM: NORMAL RIGHT VENTRICLE: NORMAL LEFT VENTRICLE: NORMAL TRICUSPID VALVE: MITRAL VALVE: NORMAL PULMONIC VALVE: NORMAL AORTIC VALVE: NORMAL PERICARDIAL EFFUSION: NONE AORTIC ROOT: NORMAL LEFT VENTRICULAR WALL MOTION: NORMAL DOPPLER/COLOR FLOW: MILD TRICUSPID REGURGITATION. COMMENTS: NORMAL LEFT VENTRICULAR EJECTION FRACTION 55-60%. NORMAL WALL MOTION. MILD TRICUSPID REGURGITATION. TECHNOLOGIST: Gini BUCKLEY
--- NOTE | 2021-02-26 15:59 | EKG ---
Test Date: 2021-02-25 Test Time: 12:02:32 Vine Pruner: KAYLEIGH MEASUREMENT RESULTS: Intervals: Rate: 82 WY: 128 QRSD: 70 QT: 388 QTc: 453 [place]: P: 65 WY: 128 QRS: 17 T: 30 INTERPRETIVE STATEMENTS: Normal sinus rhythm Normal ECG Compared to ECG 08/25/2020 09:22:26 No significant changes Electronically Signed On 02-26-21 15:56:33 CDT by Wyatt Jean
--- NOTE | 2021-02-26 20:36 | P.DS ---
Admission Date: 02/25/21 Discharge Date: 02/26/21 Disposition: ROUTINE DISCHARGE Discharge Condition: GOOD Reason for Admission: Chest pain Consultations: Cardiology - Dr. Jean Neurology - Dr. La Procedures: Echo (02/26): normal LVEF: 55-60%. normal wall motion. mild TR CXR (02/25): No acute cardiopulmonary disease. CT Head (02/25): IMPRESSION: No acute intracranial abnormality. MRI brain (02/25): FINDINGS: No intracranial hemorrhage, hydrocephalus or extra-axial fluid collections.Small bilateral T2 and FLAIR hyperintensities in the periventricular region are noted a nonspecific but probably related to mild chronic microvascular ischemia. No edema or shift of midline structures. No findings to suspect brain mass. DWI is negative for acute CVA. Midline structures are normally formed. Mastoid air cells and paranasal sinuses are clear. IMPRESSION: Negative for acute CVA or other acute intracranial process. CT c spine (02/25): FINDINGS: The cervical vertebral body heights and disc spaces are maintained. Mild spondylosis at C5-6 in the form of disc bulge small endplate osteophytes. No evidence of acute cervical spine fracture or subluxation. Prevertebral soft tissues are normal in thickness. IMPRESSION: Negative for acute cervical spine abnormality. Mild lower cervical spondylosis. MRI C spine (02/25): FINDINGS: Cervical vertebral bodies are normal in height and alignment. No suspicious marrow edema or marrow replacing process. No fracture or traumatic subluxation. The craniocervical junction is normal. C2-3 level: No significant findings. C3-4 level: Small posterior osteophyte/ disc complex. C4-5 level: Small posterior osteophyte/ disc complex. C5-6 level: Moderate posterior osteophyte/ disc complex is present attenuating the anterior subarachnoid space and contacting the anterior cord. Mild left- sided foraminal encroachment. C6-7 level: No significant findings. C7-T1 level: No significant findings. Cervical cord is normal in size and signal. IMPRESSION: Mild lower cervical spondylosis, most significant at C5-6 as detailed. No severe canal stenosis or foraminal stenosis at any level. Problem List Chest Pain L arm heaviness/weakness h/o CVA h/o hemiplegic migraine and Allen's palsy h/o frequent headache's / migraines HTN GERD Glaucoma Brief History of Present Illness: 46-year-old female with a past medical history significant for glaucoma, GERD, hypertension, hemiplegic migraine headache, hypothyroidism, hypertension, [place] palsy, CVA who presents with complaint of chest pain onset this morning. Patient reported that chest pain radiates to her left upper arm, left shoulder and neck. Patient reported that she noticed that her heart rate was in the low 200s. Patient reports associated signs and symptoms of left arm num bness\weakness, headache, left hand numbness and palpitations. Patient rated pain as 2/10 in severity and described pain as pressure in quality. Patient reported that he was diagnosed with hemiplegic migraine headache at 16 years of age. Patient denies any other signs or symptoms. Symptoms are aggravated or relieved by nothing. Patient decided to present to the hospital for medical evaluation. Hospital Course: EKG without ischemic changes. Troponin remained negative. She had resolution of her symptoms. MRIs were obtained to evaluate and brain and c-spine levels for potential cause of left arm symptoms. No significant findings. Cardiology and Neurology were consulted. Patient underwent echocardiogram (normal), and was to undergo cardiac stress testing, however, the machine was broken. Patient requested to be discharged. Sicne her workup remained negative and symptoms resolved, she was deemed stable to be discharged home. Cardiology recommended close follow up within 1-2 weeks and to discharge with metoprolol instead of propranolol. Vital Signs/Physical Exam: Temp Pulse Resp BP Pulse Ox 98 F 76 17 110/74 100 02/26/21 07:56 02/26/21 15:15 02/26/21 12:00 02/26/21 15:15 02/26/21 15:15 General: Alert, In no apparent distress, Oriented x3 HEENT: Mucous membr. moist/pink, Sclerae nonicteric Neck: Supple Respiratory: Clear to auscultation bilaterally, Normal air movement Cardiovascular: No edema, Regular rate/rhythm, Normal S1 S2 Gastrointestinal: Soft and benign, Non-distended, No tenderness Musculoskeletal: No tenderness Integumentary: No rashes Neurological: Normal speech, Normal affect Laboratory Data at Discharge: WBC 6.60 K/uL (4.3-10.9) 02/26/21 01:36 Hgb 13.6 g/dL (12.0-15.0) 02/26/21 01:36 Hct 40.8 % (36.0-45.0) 02/26/21 01:36 Plt Count 163 K/uL (152-406) 02/26/21 01:36 PT 11.6 SECONDS (9.5-12.5) 02/26/21 01:36 INR 1.01 02/26/21 01:36 Sodium 142 mmol/L (136-145) 02/26/21 01:36 Potassium 3.8 mmol/L (3.5-5.1) 02/26/21 01:36 BUN 12 mg/dL (7-18) 02/26/21 01:36 Creatinine 0.61 mg/dL (0.55-1.3) 02/26/21 01:36 Glucose 114 mg/dL (74-106) H 02/26/21 01:36 Magnesium 2.1 mg/dL (1.8-2.4) 02/25/21 12:10 Total Bilirubin 0.4 mg/dL (0.2-1.0) 02/25/21 12:10 AST 17 U/L (15-37) 02/25/21 12:10 ALT 45 U/L (12-78) 02/25/21 12:10 Alkaline Phosphatase 92 U/L (45-117) 02/25/21 12:10 Troponin I < 0.02 ng/mL (0.0-0.045) 02/26/21 07:49 Home Medications: Sumatriptan [Imitrex*] 50 mg PO PRN 10/02/15 Linaclotide [Linzess] 290 mcg PO DAILY 08/24/16 Dextroamphetamine/Amphetamine [Adderall 20 mg Tablet] 20 mg PO BID 10/31/19 Furosemide [Lasix] 20 mg PO PRN 10/31/19 Magnesium [Magnesium Gluconate] 200 mg PO DAILY 10/31/19 Omeprazole 40 mg PO BID 10/31/19 Topiramate [Topamax*] 300 mg PO SEECOM 10/31/19 Aspirin [Aspirin EC 81 MG] 81 mg PO M,W,F 08/25/20 Diphenhydramine HCl [Sleep Aid] 50 mg PO PRN PRN 08/25/20 Melatonin 1 tab PO PRN PRN 08/25/20 Olopatadine HCl [Pataday Once Daily Relief] 2.5 ml OP BEDTIME 08/25/20 Metoprolol Tartrate [Lopressor*] 0.5 tab PO BID 30 Days #30 tab 02/26/21 Metoprolol Tartrate [Lopressor*] 0.5 tab PO BID 30 Days #30 tab 02/26/21 New Medications: Metoprolol Tartrate [Lopressor*] 0.5 tab PO BID 30 Days #30 tab Metoprolol Tartrate [Lopressor*] 0.5 tab PO BID 30 Days #30 tab Physician Discharge Instructions: Your chest pain was evaluated by EKG, heart monitoring, and cardiac enzymes (troponin). All were normal. Cardiology (Dr. Jena) was consulted and recommended cardiac stress testing and echocardiogram. Echocardiogram was done and results will be reviewed with you on follow up with Dr. Jean. Unfortunately the stress test machine was b [employer], and given your other normal results, you are deemed stable to discharge home and follow up with Dr. Jean in the office to have this done as outpatient. Your propranolol is changed to metoprolol on discharge. Otherwise no other changes to your medications at this time. Your arm heaviness/numbness was evaluated by CT head, MRI head, MRI c-spine, all were normal / no evidence of an acute process that would be causing your symptoms. Diet: Regular Activity: Ad laura Followup: Velasquez Chacon, [Primary Care Provider] - Time spent managing pt's care (in minutes): 45
--- NOTE | 2021-02-26 23:29 | CON ---
Reason For Consultation: Consultation called because of possible stroke. History Of Present Illness: Ms. Reynoso is a 46-year-old patient whom I have seen in the past with com plicated migraine. She has hypertension. Migraines may manifest as hemiplegia. In addition, she maldonado d Lalen palsy and hypothyroidism. The patient developed chest pain as a reason for her coming to the hospital. Along with the chest pain, she had left arm, shoulder, and neck pain and very elevated hea rt rate of 200s. She said her blood pressure was just mildly elevated. Subsequently, her heart rate went down to the 50s and she was getting significantly weak in the left arm and did have a headache. Her brain imaging included head CT and brain MRI, which were negative for any acute ischemic or hem orrhagic changes. There were small bilateral T2 and FLAIR hyperintensities in the periventricular re gion likely related to chronic microvascular events. Her cervical spine MRI identified moderate post erior osteophyte disk complex at C5/C6 with mild left-sided foraminal encroachment and no significant compression or central or nerve root compression. The patient's symptoms resolved significantly whi le hospitalized. She received topiramate and sumatriptan along with her Plavix and Lipitor. At the time she was evaluated with the physical therapist, she was independent in all aspects of mobilizatio n and had no focal numbness or weakness. Past Medical History: As noted. Allergies: HYDROCODONE, OXYCODONE, PENICILLIN, PINEAPPLE, PROPOXYPHENE, SULFA DRUGS, TIOCONAZOLE, TR AMADOL, VANCOMYCIN, CODEINE, AND HYDROCODONE. Home Medications: Sumatriptan 50 mg as needed, Linzess 290 mg daily, Adderall 20 mg daily, Lasix 20 mg daily, magnesium gluconate 200 mg daily, propranolol 40 mg twice daily, omeprazole 40 mg twice lucius ly, topiramate 200 mg daily, aspirin 81 mg daily, Benadryl 50 mg as needed at night, melatonin 3 mg a t night, and olopatadine 2.5 mL at bedtime. Past Surgical History: Tonsillectomy, breast reduction, knee surgery, exploratory lap, tubal ligatio n, cholecystectomy, polyp removal, and D and C. Family History: Positive for heart disease in mother and father. Social History: No alcohol, tobacco, or IV drug use. Review of Systems: Aside from mentioned above, she has had occasional headaches with weakness on either side. Some ligh theadedness and weakness as noted, but no psychiatric issues. No gastrointestinal complaints. No ge nitourinary complaints. No dermatological complaints or other positives. Physical Examination: Vital Signs: Blood pressure 110/74, pulse 76, respiratory rate 16, temperature 98.3, and oxygen satu ration 97% on room air. Weight 188 pounds, height 5 feet 7 inches, BMI 29.4. General: Ms. Reynoso is sitting in her emergency room bed, in no acute distress. HEENT: She is normocephalic and atraumatic. Sclerae anicteric. Oropharynx is pink and moist. Neck: Supple. Chest: Clear. Heart: Regular. Extremities: Show no edema, cyanosis, or clubbing. Neurological: She is alert and oriented to person, place, time, and situation. She follows commands appropriately. She has no cranial nerve deficits. She has no motor deficits with 5/5 strength prox imally and distally in upper and lower extremities. Sensory exam intact in upper and lower extremiti es. Reflexes 2+ in upper and lower extremities. Coordination intact in upper and lower extremities. Gait normal stance, right arm sling. Assessment: Ms. Reynoso is a 46-year-old patient with a history of complicated migraine, which may becka d to hemiparesis on the left or right side. She has chest pain with significant tachycardia and has been seen by Cardiology for this. That is likely the etiology of her symptoms identified on the left upper extremity as possible stroke. Her brain MRI, head CT scan, and neurological examination do no t support the diagnosis of stroke. Plan: Her medication should be continued as indicated. Continue topiramate for headache prophylaxis . Continue sumatriptan as needed. Continue all other medications as indicated. She may discharge h ome and follow up in Dr. La's office in 1 month. LOULOU/CASSANDRA Voice ID: [id number] Report ID: [id number]
== END 2021-02-26 15:19 | disposition home or self-care (01) ==
LOC: ER 11:15 → ERHOLD 13:56
PROVIDERS: ADMIT Family Medicine; ATTEND Hospitalist
DX: R07.9 Chest pain, unspecified (principal); R20.0 Anesthesia of skin; R53.1 Weakness; G43.409 Hemiplegic migraine, not intractable, without status migrainosus; G51.0 Bell's palsy; R00.0 Tachycardia, unspecified; I10 Essential (primary) hypertension; H40.9 Unspecified glaucoma; K21.9 Gastro-esophageal reflux disease without esophagitis; E78.5 Hyperlipidemia, unspecified; E03.9 Hypothyroidism, unspecified; E11.9 Type 2 diabetes mellitus without complications; J45.909 Unspecified asthma, uncomplicated; E05.90 Thyrotoxicosis, unspecified without thyrotoxic crisis or storm; F90.9 Attention-deficit hyperactivity disorder, unspecified type; Z20.822 Contact with and (suspected) exposure to COVID-19; Z86.73 Personal history of transient ischemic attack (TIA), and cerebral infarction without residual deficits; Z90.49 Acquired absence of other specified parts of digestive tract; Z98.51 Tubal ligation status; Z79.82 Long term (current) use of aspirin; Z88.2 Allergy status to sulfonamides; Z88.3 Allergy status to other anti-infective agents; Z88.6 Allergy status to analgesic agent; Z88.8 Allergy status to other drugs, medicaments and biological substances; Z91.018 Allergy to other foods; Z82.49 Family history of ischemic heart disease and other diseases of the circulatory system
CPT/HCPCS: 93005; 93306; 85025 ×2; 80048 ×2; 36415; 83735; 85610 ×2; 80076; 84443; 84484 ×4; 84439; 83880; 70450; 72125; 71045; 70551; 72141; 97161; 99284; U0003; J1650 ×2; G0378 ×3

== ENCOUNTER 2021-12-24 09:28 | Day surgery (SDC) | payer BC ==
[2021-12-24] MEDS ORDERED: NA CHLORIDE 0.9% 1,000 ML ONE (09:52)
[2021-12-24 10:04] LABS: Absolute Lymphocytes (CBC) 1.6 K/uL (0.7-4.9); Hematocrit 41.5 % (36.0-45.0); MCV 85.9 fL (80-100); MPV 9.5 fL (7.6-11.3); RBC Red Blood Cell Count 4.83 M/uL (3.86-4.86)
[2021-12-24 10:12] LABS: SARS-CoV-2 Antigen Rapid Res Negative (Negative)
[2021-12-24] MEDS ORDERED: LIDOCAINE 1% MPF 5 ML VIAL ONE (11:54)
[2021-12-24] MEDS ORDERED: propofoL 200 MG/20 ML VIAL IV ONE (11:54)
--- NOTE | 2021-12-24 12:20 | ENDO RPT ---
[address], [address] EGD PROCEDURE REPORT EXAM DATE: 12/24/2021 PATIENT NAME: Beth Reynoso MR#: [id number] BIRTHDATE: 1975 ATTENDING: Farooq Head DR STATUS: outpatient CLINIC OFFICE MANAGER: Hemalatha Hernandez RN and Tomy Kessler [facility] INDICATIONS: The patient is a 46 yr old Female here for an EGD due to dyspepsia and epigastric pain PROCEDURE PERFORMED: EGD with biopsy for H. pylori MEDICATIONS: Per Anesthesia. TOPICAL ANESTHETIC: none CONSENT: The patient understands the risks and benefits of the procedure and understands that these risks include, but are not limited to: sedation, allergic reaction, infection, perforation and/or bleeding. Alternative means of evaluation and treatment include, among others: physical exam, x-rays, and/or surgical intervention. The patient elects to proceed with this endoscopic procedure. DESCRIPTION OF PROCEDURE: During intra-op preparation period all mechanical medical equipment was checked for proper function. Hand hygiene and appropriate measures for infection prevention was taken. Procedure, possible complications, and alternatives including but not limited to the possibility of bleeding, perforation, tear, infection, sepsis, need for surgery, need for blood transfusion, and anesthesia related complications were explained to the patient. After the risks, benefits and alternatives of the procedure were thoroughly explained, Informed consent was verified, confirmed and timeout was successfully executed by the treatment team. The patient was placed in the left lateral position. The patient was anesthetized with topical anesthesia. Through the anesthetized oropharyngeal area, the scope was passed without any difficulty. The [id number] ([id number]) endoscope was introduced through the mouth and advanced to the third portion of the duodenum. Retroflexed views revealed an erosion. The gastroscope was then slowly withdrawn and removed. Multiple erosions were found in the first portion of the duodenum. With standard forceps, a biopsy was obtained and sent to pathology. Multiple erosions were found in the body and the antrum of the stomach. Multiple biopsies were obtained and sent to pathology. A biopsy for H. pylori was taken. An erosion was found in the upper esophagus. Located 12 cm from the point of entry. With standard forceps, a biopsy was obtained and sent to pathology. Mild gastritis was found in the body and the antrum of the stomach. Multiple biopsies were obtained and sent to pathology. Duodenitis was found in the first portion of the duodenum. With standard forceps, a biopsy was obtained and sent to pathology. ADVERSE EVENTS: There were no complications. IMPRESSIONS: 1. Multiple erosions were found in the first portion of the duodenum 2. Multiple erosions were found in the body and the antrum of the stomach 3. An erosion was found in the upper esophagus RECOMMENDATIONS: 1. acid suppression therapy 2. anti-reflux regimen 3. await biopsy results 4. follow-up: office 2 week(s) 5. avoid NSAIDS 6. follow-up of helicobacter pylori status, treat if indicated REPEAT EXAM: Return in 6 month(s) for EGD. Pending Biopsy Farooq Head DR eSigned: Farooq Head DR 12/24/2021 12:19 PM cc: CPT CODES: ICD9 CODES: PATIENT NAME: Beth Reynoso MR#: [id number]
[2021-12-24 13:02] VITALS: TEMP 97.2
[2021-12-24 13:03] VITALS: BP 94/52; O2SAT 100
== END 2021-12-24 12:55 | disposition home or self-care (01) ==
LOC: OR 09:28
PROVIDERS: ATTEND Surgery
PROC: 0DB78ZX Excision of Stomach, Pylorus, Via Natural or Artificial Opening Endoscopic, Diagnostic (ICD-10-PCS; 2021-12-24)
PROC: 0DB68ZX Excision of Stomach, Via Natural or Artificial Opening Endoscopic, Diagnostic (ICD-10-PCS; 2021-12-24)
PROC: 0DB18ZX Excision of Upper Esophagus, Via Natural or Artificial Opening Endoscopic, Diagnostic (ICD-10-PCS; 2021-12-24)
PROC: 0DB98ZX Excision of Duodenum, Via Natural or Artificial Opening Endoscopic, Diagnostic (ICD-10-PCS; principal; 2021-12-24 11:45)
DX: K25.9 Gastric ulcer, unspecified as acute or chronic, without hemorrhage or perforation (principal); K29.50 Unspecified chronic gastritis without bleeding; R10.13 Epigastric pain; K26.9 Duodenal ulcer, unspecified as acute or chronic, without hemorrhage or perforation; K22.10 Ulcer of esophagus without bleeding; K29.80 Duodenitis without bleeding; Z20.822 Contact with and (suspected) exposure to COVID-19
CPT/HCPCS: 36415; 80048; 82947; 85025; 87811; 88305; 88312; J2704; J7030

== ENCOUNTER 2022-01-31 16:14 | Emergency (ER) | payer BC ==
--- OUTSIDE RECORDS SUMMARY | 2022-01-31 16:18 | XMS REPORT | Continuity of Care Document ---
:1975 Author Organization [facility] t Address [address] [place] [address] Care Team Providers Name Role Phone Oswaldo Velasquez M Primary Care Physician Velasquez [place] Attending Clinician Unavailable EMELINA MONROY Attending Clinician Unavailable Deena Peterson Attending Clinician Debi Fortune MA Attending Clinician Unavailable Karl Gunn MD Attending Clinician [phone] Doctor Unassigned, Idalou Attending Clinician Unavailable Emelina Monroy MD Attending Clinician Only, Adc Test Attending Clinician Unavailable Nga Estevez MD Attending Clinician [phone] EMELINA MONROY Admitting Clinician Unavailable Emelina Monroy MD Admitting Clinician Payers Payer Name Policy Type Policy Number Effective Date Expiration Date [facility] [id number] 2015 PPO 00:00:00 Problems Condition Condition Condition Status Onset Resolution Last Treating Co mments Source Name Details Category Date Date Treatment Clinician Date Abscess of Abscess of Disease Active M ethodi jaw jaw 11-12 00:00: Hospita 00 l Chest pain Chest pain Disease Active M ethodi at rest at rest 09-05 st 00:00: Hospita 00 l Thyroid Thyroid Disease Active Univers nodule nodule 12-29 ity of 00:00: [place] 00 Medical Branch No known No known Disease [facility] active active [place] problems problems of Medicin e Allergies, Adverse Reactions, Alerts Allergy Allergy Status Severity Reaction(s) Onset Inactive Treating Comm ents Source Name Type Date Date Clinician VANCOMYC DRUG Active Unknown-Cmnt Un chung IN INGREDI 12-24 ity of 00:00: [place] 00 Medical Branch Vancomyc Propensi Active Unknown - ryland Uni vers in ty to See comments 12-24 syndrome it y of adverse 00:00: [place] reaction 00 Medical s Branch Tramadol Propensi Active Nausea And [facility] ty to Vomiting 12-18 [facility] adverse 00:00: Medical reaction 00 [place] s Vancomyc Propensi Active "red man [facility] ty to 12-18 syndrome" [facility] Analogue adverse 00:00: Head Medical s reaction 00 [place] Center s Propoxyp Propensi Active Nausea And [facility] hene ty to Vomiting 12-18 [facility] N-Acetam adverse 00:00: Medical inophen reaction 00 [place] s Hydrocod Propensi Active N and V [facility] one-Acet ty to 12-18 [facility] aminophe adverse 00:00: Medical n reaction 00 [place] Other Propensi Active Rash "mycins" [facility] ty to 12-18 Since [facility] adverse 00:00: childhood Medica l reaction 00 Center s Oxycodon Propensi Active Nausea And [facility] e ty to Vomiting 12-18 [facility] adverse 00:00: Medical reaction 00 Center s Penicill Propensi Active Since [facility] ins ty to 12-18 childhood [facility] adverse 00:00: not sure Medical reaction 00 about [place] s reaction Oxycodon Propensi Active Nausea And [facility] e-Acetam ty to Vomiting 12-18 [facility] inophen adverse 00:00: Medical reaction 00 Center s Sulfa Propensi Active Hives [facility] (Sulfona ty to 12-18 [facility] mide adverse 00:00: Medical Antibiot reaction 00 [place] ics) s Other Propensi Active Reports [employer] [facility] ty to 12-[address] [facility] adverse 00:00: to of reaction 00 multiple Medici n s pain e medicatio ns Oxycodon Propensi Active GI N/V Method i e-Acetam ty to Intolerance 11-08 inophen adverse 00:00: Hospita reaction 00 l s to drug Amoxicil Propensi Active Hives Method i hans ty to 11-08 adverse 00:00: Hospita reaction 00 l s to drug Propoxyp Propensi Active Hives Method i hene ty to 11-08 N-Acetam adverse 00:00: Hospita inophen reaction 00 l s to drug Oxycodon Propensi Active Hives Method i e ty to 09-05 adverse 00:00: Hospita reaction 00 l s to drug Penicill Propensi Active Pt was Method i ins ty to 09-[address] adverse 00:00: was Hospita reaction 00 allergic l s to drug Sulfa Propensi Active Pt was Methodi (Sulfona ty to 09-[address] mide adverse 00:00: she was a Hospit a Antibiot reaction 00 baby l ics) s to drug Tramadol Propensi Active Itching, Meth juan miguel ty to 09-[address] adverse 00:00: Hospita reaction 00 l s to drug Vancomyc Propensi Active Hives, Method i in ty to 09-[address] adverse 00:00: syndrome Hospita reaction 00 l s to drug Codeine Propensi Active hives Methodi ty to 09-05 st adverse 00:00: Hospita reaction 00 l s to drug Hydrocod Propensi Active Hives Method i one ty to 09-05 st adverse 00:00: Hospita reaction 00 l s to drug Other Propensi Active All Methodi ty to 09-[address] adverse 00:00: Hospita reaction 00 l s TRAMADOL DRUG Active Hives Univers INGREDI 12-29 ity of 00:00: [place] 00 Medical Branch AMOXICIL DRUG Active Swelling Univer s HANS INGREDI 12-29 ity of 00:00: [place] 00 Medical Branch CODEINE DRUG Active Hives Univers INGREDI 12-29 ity of 00:00: [place] 00 Medical Branch Amoxicil Propensi Active Swelling Univ ers hans ty to 12-29 ity of adverse 00:00: [place] reaction 00 Medical s Branch PROPOXYP DRUG Active Hives Univers HENE 12-29 ity of N-ACETAM 00:00: [place] INOPHEN 00 Medical Branch Codeine Propensi Active Hives Univers ty to 12-29 ity of adverse 00:00: [place] reaction 00 Medical s Branch Propoxyp Propensi Active Hives Univer s hene ty to 12-29 ity of N-Acetam adverse 00:00: [place] inophen reaction 00 Medical s Branch Hydrocod Propensi Active Hives Univer s one-Aspi ty to 12-29 ity of rin adverse 00:00: [place] reaction 00 Medical s Branch Penicill Propensi Active Hives Univer s ins ty to 12-29 ity of adverse 00:00: [place] reaction Medical s Branch Oxycodon Propensi Active Nausea Univer s e-Acetam ty to and/or 12-29 ity of inophen adverse Vomiting 00:00: [place] reaction 00 Medical s Branch Sulfa Propensi Active Other - See Patient Un chung (Sulfona ty to comments 12-29 states ity of mide adverse 00:00: she [place] Antibiot reaction 00 cannot Medica l ics) s remember. Branch Tramadol Propensi Active Hives Univer s ty to 12-29 ity of adverse 00:00: [place] reaction 00 Medical s Branch HYDROCOD DRUG Active Hives Univers ONE-ASPI 12-29 ity of RIN 00:00: [place] 00 Medical Branch MORPHINE DRUG Active Swelling Univer s INGREDI 12-29 ity of 00:00: [place] 00 Medical Branch PENICILL Drug Active Hives Univers INS Class 12-29 ity of 00:00: [place] 00 Medical Branch OXYCODON DRUG Active N/V Univers E-ACETAM 12-29 ity of INOPHEN 00:00: [place] 00 Medical Branch SULFA Drug Active Other-Cmnt Univer s (SULFONA Class 12-29 ity of MIDE 00:00: [place] ANTIBIOT 00 Medical ICS) Branch Hydrochl Adverse Active Info Not Commo n orothiaz Reaction Available [facility] Percocet Adverse Active Info Not Commo n Reaction Available [facility] Acetamin Adverse Active Info Not Commo n ophen Reaction Available [facility] Bactrim Adverse Active Info Not Common Reaction Available [facility] Vicodin Adverse Active Info Not Common Reaction Available [facility] Family History Family Member Diagnosis Comments Start Date Stop Date Source Natural daughter Heart disease [facility] Natural father [facility]ett's [facility] Natural father [facility] Natural father Diabetes [facility] Natural father GERD [facility] Natural father Heart attack [facility] Natural father Heart disease [facility] Grandchild Heart disease [facility]aternal grandfather Heart attack [facility] Maternal grandfather Heart disease [facility] Maternal grandmother Blood Clots [facility] Maternal grandmother Diabetes [facility] Maternal grandmother Pancreatic cancer [facility] Maternal grandmother Stroke [facility] Natural mother Blood Clots [facility] Natural mother Colon [facility]ps [facility] Natural mother GERD [facility] Natural mother Heart attack [facility] Natural mother Heart disease [facility] Natural mother Kidney disease [facility] Paternal grandfather Cancer [facility] Paternal uncle Cancer [facility] Paternal uncle Diabetes [facility] Natural sister Liver disease [facility] Social History Social Habit Start Date Stop Date Quantity Comments Source History SDOH University o f Alcohol Frequency [place] M edical [facility] History SDOH University o f Alcohol Std [place] Medical Drinks Branch History SDOH University o f Alcohol Binge [place] Medic al Branch Alcohol intake 2021-09-04 2021-09-04 Ex-drinker [facility] 00:00:00 00:00:00 (finding) Tobacco use and 2018-12-18 2018-12-18 Never used [facility] exposure 00:00:00 00:00:00 Medical Center Alcohol Comment 2016-09-05 2016-09-05 Social - one [facility] 00:00:00 00:00:00 drink/month Sex Assigned At [address] [facility] 00:00:00 00:00:00 Smoking Status Start Date Stop Date Source Never smoked [facility] Medications Ordered Filled Start Stop Current Ordering Indication Dosage Frequency Signature Comments Components Source Medication Medication Date Date Medication? Clinician (SIG) Name Name albuterol 2020-0 Yes 2{puff} Inhale 2 U nivers (PROAIR 7-28 Puffs ity of HFA) 90 15:49: every 6 [place] mcg/actuati 35 (six) Medical on inhaler hours as Branc h needed for Wheezing or Shortness of Breath. amphetamine 2020-0 Yes 20mg Take 20 mg Univers -dextroamph 7-28 by mouth 2 it y of etamine 15:49: (two) [place] (ADDERALL 35 times Medical XR) 20 mg daily. Branch 24 hr capsule acetaminoph 2020-0 Yes Take by Uni vers en 7-28 mouth ity of (TYLENOL) 15:49: every 6 [place] 325 mg 35 (six) Medical tablet hours as Branch needed. sennosides- 2020-0 Yes 1{tbl} Take 1 Un chung docusate 7-28 tablet by ity of sodium 15:49: mouth 3 [place] (SENNA 35 (three) Medical PLUS) times Branch 8.6-50 mg daily. per tablet eszopiclone 2020-0 Yes 1mg Take 1 mg U nivers (LUNESTA) 1 7-28 by mouth ity of mg tablet 15:49: at [place] [address] bedtime. Medical Branch propranolol 2020-0 Yes 40mg Take 40 mg Univers 40 mg 7-28 by mouth 2 ity of tablet 15:49: (two) [place] 35 times Medical daily. Branch omeprazole 2020-0 Yes 40mg Take 40 mg U nivers 40 mg 7-28 by mouth ity of capsule 15:49: daily. [place] [address] Medical Branch furosemide 2020-0 Yes 20mg Take 20 mg U nivers 20 mg 7-28 by mouth ity of tablet 15:49: as needed. [address] Branch topiramate 2020-0 Yes 100mg Take 100 Un chung (TOPAMAX) 7-28 mg by ity of 200 mg 15:49: mouth [place] tablet 35 every Medical morning Branch and at bedtime. Indication s: 200mg at bedtime loratadine 2020-0 Yes Take by Univ ers 10 mg 7-28 mouth ity of capsule 15:49: daily. [place] [address] Medical Branch Adderall Adderall 2020-0 Yes Velasquez 1 tablet Common 7-27 [place] in the [facility] 00:00: morning - [facility] 00 [facility] Neomycin-Po Neomycin-Po 2019-0 Yes Velasquez 4 drops Common lymyxin-HC lymyxin-HC 6-10 [place] into Sp florencia 00:00: affected - CHI 00 ear [facility] topiramate 2019-0 Yes 100mg Q.5D Take [address] (TOPAMAX) 7-22 mg by [facility] 100 MG 14:30: mouth 2 Medical tablet 34 (two) Center times daily. propranolol 2019-0 Yes 40mg [id number] Take [address] (INDERAL) 7-22 [id number] by mouth 3 [facility] 40 MG 14:30: 3D (three) Medical tablet 34 times Center daily. naltrexone- 2019-0 Yes Q.5D Take by [facility] bupropion 7-22 mouth 2 [facility] (CONTRAVE) 14:30: (two) Medica l 8-90 mg 34 times Center TbER daily. omeprazole 2018-0 Yes 10mg QD Take [address] (PRILOSEC) 7-22 by mouth [facility] 10 MG 14:30: daily. Medical capsule 34 Center aspirin 81 2018-0 Yes 81mg QD Take [address] MG EC 7-22 by mouth [facility] tablet 14:30: daily. Medical 34 Center dextroamphe 2018-0 Yes 20mg Q.5D Take [address] tamine-amph 7-22 by mouth 2 Shelley kes etamine 14:30: (two) Medical (ADDERALL 34 times Center XR) 20 MG daily. 24 hr capsule SUMAtriptan 2018-0 Yes 50mg Take [address] (IMITREX) 7-22 by mouth [facility] 50 MG 14:30: once as Medical tablet 34 needed for Center Headaches (takes every two weeks). ibuprofen 2019-0 Yes 800mg Take [address] (ADVIL,MOTR 7-22 mg by [facility] IN) 800 MG 14:30: mouth Medica l tablet 34 every 6 Center (six) hours as needed for Pain (for migraine). acetaminoph 2019-0 Yes 500mg Take [address] en 7-22 mg by [facility]ukes (TYLENOL) 14:30: mouth Medical 500 MG 34 every 6 Center tablet (six) hours as needed for Pain. ascorbic 2019-0 Yes 500mg QD Take [address] acid, 7-22 mg by [facility] vitamin C, 14:30: mouth Medica l (ASCORBIC 34 daily. Center ACID WITH CLAUDE HIPS) 500 MG tablet potassium 2019-0 Yes 20meq Q.5D Take [address] chloride 7-22 mEq by [facility]ukes (KLOR-CON) 14:30: mouth 2 Medi prashant 20 mEq 34 (two) Center packet times daily. magnesium 2019-0 Yes 30mg Q.5D Take [address] 30 mg 7-22 by mouth 2 [facility] tablet 14:30: (two) Medical 34 times Center daily. omeprazole 2019-0 Yes 40mg Q.5D Take 40 mg M ethodi (PriLOSEC) 5-[address] 40 MG 14:23: (two) Hospita capsule 22 times a l day. topiramate 2018-0 Yes 100mg Q.5D Take 100 Me thodi (TOPAMAX) 5-[address] 100 MG 13:53: mouth 2 Hospita tablet 37 (two) l times a day. For breakthrou gh headaches eszopiclone 2018-0 Yes 1mg QD Take 1 mg M ethodi (LUNESTA) 1 5-[address] MG tablet 13:53: nightly. Hosp michael 37 Take l immediatel y before bedtime SUMAtriptan 2018-0 Yes 50mg Take 50 mg Methodi (IMITREX) 5-[address] 50 MG 13:53: once as Hospita tablet 37 needed for l migraine. May repeat in 2 hours if unresolved . Do not exceed 200 mg in 24 hours. metoprolol 2019-0 Yes 25mg Q.5D Take 25 mg M ethodi tartrate 5-[address] (LOPRESSOR) 13:53: (two) Hospi ta 25 mg 37 times a l tablet day. potassium 2019-0 Yes 1{tbl} QD Take 1 Meth juan miguel 99 mg 5-[address] tablet 13:53: mouth Hospita 37 daily. l aspirin 2019-0 Yes 81mg QD Take 81 mg Meth juan miguel (ECOTRIN) 5-[address] 81 MG 13:53: daily. If Hospita enteric 37 taken l coated every day tablet "nosebleed s" furosemide 2018-0 Yes 10mg Take 10 mg M ethodi (LASIX) 20 5-[address] mg tablet 13:53: as needed Hos antonio 37 (pt takes l when she is swollen). dextroamphe Yes 20mg QD Take 20 mg Methodi tamine-amph 5-[address] etamine 13:53: daily. Hospita (ADDERALL) 37 l 20 mg tablet linaclotide Yes 290ug QD Take 1 Met hodi (LINZESS) 5-[address] 290 mcg 00:00: (290 mcg Hospit a capsule 00 total) by l mouth daily. Take 20 minutes before each meal nortriptyli 2015-05 Yes TAKE 1 Univ ers ne 50 mg 2-01 CAPSULE BY ity o f capsule 00:00: MOUTH AT [place] 00 BEDTIME Medical Branch EPIPEN Yes GIVE 1 Univers 2-MAXIMUS 0.3 11-25 DOSE BY ity of mg/0.3 mL 00:00: INJECTION Rajat as injection 00 AFTER BEE Medic al STING WITH Branch REACTION, MAY REPEAT DOSE IF PROBLEMS OCCUR,GO TO ER hydrochloro Yes 25mg Take 25 mg Univers thiazide 29 by mouth ity of (ESIDRIX) 00:00: daily. [place] 25 mg 00 Medical tablet Branch SUMAtriptan Yes as needed U nivers (IMITREX) 6 for ity of 50 mg 00:00: Migraine. [place] tablet 00 Medical Branch ibuprofen Yes as needed Uni vers (MOTRIN) 5-06 (As needed ity o f 800 mg 00:00: for [place] tablet 00 migraine Medical headache.) Branch . No known No [facility] Medicin e Belsomra Belsomra Yes Velasquez 1 tablet C ommon [place] at bedtime Spirit as needed [facility] Magnesium Magnesium Yes Velasquez 2 tablets Common [place] with a Spirit meal - [facility] Sumatriptan Sumatriptan Yes Velasquez 1 tablet Common Succinate Succinate [place] as needed [facility] Propranolol Propranolol Yes Velasquez 1 tablet Common HCl HCl [place] [facility] Aspir-81 Aspir-81 Yes Velasquez 1 tablet C ommon [place] [facility] Loratadine Loratadine Yes Velasquez 1 tablet Common [place] [facility] Omeprazole Omeprazole Yes Velasquez 1 capsule Common [place] [facility] - [facility] Topiramate Topiramate Yes Velasquez 1 tablet Common [place] in AM and Spirit 2 tabls in - CHI PM [facility] ProAir HFA ProAir HFA Yes Velasquez 2 puffs as Common [place] needed Spirit - [facility] EpiPen EpiPen Yes Velasquez give 1 Common 2-Maximus 2-Maximus [place] dose by Spirit injection - [facility] after bee St sting with [facility] reaction, Medical may repeat Center dose x1. if problems occur go to emergency room. Yudy Jimenes 2019- No Velasquez 1 capsule C ommon 06-26 [place] Spirit 00:00 - CHI :00 [facility] Vital Signs Vital Name Observation Time Observation Value Comments Source Body height 2021-09-04 16:01:00 170.2 cm [facility] Body weight 2021-09-04 16:01:00 86.183 kg [facility] BMI 2021-09-04 16:01:00 29.76 kg/m2 [facility] Procedures Procedure Date / Time Performed Performing Clinician Deedee e XR KNEE 4+ VW RIGHT 2021-09-04 15:49:53 Deena Phan [facility] EXTERNAL PROVIDER 2021-06-02 06:01:00 Doctor Unassigned, No [facility] RECORDS Name Medical Branch OCT, RETINA - OD - 2019-01-16 14:52:33 Nga Estevez [facility] EYE [facility] Plan of Care Planned Activity Planned Date Details Comments Source Future Scheduled 2022-01-27 HEPATITIS B VACCINES Met [facility] Test 13:46:23 (1 of 3 - 3-dose series) [code = HEPATITIS B VACCINES (1 of 3 - 3-dose series)] Future Scheduled 2022-01-27 COVID-19 VACCINE (#1) [facility] Test 13:46:23 [code = COVID-19 VACCINE (#1)] Future Scheduled 2022-01-27 Hepatitis C screening [facility] Test 13:46:23 (procedure) [code = 806325026] Future Scheduled 2022-01-[address] [facility] Test 13:46:23 malignant neoplasm of cervix (procedure) [code = 101440642] Future Scheduled 2022-01-[address] [facility] Test 13:46:23 SCREENING [code = BREAST CANCER SCREENING] Future Scheduled 2022-01-27 COLONOSCOPY SCREENING [facility] Test 13:46:23 [code = COLONOSCOPY SCREENING] Future Scheduled 2022-01-27 INFLUENZA VACCINE Method [facility] Test 13:46:23 [code = INFLUENZA VACCINE] Future Scheduled MAMMOGRAM ANNUAL [facility] [code = MAMMOGRAM Medicine ANNUAL] Future Scheduled TETANUS SHOT (ADULT) [facility] [code = TETANUS SHOT Medicin e (ADULT)] Future Scheduled HIV SCREENING [code = [facility] Test HIV SCREENING] Medicine Future Scheduled CERVICAL CANCER [facility] ollege of Test SCREENING 3 YEAR Medicine FOLLOW UP [code = CERVICAL CANCER SCREENING 3 YEAR FOLLOW UP] Future Scheduled FLU VACCINE > 6 [employer] [facility] C ollege of Test MONTHS [code = FLU Medicine VACCINE > 6 MONTHS] Encounters Start End Encounter Admission Attending Care Care Encounter Source Date/Time Date/Time Type Type Clinicians Facility Department ID 2022-01-21 Outpatient [place], [facility] [id number] Common 14:33:00 Velasquez [facility] 2021-12-04 Outpatient [place], [facility] [id number] Common 10:18:00 Velasquez [id number] [facility] 2021-10-30 [facility] [place] [id number] Common 10:31:00 Velasquez [facility] 2021-09-01 Out[facility] [place], [facility] [id number] Common 10:10:00 Velasquez [facility] 2021-08-26 Outpatient [place], [facility] [id number] Common 08:17:15 Velasquez [facility] 2021-08-19 [facility] [place], [facility] [id number] Common 13:23:01 Velasquez [facility] 2021-06-24 Out[facility] [place], [facility] [id number] Common 14:07:53 Velasquez [id number] [facility] 2021-06-24 Outpatient [place], STLMLC STLMLC [id number] Common 12:41:41 Velasquez [id number] [facility] 2021-06-24 Outpatient [place], STLMLC STLMLC [id number] Common 12:33:11 Velasquez [id number] [facility] 2021-06-24 Outpatient [place], STLMLC STLMLC [id number] Common 12:26:07 Velasquez [id number] [facility] 2021-06-24 Outpatient [place], STLMLC STLMLC [id number] Common 11:32:51 Velasquez [id number] [facility] 2021-06-24 Outpatient [place], STLMLC STLMLC [id number] Common 11:18:10 Velasquez [id number] [facility] 2021-06-24 Outpatient [place], STLMLC STLMLC [id number] Common 11:03:34 Velasquez [id number] [facility] 2021-06-24 Outpatient [place], STLMLC STLMLC [id number] Common 11:03:09 Velasquez [id number] [facility] 2021-03-27 Outpatient [facility] [id number] Univers 07:10:14 EMELINA islas [facility] 2022-01-21 2022-01-21 ambulatory STLMLC STLMLC [id number] Common 00:00:00 00:00:00 [facility] 2021-11-02 2021-11-02 ambulatory STLMLC STLMLC [id number] Common 00:00:00 00:00:00 [facility] 2021-10-20 2021-10-20 ambulatory STLMLC STLMLC [id number] Common 00:00:00 00:00:00 [facility] 2021-10-14 2021-10-14 ambulatory STLMLC STLMLC [id number] Common 00:00:00 00:00:00 [facility] 2021-10-06 2021-10-06 ambulatory STLMLC STLMLC [id number] Common 00:00:00 00:00:00 [facility] 2021-10-05 2021-10-05 ambulatory STLMLC STLMLC [id number] Common 00:00:00 00:00:00 [facility] 2021-09-04 2021-09-10 Office Elizaliban, [id number] [id number] Methodi 10:45:00 16:56:14 Visit Deena [place] [id number] 3.430.2.7 Hospit a .3.353431 l .8 2021-09-04 2021-09-04 Outpatient [facility] [id number] [place] 00:00:00 00:00:[address] 2021-09-04 2021-09-04 Outpatient [facility] [id number] [place] 00:00:00 00:00:[address] 2021-09-04 2021-09-04 Travel 1.2.840.1 [id number] Methodi 00:00:00 00:00:[id number] 3.430.2.7 0.2.7.3.698 spita .3.115103 084.8 l .8 2021-09-03 2021-09-03 [facility] Pardo-Kacie 1.2.840.1 [id number] Methodi 00:00:00 00:00:00 Only Debi wiley 68705.1.1 816 s t D 3.430.2.7 Hospit a .3.892593 l .8 2021-08-03 2021-08-03 ambulatory STLMLC STLMLC [id number] Common 00:00:00 00:00:00 [facility] 2021-07-15 2021-07-15 ambulatory STLMLC STLMLC [id number] Common 00:00:00 00:00:00 [facility] 2021-07-14 2021-07-14 ambulatory STLMLC STLMLC [id number] Common 00:00:00 00:00:00 [facility] 2021-07-01 2021-07-01 ambulatory STLMLC STLMLC [id number] Common 00:00:00 00:00:00 [facility] 2021-06-05 2021-06-05 ambulatory STLMLC STLMLC [id number] Common 00:00:00 00:00:00 [facility] 2021-06-04 2021-06-04 ambulatory STLMLC STLMLC [id number] Common 00:00:00 00:00:00 [facility] 2021-06-04 2021-06-04 ambulatory STLMLC STLMLC [id number] Common 00:00:00 00:00:00 [facility] 2021-06-03 2021-06-03 Telephone Fadhenry, [facility] [id number] 00:00:00 00:00:00 [facility] 2021-06-02 2021-06-02 Orders Doctor MAI [id number] Univers 00:00:00 00:00:00 Only Unassigned, [place] 350.1.13.10 [facility] 4.2.7.2.686 Rajat as [id number] [facility] prashant 009 Branch 2021-06-01 2021-06-01 ambulatory STLMLC STLMLC [id number] Common 00:00:00 00:00:00 [facility] 2021-04-01 2021-04-01 ambulatory STLMLC STLMLC [id number] Common 00:00:00 00:00:00 [facility] [facility]21 2021-03-21 Outpatient STLMLC STLMLC [id number] Common 00:00:00 00:00:00 [facility] 2021 2021 Outpatient STLMLC STLMLC [id number] Common 00:00:00 00:00:00 [facility] 2021 2021 Outpatient STLMLC STLMLC [id number] Common 00:00:00 00:00:00 [facility] 2020-09-22 2020-09-22 Outpatient STLMLC STLMLC [id number] Common 00:00:00 00:00:00 [facility] 2020-08-20 2020-08-20 Outpatient STLMLC STLMLC [id number] Common 00:00:00 00:00:00 [facility] 2020-08-14 2020-08-14 Outpatient STLMLC STLMLC [id number] Common 00:00:00 00:00:00 [facility] 2020-07-24 2020-07-24 Outpatient STLMLC STLMLC [id number] Common 00:00:00 00:00:00 [facility] 2020-05-20 2020-05-20 Outpatient STLMLC STLMLC [id number] Common 00:00:00 00:00:00 [facility] 2020-04-03 2020-04-03 Outpatient STLMLC STLMLC [id number] Common 00:00:00 00:00:00 [facility] 2020-03-17 2020-03-17 Outpatient STLMLC STLMLC [id number] Common 00:00:00 00:00:00 [facility] 2020-03-10 2020-03-10 Outpatient STLMLC STLMLC [id number] Common 00:00:00 00:00:00 [facility] 2019-12-25 2019-12-25 [facility] [id number] 06:54:00 15:15:00 Encounter Emelina Vu [id number] [place] [id number] [facility] [id number] [place] 071 2019-12-24 2019-12-24 [facility] [id number] Common 15:00:00 15:00:00 t [employer] [place] [address] [facility] 2019-12-24 2019-12-24 Laboratory Only, Adc [facility] [id number] 11:22:16 11:37:16 Only Test Horace [id number] [place] [id number] [place] [id number] [facility] 2019-12-24 2019-12-24 Outpatient R [facility] [id number] Univers 11:15:00 11:15:00 [id number] [facility]y [facility] 2019-12-24 2019-12-24 Outpatient R [facility] [id number] Univers 11:15:00 11:15:00 ity [facility] 2019-11-07 2019-11-07 [facility] [id number] Common 11:00:00 11:00:[address] [facility] 2019-11-06 2019-11-06 [facility] [id number] Common 14:49:00 14:49:[address] [facility] 2019-10-23 2019-10-23 [facility] [id number] Common 16:45:00 16:45:[address] [facility] 2019-08-23 2019-08-23 [facility] [id number] Common 14:45:00 14:45:[address] [facility] 2019-07-12 2019-07-12 [facility] [id number] Common 15:25:00 15:25:[address] [facility] 2019-06-25 2019-06-25 [facility] [id number] Common 16:15:00 16:15:[address] [facility] 2019-05-22 2019-05-22 [facility] [id number] Common 10:15:00 10:15:[address] [facility] 2019-04-25 2019-04-25 [facility] [id number] Common 10:15:00 10:15:[address] [facility] 2019-04-23 2019-04-23 [facility] [id number] Common 14:15:00 14:15:[address] Family - [facility] 2019-03-28 2019-03-28 [facility] [id number] Common 16:15:00 16:15:[address] Family - [facility] 2019-02-27 2019-02-27 [facility] [id number] Common 15:30:00 15:30:[address] [facility] 2019-02-09 2019-02-09 [facility] [id number] Common 09:49:00 09:49:[address] [facility] 2019-01-26 2019-01-26 [facility] [id number] Common 08:00:00 08:00:[address] [facility] 2019-01-16 2019-01-16 Office [facility] [id number] 07:26:27 07:41:27 Visit , Nga AMBULATOR [id number] [place] [id number] [facility] 2019-01-16 2019-01-16 [facility] [id number] [employer] [facility] [employer] [facility] 07:26:27 07:41:27 Visit , Nga AMBULATOR [id number] College [place] [id number] of [id number] [facility] 300 e 2018-12-26 2018-12-26 [facility] [id number] Common 14:15:00 14:15:[address] [facility] 2018-12-20 2018-12-20 [facility] [id number] Common 09:47:00 09:47:[address] [facility] 2018-12-06 2018-12-06 [facility] [id number] Common 12:34:00 12:34:[address] Family [facility] 2018-11-27 2018-11-27 [facility] [id number] Common 15:15:00 15:15:[address] [facility] 2018-09-20 2018-09-20 [facility] [id number] Common 15:45:00 15:45:[address] [facility] 2018-09-05 2018-09-05 [facility] [id number] Common 15:30:00 15:30:00 [facility] 2018-08-17 2018-08-17 [facility] [id number] Common 11:00:00 11:00:[address] [facility] 2018-07-18 2018-07-18 [facility] [id number] Common 15:30:00 15:30:[address] [facility] 2018-07-13 2018-07-13 [facility] [id number] Common 15:01:00 15:01:00 t [facility] 2018-07-13 2018-07-13 [facility] [id number] Common 08:00:00 08:00:00 t [facility] 2018-06-22 2018-06-22 [facility] [id number] Common 15:45:00 15:45:[address] [facility] 2018-05-19 2018-05-19 [facility] [id number] Common 10:00:00 10:00:[address] [facility] 2018-03-02 2018-03-02 [facility] [id number] Common 11:15:00 11:15:[address] [facility] 2018-02-27 2018-02-27 [facility] [id number] Common 16:00:00 16:00:[address] [facility] 2018-02-02 2018-02-02 [facility] [id number] Common 09:30:00 09:30:00 t [facility] 2018-01-03 2018-01-03 [facility] [id number] Common 16:35:00 16:35:00 t [facility] 2018-01-03 2018-01-03 [facility] [id number] Common 14:00:00 14:00:00 t [facility] 2017-12-19 2017-12-19 [facility] [id number] Common 10:15:00 10:15:[address] [facility] 2017-11-18 2017-11-18 [facility] [id number] Common 09:00:00 09:00:[address] [facility] 2017-10-17 2017-10-17 [facility] [id number] Common 15:00:00 15:00:[address] [facility] 2017-10-03 2017-10-03 [facility] [id number] Common 15:30:00 15:30:00 [facility] 2017-09-26 2017-09-26 [facility] [id number] Common 16:00:00 16:00:00 [facility] 2017-09-22 2017-09-22 [facility] [id number] Common 17:19:00 17:19:00 [facility] 2017-09-22 2017-09-22 [facility] [id number] Common 09:00:00 09:00:00 [facility] 2017-09-14 2017-09-14 Outpatient Alvina [place]le[place] [id number] Common 16:04:00 16:04:00 [place] [employer] [place] [address] [facility] 2017-09-14 2017-09-14 [facility] [id number] Common 16:00:00 16:00:00 [place] [place] [address] [facility] Results Test Description Test Time Test Comments Results Result Comments Source OCT, RETINA - OD - 2019-01-16 No IRF [facility] RIGHT EYE 15:17:03 of Medicine
[2022-01-31 17:39] LABS: Absolute Lymphocytes (CBC) 1.6 K/uL (0.7-4.9); Lymphocytes % 31.9 % (15.3-44.8); MCV 84.7 fL (80-100); MPV 9.8 fL (7.6-11.3); RBC Red Blood Cell Count 4.84 M/uL (3.86-4.86)
[2022-01-31] MEDS ORDERED: FAMOTIDINE 20 MG/2 ML VIAL IV ONE (17:53)
[2022-01-31] MEDS ORDERED: MORPHINE 4 MG/ML SYR ONE (17:53)
[2022-01-31] MEDS ORDERED: NA CHLORIDE 0.9% 1,000 ML ONE (17:53)
[2022-01-31] MEDS ORDERED: ONDANSETRON 4 MG/2 ML VIAL ONE (17:53)
[2022-01-31 17:58] LABS: Albumin 3.7 g/dL (3.4-5.0); Bilirubin Total 0.5 mg/dL (0.2-1.0); Potassium 3.7 mmol/L (3.5-5.1)
--- NOTE | 2022-01-31 18:29 | RAD REPORT ---
EXAM DESCRIPTION: CT - Abdomen Pelvis W Contrast - 01/31/2022 6:19 pm CLINICAL HISTORY: Abdominal pain COMPARISON: none. TECHNIQUE: Computed axial tomography of the abdomen pelvis was obtained. 100 cc Isovue-300 was admin istered intravenously. Oral contrast was not requested which limits evaluation of bowel and appendix All CT scans are performed using dose optimization technique as appropriate and may include automated exposure control or mA/KV adjustment according to patient size. FINDINGS: The liver, spleen, pancreas, adrenal and kidneys appear unremarkable. There is no evidence of diverticulitis. Normal appendix. No adnexal mass Cholecystectomy. Hysterectomy Small umbilical hernia IMPRESSION: No acute abnormality is displayed.
--- NOTE | 2022-01-31 18:54 | EDPHYS ---
Physician Documentation [facility] Name: Beth Reynoso Age: 47 yrs Sex: Female : 1975 Arrival Date: 01/31/2022 Time: 16:19 Bed 13 Private MD: Osw[facility] ED Physician Eliezer Kumar HPI: 01/31 18:23 This 47 yrs old Female presents to ER via Ambulatory with complaints of bleeding ulcers.kdr 18:23 Since yesterday, the patient states that her stomach will stop hurting. She also states kdr that she is having increased swelling and possibly black stools as well. She also complains of bad smelling belches as well as flatus. She is concerned that her stomach ulcers had esophageal ulcers may be acting up again. She states that she had finished some medication prescribed by Dr. Head about 2 weeks ago and had been doing fine until yesterday. She may have had some deviation from her normally bland diet in the last 24 hours as well. Onset: The symptoms/episode began/occurred gradually, yesterday. The patient has experienced similar episodes in the past, multiple times. The patient has not recently seen a physician. Historical: - Allergies: 16:38 Codeine; iw 16:38 Darvocet-N 100; iw 16:38 Lortab; iw 16:38 PENICILLINS; iw 16:38 Percocet; iw 16:38 Pineapple; iw 16:38 Sulfa (Sulfonamide Antibiotics); iw 16:38 Tramadol HCl; iw 16:38 VANCOMYCIN AND DERIVATIVES; iw 16:38 Monistat-Derm; iw - PMHx: 16:38 Kidney stones; Hypothyroidism; Diabetes - NIDDM; bells palsy; Asthma; CVA; Migraines; iw IBS; ulcers; - PSHx: 16:38 hysterectomy; Tonsillectomy; breast reduction; right knee; iw - Social history:: Smoking status: Patient denies any tobacco usage or history of. ROS: 18:23 Constitutional: Negative for fever, chills, and weight loss, Eyes: Negative for injury, kdr pain, redness, and discharge, ENT: Negative for injury, pain, and discharge, Neck: Negative for injury, pain, and swelling, Cardiovascular: Negative for chest pain, palpitations, and edema, Respiratory: Negative for shortness of breath, cough, wheezing, and pleuritic chest pain, Back: Negative for injury and pain, : Negative for injury, bleeding, discharge, and swelling, MS/Extremity: Negative for injury and deformity, Skin: Negative for injury, rash, and discoloration, Neuro: Negative for headache, weakness, numbness, tingling, and seizure activity. Psych: Negative for depression, anxiety, suicide ideation, homicidal ideation, and hallucinations, Allergy/Immunology: Negative for hives, rash, and allergies, Endocrine: Negative for neck swelling, polydipsia, polyuria, polyphagia, and marked weight changes, Hematologic/Lymphatic: Negative for swollen nodes, abnormal bleeding, and unusual bruising. 18:23 Abdomen/GI: Positive for abdominal pain, nausea, abdominal distension, anorexia, black/tarry stool, Negative for diarrhea, constipation, anorexia, bowel incontinence. Exam: 18:23 Constitutional: This is a well developed, well nourished patient who is awake, alert, kdr and in no acute distress. Head/Face: Normocephalic, atraumatic. Eyes: Pupils equal round and reactive to light, extra-ocular motions intact. Lids and lashes normal. Conjunctiva and sclera are non-icteric and not injected. Cornea within normal limits. Periorbital areas with no swelling, redness, or edema. Neck: Trachea midline, no thyromegaly or masses palpated, and no cervical lymphadenopathy. Supple, full range of motion without nuchal rigidity, or vertebral point tenderness. No Meningismus. Chest/axilla: Normal chest wall appearance and motion. Nontender with no deformity. No lesions are appreciated. Cardiovascular: Regular rate and rhythm with a normal S1 and S2. No gallops, murmurs, or rubs. Normal PMI, no JVD. No pulse deficits. Respiratory: Lungs have equal breath sounds bilaterally, clear to auscultation and percussion. No rales, rhonchi or wheezes noted. No increased work of breathing, no retractions or nasal flaring. Back: No spinal tenderness. No costovertebral tenderness. Full range of motion. Skin: Warm, dry with normal turgor. Normal color with no rashes, no lesions, and no evidence of cellulitis. MS/ Extremity: Pulses equal, no cyanosis. Neurovascular intact. Full, normal range of motion. Neuro: Awake and alert, GCS 15, oriented to person, place, time, and situation. Cranial nerves II-XII grossly intact. Motor strength 5/5 in all extremities. Sensory grossly intact. Cerebellar exam normal. Normal gait. Psych: Awake, alert, with orientation to person, place and time. Behavior, mood, and affect are within normal limits. 18:23 Abdomen/GI: Inspection: abdomen appears normal, obese Bowel sounds: active, all quadrants, Palpation: soft, mild abdominal tenderness, in all quadrants, Rectal exam: rectal tone normal, Stool: guaiac negative, hemorrhoid(s), external, internal, with thrombosis, without bleeding, without inflammation, mass, is not appreciated, swelling, is not appreciated, tenderness, is not appreciated, fecal impaction, is not appreciated, the exam is chaperoned by the nurse. Vital Signs: 16:36 BP 133 / 79; Pulse 86; Resp 16; Temp 98.4; Pulse Ox 100% on R/A; iw 18:04 BP 107 / 65; Pulse 84; Resp 16; Pulse Ox 99% ; bp 19:10 BP 111 / 60; Pulse 88; Resp 18 S; Pulse Ox 97% on R/A; as6 MDM: 18:23 Data reviewed: vital signs, nurses notes, lab test result(s), radiologic studies. kdr Counseling: I had a detailed discussion with the patient and/or guardian regarding: the historical points, exam findings, and any diagnostic results supporting the discharge/admit diagnosis, lab results, radiology results, the need for outpatient follow up. 18:54 Patient medically screened. [facility] 01/31 17:12 Order name: CBC with Diff; Complete Time: 18:21 [facility] 01/31 17:12 Order name: CMP; Complete Time: 18:21 [facility] 01/31 17:12 Order name: Lipase; Complete Time: 18:21 [facility] 01/31 17:12 Order name: CT Abd/Pelvis - IV Contrast Only; Complete Time: 18:46 [facility] 01/31 17:12 Order name: IV Saline Lock; Complete Time: 17:24 [facility] 01/31 17:12 Order name: Labs collected and sent; Complete Time: 17:24 kdr Administered Medications: 17:30 Drug: NS 0.9% 1000 ml Route: IV; Rate: 1 bolus; Site: right forearm; bp 19:10 Follow up: Response: No adverse reaction; IV Status: Completed infusion; IV Intake: as6 1000ml 17:30 Drug: Pepcid (famotidine) 20 mg Route: IVP; Site: right forearm; bp 19:10 Follow up: Response: No adverse reaction as6 17:30 Drug: Zofran (Ondansetron) 4 mg Route: IVP; Site: right forearm; bp 19:10 Follow up: Response: No adverse reaction as6 17:30 Drug: morphine 4 mg Route: IVP; Infused Over: 4 mins; Site: right forearm; bp 18:58 Follow up: Response: Pain is decreased bp 18:58 Drug: CarafATE (sucralfate) 1 grams Route: PO; bp 19:10 Follow up: Response: No adverse reaction as6 Disposition Summary: 01/31/22 18:54 Discharge Ordered Location: Home kdr Problem: an acute exacerbation kdr Symptoms: have improved kdr Condition: Stable kdr Diagnosis - Abdominal pain, Generalized kdr Followup: kdr - With: Velasquez Chacon DO - When: 2 - 3 days - Reason: If symptoms return, Further diagnostic work-up, Recheck today's complaints, Continuance of care, Re-evaluation by your physician Followup: kdr - With: Farooq Head MD - When: 2 - 3 days - Reason: If symptoms return, Further diagnostic work-up, Recheck today's complaints, Continuance of care, Re-evaluation by your physician Discharge Instructions: - Discharge Summary Sheet kdr - Abdominal Pain, Adult, [id number] kdr - Gastroesophageal Reflux Disease, Adult, [id number] kdr Forms: - Medication Reconciliation Form kdr - Thank You Letter kdr - Antibiotic Education kdr Prescriptions: - AcipHex 20 mg Oral tablet,delayed release (DR/EC) - take 3 tablet by ORAL route 2 times per day; 60 tablet; Refills: 0, Product kdr Selection Permitted - Carafate 1 gram Oral Tablet - take 1 tablet by ORAL route 3 times per day take on an empty stomach, beginning kdr on waking and last dose at bedtime; 100 tablet; Refills: 0, Product Selection Permitted - Zofran 4 mg Oral Tablet - take 1 tablet by ORAL route every 12 hours As needed; 6 tablet; Refills: 0, kdr Product Selection Permitted - dicyclomine 20 mg Oral Tablet - take 1 tablet by ORAL route 3 times per day As needed; 30 tablet; Refills: 0, kdr Product Selection Permitted Signatures: DispEliezer Jones MD MD kdr Williams, Irene, RN RN iw Corey Zapata RN RN Kadeem Carmen RN as6
--- NOTE | 2022-01-31 18:54 | ER ---
Nurse's Notes [facility] Name: Beth Reynoso Age: 47 yrs Sex: Female : 1975 Arrival Date: 01/31/2022 Time: 16:19 Bed 13 Private MD: Velasquez Chacon Diagnosis: Abdominal pain, Generalized Presentation: 01/31 16:36 Chief complaint: Patient states: my stomach wont stop swelling my stool is black, I'm iw passing gas that smells bad, my stomach is killing my, I think it is my stomach ulcers , about two weeks ago I finished medication to help rebuild the lining of my stomach , my symptoms started yesterday. Coronavirus screen: At this time, the client does not indicate any symptoms associated with coronavirus-19. Ebola Screen: Patient negative for fever greater than or equal to 101.5 degrees Fahrenheit, and additional compatible Ebola Virus Disease symptoms Patient denies exposure to infectious person. Patient denies travel to an Ebola-affected area in the 21 days before illness onset. No symptoms or risks identified at this time. Initial Sepsis Screen: Does the patient meet any 2 criteria? No. Patient's initial sepsis screen is negative. Does the patient have a suspected source of infection? No. Patient's initial sepsis screen is negative. Risk Assessment: Do you want to hurt yourself or someone else? Patient reports no desire to harm self or others. Onset of symptoms was January 30, 2022. 16:36 Method Of Arrival: Ambulatory iw 16:36 Acuity: JADIEL 3 iw Triage Assessment: 16:45 General: Appears in no apparent distress. uncomfortable, Behavior is calm, cooperative, bp appropriate for age. Pain: Complains of pain in abdomen. EENT: No deficits noted. Neuro: No deficits noted. Cardiovascular: No deficits noted. Respiratory: No deficits noted. GI: Reports nausea. : No signs and/or symptoms were reported regarding the genitourinary system. Derm: No deficits noted. Musculoskeletal: No deficits noted. Historical: - Allergies: 16:38 Codeine; iw 16:38 Darvocet-N 100; iw 16:38 Lortab; iw 16:38 PENICILLINS; iw 16:38 Percocet; iw 16:38 Pineapple; iw 16:38 Sulfa (Sulfonamide Antibiotics); iw 16:38 Tramadol HCl; iw 16:38 VANCOMYCIN AND DERIVATIVES; iw 16:38 Monistat-Derm; iw - PMHx: 16:38 Kidney stones; Hypothyroidism; Diabetes - NIDDM; bells palsy; Asthma; CVA; Migraines; iw IBS; ulcers; - PSHx: 16:38 hysterectomy; Tonsillectomy; breast reduction; right knee; iw - Social history:: Smoking status: Patient denies any tobacco usage or history of. Screenin:30 Abuse screen: Denies threats or abuse. Denies injuries from another. Nutritional bp screening: No deficits noted. Tuberculosis screening: No symptoms or risk factors identified. Fall Risk None identified. Assessment: 16:45 General: SEE TRIAGE NOTE. bp 18:06 Reassessment: PT TO CT. bp 19:10 Reassessment: Patient appears in no apparent distress at this time. as6 Vital Signs: 16:36 BP 133 / 79; Pulse 86; Resp 16; Temp 98.4; Pulse Ox 100% on R/A; iw 18:04 BP 107 / 65; Pulse 84; Resp 16; Pulse Ox 99% ; bp 19:10 BP 111 / 60; Pulse 88; Resp 18 S; Pulse Ox 97% on R/A; as6 ED Course: 16:19 Patient arrived in ED. as 16:19 Bijan Chacon MD is Private Physician. am2 16:19 Velasquez Chacon DO is Private Physician. am2 16:23 Eliezer Kumar MD is Attending Physician. kdr 16:30 Patient has correct armband on for positive identification. Bed in low position. Call bp light in reach. Side rails up X2. 16:30 Inserted saline lock: 20 gauge in right forearm, using aseptic technique. Blood bp collected. 16:38 Triage completed. iw 16:40 Arm band placed on. iw 16:41 Corey Zapata, ABIGAIL is Primary Nurse. bp 18:21 CT Abd/Pelvis - IV Contrast Only In Process Unspecified. EDMS 18:53 Velasquez Chacon DO is Referral Physician. kdr 18:53 Farooq Head MD is Referral Physician. kdr 19:09 No provider procedures requiring assistance completed. IV discontinued, intact, as6 bleeding controlled, No redness/swelling at site. Pressure dressing applied. Administered Medications: 17:30 Drug: NS 0.9% 1000 ml Route: IV; Rate: 1 bolus; Site: right forearm; bp 19:10 Follow up: Response: No adverse reaction; IV Status: Completed infusion; IV Intake: as6 1000ml 17:30 Drug: Pepcid (famotidine) 20 mg Route: IVP; Site: right forearm; bp 19:10 Follow up: Response: No adverse reaction as6 17:30 Drug: Zofran (Ondansetron) 4 mg Route: IVP; Site: right forearm; bp 19:10 Follow up: Response: No adverse reaction as6 17:30 Drug: morphine 4 mg Route: IVP; Infused Over: 4 mins; Site: right forearm; bp 18:58 Follow up: Response: Pain is decreased bp 18:58 Drug: CarafATE (sucralfate) 1 grams Route: PO; bp 19:10 Follow up: Response: No adverse reaction as6 Medication: 19:09 VIS not applicable for this client. as6 Intake: 19:10 IV: 1000ml; Total: 1000ml. as6 Outcome: 18:54 Discharge ordered by . kdr 19:09 Discharged to home ambulatory. as6 19:09 Condition: stable 19:09 Discharge instructions given to patient, Instructed on discharge instructions, follow up and referral plans. medication usage, Demonstrated understanding of instructions, follow-up care, medications, Prescriptions given X 4. 19:11 Patient left the ED. as6 Signatures: Dispatcher [employer] EDMS Eliezer Kumar MD MD kdr Martinez, Amelia as Williams, Irene, RN RN iw Moreno, Amanda am2 Peltier, Brian, RN RN bp Slawson, Ashby, RN RN as6
[2022-01-31] MEDS ORDERED: SUCRALFATE 1 GM TABLET ONE (19:05)
[2022-01-31 19:55] VITALS: TEMP 98.4
[2022-01-31 20:02] VITALS: BP 111/60; O2SAT 97
== END 2022-01-31 19:11 | disposition home or self-care (01) ==
LOC: ER 16:14
DX: R10.84 Generalized abdominal pain (principal); E11.9 Type 2 diabetes mellitus without complications; Z87.442 Personal history of urinary calculi; Z88.0 Allergy status to penicillin; Z88.2 Allergy status to sulfonamides; Z88.3 Allergy status to other anti-infective agents; Z88.5 Allergy status to narcotic agent; Z88.8 Allergy status to other drugs, medicaments and biological substances; Z91.018 Allergy to other foods
CPT/HCPCS: 96361; 85025; 36415; 83690; 80053; 74177; 96375; 96374; 99284; Q9967; J7030; J2405